=== PATIENT | male | born 1955 | race Caucasian/White ===

== ENCOUNTER 2018-08-11 19:49 | Emergency (ER) | payer MEDICARE, MEDICAID ==
[2018-08-11 19:59] VITALS: BP 146/77
--- NOTE | 2018-08-11 21:08 | UC ---
Hypertension HPI - HPI Summary HPI Summary: 63-year-old male who lives in a care home comes in with a chief complaint of hypertension. On routine blood pressure measuring this evening his systolic was in the 160s. He did receive his blood pressure medicine this eveninG. It appears that he is on losartan. He is on lithium. 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 Patient is asymptomatic. No complaint of chest pain or shortness of breath or edema. - History of Current Complaint Chief Complaint: UCGeneralIllness Stated Complaint: HBP Time Seen by Provider: 08/11/18 20:54 - Allergies/Home Medications Allergies/Adverse Reactions: Allergies Allergy/AdvReac Type Severity Reaction Status Date / Time egg Allergy Unknown Verified 08/11/18 20:22 Reaction Details ragweed pollen Allergy Unknown Verified 08/11/18 20:22 Reaction Details shellfish derived Allergy Unknown Verified 08/11/18 20:22 Reaction Details FLU VACCINE Allergy Unknown Uncoded 08/11/18 20:22 Reaction Details peanuts Allergy Anaphylatic Uncoded 08/11/18 20:22 Shock RID with comb Allergy Unknown Uncoded 08/11/18 20:22 Reaction Details shrimp Allergy Anaphylatic Uncoded 08/11/18 20:22 Shock TUNA Allergy Unknown Uncoded 08/11/18 20:22 Reaction Details Home Medications: Home Medications Amiloride HCl 5 mg PO DAILY 08/11/18 [History Confirmed 08/11/18] Aripiprazole Maintena (NF) [Abilify Maintena] 300 mg IM Q28D 08/11/18 [History Confirmed 08/11/18] [place] Carbonate 150 mg PO BID 08/11/18 [History Confirmed 08/11/18] Multivit-Minerals/Ferrous Gluc [Centrum Multivit-Mineral Liq] 5 ml PO DAILY [History Confirmed 08/11/18] Sertraline HCl [Zoloft] 100 mg PO DAILY 08/11/18 [History Confirmed 08/11/18] PMH/Surg Hx/FS Hx/Imm Hx Cardiovascular History: Hypertension - Surgical History Surgical History: None - Family History Known Family History: Positive: Unknown - Social History [place]: [place] Alcohol Use: None Substance Use Type: None Smoking Status (MU): Never Smoked Tobacco Review of Systems Constitutional: Negative Skin: Negative Eyes: Negative ENT: Negative Respiratory: Negative Cardiovascular: Negative Gastrointestinal: Negative Motor: Negative Neurovascular: Negative Musculoskeletal: Negative Neurological: Negative Psychological: Negative Is Patient Immunocompromised?: No All Other Systems Reviewed And Are Negative: Yes Physical Exam Triage Information Reviewed: Yes Appearance: Well-Appearing, No Pain Distress, Well-Nourished Vital Signs: Initial Vital Signs Temp 98.5 F 08/11/18 19:54 Pulse 61 08/11/18 19:54 Resp 16 08/11/18 19:54 BP 146/77 08/11/18 19:54 Pulse Ox 100 08/11/18 19:54 Vital Signs Reviewed: Yes Eye Exam: Normal Eyes: Positive: Conjunctiva Clear Neck exam: Normal Neck: Positive: Supple Respiratory Exam: Normal Respiratory: Positive: Lungs clear, Normal breath sounds, No respiratory distress Cardiovascular: Positive: RRR Musculoskeletal Exam: Normal Musculoskeletal: Positive: Strength Intact, ROM Intact, No Edema Neurological Exam: Normal Neurological: Positive: Alert, Muscle Tone Normal Psychological Exam: Normal Psychological: Positive: Age Appropriate Behavior Skin Exam: Normal Hypertension Course/Dx - Course Course Of Treatment: Blood pressure improved in clinic to 146/77. The patient is asymptomatic. Caregiver reports he had his blood work checked last week. The plan is for him to have his primary care doctor contacted tomorrow so they can make a decision if there is any need for any blood pressure indication modification or any lab work to be done. - Differential Dx/Diagnosis Provider Diagnoses: HYPERTENSION Discharge - Sign-Out/Discharge Documenting (check all that apply): Patient Departure All imaging exams completed and their final reports reviewed: No Studies - Discharge Plan Condition: Stable Disposition: HOME Patient Education Materials: Hypertension (ED) Referrals: Maine Guerra MD [Primary Care Provider] - Additional Instructions: FOLLOW UP WITH YOUR DOCTOR. CALL YOUR DOCTOR TOMORROW FOR FOLLOW UP. GET RECHECKED FOR ANY WORSENING OF YOUR CONDITION OR QUESTIONS OR CONCERNS. - Billing Disposition and Condition Condition: STABLE Disposition: Home
== END 2018-08-11 21:27 | disposition home or self-care (01) ==
LOC: UCEAST 19:49
DX: I10 Essential (primary) hypertension (principal); Z88.7 Allergy status to serum and vaccine; Z91.012 Allergy to eggs; Z91.010 Allergy to peanuts; Z91.013 Allergy to seafood
CPT/HCPCS: 99212; G0463

== ENCOUNTER 2019-07-21 15:04 | Emergency (ER) | payer MEDICARE, MEDICAID ==
[2019-07-21 16:16] LABS: Urine Appearance Clear; Urine Bacteria Absent (Absent); Urine Bilirubin Negative (Negative); Urine Blood 1+ (Negative); Urine Color Straw; Urine Glucose Negative (Negative); Urine Ketones Negative (Negative); Urine Nitrite Negative (Negative); Urine Protein Negative (Negative); Urine Red Blood Cell Trace(0-2/hpf) (Absent); Urine Specific Gravity 1.004 (1.010-1.030); Urine Urobilinogen Negative (Negative); Urine White Blood Cell Trace(0-5/hpf) (Absent)
[2019-07-21 16:46] LABS: ABS Basophils 0.1 10^3/ul (0-0.2); ABS Eosinophils 0.1 10^3/ul (0-0.6); ABS Lymphocytes 1.2 10^3/ul (1.0-4.8); ABS Monocytes 1.4 10^3/ul (0-0.8); ABS Neutrophils 11.9 10^3/ul (1.5-7.7); Eosinophil % 0.7 %; Hematocrit 34 % (42-52); Hemoglobin 11.3 g/dL (14.0-18.0); Mean Corpuscular HGB Conc 34 g/dL (31-36); Mean Corpuscular Hemoglobin 31 pg (27-31); Mean Corpuscular Volume 93 fL (80-94); Mean Platelet Volume 6.7 fL (7.4-10.4); Nucleated Red Blood Cells % 0.1; Platelet Count 305 10^3/uL (150-450); Red Blood Count 3.62 10^6 /uL (4.18-5.48); Red Cell Distribution Width 14 % (10-15); White Blood Count 14.6 10^3/uL (3.5-10.8)
[2019-07-21 17:07] LABS: Albumin/Globulin Ratio 1.4 (1-3); BUN/Creatinine Ratio 17.8 (8-20); Calcium 9.9 mg/dL (8.6-10.3); EGFR African American 32.6 (>60); Globulin 2.9 g/dL (2-4); Potassium 4.1 mmol/L (3.5-5.0); Total Bilirubin 0.4 mg/dL (0.2-1.0); Total Protein 6.9 g/dL (6.4-8.9)
[2019-07-21] MEDS ORDERED: Tamsulosin CAP* 0.4 MG PO ONE (17:28)
[2019-07-21 17:29] LABS: Lithium 0.74 mmol/L (0.6-1.2)
[2019-07-21 17:38] VITALS: BP 201/96
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
== END 2019-07-21 17:34 | disposition home or self-care (01) ==
LOC: ED 15:04
DX: Z91.5 Personal history of self-harm (principal); R39.198 Other difficulties with micturition; F31.9 Bipolar disorder, unspecified; F20.9 Schizophrenia, unspecified; E07.9 Disorder of thyroid, unspecified; I12.9 Hypertensive chronic kidney disease with stage 1 through stage 4 chronic kidney disease, or unspecified chronic kidney disease; N18.9 Chronic kidney disease, unspecified; J45.909 Unspecified asthma, uncomplicated; Z88.7 Allergy status to serum and vaccine; Z79.899 Other long term (current) drug therapy
CPT/HCPCS: 36415; 80053; 80178; 81003; 81015; 85025; 87086; 99282

== ENCOUNTER 2019-07-23 14:05 | Emergency (ER) | payer MEDICARE, MEDICAID ==
[2019-07-23 14:41] VITALS: BP 181/95
--- NOTE | 2019-07-23 14:47 | UC ---
Skin Complaint HPI - HPI Summary HPI Summary: 64-year-old male comes in with a chief complaint of an abrasion to the forehead and bridge of the nose and facial swelling. Patient has developmental delay and lives in a [facility] and sometimes he rubs his head on the wall and scratches it which he did last 2 days and created and abrasion on his forehead on his nose. They've been treating with bacitracin. Today noticed swelling underneath the eyes. No fever no difficulty breathing behaviors normal otherwise. - History of Current Complaint Chief Complaint: UCSkin Time Seen by Provider: 07/23/19 14:31 Stated Complaint: SKIN IRRITATION Pain Intensity: 0 - Allergy/Home Medications Allergies/Adverse Reactions: Allergies Allergy/AdvReac Type Severity Reaction Status Date / Time egg Allergy Unknown Verified 07/23/19 14:42 Reaction Details permethrin Allergy Unknown Verified 07/23/19 14:42 Reaction Details ragweed pollen Allergy Unknown Verified 07/23/19 14:42 Reaction Details shellfish derived Allergy Unknown Verified 07/23/19 14:42 Reaction Details FLU VACCINE Allergy Unknown Uncoded 07/23/19 14:42 Reaction Details peanuts Allergy Anaphylatic Uncoded 07/23/19 14:42 Shock RID with comb Allergy Unknown Uncoded 07/23/19 14:42 Reaction Details shrimp Allergy Anaphylatic Uncoded 07/23/19 14:42 Shock TUNA Allergy Unknown Uncoded 07/23/19 14:42 Reaction Details Home Medications: Home Medications Levothyroxine TAB* [Synthroid TAB*] 75 mcg PO 0800 07/23/19 [History Confirmed 07/23/19] Saliva Substitute Combo No.9 [Biotene Dry Mouth Mouthwa] 1 liq [place] BID PRN [History Confirmed 07/23/19] PMH/Surg Hx/FS Hx/Imm Hx Previously Healthy: Yes Endocrine History: Hypothyroidism Cardiovascular History: Hypertension - Surgical History Surgical History: None - Family History Known Family History: Positive: Unknown - Social History Alcohol Use: None Substance Use Type: None Smoking Status (MU): Never Smoked Tobacco Review of Systems All Other Systems Reviewed And Are Negative: Yes Constitutional: Positive: Negative Skin: Positive: Other - SEE HPI Eyes: Positive: Negative ENT: Positive: Negative Respiratory: Positive: Negative Cardiovascular: Positive: Negative Gastrointestinal: Positive: Negative Motor: Positive: Negative Neurovascular: Positive: Negative Musculoskeletal: Positive: Negative Neurological: Positive: Negative Psychological: Positive: Negative Is Patient Immunocompromised?: No Physical Exam Triage Information Reviewed: Yes Appearance: Well-Appearing, No Pain Distress, Well-Nourished Vital Signs: Initial Vital Signs Temp 99.4 F 07/23/19 14:38 Pulse 79 07/23/19 14:38 Resp 18 07/23/19 14:38 BP 181/95 07/23/19 14:38 Pulse Ox 100 07/23/19 14:38 Vital Signs Reviewed: Yes Eye Exam: Normal Eyes: Positive: Conjunctiva Clear ENT: Positive: Other - Patient is a 3 cm diameter abrasion on his forehead and a 1 cm wide and 2 cm long abrasion on his nose. There is some yellow crusting I took a culture of this. He has swelling underneath both of the eyes. No change in voice there is no swelling near his nose or mouth. Neck: Positive: Supple Respiratory: Positive: No respiratory distress Musculoskeletal: Positive: Strength Intact, ROM Intact Neurological: Positive: Alert Psychological: Positive: Normal Response To Family Skin: Positive: Other - Patient is a 3 cm diameter abrasion on his forehead and a 1 cm wide and 2 cm long abrasion on his nose. There is some yellow crusting I took a culture of this. He has swelling underneath both of the eyes. No change in voice there is no swelling near his nose or mouth. Course/Dx - Course Course Of Treatment: No known history of MRSA however arm starting doxycycline and mupirocin for the infection on the face. Also Benadryl for the swelling. No airway involvement at this time I let the caregivers know that if he got worse from an infection standpoint or from allergic reaction. He needs to be further evaluated in the emergency department. - Diagnoses Provider Diagnosis: Infected wound, Edema of face Discharge ED - Sign-Out/Discharge Documenting (check all that apply): Patient Departure All imaging exams completed and their final reports reviewed: No Studies - Discharge Plan Condition: Stable Disposition: HOME Prescriptions: diPHENhydraMINE PO* [Benadryl PO 50 MG CAP*] 50 mg PO TID PRN #30 cap PRN Reason: Allergy Symptoms DOXYcycline CAP(*) [DOXYcycline 100MG CAP(*)] 100 mg PO BID #20 cap Mupirocin 1 applic TOPICAL BID #22 gm Patient Education Materials: Wound Infection (ED), Acute Wound Care (ED), Edema (ED) Referrals: Maine Guerra MD [Primary Care Provider] - Additional Instructions: FOLLOW UP WITH YOUR DOCTOR. GO TO THE EMERGENCY DEPARTMENT IF DEBO'S CONDITION WORSENS; SPREAD OF INFECTION , FEVER, INCREASED FACIAL SWELLING, DIFFICULTY WITH SWALLOWING OR BREATHING OR ANY QUESTIONS OR CONCERNS. - Billing Disposition and Condition Condition: STABLE Disposition: Home
== END 2019-07-23 14:54 | disposition home or self-care (01) ==
LOC: UCEAST 14:05
DX: S00.81XA Abrasion of other part of head, initial encounter (principal); S00.31XA Abrasion of nose, initial encounter; L08.9 Local infection of the skin and subcutaneous tissue, unspecified; X58.XXXA Exposure to other specified factors, initial encounter; Y92.199 Unspecified place in other specified residential institution as the place of occurrence of the external cause; R60.0 Localized edema; E03.9 Hypothyroidism, unspecified; I10 Essential (primary) hypertension; Z91.012 Allergy to eggs; Z91.010 Allergy to peanuts; Z91.013 Allergy to seafood; Z88.8 Allergy status to other drugs, medicaments and biological substances; Z91.048 Other nonmedicinal substance allergy status
CPT/HCPCS: 87070; 87077; 87205; 99212; G0463

== ENCOUNTER 2019-07-30 07:08 | Inpatient (IN) | payer MEDICARE, MEDICAID ==
[2019-07-30 07:47] LABS: ABS Basophils 0.1 10^3/ul (0-0.2); ABS Eosinophils 0.2 10^3/ul (0-0.6); ABS Lymphocytes 0.8 10^3/ul (1.0-4.8); ABS Monocytes 1.4 10^3/ul (0-0.8); ABS Neutrophils 18.6 10^3/ul (1.5-7.7); Eosinophil % 0.8 %; Hematocrit 37 % (42-52); Hemoglobin 12.1 g/dL (14.0-18.0); Lymphocyte % 3.7 %; Mean Corpuscular HGB Conc 33 g/dL (31-36); Mean Corpuscular Hemoglobin 31 pg (27-31); Mean Corpuscular Volume 94 fL (80-94); Platelet Count 402 10^3/uL (150-450); Red Blood Count 3.91 10^6 /uL (4.18-5.48); Red Cell Distribution Width 14 % (10-15); White Blood Count 21.1 10^3/uL (3.5-10.8)
[2019-07-30] MEDS ORDERED: Haloperidol TAB* 5 MG PO ONE (07:55)
[2019-07-30 08:00] LABS: ALT 23 U/L (7-52); AST 34 U/L (13-39); Albumin 4.3 g/dL (3.2-5.2); Albumin/Globulin Ratio 1.4 (1-3); Alkaline Phosphatase 135 U/L (34-104); Anion Gap 6 mmol/L (2-11); Blood Urea Nitrogen 55 mg/dL (6-24); CO2 Carbon Dioxide 23 mmol/L (22-32); Calcium 10.8 mg/dL (8.6-10.3); Chloride 111 mmol/L (101-111); EGFR African American 28.1 (>60); EGFR Non-African American 23.3 (>60); Glucose 113 mg/dL (70-100); Potassium 4.5 mmol/L (3.5-5.0); Sodium 140 mmol/L (135-145); Total Protein 7.3 g/dL (6.4-8.9)
--- NOTE | 2019-07-30 08:05 | ED ---
Psychiatric Complaint - HPI Summary HPI Summary: Pt is a 64 y/o M presenting to the ED via EMS on a 941 for a psychiatric complaint. Pt is present with his half-way staff. Pt has been punching himself with this last episode of self-harm occurring on and off for one hour. Pt was mostly self-harming the left side of the head. Pts half-way staff states that pts tongue looks injured and pt admits his tongue hurts. Pt admits he has SI and headache. Pt denies any fever, chills, erythema of eyes, sore throat, CP, SOB, cough, abdominal pain, N/V, dysuria, hematuria, edema, rash, or dizziness. Pt states he harmed himself because he was upset. Pts half-way staff states pt previously told half-way staff he self-harmed for attention . Pt took acetaminophen one hour ago. Pts half-way staff states pt was seen at [facility] on 07/21/19 for self-harm. During the last visit on 07/21/19, pt was prescribed a medication that caused allergy as per half-way staff who does not know which medication the pt was prescribed. Pt has been taking another 2 medications as prescribed with applesauce. Pts half-way staff is unsure the names of the medications the pt currently takes. Pt resisted initial physical examination. Pt does not have a catheter placed. - History Of Current Complaint Chief Complaint: EDPsychosocial Time Seen by Provider: 07/30/19 07:23 Hx Obtained From: Patient, Family/Senior Reliability Engineer - long-term staff Onset/Duration: Lasting Hours, Still Present Timing: Hours Severity Initially: Moderate Severity Currently: Moderate Aggravating Factor(s): Nothing Alleviating Factor(s): Nothing Associated Signs And Symptoms: Positive: Negative Has Suicidal: Reports: Thoughts - Allergies/Home Medications Allergies/Adverse Reactions: Allergies Allergy/AdvReac Type Severity Reaction Status Date / Time peanut Allergy Severe Anaphylatic Verified 08/08/19 06:59 Shock shrimp Allergy Severe Anaphylatic Verified 08/08/19 06:59 Shock influenza virus vaccine qs Allergy Unknown Unknown Verified 08/08/19 06:59 [id number] (36 mos, up) Reaction [From Fluarix Quad] Details piperonyl butoxide Allergy Unknown Unknown Verified 08/08/19 06:59 [From RID Complete Lice [place] Reaction Kit] Details pyrethrins Allergy Unknown Unknown Verified 08/08/19 06:59 [From RID Complete Lice [place] Reaction Kit] Details tuna oil Allergy Unknown Unknown Verified 08/08/19 06:59 Reaction Details egg Allergy Unknown Verified 08/08/19 06:59 Reaction Details permethrin Allergy Unknown Verified 08/08/19 06:59 Reaction Details ragweed pollen Allergy Unknown Verified 08/08/19 06:59 Reaction Details shellfish derived Allergy Unknown Verified 08/08/19 06:59 Reaction Details Home Medications: Home Medications Oral Rinse (Biotene)(NF) [Biotene Dry Mouth Oral Rinse(NF)] 10 ml SWISH SPIT BID 07/30/19 [History Confirmed 07/30/19] PMH/Surg Hx/FS Hx/Imm Hx Previously Healthy: Yes Endocrine/Hematology History: Reports: Hx Thyroid Disease Denies: Hx Diabetes Cardiovascular History: Reports: Hx Hypertension Respiratory History: Reports: Hx Asthma Denies: Hx Chronic Obstructive Pulmonary Disease (COPD) GI History: Denies: Hx Ulcer Neurological History: Reports: Hx Developmental Delay Psychiatric History: Reports: Hx Schizophrenia, Hx of Violent Episodes Against Others Denies: Hx Eating Disorder Infectious Disease History: No Infectious Disease History: Reports: Hx of Known/Suspected MRSA - urine October 2013 Denies: Hx Clostridium Difficile, Hx Hepatitis, Hx Human Immunodeficiency Virus (HIV), Hx Shingles, Hx Tuberculosis, History Other Infectious Disease, Traveled Outside the [place] in Last 30 Days - Family History Known Family History: Negative: Diabetes - Social History Alcohol Use: None Hx Substance Use: No Substance Use Type: Reports: None Hx Tobacco Use: No Smoking Status (MU): Never Smoked Tobacco Review of Systems Negative: Fever, Chills Negative: Erythema Negative: Sore Throat Negative: Chest Pain Negative: Shortness Of Breath, Cough Negative: Abdominal Pain, Vomiting, Nausea Negative: dysuria, hematuria Positive: Myalgia - Tongue. Negative: Edema Positive: Other - Injury to head. Negative: Rash Neurological: Other - Negative dizziness Positive: Headache Positive: Other - Positive SI All Other Systems Reviewed And Are Negative: Yes Physical Exam - Summary Physical Exam Summary: Constitutional: Well-developed, Well-nourished, Alert. (-) Distressed Skin: Warm, Dry HENT: Normocephalic; Redness over frontal scalp, excoriated area over left ventral forearm, dried blood from right nare, abrasion over bridge of nose, oral thrush Eyes: Conjunctiva normal Neck: Musculoskeletal ROM normal neck. (-) JVD, (-) Stridor, (-) Tracheal deviation Cardio: Rhythm regular, rate normal, Heart sounds normal; Intact distal pulses; The pedal pulses are 2+ and symmetric. Radial pulses are 2+ and symmetric. (-) Murmur Pulmonary/Chest wall: Effort normal. (-) Respiratory distress, (-) Wheezes, (-) Rales Abd: Soft, (-) tenderness, (-) Distension, (-) Guarding, (-) Rebound Musculoskeletal: (-) Edema Lymph: (-) Cervical adenopathy Neuro: Alert, Oriented x3 Psych: Mood and affect Normal Triage Information Reviewed: Yes Vital Signs On Initial Exam: Initial Vitals Temp Pulse Resp BP Pulse Ox 98.2 F 78 18 130/82 98 07/30/19 07:22 07/30/19 07:22 07/30/19 07:22 07/30/19 07:22 07/30/19 07:22 Vital Signs Reviewed: Yes Procedures - Sedation Patient Received Moderate/Deep Sedation with Procedure: No Diagnostics - Vital Signs Vital Signs Temp Pulse Resp BP Pulse Ox 07/30/19 07:22 98.2 F 78 18 130/82 98 - Laboratory Lab Results: Lab Results 07/30/19 Range/Units 07:35 WBC 21.1 H (3.5-10.8) 10^3/uL RBC 3.91 L (4.18-5.48) 10^6 /uL Hgb 12.1 L (14.0-18.0) g/dL Hct 37 L (42-52) % MCV 94 (80-94) fL MCH 31 (27-31) pg MCHC 33 (31-36) g/dL RDW 14 (10-15) % Plt Count 402 (150-450) 10^3/uL MPV 7.0 L (7.4-10.4) fL Neut % (Auto) 88.2 % Lymph % (Auto) 3.7 % [place] % (Auto) 6.8 % Eos % (Auto) 0.8 % Baso % (Auto) 0.5 % Absolute Neuts (auto) 18.6 H (1.5-7.7) 10^3/ul Absolute Lymphs (auto) 0.8 L (1.0-4.8) 10^3/ul Absolute Monos (auto) 1.4 H (0-0.8) 10^3/ul Absolute Eos (auto) 0.2 (0-0.6) 10^3/ul Absolute Basos (auto) 0.1 (0-0.2) 10^3/ul Absolute Nucleated RBC 0.0 10^3/ul Nucleated RBC % 0.0 Result Diagrams: 08/04/19 05:32 08/04/19 05:32 Lab Statement: Any lab studies that have been ordered have been reviewed, and results considered in the medical decision making process. - Radiology Chest x-ray Radiology Interpretation Completed By: Radiologist Summary of Radiographic Findings: Chest x-ray IMPRESSION: LOW LUNG VOLUMES, NO EVIDENCE FOR ACUTE FINDING. Reviewed by ED physician. - CT Brain CT CT Interpretation Completed By: Radiologist Summary of CT Findings: Brain CT IMPRESSION: #. No CT evidence for traumatic brain injury or acute intracranial process. #. Maxillary mucosal sinus disease similar to the prior exam. Reviewed by ED physician. Maxillofacial CT CT Interpretation Completed By: Radiologist Summary of CT Findings: Maxillofacial CT IMPRESSION: NO ACUTE FACIAL FRACTURE. MODERATE SINUS MUCOSAL INFLAMMATORY DISEASE, WITH AIR-FLUID LEVELS IN THE RIGHT FRONTAL. AND LEFT MAXILLARY SINUS. IN THE CORRECT CLINICAL SETTING, THIS MAY REPRESENT ACUTE. SINUSITIS. Reviewed by ED physician. Re-Evaluation - Re-Evaluation 1st re-eval Comment: At 12:56, I updated the caregivers; 500 ml of urine in bladder with significant blood clots. Course/Dx - Course Course Of Treatment: Pt is a 64 y/o M presenting to the ED via EMS on a 941 for a psychiatric complaint. Pt is present with his half-way staff. Pt has been punching himself with this last episode of self-harm occurring on and off for one hour. Pt was mostly self-harming the left side of the head. Pts half-way staff states that pts tongue looks injured and pt admits his tongue hurts. Pt admits he has SI and headache. Pt denies any fever, chills, erythema of eyes, sore throat, CP, SOB, cough, abdominal pain, N/V, dysuria, hematuria, edema, rash, or dizziness. Pt states he harmed himself because he was upset. Pts half-way staff states pt previously told half-way staff he self-harmed for attention. Pt took acetaminophen one hour ago. Pts half-way staff states pt was seen at [facility] on 07/21/19 for self-harm. During the last visit on 07/21/19, pt was prescribed a medication that caused allergy as per half-way staff who does not know which medication the pt was prescribed. Pt has been taking another 2 medications as prescribed with applesauce. Pts half-way staff is unsure the names of the medications the pt currently takes. Pt resisted initial physical examination. Pt does not have a catheter placed. On exam, pt had redness over frontal scalp, excoriated area over left ventral forearm, dried blood from right nare, abrasion over bridge of nose, oral thrush. Pt will be assessed by rn medical surgical. In the ED course, pt was given Haloperidol 5 mg PO. At 12:56, I updated the caregivers; 500 ml of urine in bladder with significant blood clots. Laboratory abnormal findings: WBC 21.1, RBC 3.91, Hgb 12.1, Hct 37 , MPV 7.0, Absolute Neuts 18.6, Absolute Lymphs 0.8, absolute Monos 1.4, BUN 55 , creatinine 2.75, Glucose 113, Calcium 10.8, Alkaline phosphatase 135, urine specific gravity 1.008, urine blood 1+, urine squamous epith cells present. Brain CT IMPRESSION: #. No CT evidence for traumatic brain injury or acute intracranial process. #. Maxillary mucosal sinus disease similar to the prior exam. Maxillofacial CT IMPRESSION: NO ACUTE FACIAL FRACTURE. MODERATE SINUS MUCOSAL INFLAMMATORY DISEASE, WITH AIR-FLUID LEVELS IN THE RIGHT FRONTAL. AND LEFT MAXILLARY SINUS. IN THE CORRECT CLINICAL SETTING, THIS MAY REPRESENT ACUTE. SINUSITIS. Chest x-ray IMPRESSION: LOW LUNG VOLUMES, NO EVIDENCE FOR ACUTE FINDING. Pt will be admitted to [facility] with a diagnosis of self-injurious behavior, urinary retention, hematuria. - Differential Dx/Clinical Impression Provider Diagnosis: Self-injurious behavior, Urinary retention, Hematuria Discharge ED - Sign-Out/Discharge Documenting (check all that apply): Patient Departure - Discharge Plan Condition: Stable Disposition: ADMITTED TO [facility] - Attestation Statements Document Initiated by Scribe: Yes Documenting Scribe: Doris Meneses Provider For Whom Scribe is Documenting (Include Credential): Kwame Kay MD Scribe Attestation: I, Doris Amquy, scribed for Kwame Kay MD on 08/17/19 at 1026. Status of Scribe Document: Ready
[2019-07-30 08:45] LABS: Urine Appearance Clear; Urine Bacteria Absent (Absent); Urine Bilirubin Negative (Negative); Urine Blood 1+ (Negative); Urine Color Straw; Urine Glucose Negative (Negative); Urine Ketones Negative (Negative); Urine Nitrite Negative (Negative); Urine Protein Negative (Negative); Urine Red Blood Cell Trace(0-2/hpf) (Absent); Urine Specific Gravity 1.008 (1.010-1.030); Urine Squamous Epithelial Cell Present (Absent); Urine Urobilinogen Negative (Negative); Urine White Blood Cell Trace(0-5/hpf) (Absent)
[2019-07-30 08:54] LABS: Urine Benzodiazepine Screen None Detected (None Detect); Urine Opiates Screen None Detected (None Detect)
[2019-07-30 08:59] LABS: TSH (Thyroid Stimulating Horm) 4.74 mcIU/mL (0.34-5.60)
[2019-07-30 09:18] LABS: Acetaminophen < 15 mcg/mL; Alcohol < 10 mg/dL (<10); Lithium 0.89 mmol/L (0.6-1.2); Salicylate < 2.50 mg/dL (<30)
[2019-07-30] MEDS ORDERED: NS 0.9% 1000 ML** 1,000 ML IV ONE (10:28)
[2019-07-30] MEDS ORDERED: Doxazosin TAB* 2 MG PO ONE (12:20)
[2019-07-30] MEDS ORDERED: cefTRIAXone(*) 1 GM in NS 0.9% 50 ML* 50 ML IVPB ONE (12:21)
[2019-07-30] MEDS ORDERED: Acetaminophen TAB* 325 MG PO ONE (14:19)
[2019-07-30 14:36] LABS: Free T4 1.14 ng/dL (0.61-1.12)
[2019-07-30] MEDS ORDERED: cefTRIAXone(*) 1 GM in NS 0.9% 50 ML* 50 ML IVPB SCH (15:57)
[2019-07-30] MEDS ORDERED: Ondansetron INJ* 2 MG/ML VIAL IV PRN (16:33)
[2019-07-30] MEDS ORDERED: Magnesium Hydroxide LIQ* 30 ML UDC PO PRN (16:49)
[2019-07-30] MEDS ORDERED: Triazolam TAB* 0.25 MG PO SCH (17:00)
--- NOTE | 2019-07-30 17:15 | PN ---
Subjective Date of Service: 07/30/19 Interval History: Pt is a 64 y/o male presented to ED for altered mental status since 07/21/2019. Patient is a poor historian, history was obtained from his nursing home staff and his brother Dagoberto. He was staying in his nursing home for decades, he got along with staffs well despite multiple psychiatric problems including biopolar, schizophrenia, and autism. He was found to be irritated and hurting himself on and off since 07/21/2019. He rubbed his head on the wall and scratched it causing abrasion on forehead, nose, and left forearm. He visited urgent care and then ED on 07/21/2019, where doxycyline was given for potential infection in abrasion site; He was also found to have urine retention for which straight cath was done, tamsulosin was given but was stopped due to reaction of swelling. He had been punching himself again today, thus was sent to the ED again. According to the staff, he was distinctly different from his usual. Even during his colleen phase, he would talk and walk a lot but never hurt himself and punch himself. His brother who had better communication with patient admitted that he had pointed abdominal pain and headache. No fever, chills, no cough, no chest pain was noted in nursing home. In ED, Smith catheter was inserted but the balloon was inflated within the penis found in ED. Thus Smith was replaced. Gross Hematuria in urine bag was noted when I went to see the patient, not sure when it exactly started. Objective Active Medications: Acetaminophen (Tylenol Tab*) 650 mg PO Q4H PRN PRN Reason: PAIN - MILD Aripiprazole (Abilimirian Maintena (Nf)) 400 mg IM MONTHLY MARY Bacitracin (Bacitracin Ointment*) 1 applic TOPICAL BID MARY Haloperidol (Haldol Tab*) 5 mg PO TID MARY Ceftriaxone Sodium 1 gm/ (Sodium Chloride) 50 mls @ 100 mls/hr IVPB Q24H MARY Ipratropium [place] (Ipratropium [place]) 2 spray BOTH NARES QID MARY Levothyroxine Sodium (Synthroid Tab*) 75 mcg PO 0800 MARY [place] Carbonate ([place] Carbonate Cap) 150 mg PO BID MARY Magnesium Hydroxide (Milk Of Magnesia Liq*) 30 ml PO DAILY PRN PRN Reason: CONSTIPATION Multivitamins (Theragran W/Minerals Liq*) 5 ml PO DAILY MARY Mupirocin (Bactroban 2 % Oint*) 1 applic TOPICAL BID MARY Olanzapine (Zyprexa Tab*) 15 mg PO BID MARY Ondansetron HCl (Zofran Inj*) 4 mg IV Q4H PRN PRN Reason: NAUSEA/VOMITING Polyethylene Glycol/Electrolytes (Miralax*) 17 gm PO DAILY MARY Sertraline HCl (Zoloft*) 100 mg PO BEDTIME MARY Trazodone HCl (Desyrel Tab*) 100 mg PO BEDTIME MARY Triazolam (Halcion Tab*) 0.5 mg PO ONCE MARY Vital Signs - 8 hr 07/30/19 07/30/19 12:11 15:14 Temperature 97.7 F 98.4 F Pulse Rate 87 Respiratory 14 Rate Blood Pressure 194/108 (mmHg) O2 Sat by Pulse 100 Oximetry Result Diagrams: 07/30/19 07:35 07/30/19 07:35 Additional Lab and Data: Lab Results 07/30/19 Range/Units 07:35 WBC 21.1 H (3.5-10.8) 10^3/uL RBC 3.91 L (4.18-5.48) 10^6 /uL Hgb 12.1 L (14.0-18.0) g/dL Hct 37 L (42-52) % MCV 94 (80-94) fL MCH 31 (27-31) pg MCHC 33 (31-36) g/dL RDW 14 (10-15) % Plt Count 402 (150-450) 10^3/uL MPV 7.0 L (7.4-10.4) fL Neut % (Auto) 88.2 % Lymph % (Auto) 3.7 % [place] % (Auto) 6.8 % Eos % (Auto) 0.8 % Baso % (Auto) 0.5 % Absolute Neuts (auto) 18.6 H (1.5-7.7) 10^3/ul Absolute Lymphs (auto) 0.8 L (1.0-4.8) 10^3/ul Absolute Monos (auto) 1.4 H (0-0.8) 10^3/ul Absolute Eos (auto) 0.2 (0-0.6) 10^3/ul Absolute Basos (auto) 0.1 (0-0.2) 10^3/ul Absolute Nucleated RBC 0.0 10^3/ul Nucleated RBC % 0.0 Assess/Plan/Problems-Billing Assessment:
--- NOTE | 2019-07-30 17:25 | HP ---
History of Present Illness - History of Present Illness Reason for Visit: Altered Mental Status History of Present Illness: Pt is a 64 y/o male presented to ED for altered mental status since 07/21/2019. Patient is a poor historian, history was obtained from his senior care staff and his brother Dagoberto. He was staying in his senior care for decades, he got along with staffs well despite multiple psychiatric problems including biopolar, schizophrenia, and autism. He was found to be irritated and hurting himself on and off since 07/21/2019. He rubbed his head on the wall and scratched it causing abrasion on forehead, nose, and left forearm. He visited urgent care and then ED on 07/21/2019, where doxycyline was given for potential infection in abrasion site; He was also found to have urine retention for which straight cath was done, tamsulosin was given but was stopped due to reaction of swelling. He had been punching himself again today, thus was sent to the ED again. According to the staff, he was distinctly different from his usual. Even during his colleen phase, he would talk and walk a lot but never hurt himself and punch himself. His brother who had better communication with patient admitted that he had pointed abdominal pain and headache. No fever, chills, no cough, no chest pain was noted in senior care. In ED, Lundberg catheter was inserted but the balloon was inflated within the penis found in ED. Thus Lundberg was replaced. Gross Hematuria in urine bag was noted when I went to see the patient, not sure when it exactly started. CT brain neg, maxillofacial CT showed acute sinusitis changes. Abdomen/pelvis CT showed subcutaneous emphesema in penis and inflated balloon in penis. CBC: TW 21.1, Hb 12.1, plt 402; electrolytes normal except mildly elevated creatnine at 2.75. urinanalysis: 1+ blood. absent bacteria. drug tox screen neg. - Past Medical History Past Medical History: 1. Intellectual disability 2. Autism 3. Bipolar Disorder 4. Schizophrenia 5. GERD - Past Surgical History Past Surgical History: None - Past Family History Past Family History: Not contributory. No significant genetic disease or cancer in family. - Past Social History Past Social History: Lives in Shelter for decades. Family is actively involved in his care. His brother Hi is the main contact, but there is no designated HCP on file according to Dagoberto. Dagoberto will be the main contact after discussing with the other brother, his phone contact is [phone]. Full code. No smoking, no alcohol use, no substance use. Review of Systems - Review of Systems Constitutional: Negative: Fever, Chills, Sweats, Weakness, Malaise, Other Eyes: Negative: Pain, Vision Change, Conjunctivae Inflammation, Eyelid Inflammation, Redness, Other ENT: Positive: Nose Pain. Negative: Ear Pain, Ear Discharge, Nose Discharge, Nose Congestion, Mouth Pain, Mouth Swelling, Throat Pain, Throat Swelling, Other Respiratory: Negative: Cough, Dry, Shortness of Breath, Hemoptysis, SOB with Excertion, Pleuritic Pain, Sputum, Wheezing Cardiovascular: Negative: Chest Pain, Palpitations, Orthopnea, Paroxysmal Noc. Dyspnea, Edema, Light Headedness, Other Gastrointestinal: Positive: Nausea, Abdominal Pain. Negative: Vomiting, Diarrhea, Constipation, Melena, Hematochezia, Other Genitourinary: Positive: Hematuria, Retention. Negative: Dysuria, Frequency, Incontinence, Other Musculoskeletal: Negative: Neck Pain, Shoulder Pain, Arm Pain, Back Pain, Hand Pain, Leg Pain, Foot Pain, Other Skin: Positive: Bruising, Other - laceration on nose bridge and forehead, laceration with surrouding erythema on left wrist. Negative: Rash, Lesions, Oniel Neurological: Negative: Weakness, Numbness, Incoordination, Change in Speech, Confusion, Seizures, Other - Medications/Allergies Allergies/Adverse Reactions: Allergies Allergy/AdvReac Type Severity Reaction Status Date / Time peanut Allergy Severe Anaphylatic Verified 07/30/19 08:40 Shock shrimp Allergy Severe Anaphylatic Verified 07/30/19 08:40 Shock influenza virus vaccine qs Allergy Unknown Unknown Verified 07/30/19 08:40 [id number] (36 mos, up) Reaction [From Fluarix Quad] Details piperonyl butoxide Allergy Unknown Unknown Verified 07/30/19 08:40 [From RID Complete Lice [place] Reaction Kit] Details pyrethrins Allergy Unknown Unknown Verified 07/30/19 08:40 [From RID Complete Lice [place] Reaction Kit] Details tuna oil Allergy Unknown Unknown Verified 07/30/19 08:40 Reaction Details egg Allergy Unknown Verified 07/23/19 14:42 Reaction Details permethrin Allergy Unknown Verified 07/23/19 14:42 Reaction Details ragweed pollen Allergy Unknown Verified 07/23/19 14:42 Reaction Details shellfish derived Allergy Unknown Verified 07/23/19 14:42 Reaction Details Medications: Current Medications Acetaminophen (Tylenol Tab*) 650 mg PO Q4H PRN PRN Reason: PAIN - MILD Aripiprazole (Abilify Maintena (Nf)) 400 mg IM MONTHLY MARY Bacitracin (Bacitracin Ointment*) 1 applic TOPICAL BID MARY Haloperidol (Haldol Tab*) 5 mg PO TID MARY Ceftriaxone Sodium 1 gm/ (Sodium Chloride) 50 mls @ 100 mls/hr IVPB Q24H MARY Ipratropium [place] (Ipratropium [place]) 2 spray BOTH NARES QID MARY Levothyroxine Sodium (Synthroid Tab*) 75 mcg PO 0800 MARY [place] Carbonate ([place] Carbonate Cap) 150 mg PO BID MARY Magnesium Hydroxide (Milk Of Magnesia Liq*) 30 ml PO DAILY PRN PRN Reason: CONSTIPATION Multivitamins (Theragran W/Minerals Liq*) 5 ml PO DAILY MARY Mupirocin (Bactroban 2 % Oint*) 1 applic TOPICAL BID MARY Olanzapine (Zyprexa Tab*) 15 mg PO BID MARY Ondansetron HCl (Zofran Inj*) 4 mg IV Q4H PRN PRN Reason: NAUSEA/VOMITING Polyethylene Glycol/Electrolytes (Miralax*) 17 gm PO DAILY MARY Sertraline HCl (Zoloft*) 100 mg PO BEDTIME MARY Trazodone HCl (Desyrel Tab*) 100 mg PO BEDTIME MARY Triazolam (Halcion Tab*) 0.5 mg PO ONCE MARY Exam Vital Signs: Vital Signs (72 hours) 07/30/19 07/30/19 07/30/19 07:22 12:11 15:14 Temperature 98.2 F 97.7 F 98.4 F Pulse Rate 78 87 Respiratory 18 14 Rate Blood Pressure 130/82 194/108 (mmHg) O2 Sat by Pulse 98 100 Oximetry Exam: Appearance: Not in acute distress,able to answer simple questions when raised up by his brother Eyes: No Scleral Icterus Ears/Nose/Mouth/Throat: NL Teeth, Lips, Gums Neck: NL Appearance and Movements; NL JVP Respiratory: Symmetrical Chest Expansion and Respiratory Effort Cardiovascular: RRR, no murmur. Abdominal: NL Sounds; No Distention; no tenderness, bladder not palpable Lymphatic: No Cervical Adenopathy Extremities: No Edema Skin: scab and bruising on forehead and nose bridge, laceration with surrounding erythema on left wrist Neurological: unable to cooperate full neurological examination. oriented to place, not time and person able to move 4 limbs spontaneously Mood: stable Assessment/Plan - Assessment/Plan Assessment: 64 y/o male with complicated psychiatric history presented with altered mental status for 1 week, found to have urinary retention, hematuria and leukocytosis. Plan: 1. Altered mental status - likely causes including delirium due to infection, Acute Colleen, schizophrenia relapse - more likely delirium at this moment in view of acute onset - 1:1 observation according to psy - restart old med - reorient patient 2. Urine retention - Could due to UTI or underlying BPH or both - Lundberg was inserted in ED - Ensure Bowel movement 3. Leukocytosis - likely infection related, source unclear at this moment, likely source will be urine - blood culture and urine cs taken - start iv ceftriaxone - of note, subcutaneous emphesema noted in penis as reported in CTAP. Consulted Urologist Shaina over phone, he thinks it's common changes after inserting lundberg catheter. 4. Gross hematuria - unclear cause, infection, decompression hematuria caused by rapid drainage, trauma due to lundberg insertion - on bladder irrigation currently - watch for post compression diuresis - check H&H Q6h - strict I/O, iv fluid if pure urine output> 2L (exclude irrigation) 5. DVT prophylaxis - compression device - avoid heparin due to gross hematuria Attestation Documenting Resident: Kim Castillo Supervising Physician: Giovanni Salinas Attending/Supervising Physician Comment: Agree with plan as outlined in Dr. Hobbs note from today unless indicated here. 64M h/o developmental delay who resides at the [facility] developed violence towards staff was seen in ED 07/21 and thought to have urinary retention, started on tamsulosin to which he had an adverse or allergic rxn to, returned to urgent care and was started on doxycycline for suspected soft tissue infection on face and arm now returning with AMS (self injury) found again with urinary retention. Lundberg placed but noted in urethra, repositioned with development of gross hematuria. AMS - suspected metabolic encephalophathy in setting of suspected urinary tract infection. Suspected UTI possible contributor to retention or a result of retention. Ceftriaxone and follow urine and Bcxs. Less likely sinus infx (see CT head) but will keep on differential if other cultures are negative. Hematuria in setting of infection or trauma from lundberg placement. Urology contacted on phone regarding emphysema identified on CT which was not identified as a concern in of itself. Continue with continuous bladder irrigation and serial H/Hs. Attestation: This service has been performed in part by a resident under the direction of a teaching physician.I, Giovanni Salinas, performed the service, or was physically present during the critical, or cadet portions of the service, furnished by the resident. I participated in the management of the patient.
[2019-07-30 19:23] LABS: Hematocrit 31 % (42-52); Hemoglobin 10.1 g/dL (14.0-18.0)
[2019-07-30] MEDS: Sertraline* 100 MG TAB PO SCH (21:08)
[2019-07-30] MEDS: traZODone TAB* 100 MG PO SCH (21:09)
[2019-07-30] MEDS: Haloperidol TAB* 5 MG PO SCH (21:09)
[2019-07-30] MEDS: OLANzapine TAB* 10 MG PO SCH (21:49)
[2019-07-30] MEDS: Lithium Carbonate CAP 150 MG ** CAPSULE PO SCH (21:50)
[2019-07-30] MEDS: Mupirocin 2% OINT* TUBE TOPICAL SCH (21:51)
[2019-07-30] MEDS: Bacitracin OINTMENT* 0.5% 0.5 oz TUBE TOPICAL SCH (21:51)
[2019-07-30] MEDS: Acetaminophen TAB* 325 MG PO PRN (21:59)
[2019-07-31 01:02] LABS: Hematocrit 30 % (42-52); Hemoglobin 10.1 g/dL (14.0-18.0)
[2019-07-31] MEDS: Levothyroxine TAB* 75 MCG TAB PO SCH (06:11)
[2019-07-31 06:48] LABS: Hematocrit 31 % (42-52); Hemoglobin 10.5 g/dL (14.0-18.0); Mean Corpuscular HGB Conc 34 g/dL (31-36); Mean Corpuscular Hemoglobin 32 pg (27-31); Mean Corpuscular Volume 94 fL (80-94); Mean Platelet Volume 7.1 fL (7.4-10.4); Platelet Count 276 10^3/uL (150-450); Red Blood Count 3.26 10^6 /uL (4.18-5.48); Red Cell Distribution Width 14 % (10-15); White Blood Count 22.1 10^3/uL (3.5-10.8)
[2019-07-31 06:49] LABS: Hematocrit 31 % (42-52); Hemoglobin 10.2 g/dL (14.0-18.0)
[2019-07-31 06:56] LABS: ABS Eosinophils 0.7 10^3/ul (0-0.6); ABS Lymphocytes 1.2 10^3/ul (1.0-4.8); ABS Monocytes 1.6 10^3/ul (0-0.8); ABS Neutrophils 18.5 10^3/ul (1.5-7.7); Eosinophil % 3.3 %; Lymphocyte % 5.5 %
[2019-07-31 07:12] LABS: BUN/Creatinine Ratio 19.4 (8-20); Calcium 9.5 mg/dL (8.6-10.3); EGFR Non-African American 30.6 (>60); Potassium 4.3 mmol/L (3.5-5.0)
--- NOTE | 2019-07-31 07:54 | PN ---
Hospitalist Progress Note Date of Service: 07/31/19 Subjective- Pt w past med hx of bipolar, schizo, autism. Altered mental status since 07/21. Irritated and hurting himself (rubbed face aginst wall and arm)(doxy was given for abrasion). Also found to have urine retention. Also had abdominal pain and headache. Pt diffucult to interact w/. Aid Tiesha was there. When I asked if abdominal pain and pain w/ urination pateint repeated what I said. But aid says he has been repeating what everyone has been saying. overnight-pt pulled cath out now is using diaper. Objective vitals- temp-98.2 heart rate- 82 resp rate-17 O2 sat-100 BP-149/81 exam- pt did not answer the date correct. knew in hospital and knew name. Pt repeated what i said lungs-clear to ausc heart-regular rate and rhythm extremitties- scab on arm -abdominal-normal no distension -unable to coop w/ neuro exam WBC-22.1 RBC-3.26 HgB-10.2 Hct-31 MCH-32 MPV-7.1 abs neutrophils- 18.5 abs mono-1.6 abs eos-.7 Cl-117 CO2-21 BUN-42 Creat-2.17 bun creat-19.4 (normal) gluvose-110 EKG- abd/pelvis ct- lundberg cath inflated in penis. emphysema in penis chest x-ray-no acute findings maxillofacial CT- moderate sinus mucosal inflmmation. air fluid in right frontal and left maxillary sinus (acute sinusitis) brain CT-no brain injury
[2019-07-31] MEDS: amLODIPine TAB* 5 MG PO SCH ×2 (09:28→09:33)
[2019-07-31] MEDS: Acetaminophen TAB* 325 MG PO PRN ×2 (09:32→17:35)
[2019-07-31] MEDS: Haloperidol TAB* 5 MG PO SCH ×3 (09:33→20:19)
[2019-07-31] MEDS: OLANzapine TAB* 10 MG PO SCH ×2 (09:33→20:19)
[2019-07-31] MEDS: Lithium Carbonate CAP 150 MG ** CAPSULE PO SCH ×2 (09:33→20:19)
[2019-07-31] MEDS: Polyethylene Glycol 3350* 17 GM PACKET PO SCH (09:37)
[2019-07-31] MEDS: Multivitamins ADULT w/MIN LIQ* 15 ML UDC PO SCH (09:41)
[2019-07-31] MEDS: Bacitracin OINTMENT* 0.5% 0.5 oz TUBE TOPICAL SCH ×2 (09:42→20:19)
[2019-07-31] MEDS: Mupirocin 2% OINT* TUBE TOPICAL SCH ×2 (09:42→20:21)
[2019-07-31] MEDS: IPRATROPIUM BR (NF)0.06% NASAL 1 SPRAY BTL BOTH NARES SCH ×3 (09:42→16:49)
[2019-07-31] MEDS: cefTRIAXone(*) 1 GM in NS 0.9% 50 ML* 50 ML IVPB SCH (13:47)
--- NOTE | 2019-07-31 14:10 | PN ---
Subjective Date of Service: 07/31/19 Interval History: Family and his carer reflected that patient looked much improved, back to his usual self. No fever, no chills overnight. Noted overnight, lundberg catheter fell off, and not reinserted. bladder scan at 3am is 339ml. Objective Active Medications: Acetaminophen (Tylenol Tab*) 650 mg PO Q4H PRN PRN Reason: PAIN - MILD Last Admin: 07/31/19 09:32 Dose: 650 mg Amlodipine Besylate (Norvasc Tab*) 10 mg PO DAILY [facility] Last Admin: 07/31/19 09:33 Dose: 10 mg Aripiprazole (Abilify [place] (Nf)) 400 mg IM MONTHLY [facility] Bacitracin (Bacitracin Ointment*) 1 applic TOPICAL BID [facility] Last Admin: 07/31/19 09:42 Dose: 1 dose Haloperidol (Haldol Tab*) 5 mg PO TID [facility] Last Admin: 07/31/19 13:47 Dose: 5 mg Ceftriaxone Sodium 1 gm/ (Sodium Chloride) 50 mls @ 100 mls/hr IVPB Q24H [facility] Last Admin: 07/31/19 13:47 Dose: 100 mls/hr Ipratropium [place] (Ipratropium [place]) 2 spray BOTH NARES QID [facility] Last Admin: 07/31/19 13:46 Dose: Not Given Levothyroxine Sodium (Synthroid Tab*) 75 mcg PO 0600 [facility] Last Admin: 07/31/19 06:11 Dose: 75 mcg [place] Carbonate ([place] Carbonate Cap) 150 mg PO BID [facility] Last Admin: 07/31/19 09:33 Dose: 150 mg Magnesium Hydroxide (Milk Of Magnesia Liq*) 30 ml PO DAILY PRN PRN Reason: CONSTIPATION Multivitamins (Theragran W/Minerals Liq*) 5 ml PO DAILY [facility] Last Admin: 07/31/19 09:41 Dose: 5 ml Mupirocin (Bactroban 2 % Oint*) 1 applic TOPICAL BID [facility] Last Admin: 07/31/19 09:42 Dose: 1 dose Olanzapine (Zyprexa Tab*) 15 mg PO BID [facility] Last Admin: 07/31/19 09:33 Dose: 15 mg Ondansetron HCl (Zofran Inj*) 4 mg IV Q4H PRN PRN Reason: NAUSEA/VOMITING Polyethylene Glycol/Electrolytes (Miralax*) 17 gm PO DAILY [facility] Last Admin: 07/31/19 09:37 Dose: 17 gm Sertraline HCl (Zoloft*) 100 mg PO BEDTIME [facility] Last Admin: 07/30/19 21:08 Dose: 100 mg Trazodone HCl (Desyrel Tab*) 100 mg PO BEDTIME [facility] Last Admin: 07/30/19 21:09 Dose: 100 mg Vital Signs - 8 hr 07/31/19 07/31/19 07/31/19 07:15 09:00 11:15 Temperature 98.2 F 97.6 F Pulse Rate 82 77 Respiratory 17 18 16 Rate Blood Pressure 149/81 154/70 (mmHg) O2 Sat by Pulse 100 99 Oximetry Oxygen Devices in Use Now: None Exam: Appearance: Not in acute distress.comfortable sitting on the bed. Eyes: No Scleral Icterus Ears/Nose/Mouth/Throat: NL Teeth, Lips, Gums Neck: NL Appearance and Movements; NL JVP Respiratory: Symmetrical Chest Expansion and Respiratory Effort Cardiovascular: RRR, no murmur. Abdominal: NL Sounds; No Distention; no tenderness, bladder not palpable Lymphatic: No Cervical Adenopathy Extremities: No Edema Skin: scab and bruising on forehead and nose bridge, laceration with surrounding erythema on left wrist Neurological: unable to cooperate full neurological examination. oriented to place, not time and person able to move 4 limbs spontaneously Mood: stable Result Diagrams: 07/31/19 06:36 07/31/19 06:36 Additional Lab and Data: Lab Results 07/30/19 Range/Units 07:35 WBC 21.1 H (3.5-10.8) 10^3/uL RBC 3.91 L (4.18-5.48) 10^6 /uL Hgb 12.1 L (14.0-18.0) g/dL Hct 37 L (42-52) % MCV 94 (80-94) fL MCH 31 (27-31) pg MCHC 33 (31-36) g/dL RDW 14 (10-15) % Plt Count 402 (150-450) 10^3/uL MPV 7.0 L (7.4-10.4) fL Neut % (Auto) 88.2 % Lymph % (Auto) 3.7 % [place] % (Auto) 6.8 % Eos % (Auto) 0.8 % Baso % (Auto) 0.5 % Absolute Neuts (auto) 18.6 H (1.5-7.7) 10^3/ul Absolute Lymphs (auto) 0.8 L (1.0-4.8) 10^3/ul Absolute Monos (auto) 1.4 H (0-0.8) 10^3/ul Absolute Eos (auto) 0.2 (0-0.6) 10^3/ul Absolute Basos (auto) 0.1 (0-0.2) 10^3/ul Absolute Nucleated RBC 0.0 10^3/ul Nucleated RBC % 0.0 Assess/Plan/Problems-Billing Assessment: 64 y/o male with complicated psychiatric history presented with altered mental status for 1 week, found to have urinary retention, hematuria and leukocytosis, for which we are still not sure about the exact temporal courses. - Patient Problems (1) Hematuria Current Visit: Yes Status: Acute Code(s): R31.9 - HEMATURIA, UNSPECIFIED SNOMED Code(s): 94596761 Comment: - unclear cause, infection, decompression hematuria caused by rapid drainage, trauma due to lundberg insertion - improved with bladder irrigation - continue monitor - cbc tomorrow (2) Leukocytosis Current Visit: Yes Status: Acute Code(s): D72.829 - ELEVATED WHITE BLOOD CELL COUNT, UNSPECIFIED SNOMED Code(s): 629214121 Comment: - infection related likely, sourve unclear, could be urine or cellulitis from laceration - urine cs neg, bld cs neg - continue iv ceftriaxone, D2 now (3) Altered mental status Current Visit: Yes Status: Acute Code(s): R41.82 - ALTERED MENTAL STATUS, UNSPECIFIED SNOMED Code(s): 568604177 Comment: - self harming in a intellectual disable patient which complicated psy history - likely causes including delirium due to infection, Acute Karolina, schizophrenia relapse - more likely delirium at this moment in view of acute onset - resolving with current treatment, continue monitoring (4) Urine retention Current Visit: Yes Status: Acute Code(s): R33.9 - RETENTION OF URINE, UNSPECIFIED SNOMED Code(s): 136179433 Comment: - could be due to underlying BPH, neurogenic bladder - repeat bladder scan today - consider outpt urology eval (5) DVT prophylaxis Current Visit: Yes Status: Acute Code(s): Z29.9 - ENCOUNTER FOR PROPHYLACTIC MEASURES, UNSPECIFIED SNOMED Code(s): 892458848 Comment: - compression device due to hematuria Status and Disposition: Inpatient Medicine. Attestation Documenting Resident: Kim Castillo Supervising Physician: Giovanni Salinas Attending/Supervising Physician Comment: Agree with plan as outlined in Dr. Castillo's note from today unless indicated here. AMS/Self-harming behavior - suspect in setting of infection v acute urinary retention which he was unable to communicate to others. He is improved (back to self per brother and caregivers) on CTX and with bladder decompression. Urinary retention - infection leading to retention or possibly vice versus. Urine culture negative, BPH may be contributing. He did not tolerate flomax will start finasteride today. >400cc urine on repeat bladder scan. We will place lundberg today but he may do better with straight catheterization if there is difficulty keepin in lundberg. Attestation: This service has been performed in part by a resident under the direction of a teaching physician.I, Giovanni Salinas, performed the service, or was physically present during the critical, or cadet portions of the service, furnished by the resident. I participated in the management of the patient.
[2019-07-31] MEDS: traZODone TAB* 100 MG PO SCH (20:19)
[2019-07-31] MEDS: Sertraline* 100 MG TAB PO SCH (20:19)
[2019-08-01] MEDS: IPRATROPIUM BR (NF)0.06% NASAL 1 SPRAY BTL BOTH NARES SCH ×4 (05:35→18:26)
[2019-08-01] MEDS: Levothyroxine TAB* 75 MCG TAB PO SCH (05:36)
--- NOTE | 2019-08-01 07:24 | PN ---
Hospitalist Progress Note Date of Service: 08/01/19 Pt was good aid had no complaints No overnight events. Pt had some red urine from straight cath. Objective- Temp-97.8 heart rate-97 resp rate-18 O2-saturation BP-162/70 Exam- general-better lookin sitting kqlgl-pqibxl-kbkxi-noorma vfpwabb-ukmuns-nm neuro - WBC-22.1 RBC-3.26 Hgb-10.2 Hct-31 MCV-32 MPV-7.1 abs neutrophils- 18.5 abs mono-.7 Cl-117 CO2-21 BUN-42 Creat-2.17 Glucose-110 Bladder Scan at 0145 read 230 mls-Gonna straight cath pt from now on 64 y/o male with complicated psychiatric history presented with altered mental status for 1 week, found to have urinary retention, hematuria and leukocytosis, for which we are still not sure about the exact temporal courses. - Patient Problems (1) Hematuria Comment: - unclear cause, infection, decompression hematuria caused by rapid drainage, trauma due to lundberg insertion - improved with bladder irrigation - continue monitor - cbc tomorrow (2) Leukocytosis Comment: - infection related likely, sourve unclear, could be urine or cellulitis from laceration - urine cs neg, bld cs neg - continue iv ceftriaxone 1GM 50MLS @100 MLS/HR D2 now (3) Altered mental status Comment: - self harming in a intellectual disable patient which complicated psy history - likely causes including delirium due to infection, Acute Karolina, schizophrenia relapse - more likely delirium at this moment in view of acute onset - resolving with current treatment, continue monitoring (4) Urine retention Comment: - could be due to underlying BPH, neurogenic bladder - repeat bladder scan today - consider outpt urology eval -FINASTERIDE 5 MG po (5) DVT prophylaxis Comment: - compression device due to hematuria Status and Disposition:
[2019-08-01] MEDS: Haloperidol TAB* 5 MG PO SCH ×3 (09:05→22:22)
[2019-08-01] MEDS: amLODIPine TAB* 5 MG PO SCH (09:05)
[2019-08-01] MEDS: Finasteride TAB* 5 MG PO SCH (09:05)
[2019-08-01] MEDS: Lithium Carbonate CAP 150 MG ** CAPSULE PO SCH ×2 (09:05→22:22)
[2019-08-01] MEDS: Multivitamins ADULT w/MIN LIQ* 15 ML UDC PO SCH (09:05)
[2019-08-01] MEDS: OLANzapine TAB* 10 MG PO SCH ×2 (09:05→22:22)
[2019-08-01] MEDS: Mupirocin 2% OINT* TUBE TOPICAL SCH ×2 (09:06→22:21)
[2019-08-01] MEDS: Bacitracin OINTMENT* 0.5% 0.5 oz TUBE TOPICAL SCH ×2 (09:06→22:20)
[2019-08-01] MEDS: Polyethylene Glycol 3350* 17 GM PACKET PO SCH (09:06)
--- NOTE | 2019-08-01 13:46 | PN ---
Subjective Date of Service: 08/01/19 Interval History: Patient was much improved in terms of mental status, he was walking on the hallway with his helper. Noted this morning bladder scan still showed urine >400ml, but drained only 50ml. Afebrile overnight. Objective Active Medications: Acetaminophen (Tylenol Tab*) 650 mg PO Q4H PRN PRN Reason: PAIN - MILD Last Admin: 07/31/19 17:35 Dose: 650 mg Amlodipine Besylate (Norvasc Tab*) 10 mg PO DAILY [facility] Last Admin: 08/01/19 09:05 Dose: 10 mg Aripiprazole (Abilify [place] (Nf)) 400 mg IM MONTHLY [facility] Bacitracin (Bacitracin Ointment*) 1 applic TOPICAL BID [facility] Last Admin: 08/01/19 09:06 Dose: 1 dose Finasteride (Proscar Tab*) 5 mg PO DAILY [facility] Last Admin: 08/01/19 09:05 Dose: 5 mg Haloperidol (Haldol Tab*) 5 mg PO TID [facility] Last Admin: 08/01/19 09:05 Dose: 5 mg Ceftriaxone Sodium 1 gm/ (Sodium Chloride) 50 mls @ 100 mls/hr IVPB Q24H [facility] Last Admin: 07/31/19 13:47 Dose: 100 mls/hr Ipratropium [place] (Ipratropium [place]) 2 spray BOTH NARES QID [facility] Last Admin: 08/01/19 13:22 Dose: Not Given Levothyroxine Sodium (Synthroid Tab*) 75 mcg PO 0600 [facility] Last Admin: 08/01/19 05:36 Dose: 75 mcg [place] Carbonate ([place] Carbonate Cap) 150 mg PO BID [facility] Last Admin: 08/01/19 09:05 Dose: 150 mg Magnesium Hydroxide (Milk Of Magnesia Liq*) 30 ml PO DAILY PRN PRN Reason: CONSTIPATION Multivitamins (Theragran W/Minerals Liq*) 5 ml PO DAILY [facility] Last Admin: 08/01/19 09:05 Dose: 5 ml Mupirocin (Bactroban 2 % Oint*) 1 applic TOPICAL BID [facility] Last Admin: 08/01/19 09:06 Dose: 1 dose Olanzapine (Zyprexa Tab*) 15 mg PO BID [facility] Last Admin: 08/01/19 09:05 Dose: 15 mg Ondansetron HCl (Zofran Inj*) 4 mg IV Q4H PRN PRN Reason: NAUSEA/VOMITING Polyethylene Glycol/Electrolytes (Miralax*) 17 gm PO DAILY [facility] Last Admin: 08/01/19 09:06 Dose: 17 gm Sertraline HCl (Zoloft*) 100 mg PO BEDTIME [facility] Last Admin: 07/31/19 20:19 Dose: 100 mg Trazodone HCl (Desyrel Tab*) 100 mg PO BEDTIME [facility] Last Admin: 07/31/19 20:19 Dose: 100 mg Vital Signs - 8 hr 08/01/19 08/01/19 08/01/19 07:15 08:34 10:00 Temperature 97.8 F Pulse Rate 97 Respiratory 18 16 Rate Blood Pressure 175/75 162/70 (mmHg) O2 Sat by Pulse 98 Oximetry 08/01/19 12:21 Temperature 98.0 F Pulse Rate 90 Respiratory 20 Rate Blood Pressure 156/80 (mmHg) O2 Sat by Pulse 100 Oximetry Oxygen Devices in Use Now: None Exam: Appearance: comfortable. not in distress. Eyes: No Scleral Icterus Ears/Nose/Mouth/Throat: NL Teeth, Lips, Gums Neck: NL Appearance and Movements; NL JVP Respiratory: clear on auscultation Cardiovascular: RRR, no murmur Abdominal: soft, non tender Lymphatic: No Cervical Adenopathy Extremities: No Edema Result Diagrams: 07/31/19 06:36 07/31/19 06:36 Additional Lab and Data: Lab Results 07/30/19 Range/Units 07:35 WBC 21.1 H (3.5-10.8) 10^3/uL RBC 3.91 L (4.18-5.48) 10^6 /uL Hgb 12.1 L (14.0-18.0) g/dL Hct 37 L (42-52) % MCV 94 (80-94) fL MCH 31 (27-31) pg MCHC 33 (31-36) g/dL RDW 14 (10-15) % Plt Count 402 (150-450) 10^3/uL MPV 7.0 L (7.4-10.4) fL Neut % (Auto) 88.2 % Lymph % (Auto) 3.7 % [place] % (Auto) 6.8 % Eos % (Auto) 0.8 % Baso % (Auto) 0.5 % Absolute Neuts (auto) 18.6 H (1.5-7.7) 10^3/ul Absolute Lymphs (auto) 0.8 L (1.0-4.8) 10^3/ul Absolute Monos (auto) 1.4 H (0-0.8) 10^3/ul Absolute Eos (auto) 0.2 (0-0.6) 10^3/ul Absolute Basos (auto) 0.1 (0-0.2) 10^3/ul Absolute Nucleated RBC 0.0 10^3/ul Nucleated RBC % 0.0 Assess/Plan/Problems-Billing Assessment: 64 y/o male with complicated psychiatric history presented with altered mental status for 1 week, found to have urinary retention, hematuria and leukocytosis. - Patient Problems (1) Hematuria Current Visit: Yes Status: Acute Code(s): R31.9 - HEMATURIA, UNSPECIFIED SNOMED Code(s): 89576514 Comment: - unclear cause, infection, decompression hematuria caused by rapid drainage, trauma due to lundberg insertion - improved with bladder irrigation - stable Hb from yesterday - continue to monitor (2) Leukocytosis Current Visit: Yes Status: Acute Code(s): D72.829 - ELEVATED WHITE BLOOD CELL COUNT, UNSPECIFIED SNOMED Code(s): 008545870 Comment: - infection related likely, source unclear, could be urine cellulitis from laceration, urine less likely with cs neg or other sources - urine cs neg, bld cs neg - continue iv ceftriaxone, D3 now - TW stays same today (3) Altered mental status Current Visit: Yes Status: Acute Code(s): R41.82 - ALTERED MENTAL STATUS, UNSPECIFIED SNOMED Code(s): 616972540 Comment: - self harming in a intellectual disable patient which complicated psy history - likely delirium due to infection. - more likely delirium at this moment in view of acute onset - resolving with current treatment, continue monitoring (4) Urine retention Current Visit: Yes Status: Acute Code(s): R33.9 - RETENTION OF URINE, UNSPECIFIED SNOMED Code(s): 098406728 Comment: - could be due to underlying BPH, neurogenic bladder - start on disteride - repeat bladder scan today, continue lundberg if our urint out> 400ml - consider inpt urology evaluation. For PT/oT, sit out of bed (5) DVT prophylaxis Current Visit: Yes Status: Acute Code(s): Z29.9 - ENCOUNTER FOR PROPHYLACTIC MEASURES, UNSPECIFIED SNOMED Code(s): 545987666 Comment: - compression device due to hematuria Status and Disposition: Inpatient Medicine. Attestation Documenting Resident: Kim Castillo Supervising Physician: Giovanni Salinas Attending/Supervising Physician Comment: Agree with plan as outlined in Dr. Castillo's note from today unless indicated here. Hematuria - improving Leukocytosis - recheck in AM. Soft tissue infection likely or reactive in setting of self trauma. c/w CTX until improving Urinary retention - on finasteride. Recheck post void in AM. If retaining will place indwelling lundberg HTN - restart amiloride in AM. Norvasc started here (new) Attestation: This service has been performed in part by a resident under the direction of a teaching physician.I, Giovanni Salinas, performed the service, or was physically present during the critical, or cadet portions of the service, furnished by the resident. I participated in the management of the patient.
[2019-08-01] MEDS: cefTRIAXone(*) 1 GM in NS 0.9% 50 ML* 50 ML IVPB SCH (14:27)
[2019-08-01] MEDS: Acetaminophen TAB* 325 MG PO PRN ×3 (14:27→22:21)
[2019-08-01] MEDS: traZODone TAB* 100 MG PO SCH (22:22)
[2019-08-01] MEDS: Sertraline* 100 MG TAB PO SCH (22:22)
[2019-08-02] MEDS: IPRATROPIUM BR (NF)0.06% NASAL 1 SPRAY BTL BOTH NARES SCH ×4 (00:22→16:15)
[2019-08-02] MEDS: Levothyroxine TAB* 75 MCG TAB PO SCH (05:35)
[2019-08-02 06:43] LABS: ABS Basophils 0.1 10^3/ul (0-0.2); ABS Eosinophils 0.9 10^3/ul (0-0.6); ABS Monocytes 1.5 10^3/ul (0-0.8); ABS Neutrophils 14.2 10^3/ul (1.5-7.7); Eosinophil % 5.1 %; Hematocrit 35 % (42-52); Hemoglobin 11.7 g/dL (14.0-18.0); Lymphocyte % 10.6 %; Mean Corpuscular HGB Conc 34 g/dL (31-36); Mean Corpuscular Hemoglobin 31 pg (27-31); Mean Corpuscular Volume 93 fL (80-94); Platelet Count 338 10^3/uL (150-450); Red Blood Count 3.75 10^6 /uL (4.18-5.48); Red Cell Distribution Width 14 % (10-15); White Blood Count 18.7 10^3/uL (3.5-10.8)
[2019-08-02] MEDS: Butalb/Acetamin/Caff TAB* 1 TAB PO PRN (06:48)
[2019-08-02 06:58] LABS: BUN/Creatinine Ratio 13.4 (8-20); Calcium 9.9 mg/dL (8.6-10.3); EGFR African American 40.4 (>60); EGFR Non-African American 33.4 (>60); Potassium 4.4 mmol/L (3.5-5.0)
[2019-08-02] MEDS: Mupirocin 2% OINT* TUBE TOPICAL SCH ×2 (09:23→19:58)
[2019-08-02] MEDS: Bacitracin OINTMENT* 0.5% 0.5 oz TUBE TOPICAL SCH ×2 (09:23→19:59)
[2019-08-02] MEDS: Haloperidol TAB* 5 MG PO SCH ×3 (09:24→19:57)
[2019-08-02] MEDS: amLODIPine TAB* 5 MG PO SCH (09:24)
[2019-08-02] MEDS: Finasteride TAB* 5 MG PO SCH (09:24)
[2019-08-02] MEDS: Polyethylene Glycol 3350* 17 GM PACKET PO SCH (09:24)
[2019-08-02] MEDS: aMILoride TAB* 5 MG PO SCH (09:24)
[2019-08-02] MEDS: Lithium Carbonate CAP 150 MG ** CAPSULE PO SCH ×2 (09:24→19:58)
[2019-08-02] MEDS: OLANzapine TAB* 10 MG PO SCH ×2 (09:24→19:59)
[2019-08-02] MEDS: Multivitamins ADULT w/MIN LIQ* 15 ML UDC PO SCH (09:24)
[2019-08-02] MEDS: CMC:Alfuzosin ER (NF) 10 MG TAB.ER PO SCH (14:59)
[2019-08-02] MEDS: cefTRIAXone(*) 1 GM in NS 0.9% 50 ML* 50 ML IVPB SCH (14:59)
--- NOTE | 2019-08-02 15:54 | PN ---
Subjective Date of Service: 08/02/19 Interval History: Seen with pts staff member at bedside He is baseline functional status again Eating, drinking, ambulating Only urinating 75-100cc per void per nursing; hematuria completely resolved Objective Active Medications: Acetaminophen (Tylenol Tab*) 650 mg PO Q4H PRN PRN Reason: PAIN - MILD Last Admin: 08/01/19 22:21 Dose: 650 mg Acetaminophen/Butalbital/Caffeine (Fioricet Tab*) 1 tab PO Q6H PRN PRN Reason: HEADACHE Last Admin: 08/02/19 06:48 Dose: 1 tab Alfuzosin HCl (Uroxatral (Nf)) 10 mg PO DAILY [facility] Last Admin: 08/02/19 14:59 Dose: 10 mg Amiloride HCl (Midamor Tab*) 5 mg PO DAILY [facility] Last Admin: 08/02/19 09:24 Dose: 5 mg Amlodipine Besylate (Norvasc Tab*) 10 mg PO DAILY [facility] Last Admin: 08/02/19 09:24 Dose: 10 mg Aripiprazole (Abil[place]aintena (Nf)) 400 mg IM MONTHLY [facility] Bacitracin (Bacitracin Ointment*) 1 applic TOPICAL BID [facility] Last Admin: 08/02/19 09:23 Dose: 1 dose Finasteride (Proscar Tab*) 5 mg PO DAILY [facility] Last Admin: 08/02/19 09:24 Dose: 5 mg Haloperidol (Haldol Tab*) 5 mg PO TID [facility] Last Admin: 08/02/19 14:59 Dose: 5 mg Ceftriaxone Sodium 1 gm/ (Sodium Chloride) 50 mls @ 100 mls/hr IVPB Q24H [facility] Last Admin: 08/02/19 14:59 Dose: 100 mls/hr Ipratropium [place] (Ipratropium [place]) 2 spray BOTH NARES QID [facility] Last Admin: 08/02/19 14:54 Dose: Not Given Levothyroxine Sodium (Synthroid Tab*) 75 mcg PO 0600 [facility] Last Admin: 08/02/19 05:35 Dose: 75 mcg [place] Carbonate ([place] Carbonate Cap) 150 mg PO BID [facility] Last Admin: 08/02/19 09:24 Dose: 150 mg Magnesium Hydroxide (Milk Of Magnesia Liq*) 30 ml PO DAILY PRN PRN Reason: CONSTIPATION Multivitamins (Theragran W/Minerals Liq*) 5 ml PO DAILY [facility] Last Admin: 08/02/19 09:24 Dose: 5 ml Mupirocin (Bactroban 2 % Oint*) 1 applic TOPICAL BID [facility] Last Admin: 08/02/19 09:23 Dose: 1 dose Olanzapine (Zyprexa Tab*) 15 mg PO BID [facility] Last Admin: 08/02/19 09:24 Dose: 15 mg Ondansetron HCl (Zofran Inj*) 4 mg IV Q4H PRN PRN Reason: NAUSEA/VOMITING Polyethylene Glycol/Electrolytes (Miralax*) 17 gm PO DAILY [facility] Last Admin: 08/02/19 09:24 Dose: 17 gm Sertraline HCl (Zoloft*) 100 mg PO BEDTIME [facility] Last Admin: 08/01/19 22:22 Dose: 100 mg Trazodone HCl (Desyrel Tab*) 100 mg PO BEDTIME [facility] Last Admin: 08/01/19 22:22 Dose: 100 mg Vital Signs - 8 hr 08/02/19 08/02/19 08/02/19 09:22 10:00 11:15 Temperature 98.3 F Pulse Rate 74 Respiratory 16 16 16 Rate Blood Pressure 153/79 (mmHg) O2 Sat by Pulse 100 Oximetry Oxygen Devices in Use Now: None Appearance: NAD Eyes: No Scleral Icterus, PERRLA Ears/Nose/Mouth/Throat: NL Teeth, Lips, Gums, Clear Oropharnyx Neck: NL Appearance and Movements; NL JVP, Trachea Midline Respiratory: Symmetrical Chest Expansion and Respiratory Effort, Clear to Auscultation Cardiovascular: NL Sounds; No Murmurs; No JVD, RRR Abdominal: NL Sounds; No Tenderness; No Distention, No Hepatosplenomegaly Extremities: No Edema Skin: - - erythema on forehead resolving, healing laceration on nose, left wrist wound still wet, some discharge, slightly erythematous Neurological: - - Knows his name, repeats familiar phrases or names that he hears in conversation, interactive with his staff member Result Diagrams: 08/02/19 06:34 08/02/19 06:34 Additional Lab and Data: Lab Results 07/30/19 Range/Units 07:35 WBC 21.1 H (3.5-10.8) 10^3/uL RBC 3.91 L (4.18-5.48) 10^6 /uL Hgb 12.1 L (14.0-18.0) g/dL Hct 37 L (42-52) % MCV 94 (80-94) fL MCH 31 (27-31) pg MCHC 33 (31-36) g/dL RDW 14 (10-15) % Plt Count 402 (150-450) 10^3/uL MPV 7.0 L (7.4-10.4) fL Neut % (Auto) 88.2 % Lymph % (Auto) 3.7 % [place] % (Auto) 6.8 % Eos % (Auto) 0.8 % Baso % (Auto) 0.5 % Absolute Neuts (auto) 18.6 H (1.5-7.7) 10^3/ul Absolute Lymphs (auto) 0.8 L (1.0-4.8) 10^3/ul Absolute Monos (auto) 1.4 H (0-0.8) 10^3/ul Absolute Eos (auto) 0.2 (0-0.6) 10^3/ul Absolute Basos (auto) 0.1 (0-0.2) 10^3/ul Absolute Nucleated RBC 0.0 10^3/ul Nucleated RBC % 0.0 Microbiology and Other Data: Microbiology 07/30/19 11:09 Blood Culture - Preliminary Blood Venous No Growth Day 3 07/30/19 08:21 Urine Culture - Final Urine No Growth (<1,000 CFU/mL) 07/31/19 02:04 Nasal Screen MRSA (PCR) - Final Nasal Mrsa Not Detected Assess/Plan/Problems-Billing Assessment: 64 y/o male with developmental disability and psychiatric history including bipolar/schizophrenia, resident of [facility], presented with altered mental status manifest as self injurious behavior found to have urinary retention, hematuria and leukocytosis. - Patient Problems (1) Urine retention Comment: - presented to ED 07/21 and found with retention and again this hospital stay. All Ucxs have remained negative. Suspect BPH. - now on alfuzosin and finasteride - he had an adverse or allergic rxn to the tamsulosin that was started after 1st ED visit - Bladder scan was borderline for retention (288cc) today, attempted straight cath was unsuccessful, placement of lundberg unsuccessful and now gross blood but urine appears mostly clear. Suspect local trauma from lundberg attemp - Pt will need lundberg on discharge - urology consult for assistance in placement pending (2) Hematuria Current Visit: Yes Status: Acute Code(s): R31.9 - HEMATURIA, UNSPECIFIED SNOMED Code(s): 60187315 Comment: - unclear cause, infection, decompression hematuria caused by rapid drainage, trauma due to lundberg insertion - lundberg balloon noted to be inflated in urethra on CT after it was placed in ED. No noted hematuria prior to this even - completely resolved with no appreciable loss of blood on CBC however gross hematuria again today when attempting to place lundberg - lundberg unable to be place. Urology consult placed and return page pending (3) Leukocytosis Comment: - unclear if related to infection or trauma from self injury - urine has remained negative - WBC slow to improve on CTX but pt clinically better, no fevers - urine cs neg, bld cs neg - continue iv ceftriaxone, D4 (4) Altered mental status Comment: - self harming in a intellectual disable patient which complicated psy history - likely delirium due to infection or urinary retention/pain - resolved (5) DVT prophylaxis Current Visit: Yes Status: Acute Code(s): Z29.9 - ENCOUNTER FOR PROPHYLACTIC MEASURES, UNSPECIFIED SNOMED Code(s): 426091505 Comment: - compression device due to hematuria Status and Disposition: Inpatient Medicine. Home when lundberg in place and hematuria stable or resolved
[2019-08-02] MEDS: traZODone TAB* 100 MG PO SCH (19:57)
[2019-08-02] MEDS: Sertraline* 100 MG TAB PO SCH (19:58)
[2019-08-02] MEDS: Acetaminophen TAB* 325 MG PO PRN (20:17)
[2019-08-03] MEDS: IPRATROPIUM BR (NF)0.06% NASAL 1 SPRAY BTL BOTH NARES SCH ×5 (00:42→21:22)
[2019-08-03] MEDS: Levothyroxine TAB* 75 MCG TAB PO SCH (06:38)
--- NOTE | 2019-08-03 06:53 | PN ---
Subjective Date of Service: 08/03/19 Interval History: HD#5 64 y/o male with developmental disability and psychiatric history including bipolar/schizophrenia, resident of [facility], presented with altered mental status manifest as self injurious behavior found to have urinary retention, gross hematuria and leukocytosis. No acute overnight events Vitals stable Foleys in; patient couldnot tolerate it; trying to remove it Objective Active Medications: Acetaminophen (Tylenol Tab*) 650 mg PO Q4H PRN PRN Reason: PAIN - MILD Last Admin: 08/02/19 20:17 Dose: 650 mg Acetaminophen/Butalbital/Caffeine (Fioricet Tab*) 1 tab PO Q6H PRN PRN Reason: HEADACHE Last Admin: 08/02/19 06:48 Dose: 1 tab Alfuzosin HCl (Uroxatral (Nf)) 10 mg PO DAILY [facility] Last Admin: 08/02/19 14:59 Dose: 10 mg Amiloride HCl (Midamor Tab*) 5 mg PO DAILY [facility] Last Admin: 08/02/19 09:24 Dose: 5 mg Amlodipine Besylate (Norvasc Tab*) 10 mg PO DAILY [facility] Last Admin: 08/02/19 09:24 Dose: 10 mg Aripiprazole (Abilify Maintena (Nf)) 400 mg IM MONTHLY [facility] Bacitracin (Bacitracin Ointment*) 1 applic TOPICAL BID [facility] Last Admin: 08/02/19 19:59 Dose: 1 dose Finasteride (Proscar Tab*) 5 mg PO DAILY [facility] Last Admin: 08/02/19 09:24 Dose: 5 mg Haloperidol (Haldol Tab*) 5 mg PO TID [facility] Last Admin: 08/02/19 19:57 Dose: 5 mg Ceftriaxone Sodium 1 gm/ (Sodium Chloride) 50 mls @ 100 mls/hr IVPB Q24H [facility] Last Admin: 08/02/19 14:59 Dose: 100 mls/hr Ipratropium Dalton (Ipratropium Dalton) 2 spray BOTH NARES QID [facility] Last Admin: 08/03/19 00:42 Dose: Not Given Levothyroxine Sodium (Synthroid Tab*) 75 mcg PO 0600 [facility] Last Admin: 08/03/19 06:38 Dose: 75 mcg [place] Carbonate ([place] Carbonate Cap) 150 mg PO BID [facility] Last Admin: 08/02/19 19:58 Dose: 150 mg Magnesium Hydroxide (Milk Of Magnesia Liq*) 30 ml PO DAILY PRN PRN Reason: CONSTIPATION Multivitamins (Theragran W/Minerals Liq*) 5 ml PO DAILY [facility] Last Admin: 08/02/19 09:24 Dose: 5 ml Mupirocin (Bactroban 2 % Oint*) 1 applic TOPICAL BID [facility] Last Admin: 08/02/19 19:58 Dose: 1 dose Olanzapine (Zyprexa Tab*) 15 mg PO BID [facility] Last Admin: 08/02/19 19:59 Dose: 15 mg Ondansetron HCl (Zofran Inj*) 4 mg IV Q4H PRN PRN Reason: NAUSEA/VOMITING Polyethylene Glycol/Electrolytes (Miralax*) 17 gm PO DAILY [facility] Last Admin: 08/02/19 09:24 Dose: 17 gm Sertraline HCl (Zoloft*) 100 mg PO BEDTIME [facility] Last Admin: 08/02/19 19:58 Dose: 100 mg Trazodone HCl (Desyrel Tab*) 100 mg PO BEDTIME [facility] Last Admin: 08/02/19 19:57 Dose: 100 mg Vital Signs - 8 hr 08/02/19 08/03/19 23:15 03:15 Temperature 98.9 F 98.4 F Pulse Rate 78 95 Respiratory 18 18 Rate Blood Pressure 147/79 130/58 (mmHg) O2 Sat by Pulse 99 99 Oximetry Oxygen Devices in Use Now: None Exam: Patient is lying on a bed with no acute distress. HEENT: Normocephalic and atraumatic Lungs: CLear with no added sound Heart: S1/S2 heard with no murmur ABdomen: Soft, nontender and nondistended; Normal bowel sound heard Extremities: NOrmal Neuro: Oriented to self; repeates phrases; MOving all four extremity equally Result Diagrams: 08/03/19 07:14 08/03/19 07:14 Additional Lab and Data: Lab Results 07/30/19 Range/Units 07:35 WBC 21.1 H (3.5-10.8) 10^3/uL RBC 3.91 L (4.18-5.48) 10^6 /uL Hgb 12.1 L (14.0-18.0) g/dL Hct 37 L (42-52) % MCV 94 (80-94) fL MCH 31 (27-31) pg MCHC 33 (31-36) g/dL RDW 14 (10-15) % Plt Count 402 (150-450) 10^3/uL MPV 7.0 L (7.4-10.4) fL Neut % (Auto) 88.2 % Lymph % (Auto) 3.7 % [place] % (Auto) 6.8 % Eos % (Auto) 0.8 % Baso % (Auto) 0.5 % Absolute Neuts (auto) 18.6 H (1.5-7.7) 10^3/ul Absolute Lymphs (auto) 0.8 L (1.0-4.8) 10^3/ul Absolute Monos (auto) 1.4 H (0-0.8) 10^3/ul Absolute Eos (auto) 0.2 (0-0.6) 10^3/ul Absolute Basos (auto) 0.1 (0-0.2) 10^3/ul Absolute Nucleated RBC 0.0 10^3/ul Nucleated RBC % 0.0 Microbiology and Other Data: Microbiology 07/30/19 11:09 Blood Culture - Preliminary Blood Venous No Growth Day 3 07/30/19 08:21 Urine Culture - Final Urine No Growth (<1,000 CFU/mL) 07/31/19 02:04 Nasal Screen MRSA (PCR) - Final Nasal Mrsa Not Detected Assess/Plan/Problems-Billing Assessment: 64 y/o male with developmental disability and psychiatric history including bipolar/schizophrenia, resident of [facility], presented with altered mental status manifest as self injurious behavior found to have urinary retention, hematuria(traumatic) and leukocytosis. - Patient Problems (1) Altered mental status Current Visit: Yes Status: Acute Code(s): R41.82 - ALTERED MENTAL STATUS, UNSPECIFIED SNOMED Code(s): 202981812 Comment: - Resolved - Baseline (2) Hematuria Current Visit: Yes Status: Acute Code(s): R31.9 - HEMATURIA, UNSPECIFIED SNOMED Code(s): 12617247 Comment: -likely due to trauma; had traumatic insertion of lundberg(balloon inflated in urethra) resolved lundberg draining yellow urine (3) Urine retention Current Visit: Yes Status: Acute Code(s): R33.9 - RETENTION OF URINE, UNSPECIFIED SNOMED Code(s): 188363536 Comment: Partial urinary retention could be due to impaired detrusor activity; ppt by local trauma On alfuzosin and finastride Urology consulting; can be d/c and should f/u with renal us and bmp Irritated with lundberg; trying to remove lundberg removed at present probabale d/c tomorrow (4) Leukocytosis Current Visit: Yes Status: Acute Code(s): D72.829 - ELEVATED WHITE BLOOD CELL COUNT, UNSPECIFIED SNOMED Code(s): 882160702 Comment: Improving Urine culture negative Ceftriaxone stopped; as no infection seen. Could be due to traumatic inssertion of lundberg (5) DVT prophylaxis Current Visit: Yes Status: Acute Code(s): Z29.9 - ENCOUNTER FOR PROPHYLACTIC MEASURES, UNSPECIFIED SNOMED Code(s): 327947756 Comment: - compression device due to hematuria (6) Full code status Current Visit: Yes Status: Acute Code(s): Z78.9 - OTHER SPECIFIED HEALTH STATUS SNOMED Code(s): 162314647 Status and Disposition: Inpatient Medicine. D/C tomorrow. will f/u with urologist with renal us and creatinine in 1 week Attending: Pam Johnson Attestation Documenting Resident: Andrews Henry Supervising Physician: Pam Johnson Attending/Supervising Physician Comment: Agree with resident note, addendum 64M presented with urinary retention and struggled with PVR, had catheter placed this morning though pt with poor impulse control and attempting to pull out all day, staff at home institution feeling uneasy with their ability to constantly manage. Re discussed case with Dr. Velasquez who recommended d/c lundberg and FU outpt renal US and Cr check to determine if hydronephrosis or BMP elevation, if none and no e/o frequent UTI pt may be able to go without cath Discussed case with staff at house mult times throughout day Plan for d/c lundberg tonight and d/c tomorrow Attestation: This service has been performed in part by a resident under the direction of a teaching physician.I, Pam Johnson, performed the service, or was physically present during the critical, or cadet portions of the service, furnished by the resident. I participated in the management of the patient.
[2019-08-03] MEDS: Multivitamins ADULT w/MIN LIQ* 15 ML UDC PO SCH (07:59)
[2019-08-03] MEDS: aMILoride TAB* 5 MG PO SCH (08:01)
[2019-08-03] MEDS: Finasteride TAB* 5 MG PO SCH (08:01)
[2019-08-03] MEDS: OLANzapine TAB* 10 MG PO SCH ×2 (08:01→21:12)
[2019-08-03] MEDS: Lithium Carbonate CAP 150 MG ** CAPSULE PO SCH ×2 (08:01→21:10)
[2019-08-03] MEDS: CMC:Alfuzosin ER (NF) 10 MG TAB.ER PO SCH (08:02)
[2019-08-03] MEDS: Haloperidol TAB* 5 MG PO SCH ×3 (08:04→21:10)
[2019-08-03] MEDS: amLODIPine TAB* 5 MG PO SCH (08:04)
[2019-08-03] MEDS: Butalb/Acetamin/Caff TAB* 1 TAB PO PRN (08:04)
[2019-08-03] MEDS: Mupirocin 2% OINT* TUBE TOPICAL SCH ×2 (08:05→21:09)
[2019-08-03] MEDS: Bacitracin OINTMENT* 0.5% 0.5 oz TUBE TOPICAL SCH ×2 (08:06→21:10)
[2019-08-03] MEDS: Polyethylene Glycol 3350* 17 GM PACKET PO SCH (08:06)
[2019-08-03 08:14] LABS: ABS Basophils 0.1 10^3/ul (0-0.2); ABS Eosinophils 0.7 10^3/ul (0-0.6); ABS Lymphocytes 1.2 10^3/ul (1.0-4.8); ABS Monocytes 0.8 10^3/ul (0-0.8); ABS Neutrophils 12.4 10^3/ul (1.5-7.7); Eosinophil % 4.5 %; Hematocrit 33 % (42-52); Hemoglobin 11.2 g/dL (14.0-18.0); Lymphocyte % 8.2 %; Mean Corpuscular HGB Conc 34 g/dL (31-36); Mean Corpuscular Hemoglobin 32 pg (27-31); Mean Corpuscular Volume 94 fL (80-94); Mean Platelet Volume 7.5 fL (7.4-10.4); Platelet Count 313 10^3/uL (150-450); Red Blood Count 3.55 10^6 /uL (4.18-5.48); Red Cell Distribution Width 14 % (10-15); White Blood Count 15.1 10^3/uL (3.5-10.8)
[2019-08-03 08:16] LABS: BUN/Creatinine Ratio 12.2 (8-20); Calcium 9.6 mg/dL (8.6-10.3); EGFR African American 39.5 (>60); EGFR Non-African American 32.7 (>60); Potassium 4.1 mmol/L (3.5-5.0)
[2019-08-03] MEDS: Acetaminophen TAB* 325 MG PO PRN (11:00)
--- NOTE | 2019-08-03 12:20 | CONS ---
CONSULTATION DATE OF CONSULTATION AND DICTATION: 08/03/2019. DIAGNOSIS: Partial urinary retention. PROCEDURE: Placement of 16 Bruneian Smith catheter. HISTORY OF PRESENT ILLNESS: I was asked by the Hospitalist Service to see this 64-year-old white male because of partial urinary retention. Mr. Mckoy is developmentally delayed, requires 24 hour care and is a resident at the [facility]. He was admitted last week with an elevated white count and partial urinary retention. At that time, there was difficulty inserting the Smith catheter and the balloon was inflated in the prostatic urethra causing him to have gross hematuria. Following adjustment of the Smith catheter placement, the gross hematuria resolved. CT scan showed normal kidneys and ureters. The patient then pulled the Smith catheter out. There was some urethral bleeding. The nursing staff was unable to replace the Smith. The patient, however, was able to void spontaneously in volumes of about 75 to 100 cc. He was followed with periodic bladder scans which showed inconsistent postvoid residual measurements varying between either none or 300 cc. The patient has been in diapers with incontinence. He he doing well otherwise. At his initial presentation one week ago, the CT scan showed no hydronephrosis or hydroureters and there was no renal calculi. The prostate did not look enlarged. The patient has been on Tamsulosin. The plan was to discharge him home on the Tamsulosin. consultation was obtained by Dr Salinas from the Hospitalist service for opinion and Smith catheter reinsertion. On exam today, he is lying comfortably in bed. He is not agitated or complaining of suprapubic distention. exam showed no suprapubic distention. He is uncircumcised. There is phimosis or penile lesions. Rectal exam showed a non-enlarged and non- suspicious prostate. A 16 Bruneian straight silastic Smith catheter was then placed with slight resistance in the posterior urethra. A total of 300 cc of clear urine was drained. The patient tolerated the procedure well. IMPRESSION: Partial urinary retention. This is most likely secondary to an element of impaired detrusor contraction rather than bladder outlet obstruction. PLAN: Discharge him home with the Smith catheter and on the Tamsulosin. The Smith should be removed in another week and assess his voiding pattern and residual. PS. I got a phone call later on today from Dr. Johnson that the patient has been pulling on his catheter again, and that he will not tolerate being catheterized. He is ready for discharge today. I recommended pulling the catheter out, keeping him on Tamsulosin, rechecking his serum Creatinine and obtaining a renal and bladder ultrasound and urine analysis in 1 to 2 weeks. If his renal function remains normal, and there is no hydronephrosis, then continue management with Tamsulosin and diapers. If on the other hand there is decreased renal function, hydronephrosis, or symptomatic urinary tract infections, then work up with Cystoscopy and urodynamic studies will be needed. Thank you. [id number]/CPS #: [id number] PENNY
[2019-08-03] MEDS: cefTRIAXone(*) 1 GM in NS 0.9% 50 ML* 50 ML IVPB SCH (13:43)
[2019-08-03] MEDS ORDERED: cefTRIAXone(*) 1 GM in NS 0.9% 50 ML* 50 ML IVPB ONE (18:00)
[2019-08-03] MEDS: traZODone TAB* 100 MG PO SCH (21:10)
[2019-08-03] MEDS: Sertraline* 100 MG TAB PO SCH (21:11)
[2019-08-04] MEDS: Levothyroxine TAB* 75 MCG TAB PO SCH (05:53)
[2019-08-04 06:10] LABS: ABS Eosinophils 0.5 10^3/ul (0-0.6); ABS Lymphocytes 1.2 10^3/ul (1.0-4.8); ABS Monocytes 1.4 10^3/ul (0-0.8); ABS Neutrophils 15.6 10^3/ul (1.5-7.7); Eosinophil % 2.6 %; Hematocrit 35 % (42-52); Hemoglobin 11.4 g/dL (14.0-18.0); Lymphocyte % 6.6 %; Mean Corpuscular HGB Conc 33 g/dL (31-36); Mean Corpuscular Hemoglobin 31 pg (27-31); Mean Corpuscular Volume 93 fL (80-94); Mean Platelet Volume 7.3 fL (7.4-10.4); Platelet Count 341 10^3/uL (150-450); Red Blood Count 3.74 10^6 /uL (4.18-5.48); Red Cell Distribution Width 14 % (10-15); White Blood Count 18.8 10^3/uL (3.5-10.8)
[2019-08-04 06:43] LABS: Calcium 9.8 mg/dL (8.6-10.3)
[2019-08-04 06:44] VITALS: BP 173/82
[2019-08-04 06:49] LABS: BUN/Creatinine Ratio 11.1 (8-20); EGFR African American 39.1 (>60); EGFR Non-African American 32.3 (>60)
--- NOTE | 2019-08-04 06:50 | PN ---
Subjective Date of Service: 08/04/19 Interval History: HD#6 64 y/o male with developmental disability and psychiatric history including bipolar/schizophrenia, resident of [facility], presented with altered mental status manifest as self injurious behavior found to have urinary retention, gross hematuria and leukocytosis. Unable to tolerate lundberg No acute overnight events; although agitated at times Retained urine at night; No complain at present; says I feel fine. Wants to go home Objective Active Medications: Acetaminophen (Tylenol Tab*) 650 mg PO Q4H PRN PRN Reason: PAIN - MILD Last Admin: 08/03/19 11:00 Dose: 650 mg Acetaminophen/Butalbital/Caffeine (Fioricet Tab*) 1 tab PO Q6H PRN PRN Reason: HEADACHE Last Admin: 08/03/19 08:04 Dose: 1 tab Alfuzosin HCl (Uroxatral (Nf)) 10 mg PO DAILY [facility] Last Admin: 08/03/19 08:02 Dose: 10 mg Amiloride HCl (Midamor Tab*) 5 mg PO DAILY [facility] Last Admin: 08/03/19 08:01 Dose: 5 mg Amlodipine Besylate (Norvasc Tab*) 10 mg PO DAILY [facility] Last Admin: 08/03/19 08:04 Dose: 10 mg Aripiprazole (Abilify Maintena (Nf)) 400 mg IM MONTHLY [facility] Bacitracin (Bacitracin Ointment*) 1 applic TOPICAL BID [facility] Last Admin: 08/03/19 21:10 Dose: 1 dose Finasteride (Proscar Tab*) 5 mg PO DAILY [facility] Last Admin: 08/03/19 08:01 Dose: 5 mg Haloperidol (Haldol Tab*) 5 mg PO TID [facility] Last Admin: 08/03/19 21:10 Dose: 5 mg Ipratropium [place] (Ipratropium [place]) 2 spray BOTH NARES QID [facility] Last Admin: 08/03/19 21:22 Dose: Not Given Levothyroxine Sodium (Synthroid Tab*) 75 mcg PO 0600 [facility] Last Admin: 08/04/19 05:53 Dose: 75 mcg [place] Carbonate ([place] Carbonate Cap) 150 mg PO BID [facility] Last Admin: 08/03/19 21:10 Dose: 150 mg Magnesium Hydroxide (Milk Of Magnesia Liq*) 30 ml PO DAILY PRN PRN Reason: CONSTIPATION Multivitamins (Theragran W/Minerals Liq*) 5 ml PO DAILY [facility] Last Admin: 08/03/19 07:59 Dose: 5 ml Mupirocin (Bactroban 2 % Oint*) 1 applic TOPICAL BID [facility] Last Admin: 08/03/19 21:09 Dose: 1 dose Olanzapine (Zyprexa Tab*) 15 mg PO BID [facility] Last Admin: 08/03/19 21:12 Dose: 15 mg Ondansetron HCl (Zofran Inj*) 4 mg IV Q4H PRN PRN Reason: NAUSEA/VOMITING Last Admin: 08/04/19 02:40 Dose: 4 mg Polyethylene Glycol/Electrolytes (Miralax*) 17 gm PO DAILY [facility] Last Admin: 08/03/19 08:06 Dose: Not Given Sertraline HCl (Zoloft*) 100 mg PO BEDTIME [facility] Last Admin: 08/03/19 21:11 Dose: 100 mg Trazodone HCl (Desyrel Tab*) 100 mg PO BEDTIME [facility] Last Admin: 08/03/19 21:10 Dose: 100 mg Vital Signs - 8 hr 08/03/19 08/04/19 08/04/19 23:15 03:06 06:43 Temperature 98.6 F 97.8 F 97.6 F Pulse Rate 82 95 80 Respiratory 18 20 16 Rate Blood Pressure 160/74 172/82 173/82 (mmHg) O2 Sat by Pulse 99 97 98 Oximetry Oxygen Devices in Use Now: None Exam: Patient is lying on a bed with no acute distress. HEENT: Normocephalic and atraumatic Lungs: CLear with no added sound Heart: S1/S2 heard with no murmur ABdomen: Soft, nontender and nondistended; Normal bowel sound heard Extremities: NOrmal Neuro: Oriented to self; repeates phrases; MOving all four extremity equally Result Diagrams: 08/04/19 05:32 08/04/19 05:32 Additional Lab and Data: Lab Results 07/30/19 Range/Units 07:35 WBC 21.1 H (3.5-10.8) 10^3/uL RBC 3.91 L (4.18-5.48) 10^6 /uL Hgb 12.1 L (14.0-18.0) g/dL Hct 37 L (42-52) % MCV 94 (80-94) fL MCH 31 (27-31) pg MCHC 33 (31-36) g/dL RDW 14 (10-15) % Plt Count 402 (150-450) 10^3/uL MPV 7.0 L (7.4-10.4) fL Neut % (Auto) 88.2 % Lymph % (Auto) 3.7 % [place] % (Auto) 6.8 % Eos % (Auto) 0.8 % Baso % (Auto) 0.5 % Absolute Neuts (auto) 18.6 H (1.5-7.7) 10^3/ul Absolute Lymphs (auto) 0.8 L (1.0-4.8) 10^3/ul Absolute Monos (auto) 1.4 H (0-0.8) 10^3/ul Absolute Eos (auto) 0.2 (0-0.6) 10^3/ul Absolute Basos (auto) 0.1 (0-0.2) 10^3/ul Absolute Nucleated RBC 0.0 10^3/ul Nucleated RBC % 0.0 Microbiology and Other Data: Microbiology 07/30/19 11:09 Blood Culture - Preliminary Blood Venous No Growth Day 3 07/30/19 08:21 Urine Culture - Final Urine No Growth (<1,000 CFU/mL) 07/31/19 02:04 Nasal Screen MRSA (PCR) - Final Nasal Mrsa Not Detected Assess/Plan/Problems-Billing Assessment: 64 y/o male with developmental disability and psychiatric history including bipolar/schizophrenia, resident of [facility], presented with altered mental status manifest as self injurious behavior found to have urinary retention, hematuria(traumatic) and leukocytosis. - Patient Problems (1) Urine retention Status: Acute Code(s): R33.9 - RETENTION OF URINE, UNSPECIFIED SNOMED Code(s ): 155719943 Comment: Partial urinary retention could be due to impaired detrusor activity; ppt by local trauma On alfuzosin and finastride Urology consulting; can be d/c and should f/u with renal us and bmp Irritated with lundberg; trying to remove lundberg removed dc today; fu with urology in 1 week (2) Altered mental status Status: Acute Code(s): R41.82 - ALTERED MENTAL STATUS, UNSPECIFIED SNOMED Code(s): 621999879 Comment: - Resolved - Baseline (3) Hematuria Status: Acute Code(s): R31.9 - HEMATURIA, UNSPECIFIED SNOMED Code(s): 08535247 Comment: -likely due to trauma; had traumatic insertion of lundberg(balloon inflated in urethra) resolved lundberg out. (4) Leukocytosis Status: Acute Code(s): D72.829 - ELEVATED WHITE BLOOD CELL COUNT, UNSPECIFIED SNOMED Code(s): 255911466 Comment: Improving; slight rise today Urine culture negative Ceftriaxone stopped; as no infection seen. Could be due to traumatic insertion of lundberg will follow up [facility] urologist in 1 week with blood work (5) DVT prophylaxis Status: Acute Code(s): Z29.9 - ENCOUNTER FOR PROPHYLACTIC MEASURES, UNSPECIFIED SNOMED Code(s): 240894613 Comment: - compression device due to hematuria (6) Full code status Status: Acute Code(s): Z78.9 - OTHER SPECIFIED HEALTH STATUS SNOMED Code(s) : 904194713 Status and Disposition: Inpatient Medicine. D/C. will f/u with urologist with renal us and creatinine in 1 week Attending: Pam Johnson Attestation Documenting Resident: Andrews Henry Supervising Physician: Pam Johnson Attestation: This service has been performed in part by a resident under the direction of a teaching physician.I, Pam Johnson, performed the service, or was physically present during the critical, or cadet portions of the service, furnished by the resident. I participated in the management of the patient.
[2019-08-04 07:15] LABS: Potassium 4.8 mmol/L (3.5-5.0)
[2019-08-04] MEDS: amLODIPine TAB* 5 MG PO SCH (08:44)
[2019-08-04] MEDS: Multivitamins ADULT w/MIN LIQ* 15 ML UDC PO SCH (08:44)
[2019-08-04] MEDS: aMILoride TAB* 5 MG PO SCH (08:44)
[2019-08-04] MEDS: Haloperidol TAB* 5 MG PO SCH (08:45)
[2019-08-04] MEDS: Finasteride TAB* 5 MG PO SCH (08:45)
[2019-08-04] MEDS: Lithium Carbonate CAP 150 MG ** CAPSULE PO SCH (08:45)
[2019-08-04] MEDS: Bacitracin OINTMENT* 0.5% 0.5 oz TUBE TOPICAL SCH (08:58)
[2019-08-04] MEDS: Polyethylene Glycol 3350* 17 GM PACKET PO SCH (08:59)
[2019-08-04] MEDS: Mupirocin 2% OINT* TUBE TOPICAL SCH (08:59)
[2019-08-04] MEDS: IPRATROPIUM BR (NF)0.06% NASAL 1 SPRAY BTL BOTH NARES SCH (08:59)
[2019-08-04] MEDS: OLANzapine TAB* 10 MG PO SCH (09:00)
[2019-08-04] MEDS: CMC:Alfuzosin ER (NF) 10 MG TAB.ER PO SCH (09:01)
--- NOTE | 2019-08-04 14:33 | DS ---
CC: Maine Guerra MD DISCHARGE SUMMARY: DATE OF ADMISSION: 07/30/19 DATE OF DISCHARGE: 08/04/19 PRIMARY CARE PROVIDER: Maine Guerra MD PRIMARY DIAGNOSES: 1. Urinary retention. 2. Agitation. 3. Leukocytosis. SECONDARY DIAGNOSES: 1. Intellectual disability. 2. Autism. 3. Bipolar disorder. 4. Schizophrenia. 5. Gastroesophageal reflux disease. 6. Poor impulse control. 7. Chronic kidney disease. MEDICATIONS: At the time of discharge, include: 1. Alfuzosin extended release 10 mg p.o. daily. 2. Amlodipine 10 mg p.o. daily. 3. Finasteride 5 mg p.o. daily. 4. Aripiprazole 400 mg IM monthly. 5. Bacitracin 1 application topically b.i.d. p.r.n. to affected areas. 6. Haloperidol 5 mg p.o. t.i.d. 7. Ipratropium nasal spray 2 sprays both naris 4 times a day. 8. Levothyroxine 75 mcg p.o. q.a.m. 9. [place] carbonate 150 mg p.o. b.i.d. 10. Magnesium hydroxide 30 mL p.o. daily. 11. Multivitamin 5 mL p.o. daily. 12. Mupirocin 1 application topical b.i.d. 13. Olanzapine 15 mg p.o. b.i.d. 14. Polyethylene glycol 17 g p.o. daily p.r.n. 15. Sertraline 100 mg p.o. q.h.s. 16. Trazodone 100 mg p.o. q.h.s. 17. Acetaminophen 650 mg p.o. q.4 hours p.r.n. 18. Chlorhexidine mouthwash 10 mL p.o. b.i.d. 19. Diphenhydramine 50 mg p.o. t.i.d. p.r.n. for allergy symptoms. 20. EpiPen 0.3 mg injection once p.r.n. 21. Fexofenadine 180 mg p.o. daily. 22. Guaifenesin 10 mL p.o. q.4 hours p.r.n. 23. Biotene rinse 10 mL swish and spit b.i.d. 24. Ranitidine 150 mg p.o. b.i.d. 25. Triamcinolone spray 2 sprays both naris q.h.s. 26. Triazolam 0.5 mg p.o. once p.r.n. 27. Amiloride 5 mg p.o. daily Medication changes on this hospitalization include the addition of alfuzosin, the addition of amlodipine, and the addition of finasteride. HISTORY OF PRESENT ILLNESS AND HOSPITAL COURSE: A 64-year-old male with the above past medical history, who presented to the emergency room for the second time within a week on 07/30/19. The patient has intellectual disability as well as autism and poor impulse control, and history is obtained from skilled nursing staff and his brother, Dagoberto. The patient is domiciled with the [facility], his skilled nursing where behaviorally he had done well for many years and was found to have increasing agitation and behavioral problems off and on since 07/21/19. He was found engaging in self-injurious behaviors including banging his head against the wall and scratching himself. He went to urgent care and then the emergency department on 07/21/19 where doxycycline was given for potential infection at the abrasion site. He was also found to have urinary retention for which he was straight cath'd and greater than 500 cc were removed. Tamsulosin was started at bedtime, but was stopped between 07/21/19 and 07/30/19 because they thought that he had a reaction of facial swelling. On 07/30/19, he was found again engaging in self-injurious behaviors and thus was sent to the emergency room. In the emergency room, because urinary retention had been a problem in the past, a Smith catheter was inserted, but the balloon was initially actually inflated within the urethra causing trauma. The Smith was replaced and the patient then removed the Smith while in the emergency room and gross hematuria was found in the urine bag and Urology was consulted. Furthermore, CT brain and maxillofacial CT was done given his head banging, which showed acute sinusitis. Abdomen and pelvis CT showed no acute findings other than subcutaneous emphysema within the penis and labs otherwise showed leukocytosis and an elevated creatinine at 2.7. The patient was admitted for further managing the workup and his problems. HOSPITAL COURSE BY PROBLEM: 1. Urinary retention. Initially, this was thought it could be from UTI, underlying BPH, or detrusor muscle weakness. The patient was placed with Smith catheter because of his initial trauma and was actually placed on continuous bladder irrigation given the trauma and gross hematuria for the first 2 days of hospitalization and did very well, was then managed with regular Smith. The patient continued to have poor impulse control around his Smith and was threatening to remove it, thus a trial without Smith was done and the patient had intermittent postvoid residuals of anywhere from 200 to 350. The patient is able to void up to 200 to 250 cc at a time and postvoid residuals vary anywhere between 300 and 150. On 08/03/19, because the patient had a postvoid residual of 350, the decision to replace the Smith was made by nursing staff provider, staff in consultation with Urology to see if overall Smith management would be ideal for this patient who continues to have mild postvoid residuals most likely secondary to a weak detrusor muscle in the setting of some neurogenic bladder possibly secondary to psychiatric medications. Although, the patient made many attempts to remove it and needed constant redirection, his house staff as well as his family felt that because of his traumatic prior self-catheter removals, this would be too dangerous in the home setting and thus they elected for a trial off of it and for a close followup with renal ultrasound and creatinine check to ensure that there was no reflux and also watch for the complication of frequent UTIs, which between the two indicate the indications for long-term Smith management. Smith was ultimately removed on 05/15 late afternoon and the patient had postvoid residual on the day of discharge of 150. His creatinine came down from 2.7 to 2, and he seems much more comfortable and at his baseline in regards to behaviors. He was started on alfuzosin given he had a questionable reaction to tamsulosin in the past and has tolerated well, as well as adding finasteride. He does need to follow up for repeat renal ultrasound 7 to 10 days status post discharge as well as creatinine check to ensure there is no urinary retention causing secondary organ damage such as hydronephrosis and LIONEL or ensure that there is no complication of frequent or recurrent UTIs. If there is either of these complications, he should be involved with urologic consultation, and according to Dr. Bustamante, who is our consulting urologist, a referral was made for their practice to follow up routinely, although Urology recommended the stated gathering points of bladder and renal ultrasound as well as creatinine check in 7 to 10 days status post discharge before scheduling an appointment. 2. Leukocytosis. It is unclear whether this is from sinusitis, inflammation, or earlier abrasion noted on forehead. The patient completed a course of doxycycline. His leukocytosis improved mildly over the course of this hospitalization. He has no other localizing signs or symptoms. Blood cultures and urine cultures remained no growth to date. He is managed on ceftriaxone for 5 days during this hospitalization and would be sent home off of antibiotics. 3. Bipolar/schizophrenia with behavioral disturbances. The patient's levels were checked at prior hospitalizations and appear safe. He had a tox screen that was negative. His behavior is mostly all related to his urinary retention and possible sinusitis and appears back at baseline on day of discharge on 08/04 according to the house staff. 4. Elevated creatinine. The patient was admitted with a creatinine of 2.7 and discharged with a creatinine of 2.07, trending down nicely. Most likely, this was postrenal. His baseline going back as far as 2016 has ranged anywhere between 1.95 and 2.2. Thus, he is consistent with his baseline. His elevated creatinine may be related to his psychiatric medications. 5. Hypertension. The patient was found to have elevated blood pressure intermittently throughout this hospitalization with systolics from 140s to as high as 170s. Amlodipine was initiated and added to his home medications along with his home amiloride, which was continued. He may need further followup with primary care to get blood pressure under control. 6. DVT prophylaxis. The patient was kept ambulating and off of pharmacologic DVT prophylaxis. Updates to family. 7. The patient's family and providers engaged in multiple shared decision- making discussions about discharging with the presence of a Smith versus not. Ultimately, because of the patient's poor impulse control and self-removal attempts, family felt very strongly that the patient should be trialed without Smith if he does have evidence of complications from chronic urinary retention such as hydronephrosis, LIONEL, or frequent urinary tract infections. The patient' s family felt that they would want to trial intermittent straight cathing. Currently in the home in which he is domiciled would not offer intermittent straight cathing because they do not have trained nursing staff to be able to offer this. In consultation with house staff, there is a state run skilled nursing that could offer this service within the area and that would require him to be in home, but it is feasible and the patient's family would want to trial this prior to more aggressive options such as suprapubic catheter placement or even other surgical options for urinary retention. The patient has not undergone urodynamic testing with Urology nor as he had a cystoscope, which are indicated to determine the further cause and etiology of his urinary retention and if he has complications for either, needs close followup with Urology, Dr. Bustamatne's office. A referral has been made and Urology did see him in consultation, but did not set up a followup appointment intentionally on discharge because they wanted further information to determine if his postvoid residuals were going to cause long-term complications. LABS AND STUDIES DONE DURING THIS HOSPITALIZATION: Labs on day of discharge: Labs on 08/03/19 showed white blood cell count of 15 down from 22 on presentation, hemoglobin 11, hematocrit 33, platelets 313. BMP shows sodium of 143, potassium 4.8, chloride 116, carbon dioxide 24, anion gap 3, BUN 23, and creatinine 2.07. Imaging done includes a brain CT on 08/01/19. It shows no acute intracranial pathology, but age-related atrophy and mild chronic small vessel ischemic disease as well as paranasal sinusitis. On 07/30/19, abdomen and pelvis CT was performed, which showed the subcutaneous emphysema within the penis, but no other acute findings. No hydronephrosis or nephrolithiasis. Chest x-ray was done on 07/30/19, which did not show any acute intraparenchymal disease. A maxillofacial CT and a brain CT was done on 07/30/19, which showed again maxillary sinusitis, noted as moderate, but no other acute intracranial findings other than noted chronic changes. CONSULTATIONS DURING THIS HOSPITALIZATION: Included Urology. ITEMS TO FOLLOW UP ON STATUS POST DISCHARGE: 1. Urinary retention. This was almost certainly the cause of his behavioral problems and again Urology's best guess is that this is from weakness detrusor muscle given they did not feel that he had enlarged prostate on their exam nor did he have an enlarged prostate on imaging. -We did not check a PSA during this hospitalization because of repeated traumatic Smith insertions and removals and the likelihood for elevated nonspecific findings and PSA can be checked at primary care. -The patient should have a repeat bladder ultrasound within 7 to 10 days of discharge as well as a repeat creatinine to ensure no hydronephrosis or further problematic retention per Urology. -If there is no bump in creatinine and no evidence of structural hydronephrosis , the patient may tolerate slightly increased postvoid residuals without any further complications unless he has repeated UTIs and he does not need urologic followup. -Please continue alfuzosin as well as finasteride, which could be uptitrated as needed for symptom relief. If there is a component of detrusor muscle, we can also consider medications for mixed incontinence such as Myrbetriq or other antispasmodics from a primary care standpoint. The patient is incontinent at baseline and in diapers and voids roughly 200 to 250 cc each time he urinates. An outpatient order has been placed for the renal bladder ultrasound and this will be coordinated with his house from the inpatient standpoint to get followup within 7 to 10 days as well as a creatinine check. 2. Leukocytosis. Unclear if this may be from sinusitis versus abrasion on forehead versus repeated and traumatic Smith insertions. He has no evidence of other infections such as urinary tract infection or intraabdominal infection. This can be followed as an outpatient with repeat CBC within 2 to 3 weeks or if symptoms arise differently. 3. Behavioral changes. Again, behavioral changes seemed most consistent with correlation to his medical problems and would recommend he get reevaluated if behavioral changes persist from a sinusitis or urinary retention standpoint. On day of discharge, the patient is tolerating diet, voiding freely, ambulating and seems back to himself. 4. Hypertension. The patient had elevated hypertension during the course of his hospitalization and unclear if this is from agitation or representing poorly controlled essential hypertension. Refer to primary care to further titrate medications. Amlodipine was added and can be further intensified or discontinued from an outpatient standpoint. TIME SPENT: Forty five minutes was spent on the planning of this discharge with over half of that spent directly at the bedside of the patient, providing direct patient care, and plan of care was counseled with the patient's skilled nursing staff as well as his brother Dagoberto, who is his caregiver and they had no further questions. If there are any questions about the care provided to this patient during this hospitalization, please do not hesitate to reach out and contact me directly. This discharge summary highlights only the cadet summarization points of an extended 6-day hospitalization by the day of discharge. My cellphone is [phone] and call me directly. [id number]/[facility] #: [id number] MTDD
--- NOTE | 2019-08-05 16:23 | DS ---
DISCHARGE SUMMARY: ADDENDUM: DATE OF ADMISSION: 07/30/19 DATE OF DISCHARGE: 08/04/19 DISPOSITION AT TIME OF DISCHARGE: The patient's disposition is stable to return to his [facility] wh ere he is formally domiciled. [id number]/[facility] #: [id number]
== END 2019-08-04 11:25 | DRG 696 ==
LOC: ED 07:08 → MED 16:33
PROVIDERS: ADMIT Hospitalist; ATTEND Internal Medicine
DX: R33.8 Other retention of urine (principal); F84.0 Autistic disorder; S37.32XA Contusion of urethra, initial encounter; F79 Unspecified intellectual disabilities; R45.1 Restlessness and agitation; D72.829 Elevated white blood cell count, unspecified; F31.9 Bipolar disorder, unspecified; K21.9 Gastro-esophageal reflux disease without esophagitis; N18.9 Chronic kidney disease, unspecified; F63.9 Impulse disorder, unspecified; J01.90 Acute sinusitis, unspecified; X58.XXXA Exposure to other specified factors, initial encounter; Y92.238 Other place in hospital as the place of occurrence of the external cause; R31.0 Gross hematuria; M62.81 Muscle weakness (generalized); N31.8 Other neuromuscular dysfunction of bladder; F20.9 Schizophrenia, unspecified; I12.9 Hypertensive chronic kidney disease with stage 1 through stage 4 chronic kidney disease, or unspecified chronic kidney disease; S01.81XA Laceration without foreign body of other part of head, initial encounter; S01.21XA Laceration without foreign body of nose, initial encounter; S61.512A Laceration without foreign body of left wrist, initial encounter; X83.8XXA Intentional self-harm by other specified means, initial encounter; Y92.009 Unspecified place in unspecified non-institutional (private) residence as the place of occurrence of the external cause; Z91.012 Allergy to eggs; Z91.010 Allergy to peanuts; Z91.013 Allergy to seafood; Z88.7 Allergy status to serum and vaccine; Z88.8 Allergy status to other drugs, medicaments and biological substances; Z91.018 Allergy to other foods; Z91.048 Other nonmedicinal substance allergy status; Z79.1 Long term (current) use of non-steroidal anti-inflammatories (NSAID); Z79.899 Other long term (current) drug therapy
CPT/HCPCS: 36415; 70450; 70486; 71045; 74176; 80048; 80053; 80178; 80307; 80320; 80329; 81003; 81015; 83036; 83605; 84439; 84443; 85014; 85018; 85025; 87040; 87086; 87641; 93005; 96365; 99284; A9270-GY; G0480; G8978-GP-CJ; G8979-GP-CJ; G8980-GP-CJ; J0696; J2405

== ENCOUNTER 2019-08-08 06:33 | Emergency (ER) | payer MEDICARE, MEDICAID ==
[2019-08-08] MEDS ORDERED: Bacitracin OINTMENT* 0.5% 0.5 oz TUBE TOPICAL ONE (06:59)
[2019-08-08] MEDS ORDERED: diPHENhydraMINE PO* 25 MG PO ONE (07:00)
[2019-08-08] MEDS ORDERED: Cephalexin CAP* 500 MG PO ONE (07:00)
--- NOTE | 2019-08-08 07:27 | ED ---
Skin Complaint - HPI Summary HPI Summary: This patient is a 64-year-old male with a history of schizophrenia and developmental disability and bipolar resident of the [facility] presenting to the ED with staff concern for high blood pressure and left ear pain. Patient continues to hit the left ear due to discomfort or itching. He has been scratching at the area of the ear as well as scratching at the back of the neck. A bandage is currently applied to the forehead scratching as well. Currently staff applying bacitracin to the areas with banadages. He was recently seen and admitted at [facility] for behavioral problems as well as urinary retention. He was DC'd 5 days ago in good condition with a follow up to urology yesterday. No recent episodes of retention. Pt denies any pain. Endorses pain only to the L ear. Recent HPI provided by staff member. - History of Current Complaint Chief Complaint: EDHypertension Time Seen by Provider: 08/08/19 06:37 Stated Complaint: HIGH BLOOD PRESSURE PER EMS Hx Obtained From: Family/[employer] - staff member Onset/Duration: Started Weeks Ago Skin Exposure Onset/Duration: Weeks Ago Timing: Constant Onset Severity: Moderate Current Severity: Moderate Pain Intensity: 3 Pain Scale Used: 0-10 Numeric Aggravating Symptom(s): Nothing Alleviating Symptom(s): Nothing Related History: Trauma - Additional Pertinent History Primary Care Physician: VALDEZ - Allergy/Home Medications Allergies/Adverse Reactions: Allergies Allergy/AdvReac Type Severity Reaction Status Date / Time peanut Allergy Severe Anaphylatic Verified 08/08/19 06:59 Shock shrimp Allergy Severe Anaphylatic Verified 08/08/19 06:59 Shock influenza virus vaccine qs Allergy Unknown Unknown Verified 08/08/19 06:59 [id number] (36 mos, up) Reaction [From Fluarix Quad] Details piperonyl butoxide Allergy Unknown Unknown Verified 08/08/19 06:59 [From RID Complete Lice Adams Reaction Kit] Details pyrethrins Allergy Unknown Unknown Verified 08/08/19 06:59 [From RID Complete Lice [place] Reaction Kit] Details tuna oil Allergy Unknown Unknown Verified 08/08/19 06:59 Reaction Details egg Allergy Unknown Verified 08/08/19 06:59 Reaction Details permethrin Allergy Unknown Verified 08/08/19 06:59 Reaction Details ragweed pollen Allergy Unknown Verified 08/08/19 06:59 Reaction Details shellfish derived Allergy Unknown Verified 08/08/19 06:59 Reaction Details Home Medications: Home Medications Al Hydrox/Mg Hydrox/Simet LIQ* [Maalox Plus*] 15 ml PO BID 08/08/19 [History Confirmed 08/08/19] Benztropine TAB* [Cogentin TAB*] 1 tab PO BID 08/08/19 [History Confirmed ] Losartan TAB* [Cozaar TAB*] 25 mg PO DAILY 08/08/19 [History Confirmed 08/08/19] OLANZapine [Zyprexa Zydis] 15 mg PO BID 08/08/19 [History Confirmed 08/08/19] PMH/Surg Hx/FS Hx/Imm Hx Previously Healthy: Yes Endocrine/Hematology History: Reports: Hx Thyroid Disease Denies: Hx Diabetes Cardiovascular History: Reports: Hx Hypertension Respiratory History: Reports: Hx Asthma Denies: Hx Chronic Obstructive Pulmonary Disease (COPD) GI History: Denies: Hx Ulcer Sensory History: Denies: Hx Contacts or Glasses, Hx Hearing Aid Opthamlomology History: Denies: Hx Contacts or Glasses Neurological History: Reports: Hx Developmental Delay Psychiatric History: Reports: Hx Schizophrenia, Hx of Violent Episodes Against Others Denies: Hx Eating Disorder - Immunization History Hx Pertussis Vaccination: No Immunizations Up to Date: Yes Infectious Disease History: No Infectious Disease History: Reports: Hx of Known/Suspected MRSA - urine October 2013 Denies: Hx Clostridium Difficile, Hx Hepatitis, Hx Human Immunodeficiency Virus (HIV), Hx Shingles, Hx Tuberculosis, History Other Infectious Disease, Traveled Outside the [place] in Last 30 Days - Family History Known Family History: Negative: Diabetes - Social History Occupation: Unemployed, Disabled Lives: [facility] Alcohol Use: None Hx Substance Use: No Substance Use Type: Reports: None Hx Tobacco Use: No Smoking Status (MU): Never Smoked Tobacco Review of Systems Negative: Fever, Chills, Fatigue, Skin Diaphoresis Negative: Palpitations, Chest Pain Negative: Shortness Of Breath, Cough Genitourinary: Negative Positive: no symptoms reported, see HPI Negative: Arthralgia, Myalgia Positive: Other - abrasions to the L auricle of the ear, nape of the neck Neurological: Negative All Other Systems Reviewed And Are Negative: Yes Physical Exam Triage Information Reviewed: Yes Vital Signs On Initial Exam: Initial Vitals Temp Pulse Resp BP Pulse Ox 98.5 F 92 16 167/91 100 08/08/19 06:38 08/08/19 06:38 08/08/19 06:38 08/08/19 06:38 08/08/19 06:38 Vital Signs Reviewed: Yes Appearance: Positive: Well-Appearing, Well-Nourished Skin: Positive: Other - nape of the neck - abrasions; auricle of the L ear multiple abrasions Eyes: Positive: EOMI, Conjunctiva Clear Neck: Positive: Supple, No Lymphadenopathy Respiratory/Lung Sounds: Positive: Clear to Auscultation, Breath Sounds Present Cardiovascular: Positive: RRR, Pulses are Symmetrical in both Upper and Lower Extremities Musculoskeletal: Positive: Strength/ROM Intact Psychiatric: Positive: Patient Uncooperative for Exam Procedures - Sedation Patient Received Moderate/Deep Sedation with Procedure: No Diagnostics - Vital Signs Vital Signs Temp Pulse Resp BP Pulse Ox 08/08/19 07:06 90 175/76 98 08/08/19 07:00 90 100 08/08/19 06:59 92 167/80 98 08/08/19 06:38 98.5 F 92 16 167/91 100 - Laboratory Lab Statement: Any lab studies that have been ordered have been reviewed, and results considered in the medical decision making process. Course/Dx - Course Course Of Treatment: Pt evaluated for scratches to the L auricle of the ear worse to the antihelix area with associated erythema and swelling. Small abrasions to the posterior ear. No fevers. BP elevated at 167/91 on arrival likely secondary to pain and itching. Abrasion to the nape of the neck, no bleeding present. D/t the worsening condition of the ear and swelling, pt will need an oral abx as well as continue topical with bacitracin. - Diagnoses Provider Diagnoses: Abrasion, Self-harm Discharge ED - Sign-Out/Discharge Documenting (check all that apply): Patient Departure - Discharge Plan Condition: Stable Disposition: HOME Prescriptions: Cephalexin CAP* [Keflex CAP*] 500 mg PO TID #21 cap MDD 3 diPHENhydraMINE PO* [Benadryl PO 25 MG TAB*] 25 mg PO TID PRN #15 tab PRN Reason: Itching Patient Education Materials: Cellulitis (ED) Referrals: Maine Guerra MD [Primary Care Provider] - Additional Instructions: Alexander was seen for hypertension as well as multiple scratches, one of which appears to now be getting infected (to the ear) Keflex three times daily is prescribed One tab was given while in the ED One tab benadryl was also given in the ED as these wounds tend to involve itching Prescribed benadryl three times daily as needed for symptoms of itching Continue placing antibiotic ointment over the area and keep the area covered as much as possible to prevent further injury Blood pressure was high, but likely secondary to pain and itching Continue with at home medications as prescribed - Billing Disposition and Condition Condition: STABLE Disposition: Home
[2019-08-08 07:34] VITALS: BP 158/75
== END 2019-08-08 07:30 | disposition home or self-care (01) ==
LOC: ED 06:33
DX: S00.412A Abrasion of left ear, initial encounter (principal); S10.91XA Abrasion of unspecified part of neck, initial encounter; Y33.XXXA Other specified events, undetermined intent, initial encounter; Y92.10 Unspecified residential institution as the place of occurrence of the external cause; I10 Essential (primary) hypertension; F20.9 Schizophrenia, unspecified; F31.9 Bipolar disorder, unspecified; Z88.7 Allergy status to serum and vaccine; Z88.8 Allergy status to other drugs, medicaments and biological substances; Z91.012 Allergy to eggs; Z91.010 Allergy to peanuts; Z91.013 Allergy to seafood; E07.9 Disorder of thyroid, unspecified; N40.0 Benign prostatic hyperplasia without lower urinary tract symptoms; J45.909 Unspecified asthma, uncomplicated; Z79.899 Other long term (current) drug therapy; F79 Unspecified intellectual disabilities
CPT/HCPCS: 36415; 80053; 80178; 80320; 80329; 84443; 85025; 99283; 99285; A9270-GY; G0480

== ENCOUNTER 2019-08-08 10:33 | Emergency (ER) | payer MEDICARE, MEDICAID ==
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
[2019-08-08 11:28] LABS: ABS Basophils 0.1 10^3/ul (0-0.2); ABS Eosinophils 0.2 10^3/ul (0-0.6); ABS Lymphocytes 1.2 10^3/ul (1.0-4.8); ABS Monocytes 1.1 10^3/ul (0-0.8); ABS Neutrophils 13.2 10^3/ul (1.5-7.7); Eosinophil % 1.5 %; Hematocrit 34 % (42-52); Hemoglobin 11.3 g/dL (14.0-18.0); Lymphocyte % 7.3 %; Mean Corpuscular HGB Conc 33 g/dL (31-36); Mean Corpuscular Hemoglobin 31 pg (27-31); Mean Corpuscular Volume 94 fL (80-94); Mean Platelet Volume 6.8 fL (7.4-10.4); Platelet Count 419 10^3/uL (150-450); Red Blood Count 3.63 10^6 /uL (4.18-5.48); Red Cell Distribution Width 14 % (10-15); White Blood Count 15.8 10^3/uL (3.5-10.8)
[2019-08-08 11:45] LABS: ALT 25 U/L (7-52); AST 26 U/L (13-39); Albumin 3.6 g/dL (3.2-5.2); Albumin/Globulin Ratio 1.2 (1-3); Alkaline Phosphatase 123 U/L (34-104); BUN/Creatinine Ratio 13.3 (8-20); Blood Urea Nitrogen 33 mg/dL (6-24); CO2 Carbon Dioxide 20 mmol/L (22-32); EGFR African American 31.7 (>60); EGFR Non-African American 26.2 (>60); Globulin 3.1 g/dL (2-4); Glucose 146 mg/dL (70-100); Potassium 4.7 mmol/L (3.5-5.0); Sodium 141 mmol/L (135-145); Total Protein 6.7 g/dL (6.4-8.9)
[2019-08-08 11:47] LABS: Anion Gap 9 mmol/L (2-11); Chloride 112 mmol/L (101-111)
[2019-08-08 12:14] LABS: Acetaminophen < 15 mcg/mL; Alcohol < 10 mg/dL (<10); Salicylate < 2.50 mg/dL (<30)
[2019-08-08 12:29] LABS: TSH (Thyroid Stimulating Horm) 5.44 mcIU/mL (0.34-5.60)
[2019-08-08 14:22] VITALS: BP 155/80
== END 2019-08-08 14:00 | disposition home or self-care (01) ==
LOC: ED 10:33
DX: F79 Unspecified intellectual disabilities (principal); F31.9 Bipolar disorder, unspecified; N40.0 Benign prostatic hyperplasia without lower urinary tract symptoms; E07.9 Disorder of thyroid, unspecified; I10 Essential (primary) hypertension; J45.909 Unspecified asthma, uncomplicated; F20.9 Schizophrenia, unspecified; Z79.899 Other long term (current) drug therapy; Z88.7 Allergy status to serum and vaccine; Z88.8 Allergy status to other drugs, medicaments and biological substances
CPT/HCPCS: 36415; 80053; 80178; 80320; 80329; 84443; 85025; 99285; G0480

== ENCOUNTER 2019-08-13 15:57 | Emergency (ER) | payer MEDICARE, MEDICAID ==
--- NOTE | 2019-08-13 16:08 | ED ---
Complex/Multi-Sys Presentation - HPI Summary HPI Summary: This pt is a 64 y/o male, with hx of developmental disability, presenting to [facility] via EMS from [facility] for self harm and possible gallbladder problems. EMS reports pt has hx of self harm and self abuse. Per EMS pt hits himself, picks his ears and nose. Provider from [facility] saw an abnormal scan and believes it is gallbladder related. Staff member from [facility] reports pt was hospitalized recently for urinary retention and discharged on 08/04/19. Staff member notes pt has been self harming his legs, arms, and ears for the past 3 weeks. Per staff member, when pt was in the hospital last he had a cat scan that showed gallstones. The provider at [facility] believes patient may be having pain from the gallstones. Per staff member, pt usually does everything himself, he bathes and feeds himself. Staff member notes pt has not been eating or drinking for the last couple of days, which is unusual for the patient. Per staff member, pt loves food. Additionally staff member states it seems patient is retaining urine again. Pt was in the ED recently for cellulitis of his ear and today he took his last antibiotic. He has an upcoming nephrology appointment tomorrow 08/14/19. PMHx: schizophrenia, bipolar disorder. Per staff member, pt was placed on cogentin but was recently discontinued and pt was placed on Clonazepam. Pt with allergic reaction to Flomax given a few weeks ago. 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 Negative: Fever - Allergies/Home Medications Allergies/Adverse Reactions: Allergies Allergy/AdvReac Type Severity Reaction Status Date / Time peanut Allergy Severe Anaphylatic Verified 08/08/19 06:59 Shock shrimp Allergy Severe Anaphylatic Verified 08/08/19 06:59 Shock influenza virus vaccine qs Allergy Unknown Unknown Verified 08/08/19 06:59 [id number] (36 mos, up) Reaction [From Fluarix Quad] Details piperonyl butoxide Allergy Unknown Unknown Verified 08/08/19 06:59 [From RID Complete Lice [place] Reaction Kit] Details pyrethrins Allergy Unknown Unknown Verified 08/08/19 06:59 [From RID Complete Lice [place] Reaction Kit] Details tuna oil Allergy Unknown Unknown Verified 08/08/19 06:59 Reaction Details egg Allergy Unknown Verified 08/08/19 06:59 Reaction Details permethrin Allergy Unknown Verified 08/08/19 06:59 Reaction Details ragweed pollen Allergy Unknown Verified 08/08/19 06:59 Reaction Details shellfish derived Allergy Unknown Verified 08/08/19 06:59 Reaction Details Home Medications: Home Medications Alfuzosin ER (NF) [Uroxatral (NF)] 10 mg PO DAILY 08/13/19 [History Confirmed ] Finasteride TAB* [Proscar TAB*] 5 mg PO DAILY 08/13/19 [History Confirmed ] [place] Carbonate CAP 150 mg PO BID 08/13/19 [History Confirmed 08/13/19] Magnesium Hydroxide LIQ* [Milk of Magnesia LIQ*] 30 ml PO DAILY PRN 08/13/19 [ History Confirmed 08/13/19] Mupirocin 2% OINT* [Bactroban 2 % Oint*] 1 applic TOPICAL BID 08/13/19 [History Confirmed 08/13/19] Ranitidine TAB (NF) [Zantac TAB (NF)] 150 mg PO BID 08/13/19 [History Confirmed 08/13/19] Sertraline* [Zoloft*] 100 mg PO BEDTIME 08/13/19 [History Confirmed 08/13/19] Triamcinolone NASAL SPRAY* [Nasacort AQ Nasal [place]*] 2 spray BOTH NARES BEDTIME 08/13/19 [History Confirmed 08/13/19] aMILoride TAB* [Midamor TAB*] 5 mg PO DAILY 08/13/19 [History Confirmed 08/13/19 ] guaiFENesin LIQ* [Robitussin*] 10 ml PO Q4H PRN 08/13/19 [History Confirmed ] PMH/Surg Hx/FS Hx/Imm Hx Endocrine/Hematology History: Reports: Hx Thyroid Disease Denies: Hx Diabetes Cardiovascular History: Reports: Hx Hypertension Respiratory History: Reports: Hx Asthma Denies: Hx Chronic Obstructive Pulmonary Disease (COPD) GI History: Denies: Hx Ulcer Sensory History: Denies: Hx Contacts or Glasses, Hx Hearing Aid Opthamlomology History: Denies: Hx Contacts or Glasses Neurological History: Reports: Hx Developmental Delay Psychiatric History: Reports: Hx Schizophrenia, Hx of Violent Episodes Against Others Denies: Hx Eating Disorder Infectious Disease History: No Infectious Disease History: Reports: Hx of Known/Suspected MRSA - urine October 2013 Denies: Hx Clostridium Difficile, Hx Hepatitis, Hx Human Immunodeficiency Virus (HIV), Hx Shingles, Hx Tuberculosis, History Other Infectious Disease, Traveled Outside the [place] in Last 30 Days - Family History Known Family History: Negative: Diabetes - Social History Alcohol Use: None Hx Substance Use: No Substance Use Type: Reports: None Hx Tobacco Use: No Smoking Status (MU): Never Smoked Tobacco Review of Systems - ROS Summary Review of Systems Summary: ROS IS LIMITED DUE TO LEVEL 5 CAVEAT - pt with developmental disability Constitutional: Other - POSITIVE: decreased PO intake Negative: Fever Psychological: Other - POSITIVE: self harm, agitation All Other Systems Reviewed And Are Negative: No Physical Exam - Summary Physical Exam Summary: Constitutional: Well-developed, Well-nourished, Alert. (-) Distressed Skin: Warm, Dry HENT: Normocephalic; Atraumatic. Oral mucosa is dry. Eyes: Conjunctiva normal Neck: Musculoskeletal ROM normal neck. (-) JVD, (-) Stridor, (-) Tracheal deviation Cardio: Rhythm regular, rate normal, Heart sounds normal; Intact distal pulses; The pedal pulses are 2+ and symmetric. Radial pulses are 2+ and symmetric. (-) Murmur Pulmonary/Chest wall: Effort normal. (-) Respiratory distress, (-) Wheezes, (-) Rales Abd: Soft, (-) Tenderness, (-) Distension, (-) Guarding, (-) Rebound Musculoskeletal: (-) Edema Lymph: (-) Cervical adenopathy Neuro: Patient is lethargic. Psych: Mood and affect Normal Triage Information Reviewed: Yes Vital Signs On Initial Exam: Initial Vitals Temp Pulse Resp BP Pulse Ox 98.1 F 72 16 160/90 97 08/13/19 16:01 08/13/19 16:01 08/13/19 16:01 08/13/19 16:01 08/13/19 16:01 Vital Signs Reviewed: Yes Procedures - Sedation Patient Received Moderate/Deep Sedation with Procedure: No Diagnostics - Vital Signs Vital Signs Temp Pulse Resp BP Pulse Ox 08/13/19 16:01 98.1 F 72 16 160/90 97 - Laboratory Result Diagrams: 08/13/19 16:25 08/13/19 16:25 Lab Statement: Any lab studies that have been ordered have been reviewed, and results considered in the medical decision making process. - Ultrasound No standard instances Ultrasound Interpretation Completed By: Radiologist Summary of Ultrasound Findings: Gallbladder US IMPRESSION: Multiple gallstones. No ductal dilatation or evidence of cholecystitis. Dr. Kay has reviewed this report. Complex Multi-Symp Course/Dx Assessment/Plan: Pt is a 64 y/o male, with hx of developmental disability, presenting to [facility] via EMS from [facility] for self harm and possible gallbladder problems. EMS reports pt has hx of self harm and self abuse. Staff member from [facility] reports pt was hospitalized recently for urinary retention and discharged on 08/04/19. Staff member notes pt has been self harming his legs, arms, and ears for the past 3 weeks. Per staff member, when pt was in the hospital last he had a cat scan that showed gallstones. The provider at [facility] believes patient may be having pain from the gallstones. Per staff member, pt usually does everything himself, he bathes and feeds himself. Staff member notes pt has not been eating or drinking for the last couple of days, which is unusual for the patient. Per staff member , pt loves food. Additionally staff member states it seems patient is retaining urine again. Lab work remarkable for WBC of 16.3, hemoglobin of 10.8, hematocrit of 32, BUN of 38, creatinine of 2.83, CRP of 20.54. Gallbladder US shows multiple gallstones. No ductal dilatation or evidence of cholecystitis. My concern for hospitalization is patient still has not had urology follow up or consult and recurrent urinary retention. Patient cannot have an indwelling lundberg in his current living situation. Discussed with Dr. Mann, hospitalist, who will evaluate the patient. Pt will be signed out to Dr. Spaulding pending disposition. - Diagnoses Provider Diagnoses: Acute urinary retention, Agitation - Physician Notifications Discussed Care Of Patient With: Rachel Mann Time Discussed With Above Provider: 18:33 Instructed by Provider To: Other - Dr. Mann, hospitalist will evaluate the pt. Discharge ED - Sign-Out/Discharge Documenting (check all that apply): Sign-Out Patient Signing out patient TO: Sue Spaulding - disposition - Discharge Plan Condition: Stable Referrals: Maine Guerra MD [Primary Care Provider] - - Attestation Statements Document Initiated by Scribe: Yes Documenting Scribe: Laura Victoria Provider For Whom Scribe is Documenting (Include Credential): Kwame Kay MD Scribe Attestation: Laura Wilson, scribed for Kwame Kay MD on 08/13/19 at 1840. Status of Scribe Document: Ready
[2019-08-13 16:38] LABS: ABS Basophils 0.1 10^3/ul (0-0.2); ABS Eosinophils 0.5 10^3/ul (0-0.6); ABS Lymphocytes 1.3 10^3/ul (1.0-4.8); ABS Neutrophils 13.3 10^3/ul (1.5-7.7); Eosinophil % 2.9 %; Hematocrit 32 % (42-52); Hemoglobin 10.8 g/dL (14.0-18.0); Lymphocyte % 8.3 %; Mean Corpuscular HGB Conc 34 g/dL (31-36); Mean Corpuscular Hemoglobin 32 pg (27-31); Mean Corpuscular Volume 93 fL (80-94); Mean Platelet Volume 6.9 fL (7.4-10.4); Platelet Count 440 10^3/uL (150-450); Red Blood Count 3.42 10^6 /uL (4.18-5.48); Red Cell Distribution Width 14 % (10-15); White Blood Count 16.3 10^3/uL (3.5-10.8)
[2019-08-13] MEDS ORDERED: Lorazepam PYXIS KEY PRN (16:40)
[2019-08-13] MEDS ORDERED: LORazepam INJ* 2 MG/ML 1 ML VIAL IV PUSH ONE (16:40)
[2019-08-13] MEDS ORDERED: Triazolam TAB* 0.25 MG PO ONE (16:48)
[2019-08-13 16:58] LABS: Albumin 3.5 g/dL (3.2-5.2); Albumin/Globulin Ratio 1.2 (1-3); BUN/Creatinine Ratio 13.4 (8-20); C Reactive Protein 20.54 mg/L (<8.01); Calcium 9.8 mg/dL (8.6-10.3); EGFR African American 27.2 (>60); EGFR Non-African American 22.5 (>60); Potassium 4.8 mmol/L (3.5-5.0); Total Bilirubin 0.3 mg/dL (0.2-1.0); Total Protein 6.5 g/dL (6.4-8.9)
[2019-08-13] MEDS ORDERED: cefTRIAXone(*) 1 GM in NS 0.9% 50 ML* 50 ML IVPB ONE (17:55)
[2019-08-13 18:28] LABS: Lithium 0.99 mmol/L (0.6-1.2)
[2019-08-13] MEDS ORDERED: NS 0.9% 500 ML* 500 ML IV ONE (18:30)
[2019-08-13 18:32] LABS: Urine Appearance Clear; Urine Bilirubin Negative (Negative); Urine Blood Negative (Negative); Urine Color Straw; Urine Glucose Negative (Negative); Urine Ketones Negative (Negative); Urine Nitrite Negative (Negative); Urine Protein Negative (Negative); Urine Specific Gravity 1.008 (1.010-1.030); Urine Urobilinogen Negative (Negative)
--- NOTE | 2019-08-13 19:22 | ED ---
Progress - Progress Note Progress Note: The patient was signed out from Dr. Kay upon shift change on 08/13/19 at 19: 00, pending disposition. Course/Dx - Course Course Of Treatment: The patient was signed out from Dr. Kay upon shift change on 08/13/19 at 19:00, pending disposition. Per Faye Duarte, hospitalist SOLE PAINTER, patient does not leave lundberg catheter in. He is in ED for urinary retention and an abnormal gallbladder US. He is already in process of being worked up for it. He will see urology for urinary retention. His right ear is macerated from him digging skin off it. It looks like cellulitis. Will treat with Keflex anad bacitracin. In the ED course, the patient was given Keflex 500 mg PO. Patient will be discharged home with prescription for Keflex. He was advised to use bacitracin and follow up from Dr. Guerra, his primary care provider, in 3 days. Patient was instructed to return to Emergency Department for new or worsening symptoms. Patient understands and is agreeable to this plan. - Diagnoses Provider Diagnoses: Urinary retention, Gallstones, Cellulitis of right ear - Provider Notifications Time Discussed With Above Provider: 21:23 Instructed by Provider To: Other - Faye Tay, hospitalist SOLE PAINTER, states that patient can be discharged home. Discharge ED - Sign-Out/Discharge Documenting (check all that apply): Patient Departure - Discharge - Discharge Plan Condition: Stable Disposition: HOME Prescriptions: Cephalexin CAP* [Keflex 500 CAP*] 500 mg PO QID 10 Days #40 cap Patient Education Materials: Gallstones (ED), Urinary Retention in Men (ED), Cellulitis (ED) Referrals: Maine Guerra MD [Primary Care Provider] - 3 Days Additional Instructions: Take Keflex as prescribed. Use bacitracin. Please follow up with your primary care provider within 3 days. Please return to Emergency Department for any new or worsening symptoms. - Billing Disposition and Condition Condition: STABLE Disposition: Home - Attestation Statements Document Initiated by Scribe: Yes Documenting Scribe: Monserrat Hoyos Provider For Whom Scribe is Documenting (Include Credential): Sue Spaulding MD Scribe Attestation: IMonserrat, scribed for Sue Spaulding MD on 08/13/19 at 2318. Scribe Documentation Reviewed: Yes Provider Attestation: The documentation as recorded by the scribe, Monserrat Hoyos accurately reflects the service I personally performed and the decisions made by me, Sue Spaulding MD Status of Scribe Document: Viewed Procedures - Sedation Patient Received Moderate/Deep Sedation with Procedure: No
[2019-08-13] MEDS ORDERED: Cephalexin CAP* 500 MG PO ONE ×2 (21:36→21:49)
[2019-08-13 21:52] VITALS: BP 118/68
--- NOTE | 2019-08-14 03:39 | CONS ---
CC: Dr. Kay; Dr. Guerra * CONSULTATION REPORT: DATE OF CONSULT: 08/13/19 - EMERGENCY DEPT PROVIDER: Faye Duarte NP. ATTENDING PHYSICIANS: Dr. Kay, Dr. Spaulding. CONSULTING PHYSICIAN: Dr. Jose Mondragon (dictated by Faye Duarte NP). REASON FOR CONSULT: Urinary retention. HISTORY OF PRESENT ILLNESS: Mr. Mckoy is a 64-year-old male with a past medical history significant for bipolar, schizophrenia, history of self-abuse, autism, GERD, intellectual disability, who presented to the emergency room from his custodial, the [facility], where he has lived at for decades. The patient recently had a CT of the abdomen that showed stones in the gallbladder, so his primary care provider Dr. Guerra recommended he present to the emergency room for gallbladder ultrasound. His history of present illness was obtained from staff at the custodial. They report that the patient has had increased self-abusive behavior, not acting himself, throwing himself on the floor. He has not been eating, but has been drinking, not sleeping well. He did eat a small amount for lunch today. They do report that he has had a decreased appetite, only eating small amounts for about the past week and no bowel movement for the past 3 to 4 days. They also report that he has been screaming and this is off of his baseline, but staff does report that he did have these episodes of self-abuse, screaming, and poor behavior with decompensation in his bipolar and schizophrenia in the past. The house staff reports that the patient was sent to the emergency room to have a gallbladder ultrasound due to the findings of gallbladder stones and decreased appetite. While in the emergency room, the patient had a gallbladder ultrasound that showed no acute cholecystitis. It did show gallbladder stones, but no wall thickening and no duct dilation. While in the emergency room, he had routine lab work that showed acute on chronic renal failure. He had BUN of 38, creatinine of 2.83 which has been consistent with his prior BUN and creatinine level since 2017. The patient was recently admitted in the hospital in the beginning of July 2019 for urinary retention. At that time, the patient was attempted to have a Smith placed, but the patient pulled on the Smith ultimately pulling the Smith catheter out. The patient was unable to tolerate Smith catheter being placed and ultimately the decision was made with the Hospital Medicine and Urology to leave the catheter out as the patient was able to void. The patient continues to be able to void. He had been incontinent in the emergency room. They did do a bladder scan and a postvoid residual of 350 cc was obtained, but the patient was voiding lying down flat in the bed and not standing to urinate, which the patient normally does. PAST MEDICAL HISTORY: Significant for: 1. Bipolar. 2. Schizophrenia. 3. Self-abuse. 4. Autism. 5. Intellectual delay. PAST SURGICAL HISTORY: None. HOME MEDICATIONS: 1. Guaifenesin 10 mL p.o. q.4 hours as needed for cough. 2. Bacitracin ointment. 3. Acetaminophen 650 mg p.o. q.4 hours as needed. 4. Biotene 10 mL swish and spit b.i.d. 5. EpiPen as needed. 6. Maalox 15 mL p.o. b.i.d. 7. Halcion 0.5 p.o. once p.r.n. 8. Nasacort 2 sprays both nares at bedtime. 9. Zoloft 100 mg at bedtime. 10. Losartan 25 mg p.o. daily. 11. Uroxatral 10 mg p.o. daily. 12. Finasteride 5 mg p.o. daily. 13. Haldol 5 mg p.o. t.i.d. 14. Ranitidine 150 mg p.o. b.i.d. 15. Zyprexa 15 mg p.o. b.i.d. 16. [place] 150 mg p.o. b.i.d. 17. Chlorhexidine mouthwash 10 mL p.o. b.i.d. 18. MiraLAX 17 g p.o. daily. 19. Multivitamin p.o. daily. 20. Louann 180 mg p.o. daily. 21. Amiloride 5 mg p.o. daily. 22. Abilify 400 mg IM monthly. 23. Levothyroxine 75 mcg p.o. daily. 24. Clonazepam 0.5 mg p.o. b.i.d. ALLERGIES: PEANUT, SHRIMP, INFLUENZA Vaccine, TUNA, EGGS, PERMETHRIN, RAGWEED, AND SHELLFISH. FAMILY HISTORY: Noncontributory. No significant disease or cancer within the family. SOCIAL HISTORY: The patient does not smoke, drink, or use any illicit drugs. He lives in a custodial. Surrogate decision maker in the event he is unable to make his own decisions is his brother Lalo. He is a full code. REVIEW OF SYSTEMS: Unable to complete review of systems per the staff. No reports of fever. No reports of chest pain, cough, hemoptysis, or shortness of breath. No reports of diarrhea. There has been an occasional report of nausea with vomiting of phlegm. No blood in the urine has been noted. No trouble swallowing. There has been report that the patient has been self abusive. He does have multiple ecchymotic areas to extremities and abrasions noted to all extremities. He does have an abrasion to his forehead and bilateral ears. His right ear has swelling and erythema with an abrasion. PHYSICAL EXAMINATION: General: At this time, Mr. Mckoy is drowsy after receiving lorazepam and Halcion in the emergency room. He is in no acute distress. Vital Signs: Blood pressure 135/72, heart rate 66, respirations 16, O2 saturation 97%, temperature was 98.1. HEENT: Head with abrasion noted to the forehead, bilateral ears with abrasions, right ear with swelling and erythema and open abrasion in bilateral arms. Mucous membranes are moist. The patient is drowsy. Lungs are clear to auscultation bilaterally. No wheezes, rales, or rhonchi. Cardiac: S1, S2. Regular rate and rhythm. No murmurs, rubs , or gallops. Neck is supple. He does have an abrasion noted to his posterior neck without surrounding erythema. Abdomen is soft. There is no grimacing with palpation of the abdomen. Negative Zarate sign. Bowel sounds are active x4. No suprapubic grimacing with palpation. He is able to move all 4 extremities. There is no clubbing or cyanosis. Neurologic: He is drowsy, resting on the stretcher in the emergency room. No apparent focal deficits noted. Skin: He does have multiple abrasions and ecchymosis noted to all 4 extremities. He does have scratches noted to his lower abdomen. Bilateral ears with abrasions, right greater than left. Right ear with erythema and swelling. Cellulitis noted to the right ear. LABORATORY DATA AND DIAGNOSTIC STUDIES: WBCs are 16.3, RBCs 3.42, hemoglobin 10.8, hematocrit is 32, platelet count is 440. Sodium 134, potassium 4.8, chloride 107, carbon dioxide is 25, anion gap of 2, BUN is 38, creatinine 2.83, glucose 104, lactic acid 1.0. AST 34, ALT 22, alkaline phosphatase is 110. C- reactive protein 20.54. Urine was within normal limits with the exception of specific gravity of 1.008. [place] was 0.99. He had a gallbladder ultrasound, radiologist's impression: Multiple gallstones. No ductal dilation or evidence of cholecystitis. No wall thickening. ASSESSMENT AND PLAN/RECOMMENDATIONS: Mr. Mckoy is a 64-year-old male with intellectual disability, history of bipolar, schizophrenia, self-abuse, who presented to the emergency room at the direction of primary care provider for evaluation of his gallbladder. He did have a gallbladder ultrasound that was negative. Hospital Medicine was asked to evaluate and consult on the patient for admission. Our recommendations are as follows: 1. At this time, the patient has had chronic leukocytosis since 04/23/19. He is afebrile. He is not tachycardic. He is not showing any signs of sepsis at this time. He does have erythema and swelling noted to his right ear associated with cellulitis. At this time, I would recommend that the patient be placed on antibiotics Keflex for treatment of his cellulitis and bacitracin to the right ear. 2. Chronic renal failure. The patient did have urinary retention with 350 cc postvoiding. The patient did void lying in the bed, and he normally stands to urinate. He was straight cathed and 350 cc returned. Urine was sent, does not show any signs of infection. His BUN and creatinine are consistent with his previous BUN and creatinine since 2018. I suspect that is chronic elevation could be related to his lithium. May need to consider changing lithium. At this time, he does not have evidence of urinary tract infection. I would recommend followup with Urology and nephrology as an outpatient for further re commendations. The patient in the past has had Smith catheter placed and is unable to tolerate the Smith catheters and pulls them out, and during his recent last admission, it was decided to leave the Smith catheter out as the patient was voiding without a catheter being placed. I would recommend that the patient have a repeat BMP in 3 days. 3. Leukocytosis. Suspect it could be related to his right ear cellulitis. He will be treated with Keflex. I have recommended repeat CBC and BMP in 3 days. 4. Self-abuse behavior. It is unclear at this time the cause of his self- abuse behavior. He did have an ultrasound of the gallbladder that showed gallstones but no wall thickening or cholecystitis. He had a UA sent that showed no signs of urinary tract infection. At the time of evaluation, the patient appears comfortable, resting on the stretcher. He is drowsy. Abdomen was soft and nontender. There was no grimacing noted with palpation. Zarate sign was negative. The patient does have a history of self-abuse behavior with exacerbations of his bipolar and schizophrenia. I would recommend consultation with his primary care provider and possibly a psychiatrist for further recommendations on the possible psychiatric component to his current self- abusive behavior. The patient should return to the emergency room for any fever, tachycardia, cough, congestion, shortness of breath, or any other concerning or worsening behavioral symptoms. The patient is to follow up with his primary care provider in 1 to 3 days. He should have repeat BMP and CBC in 3 days. He should follow up with nephrology, urology and psychiatry as an outpatient. Further discharge instructions per the Emergency room physician. TIME SPENT: Time spent on this consultation was 45 minutes, greater than half that time was spent at the bedside reviewing the events leading thus far to this hospitalization, performing physical exam, and reviewing my plan of care. I have discussed this with my attending Dr. Jose Mondragon. He is in agreement with my plan. FAYE DUARTE, JOHNNIE [id number]/CPS #: [id number] PENNY
[2019-08-14] MEDS ORDERED: Cephalexin CAP* 500 MG PO SCH (09:00)
== END 2019-08-13 22:07 | disposition home or self-care (01) ==
LOC: ED 15:57
DX: R33.9 Retention of urine, unspecified (principal); K80.80 Other cholelithiasis without obstruction; H60.11 Cellulitis of right external ear; R45.1 Restlessness and agitation; E03.9 Hypothyroidism, unspecified; J45.909 Unspecified asthma, uncomplicated; F20.9 Schizophrenia, unspecified; Z79.890 Hormone replacement therapy; Z79.899 Other long term (current) drug therapy; Z88.7 Allergy status to serum and vaccine; Z88.8 Allergy status to other drugs, medicaments and biological substances; I12.9 Hypertensive chronic kidney disease with stage 1 through stage 4 chronic kidney disease, or unspecified chronic kidney disease
CPT/HCPCS: 36415; 76705; 80053; 80178; 81003; 81015; 82570; 83605; 83690; 84156; 85025; 86140; 87086; 96365; 96375; 99284; A9270-GY; J0696

== ENCOUNTER 2019-08-19 16:36 | Inpatient (IN) | payer MEDICARE, MEDICAID ==
--- OUTSIDE RECORDS SUMMARY | 2019-08-19 17:21 | XMS REPORT | Continuity of Care Document ---
:1955 External Reference #:[id number] Author Name Emily Quan MD (transmitted by agent of provider Faye Will) Address [address] [place] [address] Problems Description No Information Available Social History Type Date Description Comments Sex Unknown Tobacco Use Start: Unknown Never Smoked Cigarettes Smoking Status Reviewed: 08/14/19 Never Smoked Cigarettes ETOH Use Never used alcohol Tobacco Use Start: Unknown Patient has never smoked Recreational Drug Use Denies Drug Use Exercise Type/Frequency Exercises rarely Allergies, Adverse Reactions, Alerts Active Allergies Reaction Severity Comments Date Eggs Or Egg-Derived Products 08/14/2019 Tamsulosin 08/14/2019 Shellfish, Peanuts, Shrimp 08/14/2019 Grass, Ragweed, Trees, Dust Mites, [place]. 08/14/2019 Medications Active Medications SIG Qnty Indications Ordering Date Provider Amlodipine Besylate 1 tab by mouth once 90tabs T56.891A Emily Wing 2018 5mg day MD Kadeem Tablets Acetaminophen Extra (325mg)2 tabs by Unknown Strength mouth every 8 hours 500mg Tablets as needed for pain or fever Bacitracin (External) use twice a day on Unknown wound 500Unit/GM Ointment Guaifenesin 10 milliliters by Unknown 100mg/5ML mouth every 4 hours Liquid as needed for cough Epinephrine 1 injection as Unknown 0.3mg/0.3ML needed allergic Solution Auto-Inject reaction Antacid Unknown Triazolam 0.25 mg, 2 tabs by Unknown mouth one hour before dental work Nasacort 55 mcg, 2 sprays in Unknown each nostril at bedtime. Sertraline HCL 1 by mouth every Unknown 100mg day Tablets Trazodone HCL take 1 tablet by Unknown 100mg mouth every night Tablets at bedtime Alfuzosin HCL ER 10 mg 1 by mouth Unknown everyday. Finasteride 1 a day Unknown Ipratropium [place] 0.06 percent, Unknown inhale 2 sprays each nostril 4 times a day Haloperidol 1 tab by mouth Unknown 5mg Tablets three times a day as needed Olanzapine 15 mg. 1, 2 times a Unknown day Banophen 25 mg 1 cap by Unknown mouth 3 times a day Benztropine Mesylate 1 mg, 1 tab by Unknown mouth twice a day. [place] Carbonate 150 mg, 1 cap by Unknown mouth twice daily. Chlorhexidine 0.12 percent swish Unknown Gluconate and spit out 2 teaspoonfuls, 2 times a day. Polyethylene Glycol 17 mg mix in Unknown 1000 liquid Cephalexin 1 cap by mouth 3 Unknown 500mg times a day Capsules Centrum Adults one teaspoon Unknown Fexofenadine HCL 1 by mouth every Unknown 180mg day Tablets Amiloride HCL 1 tab by mouth Unknown 5mg every daily Tablets Abilify Maintena 400 mg Unknown Levothyroxine Sodium 1 by mouth every Unknown day 75mcg Tablets Clonazepam 1 tablet by mouth Unknown 0.5mg twice daily Tablets Mupirocin apply twice daily Unknown 2% Ointment Benadryl Allergy take benadryl 50 mg Unknown 25mg by mouth 3 times a Tablets day as needed Doxycycline Hyclate one tablet twice Unknown daily 100mg Capsules Milk Of Magnesia 2 tbsp by mouth Unknown everyday as needed Immunizations Description No Information Available Vital Signs Date Vital Result Comment 08/14/2019 9:53am Weight 156.00 lb Heart Rate 102 /min BP Systolic Sitting 107 mmHg right arm reg cuff BP Diastolic Sitting 79 mmHg right arm reg cuff O2 % BldC Oximetry 99 % Results Test Date Facility Test Result H/L Range Note Neph Routine 08/13/2019 [facility] Total Protein 17 mg/dL 1 , [address] [place] [address] [phone] Creatinine Random Urine 56.95 mg/dL 3 Urinalysis Profile 08/13/2019 [facility] Urine Color Yellow [address] [place] [address] [phone] Urine Appearance Clear Urine Specific [place] 1.010 Normal 1.010-1.030 Urine pH 7.0 Normal 5-9 Urine Urobilinogen Negative Negative Urine Ketones Negative Negative Urine Protein Negative Negative Urine Leukocytes Trace Abnormal Negative Urine Blood 2+ Abnormal Negative Urine Nitrite Negative Negative Urine Bilirubin Negative Negative Urine Glucose Negative Negative Urine White Blood Cell Trace(0-5/hpf) Absent Urine Red Blood Cell Trace(0-2/hpf) Absent Urine Bacteria Absent Absent Urine Squamous Epithelial Cell Present Abnormal Absent Comp Metabolic 08/13/2019 [facility] Sodium 138 mmol/L Normal 135-[address] [place] [address] [phone] Chloride 110 mmol/L Normal 101-111 Co2 Carbon Dioxide 24 mmol/L Normal 22-32 Glucose 103 mg/dL High 70-100 Blood Urea Nitrogen 37 mg/dL High 6-24 Creatinine 2.84 mg/dL High 0.67-1.17 BUN/Creatinine Ratio 13.0 Normal 8-20 Calcium 10.1 mg/dL Normal 8.6-10.3 Total Protein 6.4 g/dL Normal 6.4-8.9 Albumin 3.6 g/dL Normal 3.2-5.2 Globulin 2.8 g/dL Normal 2-4 Albumin/Globulin Ratio 1.3 Normal 1-3 Total Bilirubin 0.60 mg/dL Normal 0.2-1.0 Alkaline Phosphatase 120 U/L High 34-104 Alt 21 U/L Normal 7-52 Ast 29 U/L Normal 13-39 Egfr Non- 22.4 >60 Egfr 27.1 >60 4 Potassium 5.3 mmol/L High 3.5-5.0 Anion Gap 4 mmol/L Normal 2-11 CBC Auto 08/13/2019 [facility] White Blood 17.4 10^3/uL High 3.5-10.[address] [place] [address] [phone] Red Blood Count 3.60 10^6/uL Low 4.18-5.48 Hemoglobin 11.3 g/dL Low 14.0-18.0 Hematocrit 33 % Low 42-52 Mean Corpuscular Volume 93 fL Normal 80-94 Mean Corpuscular Hemoglobin 31 pg Normal 27-31 Mean Corpuscular HGB Conc 34 g/dL Normal 31-36 Red Cell Distribution Width 14 % Normal 10-15 Platelet Count 503 10^3/uL High 150-450 Mean Platelet Volume 7.0 fL Low 7.4-10.4 Abs Neutrophils 14.2 10^3/uL High 1.5-7.7 Abs Lymphocytes 1.4 10^3/uL Normal 1.0-4.8 Abs Monocytes 1.2 10^3/uL High 0-0.8 Abs Eosinophils 0.6 10^3/uL Normal 0-0.6 Abs Basophils 0.1 10^3/uL Normal 0-0.2 Abs Nucleated RBC 0.0 10^3/uL Granulocyte % 81.4 % Lymphocyte % 8.0 % Monocyte % 6.9 % Eosinophil % 3.2 % Basophil % 0.5 % Nucleated Red Blood Cells % 0.1 1 [id number] 2 [id number] 3 [id number] 4 Because ethnic data is not always readily available, this report includes an eGFR for both -Americans and non- Americans. The National Kidney Disease Education Program (NKDEP) does not endorse the use of the MDRD equation for patients that are not between the ages of 18 and 70, are , have extremes of body size, muscle mass, or nutritional status, or are non- or non-. According to the National Kidney Foundation, irrespective of diagnosis, the stage of the disease is based on the level of kidney function: Stage Description GFR(mL/min/1.73 m(2)) 1 Kidney damage with normal or decreased GFR 90 2 Kidney damage with mild decrease in GFR 60-89 3 Moderate decrease in GFR 30-59 4 Severe decrease in GFR 15-29 5 Kidney failure <15 (or dialysis) Procedures Description No Information Available Medical Devices Description No Information Available Encounters Type Date Location Provider Dx Diagnosis Office Visit 08/04/2019 [facility] Pam Johnson MD R33.9 Retention of urine, 10:11a Assoc,pc unspecified Hospitalists R45.1 Restlessness and agitation D72.829 Elevated white blood cell count, unspecified F84.0 Autistic disorder F31.9 Bipolar disorder, unspecified F20.9 Schizophrenia, unspecified K21.9 Gastro-esophageal reflux disease without esophagitis F63.9 Impulse disorder, unspecified N18.9 Chronic kidney disease, unspecified Office Visit 08/03/2019 10:10a [facility] Pam Johnson, R33.9 Retention of Assoc,anupama BAIN urine, unspecified Hospitalists D72.829 Elevated white blood cell count, unspecified Office Visit 08/02/2019 10:10a [facility] Giovanni R33.9 Retention of Assoc,anupama Salinas M.D. urine, Hospitalists unspecified D72.829 Elevated white blood cell count, unspecified Office Visit 08/01/2019 10:09a [facility] Giovanni R31.9 Hematuria, Assoc,anupama Salinas M.D. unspecified Hospitalists D72.829 Elevated white blood cell count, unspecified R41.82 Altered mental status, unspecified R33.9 Retention of urine, unspecified Z96.0 Presence of urogenital implants Office Visit 07/31/2019 10:09a [facility] Giovanni R31.9 Hematuria, Assoc,anupama Salinas M.D. unspecified Hospitalists D72.829 Elevated white blood cell count, unspecified R41.82 Altered mental status, unspecified R33.9 Retention of urine, unspecified Z96.0 Presence of urogenital implants Office Visit 07/30/2019 10:07a [facility] Giovanni R41.82 Altered mental Assoc,anupama Salinas M.D. status, Hospitalists unspecified R33.9 Retention of urine, unspecified D72.829 Elevated white blood cell count, unspecified R31.0 Gross hematuria Assessments Date Code Description Provider 08/14/2019 T56.891A Toxic effect of other metals, accidental Emily Quan MD (unintentional), initial encounter 08/14/2019 I10 Essential (primary) hypertension Emily Quan MD 08/14/2019 I12.9 Hypertensive chronic kidney disease with Emily Quan MD stage 1 through stage 4 chronic kidney disease, or unspecified chronic kidney disease 08/14/2019 N18.4 Chronic kidney disease, stage 4 (severe) Emily Quan MD 08/14/2019 N17.9 Acute kidney failure, unspecified Emily Quan MD 08/14/2019 E87.5 Hyperkalemia Emily Quan MD 08/04/2019 R33.9 Retention of urine, unspecified Pam Johnson MD 08/04/2019 R45.1 Restlessness and agitation Pam Johnson MD 08/04/2019 D72.829 Elevated white blood cell count, Pam Johnson MD unspecified 08/04/2019 F84.0 Autistic disorder Pam Johnson MD 08/04/2019 F31.9 Bipolar disorder, unspecified Pam Johnson MD 08/04/2019 F20.9 Schizophrenia, unspecified Pam Johnson MD 08/04/2019 K21.9 Gastro-esophageal reflux disease without Pam Johnson MD esophagitis 08/04/2019 F63.9 Impulse disorder, unspecified Pam Johnson MD 08/04/2019 N18.9 Chronic kidney disease, unspecified Pam Johnson MD 08/03/2019 R33.9 Retention of urine, unspecified Pam Johnson MD 08/03/2019 D72.829 Elevated white blood cell count, Pam Johnson MD unspecified 08/02/2019 R33.9 Retention of urine, unspecified Giovanni Salinas M.D. 08/02/2019 D72.829 Elevated white blood cell count, Giovanni Salinas M.D. unspecified 08/01/2019 R31.9 Hematuria, unspecified Giovanni Salinas M.D. 08/01/2019 D72.829 Elevated white blood cell count, Giovanni Salinas M.D. unspecified 08/01/2019 R41.82 Altered mental status, unspecified Giovanni Salinas M.D. 08/01/2019 R33.9 Retention of urine, unspecified Giovanni Salinas M.D. 08/01/2019 Z96.0 Presence of urogenital implants Giovanni Salinas M.D. 07/31/2019 R31.9 Hematuria, unspecified Giovanni Salinas M.D. 07/31/2019 D72.829 Elevated white blood cell count, Giovanni Salinas M.D. unspecified 07/31/2019 R41.82 Altered mental status, unspecified Giovanni Salinas M.D. 07/31/2019 R33.9 Retention of urine, unspecified Giovanni Salinas M.D. 07/31/2019 Z96.0 Presence of urogenital implants Giovanni Salinas M.D. 07/30/2019 R41.82 Altered mental status, unspecified Giovanni Salinas M.D. 07/30/2019 R33.9 Retention of urine, unspecified Giovanni Salinas M.D. 07/30/2019 D72.829 Elevated white blood cell count, Giovanni Salinas M.D. unspecified 07/30/2019 R31.0 Gross hematuria Giovanni Salinas M.D. Plan of Treatment Future Appointment(s):10/14/2019 9:30 am - Emily Quan MD at [facility] Lwcerjfuvk19/18/2019 - Emily Quan MDT56.891A Toxic effect of other metals, accidental (unintentional), initial encounterNew Medication:Amlodipine Besylate 5 mg - 1 tab by mouth once dayFollow up:2 moI10 Essential (primary) [id number] Hypertensive chronic kidney disease with stage 1 through stage 4 chronic kidney disease, or unspecified chronic kidney wczwiepE85.4 Chronic kidney disease, stage 4 (severe)N17.9 Acute kidney failure, zmpldhbqhvbT65.5 Hyperkalemia Functional Status Description No Information Available Mental Status Description No Information Available Referrals Description No Information Available
--- OUTSIDE RECORDS SUMMARY | 2019-08-19 17:21 | XMS REPORT | Continuity of Care Document ---
:1955 External Reference #:[id number] Author Name Emily Quan MD (transmitted by agent of provider Carly Reed) Address [address] [place] [address] Problems Description No Information Available Social History [...] Shrimp 08/14/2019 Grass, Ragweed, Trees, Dust Mites, [place]. 08/14/2019 Medications Active Medications SIG Qnty Indications [...] everyday. Finasteride 1 a day Unknown Ipratropium [place] 0.06 percent, Unknown inhale 2 sprays each nostril 4 times a day Haloperidol 1 tab by mouth Unknown 5mg Tablets three times a day as needed Olanzapine 15 mg. 1, 2 times a Unknown day Banophen 25 mg 1 cap by Unknown mouth 3 times a day Benztropine Mesylate 1 mg, 1 tab by Unknown mouth twice a day. [place] Carbonate 150 mg, 1 cap by Unknown [...] Result H/L Range Note Neph Routine 08/13/2019 [facility] Total Protein 17 mg/dL 1 , [address] [place] [address] [phone] Creatinine Random Urine 56.95 mg/dL 3 Urinalysis Profile 08/13/2019 [facility] Urine Color Yellow [address] [place] [address] [phone] Urine Appearance Clear Urine Specific [place] 1.010 Normal 1.010-1.030 Urine pH 7.0 Normal [...] Urine Squamous Epithelial Cell Present Abnormal Absent Urine Culture And 08/13/2019 [facility] Urine SEE RESULT [address] [place] [address] [phone] Comp Metabolic 08/13/2019 [facility] Sodium 138 mmol/L Normal 135-[address] [place] [address] [phone] Chloride 110 mmol/L Normal 101-111 Co2 Carbon [...] Egfr Non- 22.4 >60 Egfr 27.1 >60 5 Potassium 5.3 mmol/L High 3.5-5.0 Anion Gap 4 mmol/L Normal 2-11 CBC Auto 08/13/2019 [facility] White Blood 17.4 10^3/uL High 3.5-10.[address] Count [place], [place] [id number] [phone] Red Blood Count 3.60 10^6/uL Low 4.18-5.48 [...] Nucleated Red Blood Cells % 0.1 1 [id number] 2 [id number] 3 [id number] 4 SEE RESULT BELOW Name: DEBO POWERS : [address]: Emily Quan MD Acct: [id number] Unit: [id number] AGE: 64 Location: [facility] Re08/13/19 SEX: M Status: REG REF SPEC: [id number] SUKH: 08/13/19-[address]: Emily Quan MD REQ: [id number] RECD: 08/13/19 STATUS: COMP _ SOURCE: URINE [facility]: ORDERED: Urine Culture Procedure Result Reported Site Urine Culture Final 08/14/19- 1616 ML No Growth (<1,000 CFU/mL) * ML - Main Lab . END OF REPORT DEPARTMENT OF PATHOLOGY, [address] [place] [address] Mavlin Garay M.D. Director [facility] # [id number] 5 Because ethnic data is not always readily [...] Location Provider Dx Diagnosis Office Visit 08/04/2019 [facility] Maricel Johnson MD R33.9 Retention of urine, 10:11a Assoc,pc unspecified Hospitalists R45.1 Restlessness and agitation D72.829 Elevated white blood cell count, unspecified F84.0 Autistic disorder F31.9 Bipolar disorder, unspecified F20.9 Schizophrenia, unspecified K21.9 Gastro-esophageal reflux disease without esophagitis F63.9 Impulse disorder, unspecified N18.9 Chronic kidney disease, unspecified Office Visit 08/03/2019 10:10a [facility] Maricel Johnson R33.9 Retention of Assocanupama MD urine, unspecified Hospitalists D72.829 Elevated white blood cell count, unspecified Office Visit 08/02/2019 10:10a Coralkang Davila R33.9 Retention of Assoc,anupama Salinas M.D. urine, Hospitalists unspecified D72.829 Elevated white blood cell count, unspecified Office Visit 08/01/2019 10:09a Aubree Davila R31.9 Hematuria, Assoc,anupama Salinas M.D. unspecified Hospitalists D72.829 Elevated white blood cell count, unspecified R41.82 Altered mental status, unspecified R33.9 Retention of urine, unspecified Z96.0 Presence of urogenital implants Office Visit 07/31/2019 10:09a Aubree Davila R31.9 Hematuria, Assoc,anupama Salinas M.D. unspecified Hospitalists D72.829 Elevated white blood cell count, unspecified R41.82 Altered mental status, unspecified R33.9 Retention of urine, unspecified Z96.0 Presence of urogenital implants Office Visit 07/30/2019 10:07a Aubree Davila R41.82 Altered mental Assoc,anupama Salinas M.D. status, [...] 9:30 am - Emily Quan MD at [facility] Bahuynpizw84/18/2019 - Emily Quan MDT56.891A Toxic effect of other metals, accidental (unintentional), initial encounterNew Medication:Amlodipine Besylate 5 mg - 1 tab by mouth once dayFollow up:2 moI10 Essential (primary) ujvudjlvmhdaC55.9 Hypertensive chronic kidney disease with stage 1 through stage 4 chronic kidney disease, or unspecified chronic kidney mshkikkN94.4 Chronic kidney disease, stage 4 (severe)N17.9 Acute kidney failure, efmswdmyyfaS14.5 Hyperkalemia Functional Status Description No Information Available Mental Status Description No Information Available Referrals Description No Information Available
--- OUTSIDE RECORDS SUMMARY | 2019-08-19 17:21 | XMS REPORT | Continuity of Care Document ---
:1955 External Reference #:[id number] Author Name Emily Quan MD (transmitted by agent of provider Faye Will) Address [address] [place] [address] Problems Description No Information Available Social History [...] Shrimp 08/14/2019 Grass, Ragweed, Trees, Dust Mites, [place]. 08/14/2019 Medications Active Medications SIG Qnty Indications [...] everyday. Finasteride 1 a day Unknown Ipratropium [place] 0.06 percent, Unknown inhale 2 sprays each nostril 4 times a day Haloperidol 1 tab by mouth Unknown 5mg Tablets three times a day as needed Olanzapine 15 mg. 1, 2 times a Unknown day Banophen 25 mg 1 cap by Unknown mouth 3 times a day Benztropine Mesylate 1 mg, 1 tab by Unknown mouth twice a day. [place] Carbonate 150 mg, 1 cap by Unknown [...] Result H/L Range Note Neph Routine 08/13/2019 [facility] Total Protein 17 mg/dL 1 , [address] [address] [phone] Creatinine Random Urine 56.95 mg/dL 3 Urinalysis Profile 08/13/2019 [facility] Urine Color Yellow [address] [place] [address] [phone] Urine Appearance Clear Urine Specific [place] 1.010 Normal 1.010-1.030 Urine pH 7.0 Normal [...] Cell Present Abnormal Absent Comp Metabolic 08/13/2019 [facility] Sodium 138 mmol/L Normal 135-[address] [place] [address] [phone] Chloride 110 mmol/L Normal 101-111 Co2 Carbon [...] 4 mmol/L Normal 2-11 CBC Auto 08/13/2019 [facility] White Blood 17.4 10^3/uL High 3.5-10.[address] [place] [address] [phone] Red Blood Count 3.60 10^6/uL Low 4.18-5.48 [...] Nucleated Red Blood Cells % 0.1 1 [id number] 2 [id number] 3 [id number] 4 Because ethnic data is not always [...] Location Provider Dx Diagnosis Office Visit 08/04/2019 [facility] Pam Johnson MD R33.9 Retention of urine, 10:11a Assoc,pc unspecified Hospitalists R45.1 Restlessness and agitation D72.829 Elevated white blood cell count, unspecified F84.0 Autistic disorder F31.9 Bipolar disorder, unspecified F20.9 Schizophrenia, unspecified K21.9 Gastro-esophageal reflux disease without esophagitis F63.9 Impulse disorder, unspecified N18.9 Chronic kidney disease, unspecified Office Visit 08/03/2019 10:10a [facility] Pam Johnson, R33.9 Retention of Assoc,anupama BAIN urine, unspecified Hospitalists D72.829 Elevated white blood cell count, unspecified Office Visit 08/02/2019 10:10a [facility] Giovanni R33.9 Retention of Assoc,anupama Salinas M.D. urine, Hospitalists unspecified D72.829 Elevated white blood cell count, unspecified Office Visit 08/01/2019 10:09a [facility] Giovanni R31.9 Hematuria, Assoc,anupama Salinas M.D. unspecified Hospitalists D72.829 Elevated white blood cell count, unspecified R41.82 Altered mental status, unspecified R33.9 Retention of urine, unspecified Z96.0 Presence of urogenital implants Office Visit 07/31/2019 10:09a [facility] Giovanni R31.9 Hematuria, Assoc,anupama Salinas M.D. unspecified Hospitalists D72.829 Elevated white blood cell count, unspecified R41.82 Altered mental status, unspecified R33.9 Retention of urine, unspecified Z96.0 Presence of urogenital implants Office Visit 07/30/2019 10:07a [facility] Giovanni R41.82 Altered mental Assoc,anupama Salinas M.D. status, Hospitalists unspecified R33.9 Retention of urine, unspecified D72.829 Elevated white blood cell count, unspecified R31.0 Gross hematuria Assessments Date Code Description Provider 08/14/2019 T56.891A Toxic effect of other metals, accidental Emliy Quan MD (unintentional), initial encounter 08/14/2019 I10 [...] 9:30 am - Emily Quan MD at [facility] Knmahareod32/18/2019 - Emily Quan MDT56.891A Toxic effect of other metals, accidental (unintentional), initial encounterNew Medication:Amlodipine Besylate 5 mg - 1 tab by mouth once dayFollow up:2 moI10 Essential (primary) dkyhlasacvwsG53.9 Hypertensive chronic kidney disease with stage 1 through stage 4 chronic kidney disease, or unspecified chronic kidney vofzvfzE59.4 Chronic kidney disease, stage 4 (severe)N17.9 Acute kidney failure, dlfludjzxqpW80.5 Hyperkalemia Functional Status Description No Information Available Mental Status Description No Information Available Referrals Description No Information Available
[2019-08-19 17:30] LABS: Urine Appearance Clear; Urine Bilirubin Negative (Negative); Urine Blood Negative (Negative); Urine Color Yellow; Urine Glucose Negative (Negative); Urine Ketones Negative (Negative); Urine Nitrite Negative (Negative); Urine Protein Negative (Negative); Urine Specific Gravity 1.008 (1.010-1.030); Urine Urobilinogen Negative (Negative)
--- NOTE | 2019-08-19 17:30 | ED ---
Altered Mental Status - HPI Summary HPI Summary: Pt is a 64 y/o M with a history of developed leg, schizophrenia, self harm behavior, autism who is presenting to the ED with a chief complaint of behavioral changes. The pts caregiver states that over the past couple of weeks he has been having behavioral issues in the sense that he will throw his body on the floor and slam his head into things. He has had some recent medication changes but the symptoms have been getting worse. He had an episode like this a couple of years ago where they needed to adjust his [place] levels, however he has been increasingly harming himself. He kicks staff at the home he is at, he scratches the inside of his nose until it pours blood, and he hits his head, ears, and scratches his abd until it bleeds. Patient seen several days ago in the ED, had US shown gallstones. No nausea or vomiting, did have decreased PO intake. No fevers. 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 Onset/Duration: Still Present, Gradually Timing: Intermittent, Lasting Weeks Severity Initially: Moderate Severity Currently: Severe Character: Agitation Aggravating Factor(s): Unknown Alleviating Factor(s): Unknown - Allergies/Home Medications Allergies/Adverse Reactions: Allergies Allergy/AdvReac Type Severity Reaction Status Date / Time peanut Allergy Severe Anaphylatic Verified 08/19/19 16:48 Shock shrimp Allergy Severe Anaphylatic Verified 08/19/19 16:48 Shock influenza virus vaccine qs Allergy Unknown Unknown Verified 08/19/19 16:48 [id number] (36 mos, up) Reaction [From Fluarix Quad] Details piperonyl butoxide Allergy Unknown Unknown Verified 08/19/19 16:48 [From RID Complete Lice [place] Reaction Kit] Details pyrethrins Allergy Unknown Unknown Verified 08/19/19 16:48 [From RID Complete Lice [place] Reaction Kit] Details tuna oil Allergy Unknown Unknown Verified 08/19/19 16:48 Reaction Details egg Allergy Unknown Verified 08/19/19 16:48 Reaction Details permethrin Allergy Unknown Verified 08/19/19 16:48 Reaction Details ragweed pollen Allergy Unknown Verified 08/19/19 16:48 Reaction Details shellfish derived Allergy Unknown Verified 08/19/19 16:48 Reaction Details Home Medications: Home Medications Magnesium Hydroxide LIQ* [Milk of Magnesia LIQ*] 30 ml PO DAILY PRN 08/19/19 [ History Confirmed 08/19/19] Sertraline* [Zoloft*] 100 mg PO DAILY 08/19/19 [History Confirmed 08/19/19] amLODIPine TAB* [Norvasc 5 mg TAB*] 5 mg PO BEDTIME 08/19/19 [History Confirmed 08/19/19] traZODone TAB* [Desyrel TAB*] 100 mg PO BEDTIME PRN 08/19/19 [History Confirmed 08/19/19] PMH/Surg Hx/FS Hx/Imm Hx Previously Healthy: Yes Endocrine/Hematology History: Reports: Hx Thyroid Disease Denies: Hx Diabetes Cardiovascular History: Reports: Hx Hypertension Respiratory History: Reports: Hx Asthma Denies: Hx Chronic Obstructive Pulmonary Disease (COPD) GI History: Denies: Hx Ulcer Sensory History: Denies: Hx Contacts or Glasses, Hx Hearing Aid Opthamlomology History: Denies: Hx Contacts or Glasses Neurological History: Reports: Hx Developmental Delay Psychiatric History: Reports: Hx Schizophrenia, Hx of Violent Episodes Against Others Denies: Hx Eating Disorder Infectious Disease History: No Infectious Disease History: Reports: Hx of Known/Suspected MRSA - urine October 2013 Denies: Hx Clostridium Difficile, Hx Hepatitis, Hx Human Immunodeficiency Virus (HIV), Hx Shingles, Hx Tuberculosis, History Other Infectious Disease, Traveled Outside the [place] in Last 30 Days - Family History Known Family History: Negative: Diabetes - Social History Alcohol Use: None Hx Substance Use: No Substance Use Type: Reports: None Hx Tobacco Use: No Smoking Status (MU): Never Smoked Tobacco Review of Systems Positive: Bruising, Other - lacerations, abrasions Neurological: Other - confusion Positive: Other - agitated, aggressive, self-harming All Other Systems Reviewed And Are Negative: Yes Physical Exam - Summary Physical Exam Summary: Constitutional: Yelling, elderly male Skin: Warm, Dry. Ecchymosis and abrasions to both knees. Ecchymosis of L shoulder. Abrasions to abdomen HENT: L and R ears have superficial lacerations to the tragus and to the pinna. Bilateral TMs look ok. Ecchymosis to R eye and forehead. Eyes: Conjunctiva normal Neck: Musculoskeletal ROM normal neck. (-) JVD, (-) Stridor, (-) Nuchal rigidity Cardio: Rhythm regular, rate normal, Heart sounds normal; Intact distal pulses; Radial pulses are 2+ and symmetric. (-) Murmur Pulmonary/Chest wall: Effort normal. (-) Respiratory distress, (-) Wheezes, (-) Rales Abd: Soft, (-) tenderness, (-) Distension, (-) Guarding, (-) Rebound : No tenderness or scrotal erythema. Musculoskeletal: (-) Edema, ecchymosis to knees and R arm Lymph: (-) Cervical adenopathy Neuro: Alert at neurologic baseline, follows commands Psych: Intermittently agitated Triage Information Reviewed: Yes Vital Signs On Initial Exam: Initial Vitals Temp Pulse Resp BP Pulse Ox 98.5 F 74 18 129/80 98 08/19/19 16:44 08/19/19 16:44 08/19/19 16:44 08/19/19 16:44 08/19/19 16:44 Vital Signs Reviewed: Yes - Carlos Coma Scale Best Eye Response: 4 - Spontaneous Best Motor Response: 6 - Obeys Commands Best Verbal Response: 2 - Incomprehensible Words Coma Scale Total: 12 Procedures - Sedation Patient Received Moderate/Deep Sedation with Procedure: No Diagnostics - Vital Signs Vital Signs Temp Pulse Resp BP Pulse Ox 08/19/19 16:44 98.5 F 74 18 129/80 98 - Laboratory Result Diagrams: 08/20/19 05:47 08/20/19 05:47 Lab Statement: Any lab studies that have been ordered have been reviewed, and results considered in the medical decision making process. - CT Brain CT CT Interpretation Completed By: Radiologist Summary of CT Findings: No acute intracranial abnormality. ED physician has reviewed this report. Re-Evaluation - Re-Evaluation 1st re-eval Re-Evaluation Time: 17:20 Change: Unchanged Comment: Per eYnny RN, pt had 500+ml of urine in bladder. He urinated and had 290ml of urine left in his bladder. Altered Mental Statu Course/Dx - Course Course Of Treatment: 64-year-old male with a history of bipolar schizophrenia, silt needling behaviors, autism, mental disability who presents with aggressive behavior and self injury. Physical exam with multiple superficial abrasions to ears, contusion to forehead, periorbital ecchymosis of the right eye. Of note patient recently seen in ED on 08/13, has been seen several times for concern for behavior. Had medications adjusted. Patient also had urinary retention at that time had a Smith placed but decided to not continue Smith because of his behavioral disturbances/safety. Lab survey notable for white count 17, patient has had leukocytosis for several visits. Also notable for an elevated creatinine to 3.5 [address] Patient head [address] given reported head trauma and unclear baseline, which is unremarkable. Superficial abrasions of the ears did not show any internal trauma to the ears. Abdomen was soft, do not suspect abdominal tenderness cause for behavoiral outburst. Patient did have a bladder volume of over 500, and post residual of 290 (hx of similar). Given elevated creatinine was admitted to Hospital medicine for LIONEL - Diagnoses Provider Diagnoses: LIONEL (acute kidney injury), Agitation Discharge ED - Sign-Out/Discharge Documenting (check all that apply): Patient Departure - Discharge Plan Condition: Stable Disposition: ADMITTED TO [facility] - Billing Disposition and Condition Condition: STABLE Disposition: Admitted to [facility] - Attestation Statements Document Initiated by Scribe: Yes Documenting Scribe: Blossom Bender Provider For Whom Scribe is Documenting (Include Credential): Amaris Lundy MD. Scribe Attestation: I, Blossom Bender, scribed for Amaris Lundy MD. on 08/20/19 at 2037. Scribe Documentation Reviewed: Yes Provider Attestation: The documentation as recorded by the scribBlossom regalado accurately reflects the service I personally performed and the decisions made by me, Amaris Lundy MD. Status of Scribe Document: Viewed Consult Consult: 1899 - I spoke with Dr. Roe about the pt's condition who accepts him to [facility].
[2019-08-19 17:47] LABS: Hematocrit 32 % (42-52); Hemoglobin 10.6 g/dL (14.0-18.0); Mean Corpuscular HGB Conc 34 g/dL (31-36); Mean Corpuscular Hemoglobin 32 pg (27-31); Mean Corpuscular Volume 94 fL (80-94); Mean Platelet Volume 6.9 fL (7.4-10.4); Platelet Count 480 10^3/uL (150-450); Red Blood Count 3.38 10^6 /uL (4.18-5.48); Red Cell Distribution Width 14 % (10-15); White Blood Count 17.3 10^3/uL (3.5-10.8)
[2019-08-19 18:08] LABS: Albumin 3.9 g/dL (3.2-5.2); Albumin/Globulin Ratio 1.2 (1-3); BUN/Creatinine Ratio 12.3 (8-20); Calcium 10.6 mg/dL (8.6-10.3); EGFR African American 20.8 (>60); EGFR Non-African American 17.2 (>60); Globulin 3.2 g/dL (2-4); Potassium 4.9 mmol/L (3.5-5.0); Total Bilirubin 0.5 mg/dL (0.2-1.0); Total Protein 7.1 g/dL (6.4-8.9)
[2019-08-19 18:12] LABS: Troponin I 0.03 ng/mL (<0.04)
[2019-08-19 18:28] LABS: ABS Basophils 0.1 10^3/ul (0-0.2); ABS Eosinophils 0.3 10^3/ul (0-0.6); ABS Monocytes 1.7 10^3/ul (0-0.8); ABS Neutrophils 14.3 10^3/ul (1.5-7.7); Eosinophil % 1.5 %
[2019-08-19] MEDS ORDERED: NS 0.9% 1000 ML** 1,000 ML IV ONE (19:48)
[2019-08-19] MEDS ORDERED: NS 0.9% 1000 ML** 1,000 ML IV SCH (21:00)
[2019-08-19 22:00] LABS: Lithium 1.19 mmol/L (0.6-1.2)
[2019-08-19] MEDS ORDERED: Aripiprazole Maintena (NF) 300 MG SYRINGE IM SCH (22:00)
[2019-08-19] MEDS: Haloperidol TAB* 5 MG PO SCH (22:58)
[2019-08-19] MEDS: OLANzapine TAB*ODT* 5 MG PO SCH (22:59)
[2019-08-19] MEDS: Lithium Carbonate CAP 150 MG ** CAPSULE PO SCH (22:59)
[2019-08-19] MEDS: traZODone TAB* 100 MG PO PRN (23:33)
[2019-08-19] MEDS: Bacitracin OINTMENT* 0.5% 0.5 oz TUBE TOPICAL SCH (23:38)
--- NOTE | 2019-08-20 00:26 | HP ---
CC: Dr. Guerra * ADMISSION HISTORY AND PHYSICAL: DATE OF ADMISSION: 08/19/19 PROVIDER: Faye Duarte NP PRIMARY CARE PROVIDER: Dr. Guerra. ATTENDING PHYSICIAN WHILE IN THE HOSPITAL: Leo Roe MD * (dictated by Faye Duarte NP) CHIEF COMPLAINT: Aggressive behavior. HISTORY OF PRESENT ILLNESS: Mr. Mckoy is a 64-year-old male who currently resides at a [facility]. He has a history of bipolar schizophrenia, history of self abuse, autism, GERD, intellectual disability, who presented to the emergency room with staff due to aggressive behavior. Per the staff, the patient today was hitting his ears and hit his head on the ground and was rolling around on the ground, became more upset and then started hitting staff. Due to his behavior, he was brought to the emergency room for further evaluation. Initial complaint to the emergency room was ear pain. The patient was recently seen and evaluated in the emergency room on 08/13/19. At that time, he was here to have an evaluation of a gallbladder ultrasound for evaluation of the gallstone seen on a recent CT. His gallbladder ultrasound was within normal limits. At that time, the staff had reported that the patient was having behavioral disturbances at a [facility], which was out of his norm. Since, he was seen in the emergency room on 08/13/19, he is followed up with a psychiatrist, who has adjusted his medications to help with his behavioral disturbances. He is also followed up with Nephrology, Dr. Quan for evaluation of his acute and chronic renal failure. The patient was seen by Dr. Quan on 08/14/19. At that time, Dr. Quan thought his worsening renal failure could be related to the use of losartan. He was previously on losartan and finasteride, which was discontinued. His creatinine had improved with discontinuation of these medications from 2.7 to 2.0. Upon discharge, the patient was restarted on losartan and finasteride and his creatinine level had increased back to 2.8. During his office visit on 08/14/19, Dr. Quan discontinued his losartan and placed him on amlodipine. The patient does also have polyuria from lithium and is on amiloride. The patient in the beginning of July was also admitted to [facility] for urinary retention. At that time, they did attempt to place a Smith. The patient did not tolerate the Smith placement, ultimately pulling the Smith catheter out. At this time, the patient is able to void and we will continue to monitor his voiding. While in the emergency room today, the patient had routine lab work, which showed increase in his BUN and creatinine. The creatinine is up to 3.57, BUN is 44, which is above his baseline. Urine was within normal limits. Due to these findings, Hospital Medicine was asked to see and evaluate the patient for admission. PAST MEDICAL HISTORY: Significant for: 1. Bipolar schizophrenia. 2. Self abuse. 3. Autism. 4. Intellectual delay. PAST SURGICAL HISTORY: None. HOME MEDICATIONS: Include: 1. Guaifenesin 10 mL p.o. q.4 hours. 2. Acetaminophen 650 mg p.o. q.4 hours as needed. 3. Biotin 10 mL swish and spit b.i.d. 4. EpiPen as needed. 5. Bacitracin topically b.i.d. 6. Maalox 15 mL p.o. b.i.d. 7. Trazodone 100 mg p.o. at bedtime. 8. Halcion 0.5 mg as needed for procedures. 9. Keflex 500 mg p.o. 4 times daily. 10. Amlodipine 5 mg p.o. at bedtime. 11. Nasacort 2 sprays both nares at bedtime. 12. Sertraline 100 mg p.o. daily. 11. Ipratropium nasal spray 2 sprays both nares 4 times a day. 12. Haldol 5 mg p.o. t.i.d. 13. Proscar 5 mg p.o. daily. 14. Uroxatral 10 mg p.o. daily. 15. Ranitidine 150 mg p.o. b.i.d. 16. Zyprexa 15 mg p.o. b.i.d. 17. MiraLAX 17 g p.o. daily. 18. [place] 150 mg p.o. b.i.d. 19. Chlorhexidine mouthwash 10 mg p.o. b.i.d. 20. Amiloride 5 mg p.o. daily. 21. Multivitamin 1 tab p.o. daily. 22. Louann 180 mg p.o. daily. 23. Bactroban ointment topically daily. 24. Levothyroxine 75 mcg p.o. daily. 25. Abilify 400 mg IM monthly. 26. Milk of magnesia 30 mg p.o. daily p.r.n. ALLERGIES: He has allergy to PEANUT, SHRIMP, INFLUENZA, RID LICE KIT, TUNA OIL , EGGS, PERMETHRIN, RAGWEED, and SHELLFISH. FAMILY HISTORY: Noncontributory. No significant disease. SOCIAL HISTORY: The patient does not smoke, drink, or use any illicit drugs per staff at the [facility]. The patient does live in a [facility]. Surrogate decision maker in the event he is unable to make his own decisions is his brother, Lalo. He is a full code. BRIEF REVIEW OF SYSTEMS: Per the staff and the patient, the patient denies any pain. Staff denies any fever or chills. The patient denies any chest pain. He denies any shortness of breath. He has no abdominal pain with palpation. The patient denies any pain with urination, but due to his intellectual delay, unsure of his ability to comprehend questions. He does grimace when touching his right ear. He does have multiple abrasions noted to bilateral ears with a small amount of bleeding. PHYSICAL EXAMINATION GENERAL: At this time, Mr. Mckoy is awake, alert, resting on the stretcher in the emergency room. He is in no acute distress. VITAL SIGNS: Blood pressure 160/72, heart rate 82, respirations 16, O2 saturation 99%, temperature was 98.6. HEENT: He does have an abrasion to his right posterior head. He has multiple abrasions and bleeding noted to bilateral ears. He does have a reddened area noted to his forehead without bleeding or ecchymosis. He does have some ecchymosis noted to his right lower eye, cheek. Mucous membranes are high. Pupils are equal and reactive to light. NECK: Supple. LUNGS: Clear to auscultation bilaterally. No wheezes, rales or rhonchi. CARDIAC: S1, S2. Regular rate and rhythm. No murmurs, rubs, or gallops. ABDOMEN: Soft and nontender. Bowel sounds are present x4. EXTREMITIES: He is able to move all 4 extremities. There is no clubbing or cyanosis. NEUROLOGIC: He is awake, alert, and oriented to person and place. There is no gross focal deficit. Speech is clear. SKIN: He does have multiple abrasions noted to bilateral ears. There are abrasions noted to his lower abdomen. He has some abrasion noted to the right posterior head. Multiple ecchymotic areas noted to the bilateral arms and below his right eye. DIAGNOSTIC STUDIES/LAB DATA: WBCs are 17.3, RBCs 3.38, hemoglobin 10.6, hematocrit 32, platelet count 480. Sodium 140, potassium 4.9, chloride 109, carbon dioxide is 25, anion gap is 6, BUN is 44, creatinine 3.57, glucose 120, calcium 10.6, AST 31, ALT is 27, alkaline phosphatase is 42. Urine is within normal limits with the exception of specific gravity of 1.008. He had a CT of the brain that showed no acute intracranial pathology. ASSESSMENT AND PLAN: Mr. Mckoy is a 64-year-old male with a past medical history significant for bipolar schizophrenia, self-abuse, autism, intellectual delay, hypertension, hypothyroidism, urinary retention, and acute on chronic renal failure who presented to the emergency room from [facility] with aggressive behavior for evaluation for ear pain who was found to have an elevated BUN and creatinine above his baseline. He will be admitted for: 1. Acute on chronic renal failure. The patient recently did have an evaluation by Dr. Quan from Nephrology on 08/14/19. At that time, he thought his acute on chronic renal failure was the result of medication toxicity with losartan, for which his losartan was stopped at that time and he was placed on amlodipine. The patient does present today with higher than baseline creatinine. Staff does report that the patient does make himself vomit and has not been tolerating food and p.o. intake at the [facility]. He has been refusing food and p.o. intake. I will get a renal ultrasound to evaluate the kidneys. He did receive 1 liter of normal saline in the emergency room. I will place him on normal saline at 100 cc per hour. We will repeat a CBC and BMP in the a.m. If his creatinine continues to increase, I would recommend a consultation to Nephrology for further recommendations. I do suspect that his lithium could be affecting his kidney function as well. I would also recommend consultation to psychiatry for possible medication changes I will also add on urine electrolytes and monitor the patient for urinary retention as the patient has had a history of urinary retention in the past. 2. Bipolar and schizophrenia. The patient should continue on his lithium , Zoloft , Haldol and Zyprexa as previously prescribed. I would recommend consult to psychiatry for medication changes as lithium could be the cause of his continued worsening renal function. 3. Leukocytosis. The patient has had leukocytosis since March 2019. Unclear of the cause of his leukocytosis. At this time, the patient does not have a fever. He has no acute signs of infection. He has no cough or congestion. Urinalysis is also within normal limits. We will continue to monitor for any signs of infection. 4. Bilateral ear abrasions. This his self abuse behaviors I would recommend placing Bacitracin to bilateral ears twice daily to his abrasions. 5. Hypothyroid. He is to continue on levothyroxine as previously prescribed. 6. FEN. He can have regular diet. 7. Code status. He is a full code. 8. DVT prophylaxis. I will place him on SCDs as the patient is self abusive with scratching and hitting his head. I will hold off on using chemical DVT prophylaxis at this time. TIME SPENT: Time spent on this admission was 60 minutes; greater than half that time was spent at the bedside reviewing the events leading thus far to his hospitalization, performing physical exam, and reviewing my plan of care. I have discussed this with my attending, Dr. Leo Roe; he is in agreement with my plan. FAYE DUARTE NP [id number]/[facility] #: [id number] PENNY
[2019-08-20] MEDS ORDERED: Lorazepam PYXIS KEY PRN ×3 (01:11→12:23)
[2019-08-20] MEDS ORDERED: LORazepam INJ* 2 MG/ML 1 ML VIAL IV PUSH ONE ×3 (01:11→12:23)
[2019-08-20] MEDS ORDERED: Lorazepam PYXIS KEY ONE (01:19)
[2019-08-20] MEDS ORDERED: LORazepam INJ* 2 MG/ML 1 ML VIAL ONE (01:19)
[2019-08-20 06:23] LABS: ABS Basophils 0.1 10^3/ul (0-0.2); ABS Eosinophils 0.5 10^3/ul (0-0.6); ABS Lymphocytes 1.3 10^3/ul (1.0-4.8); ABS Monocytes 1.2 10^3/ul (0-0.8); ABS Neutrophils 10.8 10^3/ul (1.5-7.7); Eosinophil % 3.9 %; Hematocrit 27 % (42-52); Hemoglobin 8.9 g/dL (14.0-18.0); Mean Corpuscular HGB Conc 33 g/dL (31-36); Mean Corpuscular Hemoglobin 31 pg (27-31); Mean Corpuscular Volume 94 fL (80-94); Platelet Count 389 10^3/uL (150-450); Red Blood Count 2.86 10^6 /uL (4.18-5.48); Red Cell Distribution Width 14 % (10-15); White Blood Count 13.8 10^3/uL (3.5-10.8)
[2019-08-20 06:39] LABS: BUN/Creatinine Ratio 12.9 (8-20); Calcium 9.4 mg/dL (8.6-10.3); EGFR African American 25.2 (>60); EGFR Non-African American 20.8 (>60); Potassium 4.5 mmol/L (3.5-5.0)
[2019-08-20 06:55] LABS: Urine Creatinine Concentration 40.91 mg/dL; Urine Potassium Concentration 22.8 mmol/L
[2019-08-20] MEDS: Levothyroxine TAB* 75 MCG TAB PO SCH (07:41)
[2019-08-20] MEDS: Al Hydrox/Mg Hydrox/Simet LIQ* 30 ML UDC PO SCH ×2 (09:30→21:11)
[2019-08-20] MEDS: Polyethylene Glycol 3350* 17 GM PACKET PO SCH (09:30)
[2019-08-20] MEDS: Bacitracin OINTMENT* 0.5% 0.5 oz TUBE TOPICAL SCH ×2 (09:32→21:14)
[2019-08-20] MEDS: aMILoride TAB* 5 MG PO SCH (09:33)
[2019-08-20] MEDS: Lithium Carbonate CAP 150 MG ** CAPSULE PO SCH (09:38)
[2019-08-20] MEDS: Haloperidol TAB* 5 MG PO SCH (09:38)
[2019-08-20] MEDS: Sertraline* 100 MG TAB PO SCH (09:38)
[2019-08-20] MEDS: OLANzapine TAB*ODT* 5 MG PO SCH ×2 (09:38→21:19)
[2019-08-20] MEDS: NS 0.45% 1000 ML BAG* 1,000 ML IV SCH ×2 (09:44→21:13)
[2019-08-20] MEDS: Multivitamins ADULT w/MIN LIQ* 15 ML UDC PO SCH (09:59)
--- NOTE | 2019-08-20 10:37 | CONSULT ---
Consult Consult: Reason for consult: Behavioral disturbance CC " I have to pee" The patient was brought to [facility] following recent behavioral disturbance such as screaming and yelling. Patient was scratching his ears and making his nose bleed by mutilating the inside of his nose. Upon admission to the medical floor it was discovered that his Cr has increased since last visit his baseline is around 2. The patient was unable to provide a meaningful history given his cognitive capacity. The family was at bedside and questions were answered. No suicidal and or homicidal ideation intent or plan. The patient denied auditory and/ or visual hallucinations. PAST PSYCHIATRIC HISTORY: Prior Diagnosis : Intellectual disability severe, Bipolar disorder, Autism spectrum disorder History of past Psychiatric Hospitalizations: No prior psychiatric admission. History of past suicide/homicide attempts : No past suicide attempts. Multiple self injurious behaviors as a result of intellectual disability. Medications: Past trials of medications include haldol, lithium, zyprexa, Guardianship: None. FAMILY HISTORY: - Suicide: Denied family history of suicide. - Mental illness: Denied a history of mental health in immediate family members. - Substance abuse: Denied substance abuse among family members. SUBSTANCE ABUSE HISTORY: Denied using alcohol, tobacco, heroin cocaine or other illicit substances. Denied abusing pills for recreational use. Denied past Substance abuse treatment. SOCIAL HISTORY: Currently lives at [facility]. PAST MEDICAL HISTORY: Acute kidney injury with chronic kidney disease - Allergies: Peanut, shrimp Physical Exam: Please see H and P Mental Status Exam on Admission APPEARANCE : 64 year old male poor hygiene and grooming EYE CONTACT: Poor PSYCHOMOTOR ACTIVITY: psychomotor agitation MOVEMENTS: Rocking back and forth moving around SPEECH : loud volume MOOD : " Fine" AFFECT : Type elated Mood Incongruent THOUGHT PROCESS: Illogical THOUGHT CONTENT: obsessions PERCEPTION: no AH/ VH SUICIDALITY Denied suicidal ideation, intent or plan. HOMICIDALITY Denied homicidal ideation, intent or plan. Insight/judgment: Poor insight and judgment ORIENTATION: Oriented to self not to location, and time. Diagnosis : Intellectual disability severe. Assessment: 64 year old male with history of severe Intellectual disability and self injurious behavior currently being treated on the medical floor Plan # The patient does NOT requires psychiatric inpatient admission at this time # Medical issues managed by Primary team # Patient is on multiple anti-psychotics and psychotropic medications. Given the severity of his presenting behavior and history including multiple failed trials, other alternative options and dose increase surpassing the FDA dose recommendations will be implemented. #EKG ordered for risk of QT prolongation of antipsychotic medication. # Obtain collateral information from Dagoberto his health care proxy. He is in agreement with the plan. # Discontinue lithium due to renal injury # Start abilify 10mg daily for aggression # Start valproic acid 250mg BID for mood # Start naltrexone 50mg daily for self injurious behavior # Continue zyprexa 15mg BID , zoloft 100mg daily and trazodone 100mg qhs. # Patient is unable to leave AMA # Continue constant supervision #Targeted Goals: Reduce self injurious behavior # Psychiatry will continue to follow the patient. The risks, benefits, and alternative treatment options were discussed as well as the risks of refusing treatment. After this discussion and an acknowledgement of this understanding was made. A risk/ benefit assessment of treatment was considered and discussed with the patients health care proxy. When comparing the risks of treatment with the dangers of not receiving treatment, the benefits of treatment outweigh the treatment risks at this time. Risks of allergy, suicidal ideation, behavioral changes, dystonia, rashes, electrolyte imbalances, movement disorders, cardiac conduction changes, serotonin syndrome, metabolic risks and NMS were among some of the risks discussed. Acetaminophen (Tylenol Tab*) 650 mg PO Q4H PRN PRN Reason: MILD PAIN or TEMP > 100.4 Al Hydrox/Mg Hydrox/Simethicone (Maalox Plus*) 15 ml PO BID [facility] Last Admin: 08/20/19 09:30 Dose: 15 ml Amiloride HCl (Midamor Tab*) 5 mg PO DAILY [facility] Last Admin: 08/20/19 09:33 Dose: 5 mg Amlodipine Besylate (Norvasc Tab*) 5 mg PO BEDTIME [facility] Aripiprazole (Abilify Tab*) 10 mg PO DAILY [facility] Last Admin: 08/20/19 14:18 Dose: 10 mg Bacitracin (Bacitracin Ointment*) 1 applic TOPICAL BID [facility] Last Admin: 08/20/19 09:32 Dose: 1 applic Divalproex Sodium (Depakote Sprinkle Cap*) 250 mg PO BID [facility] Last Admin: 08/20/19 14:17 Dose: 250 mg Sodium Chloride (Ns 0.45% 1000 Ml Bag*) 1,000 mls @ 100 mls/hr IV PER RATE [facility] Last Admin: 08/20/19 09:44 Dose: 100 mls/hr Cefazolin Sodium 1 gm/ Sodium (Chloride) 50 mls @ 200 mls/hr IVPB Q12H [facility] Last Admin: 08/20/19 10:47 Dose: 200 mls/hr Levothyroxine Sodium (Synthroid Tab*) 75 mcg PO 0600 [facility] Last Admin: 08/20/19 07:41 Dose: 75 mcg Miscellaneous (Ativan Pyxis Severino) 1 ea N/A .ATIVAN IV SEVERINO PRN PRN Reason: PYXIS SEVERINO Multivitamins (Theragran W/Minerals Liq*) 5 ml PO DAILY [facility] Last Admin: 08/20/19 09:59 Dose: Not Given Naltrexone HCl (Naltrexone Tab*) 50 mg PO DAILY [facility]ARY; Protocol Last Admin: 08/20/19 14:18 Dose: 50 mg Olanzapine (Zyprexa * Tab Odt) 15 mg PO BID [facility] Last Admin: 08/20/19 09:38 Dose: 15 mg Polyethylene Glycol/Electrolytes (Miralax*) 17 gm PO DAILY [facility] Last Admin: 08/20/19 09:30 Dose: 17 gm Sertraline HCl (Zoloft*) 100 mg PO DAILY [facility] Last Admin: 08/20/19 09:38 Dose: 100 mg Trazodone HCl (Desyrel Tab*) 100 mg PO BEDTIME PRN PRN Reason: ANXIETY Last Admin: 08/19/19 23:33 Dose: 100 mg
[2019-08-20] MEDS: ceFAZolin 1 GM ADVAN(*) 1 GM in NS 0.9% 50 ML* 50 ML IVPB SCH ×2 (10:47→21:34)
[2019-08-20] MEDS ORDERED: Valproic Acid CAP(*) 250 MG PO SCH (11:00)
--- NOTE | 2019-08-20 13:18 | CONS ---
CONSULTATION REPORT: DATE OF CONSULT: 08/20/19 REQUESTING PROVIDER: Elsi Vu NP REASON FOR CONSULT: LIONEL on CKD. HISTORY OF PRESENT ILLNESS: A 64-year-old male with history of behavioral disturbances living in a assisted. He came into the hospital with ear pain, was also noted to have LIONEL on CKD. The patient has a history of bipolar schizophrenia, history of self abuse, autism, GERD, intellectual disability, who came to the ER with aggressive behavior. The patient has also been more aggressive over the last month per discussion with staff, prior to that was very friendly. The patient was seen in the ER on 08/13/19 and followed with the psychiatrist and his medications have been adjusted in the last month. The patient was seen by Dr. Trevino, my partner, as an outpatient for CKD thought to be secondary to lithium use and his losartan was stopped at that time as his kidney function was worsening on the losartan. He was placed on amlodipine in stead for blood pressure management. He also has component of nephrogenic diabetes insipidus and had been on amiloride for polyuria and history of urinary retention. PAST MEDICAL HISTORY: 1. Bipolar schizophrenia. 2. Self abuse. 3. Autism. 4. Intellectual delay. HOME MEDICATIONS: 1. Guaifenesin 10 mL p.o. q.4 hours. 2. Tylenol 650 mg p.o. q.4 hours as needed. 3. Biotene 10 mL swish and spit b.i.d. 4. EpiPen as needed. 5. Bacitracin topical b.i.d. 6. Maalox 15 mL p.o. b.i.d. 7. Trazodone 100 mg p.o. at bedtime. 8. Halcion 0.5 mg as needed for procedures. 9. Keflex 500 mg p.o. 4 times a day. 10. Amlodipine 5 mg p.o. at bedtime. 11. Nasacort in the nose. 12. Sertraline 100 mg p.o. daily. 13. Ipratropium. 14. Haldol 5 mg p.o. t.i.d. 15. Proscar 5 mg p.o. daily. 16. Uroxatral 10 mg p.o. daily. 17. Ranitidine 150 mg p.o. b.i.d. 18. Zyprexa 15 mg p.o. b.i.d. 19. MiraLAX 17 g p.o. daily. 20. [place] 150 mg p.o. b.i.d. 21. Chlorhexidine mouthwash. 22. Amiloride 5 mg p.o. daily. 23. Multivitamin. 24. Louann 180 mg p.o. daily. 25. Bactroban daily. 26. Levothyroxine 75 mcg p.o. daily. 27. Abilify 400 mg IM monthly. 28. Milk of magnesia. ALLERGIES: Have been reviewed. FAMILY HISTORY: Not available for review. SOCIAL HISTORY: Does not drink, smoke. Lives in a assisted. History of behavioral disturbances. REVIEW OF SYSTEMS: Denies any complaints. Denies any pain. Denies any shortness of breath. Other 14-point review of systems within normal limits. PHYSICAL EXAMINATION: Vitals: Temperature 97.9, pulse 72, respiratory rate 18 , oxygen saturation 100% on room air, blood pressure 137/68. HEENT: The patient noted to have erythema in the pinna with some crusting. Heart: S1, S2 present. Regular at the time of exam. Lungs: Clear to auscultation bilaterally. Abdomen: Soft. Extremities: Noted to have no edema. Neuro: Alert. DIAGNOSTIC STUDIES/LAB DATA: Sodium 140, potassium 4.5, chloride 113, bicarb 23. BUN 39; creatinine 3.03, yesterday was 3.57, baseline creatinine around 2 to 2.3. Calcium yesterday was 10.6, today is 9.4. ASSESSMENT AND PLAN: A 64-year-old male with history of bipolar disorder, schizophrenia, self destructive behavior, urinary retention and chronic kidney disease, thought to be secondary to lithium use, here for further evaluation. 1. Acute kidney injury on chronic kidney disease. Likely from dehydration. The patient noted to be hypercalcemic, also has had poor p.o. intake over the last few weeks. Agree with hydration and patient's creatinine is improving with hydration. Recommend switching to half normal saline to avoid precipitating hypernatremia in the setting of possible diabetes insipidus and monitoring creatinine trend. Agree with holding off on losartan. 2. Amiloride can cause hyperkalemia, but the patient is appropriately on it in the setting of possible nephrogenic diabetes insipidus and polyuria as amiloride blocks the ENaC entry of lithium. 3. We will monitor his electrolytes closely. 4. Recommend checking possible nephrogenic diabetes insipidus. Continue amiloride for now and check urine osmolality, serum osmolality, and urine sodium and creatinine. 5. Recommend checking kidney ultrasound to make sure that he does not have any hydronephrosis. The patient does have a history of urinary retention. 6. Urinary retention. Can consider stopping the trazodone that the patient is taking as this can cause acute urinary retention on top of his BPH. Can evaluate use of other agents at bedtime. 7. Unfortunately, it appears that the patient does need to be on lithium and also having severe behavioral disturbances at this time. It would be okay to continue the lithium and evaluate his kidney function closely. 8. The patient noted to have alk phos elevation. Recommend gallbladder and liver evaluation to rule out other pathology that could be contributing to the patient's confusion. 9. No signs of urinary tract infection per the UA. 10. We will follow with the medical team and be available for any questions. [id number]/[facility] #: [id number] PENNY
[2019-08-20] MEDS: Divalproex Sprinkle CAP* 125 MG PO SCH ×2 (14:17→21:15)
[2019-08-20] MEDS: ARIPiprazole TAB* 5 MG PO SCH (14:18)
[2019-08-20] MEDS: Naltrexone TAB* 50 MG TAB PO SCH (14:18)
--- NOTE | 2019-08-20 16:39 | PN ---
Subjective Date of Service: 08/20/19 Interval History: Patient seen, difficult to examine 2/2 easy agitation. Patient had difficult night, throwing trays and yelling. Aid at bedside. Brother (HCP) at bedside. Patient is able to state he feels "bad". Objective Active Medications: Acetaminophen (Tylenol Tab*) 650 mg PO Q4H PRN PRN Reason: MILD PAIN or TEMP > 100.4 Al Hydrox/Mg Hydrox/Simethicone (Maalox Plus*) 15 ml PO BID [facility] Last Admin: 08/20/19 09:30 Dose: 15 ml Amiloride HCl (Midamor Tab*) 5 mg PO DAILY [facility] Last Admin: 08/20/19 09:33 Dose: 5 mg Amlodipine Besylate (Norvasc Tab*) 5 mg PO BEDTIME [facility] Aripiprazole (Abilify Tab*) 10 mg PO DAILY [facility] Last Admin: 08/20/19 14:18 Dose: 10 mg Bacitracin (Bacitracin Ointment*) 1 applic TOPICAL BID [facility] Last Admin: 08/20/19 09:32 Dose: 1 applic Divalproex Sodium (Depakote Sprinkle Cap*) 250 mg PO BID [facility] Last Admin: 08/20/19 14:17 Dose: 250 mg Sodium Chloride (Ns 0.45% 1000 Ml Bag*) 1,000 mls @ 100 mls/hr IV PER RATE [facility] Last Admin: 08/20/19 09:44 Dose: 100 mls/hr Cefazolin Sodium 1 gm/ Sodium (Chloride) 50 mls @ 200 mls/hr IVPB Q12H [facility] Last Admin: 08/20/19 10:47 Dose: 200 mls/hr Levothyroxine Sodium (Synthroid Tab*) 75 mcg PO 0600 [facility] Last Admin: 08/20/19 07:41 Dose: 75 mcg Miscellaneous (Ativan Pyxis Severino) 1 ea N/A .ATIVAN IV SEVERINO PRN PRN Reason: PYXIS SEVERINO Multivitamins (Theragran W/Minerals Liq*) 5 ml PO DAILY [facility] Last Admin: 08/20/19 09:59 Dose: Not Given Naltrexone HCl (Naltrexone Tab*) 50 mg PO DAILY [facility]; Protocol Last Admin: 08/20/19 14:18 Dose: 50 mg Olanzapine (Zyprexa * Tab Odt) 15 mg PO BID [facility] Last Admin: 08/20/19 09:38 Dose: 15 mg Polyethylene Glycol/Electrolytes (Miralax*) 17 gm PO DAILY [facility] Last Admin: 08/20/19 09:30 Dose: 17 gm Sertraline HCl (Zoloft*) 100 mg PO DAILY [facility] Last Admin: 08/20/19 09:38 Dose: 100 mg Trazodone HCl (Desyrel Tab*) 100 mg PO BEDTIME PRN PRN Reason: ANXIETY Last Admin: 08/19/19 23:33 Dose: 100 mg Vital Signs - 8 hr 08/20/19 08/20/19 08/20/19 09:34 10:34 11:15 Temperature 98.2 F Pulse Rate 76 Respiratory 20 18 16 Rate Blood Pressure 155/70 (mmHg) O2 Sat by Pulse 100 Oximetry 08/20/19 08/20/19 08/20/19 12:35 13:35 14:35 Temperature Pulse Rate Respiratory 20 16 16 Rate Blood Pressure (mmHg) O2 Sat by Pulse Oximetry Oxygen Devices in Use Now: None Appearance: alert, agitated Eyes: PERRLA Respiratory: Symmetrical Chest Expansion and Respiratory Effort, Clear to Auscultation Cardiovascular: NL Sounds; No Murmurs; No JVD, RRR, No Edema Abdominal: NL Sounds; No Tenderness; No Distention - alert to person Nutrition: Taking PO's Result Diagrams: 08/20/19 05:47 08/20/19 05:47 Assess/Plan/Problems-Billing Assessment: This is a 64 year old male with history of intellectual disability, autism, HTN , CKD that presents with his aid from his assisted with report of outburst behavior, self-injury and LIONEL on CKD. - Patient Problems (1) Acute kidney injury superimposed on CKD Code(s): N17.9 - ACUTE KIDNEY FAILURE, UNSPECIFIED; N18.9 - CHRONIC KIDNEY DISEASE, UNSPECIFIED SNOMED Code(s): 11636159 Comment: - Etiology likely 2/2 to combination of manager women lithium use (20 years per patient's brother), antihypertensives and antipsychotic medications with acute dehydration - Serum and Urine osmo, Na and creat pending - Renal US pending - Nephrology consulted - Continue hydration, change to 1/2 NS, as sodium is already 140 - Centre should be discontinued, defer to psychiatry for recommendations (2) Intellectual disability Code(s): F79 - UNSPECIFIED INTELLECTUAL DISABILITIES SNOMED Code(s): 519029584 Comment: - Persistent behavioral disturbance noted per assisted staff and nursing staff here - Patient is uncontrollable at times and prone to throwing items, yelling, and is inconsolable and exhibits self injurious behavior (banging head against the wall, scratching at ears and face) - Appreciate recommendations by psychiatry for medication management, as patient is failing lithium, haldol and zyprexa. Cannot increase lithium dose given increasingly poor renal function; new med recs are abilify, depakote sprinkles, naltrexone, sertraline - Will trial new med regimen starting today and monitor closely (3) Leukocytosis Code(s): D72.829 - ELEVATED WHITE BLOOD CELL COUNT, UNSPECIFIED SNOMED Code(s) : 842962240 Comment: - Persistent luekocytosis for several months - Likely related to constant self injury and stress with mild cellulitis of external ears from scratching and pulling - Was on keflex for the last week after last ER visit and ears seem to be improving, will continue two more days of renally dosed cefazolin with hope that naltrexone curbs the self-injurious behavior - Monitor CBC and temps (4) Urine retention Code(s): R33.9 - RETENTION OF URINE, UNSPECIFIED SNOMED Code(s): 869718652 Comment: - Had outpatient urology visit, no need for lundberg and patient cannot tolerate - Had lithium induced polyuria/nephrogenic DI? and placed on amiloride with partial retention since , would hope to DC amiloride now that lithium being discontinued - Monitor output, bladder scan for PVR (5) DVT prophylaxis Code(s): Z29.9 - ENCOUNTER FOR PROPHYLACTIC MEASURES, UNSPECIFIED SNOMED Code( s): 857204650 Comment: - SCDs (6) Full code status Code(s): Z78.9 - OTHER SPECIFIED HEALTH STATUS SNOMED Code(s): 466342206
[2019-08-20 20:03] LABS: Urine Creatinine Concentration 27.49 mg/dL
[2019-08-20] MEDS: amLODIPine TAB* 5 MG PO SCH (21:15)
[2019-08-21] MEDS: Levothyroxine TAB* 75 MCG TAB PO SCH (05:27)
[2019-08-21] MEDS: NS 0.45% 1000 ML BAG* 1,000 ML IV SCH (07:25)
[2019-08-21] MEDS: Bacitracin OINTMENT* 0.5% 0.5 oz TUBE TOPICAL SCH ×2 (07:39→21:53)
[2019-08-21] MEDS: Al Hydrox/Mg Hydrox/Simet LIQ* 30 ML UDC PO SCH ×2 (07:40→21:52)
[2019-08-21] MEDS: Multivitamins ADULT w/MIN LIQ* 15 ML UDC PO SCH (07:42)
[2019-08-21] MEDS: Naltrexone TAB* 50 MG TAB PO SCH (07:43)
[2019-08-21] MEDS: aMILoride TAB* 5 MG PO SCH (07:43)
[2019-08-21] MEDS: Divalproex Sprinkle CAP* 125 MG PO SCH ×2 (07:45→21:52)
[2019-08-21] MEDS: ARIPiprazole TAB* 5 MG PO SCH (07:46)
[2019-08-21] MEDS: OLANzapine TAB*ODT* 5 MG PO SCH ×2 (07:46→21:52)
[2019-08-21] MEDS: Sertraline* 100 MG TAB PO SCH (07:49)
[2019-08-21] MEDS: Polyethylene Glycol 3350* 17 GM PACKET PO SCH (07:49)
[2019-08-21] MEDS ORDERED: Lorazepam PYXIS KEY PRN (08:44)
[2019-08-21] MEDS ORDERED: LORazepam INJ* 2 MG/ML 1 ML VIAL IV PUSH ONE (08:44)
--- NOTE | 2019-08-21 08:53 | CONSULT ---
Consult Consult: Reason for consult: Behavioral disturbance CC " Hi" The patient is accompanied by care worker from [facility]. Patient continues to be a behavioral disturbance such as screaming and yelling. Patient has been scratching his ears and making his nose bleed by mutilating the inside of his nose. Treatment team meeting from [facility] and patients health care proxy took place and discussed treatment options, targeted goals and disposition. They describe his baseline as non combative, able to follow re- direction, sleeps without difficulty and usually has no self harm behavior. Mental Status Exam APPEARANCE : 64 year old male poor hygiene and grooming with multiple scratch rocha on his ears and nose. EYE CONTACT: Poor PSYCHOMOTOR ACTIVITY: psychomotor agitation MOVEMENTS: Rocking back and forth moving around SPEECH : loud volume MOOD : " Okay" AFFECT : Type elated Mood Incongruent THOUGHT PROCESS: Illogical THOUGHT CONTENT: obsessions PERCEPTION: no AH/ VH SUICIDALITY Denied suicidal ideation, intent or plan. HOMICIDALITY Denied homicidal ideation, intent or plan. Insight/judgment: Poor insight and judgment ORIENTATION: Oriented to self not to location, and time. Plan # The patient does NOT require psychiatric inpatient admission at this time # Medical issues managed by Primary team # Recommend cutting nails and hand mittens to prevent harm from self injury # Treatment team meeting took place. Patient is on multiple anti-psychotics and psychotropic medications. Given the severity of his presenting behavior and history including multiple failed medication trials, other alternative options and doses surpassing the FDA recommendations will be implemented. Consideration of these risks was presented to his treatment team from [facility] and health care proxy and everyone is in agreement with the plan. #Most recent QTc 410. Daily EKG for risk of QT prolongation of antipsychotic medication. # While Connell is a sound and effective treatment in controlling aggression, the risk of kidney damage is severe and the continuation would indefinitely result in the need for life long dialysis, at this time lithium will be discontinued given these risks of permanent renal disease. # Increase abilify 10mg daily for aggression last CLEMONS abilify 400mg q4 weeks was on 08/07/19 # Increase valproic acid 500mg BID for mood #Continue Ativan as needed # Valproic acid level ordered # Increase naltrexone to 100mg daily for self injurious behavior # Continue zyprexa 15mg BID , zoloft 100mg daily and trazodone 100mg qhs. # Patient is unable to leave AMA # Continue constant supervision #Dagoberto older brother and health care proxy [phone] #Social work meeting took place and patient can return back to [facility] once stabilized. #Targeted Goals: Reduce self injurious behavior # Psychiatry will continue to follow the patient. Sodium 140 mmol/L (135-145) 08/20/19 05:47 Potassium 4.5 mmol/L (3.5-5.0) 08/20/19 05:47 BUN 39 mg/dL (6-24) H 08/20/19 05:47 Creatinine 3.03 mg/dL (0.67-1.17) H 08/20/19 05:47 Calcium 9.4 mg/dL (8.6-10.3) 08/20/19 05:47 AST 31 U/L (13-39) 08/19/19 17:28 ALT 27 U/L (7-52) 08/19/19 17:28
[2019-08-21] MEDS: ceFAZolin 1 GM ADVAN(*) 1 GM in NS 0.9% 50 ML* 50 ML IVPB SCH ×2 (10:02→22:16)
[2019-08-21 10:51] LABS: ABS Eosinophils 0.5 10^3/ul (0-0.6); ABS Monocytes 0.9 10^3/ul (0-0.8); ABS Neutrophils 10.9 10^3/ul (1.5-7.7); Eosinophil % 3.5 %; Hematocrit 27 % (42-52); Hemoglobin 8.9 g/dL (14.0-18.0); Lymphocyte % 7.5 %; Mean Corpuscular HGB Conc 33 g/dL (31-36); Mean Corpuscular Hemoglobin 31 pg (27-31); Mean Corpuscular Volume 94 fL (80-94); Mean Platelet Volume 6.6 fL (7.4-10.4); Platelet Count 375 10^3/uL (150-450); Red Blood Count 2.85 10^6 /uL (4.18-5.48); Red Cell Distribution Width 14 % (10-15); White Blood Count 13.3 10^3/uL (3.5-10.8)
[2019-08-21 11:33] LABS: BUN/Creatinine Ratio 11.1 (8-20); Calcium 9.1 mg/dL (8.6-10.3); EGFR African American 28.8 (>60); EGFR Non-African American 23.8 (>60); Potassium 4.3 mmol/L (3.5-5.0)
[2019-08-21 13:18] LABS: BUN/Creatinine Ratio 10.8 (8-20); Calcium 9.6 mg/dL (8.6-10.3); Potassium 4.4 mmol/L (3.5-5.0)
--- NOTE | 2019-08-21 18:03 | PN ---
Subjective Date of Service: 08/21/19 Interval History: Patient seen and examined. Remains with periods of agitation and yelling. His aid from [facility] is at bedside. "Yuri", shich he prefers to be called, can be redirected in between his yelling but is still exhibiting outburst behavior. He is able to answer simple questions and follow some commands. States he feels good today. Objective Active Medications: Acetaminophen (Tylenol Tab*) 650 mg PO Q4H PRN PRN Reason: MILD PAIN or TEMP > 100.4 Al Hydrox/Mg Hydrox/Simethicone (Maalox Plus*) 15 ml PO BID [facility] Last Admin: 08/21/19 07:40 Dose: 15 ml Amiloride HCl (Midamor Tab*) 5 mg PO DAILY [facility] Last Admin: 08/21/19 07:43 Dose: 5 mg Amlodipine Besylate (Norvasc Tab*) 5 mg PO BEDTIME [facility] Last Admin: 08/20/19 21:15 Dose: 5 mg Aripiprazole (Abilify Tab*) 10 mg PO DAILY [facility] Bacitracin (Bacitracin Ointment*) 1 applic TOPICAL BID [facility] Last Admin: 08/21/19 07:39 Dose: 1 applic Divalproex Sodium (Depakote Sprinkle Cap*) 500 mg PO BID [facility] Sodium Chloride (Ns 0.45% 1000 Ml Bag*) 1,000 mls @ 100 mls/hr IV PER RATE [facility] Last Admin: 08/21/19 07:25 Dose: 100 mls/hr Cefazolin Sodium 1 gm/ Sodium (Chloride) 50 mls @ 200 mls/hr IVPB Q12H [facility] Last Admin: 08/21/19 10:02 Dose: 200 mls/hr Levothyroxine Sodium (Synthroid Tab*) 75 mcg PO 0600 [facility] Last Admin: 08/21/19 05:27 Dose: 75 mcg Miscellaneous (Ativan Pyxis Severino) 1 ea N/A .ATIVAN IV SEVERINO PRN PRN Reason: PYXIS SEVERINO Miscellaneous (Ativan Pyxis Severino) 1 ea N/A .ATIVAN IV SEVERINO PRN PRN Reason: PYXIS SEVERINO Multivitamins (Theragran W/Minerals Liq*) 5 ml PO DAILY [facility] Last Admin: 08/21/19 07:42 Dose: 5 ml Naltrexone HCl (Naltrexone Tab*) 100 mg PO DAILY [facility]; Protocol Olanzapine (Zyprexa * Tab Odt) 15 mg PO BID [facility] Polyethylene Glycol/Electrolytes (Miralax*) 17 gm PO DAILY [facility] Last Admin: 08/21/19 07:49 Dose: 17 gm Sertraline HCl (Zoloft*) 100 mg PO DAILY [facility] Last Admin: 08/21/19 07:49 Dose: 100 mg Trazodone HCl (Desyrel Tab*) 100 mg PO BEDTIME PRN PRN Reason: ANXIETY Last Admin: 08/19/19 23:33 Dose: 100 mg Vital Signs - 8 hr 08/21/19 08/21/19 08/21/19 10:02 11:27 11:57 Temperature 97.9 F Pulse Rate 74 Respiratory 20 16 16 Rate Blood Pressure 148/74 (mmHg) O2 Sat by Pulse 100 Oximetry 08/21/19 16:00 Temperature 97.1 F Pulse Rate 69 Respiratory 16 Rate Blood Pressure 152/79 (mmHg) O2 Sat by Pulse 100 Oximetry Oxygen Devices in Use Now: None Appearance: alert with periods of gross agitation Eyes: PERRLA - scratches to ears improving, scabs noted, no discharge, decreasing erythema Ears/Nose/Mouth/Throat: Mucous Membranes Moist Neck: NL Appearance and Movements; NL JVP, Trachea Midline Respiratory: Symmetrical Chest Expansion and Respiratory Effort, Clear to Auscultation Cardiovascular: NL Sounds; No Murmurs; No JVD Abdominal: NL Sounds; No Tenderness; No Distention Extremities: No Edema, No Clubbing, Cyanosis Skin: - Neurological: NL Muscle Strength and Tone, - - alert to person Nutrition: Taking PO's Result Diagrams: 08/21/19 10:44 08/21/19 12:39 Assess/Plan/Problems-Billing Assessment: This is a 64 year old male with history of intellectual disability, autism, HTN , CKD that presents with his aid from his assisted with report of outburst behavior, self-injury and LIONEL on CKD. - Patient Problems (1) Acute kidney injury superimposed on CKD Code(s): N17.9 - ACUTE KIDNEY FAILURE, UNSPECIFIED; N18.9 - CHRONIC KIDNEY DISEASE, UNSPECIFIED SNOMED Code(s): 88365620 Comment: - Etiology likely 2/2 to combination of alf lithium use (20 years per patient's brother), antihypertensives and antipsychotic medications with acute dehydration - Serum and Urine osmo, Na and creat indicating chronic renal disease with superimposed LIONEL - Renal US shows no hydro with medical renal disease - Nephrology following - Continue hydration, change to 1/2 NS, as sodium is 142 - Bertha has been discontinued (2) Intellectual disability Code(s): F79 - UNSPECIFIED INTELLECTUAL DISABILITIES SNOMED Code(s): 834028343 Comment: - Persistent behavioral disturbance noted per assisted staff and nursing staff here - Patient is uncontrollable at times and prone to throwing items, yelling, and is inconsolable and exhibits self injurious behavior (banging head against the wall, scratching at ears and face) - Appreciate recommendations by psychiatry for medication management, as patient is failing lithium, haldol and zyprexa. Cannot increase lithium dose given increasingly poor renal function; new med recs are abilify, depakote sprinkles, naltrexone, sertraline - Serial EKGs to monitor QTc and daily labs while new medication regimen is being trialed (3) Leukocytosis Code(s): D72.829 - ELEVATED WHITE BLOOD CELL COUNT, UNSPECIFIED SNOMED Code(s) : 870460564 Comment: - Persistent luekocytosis for several months - Likely related to constant self injury and stress with mild cellulitis of external ears from scratching and pulling - Was on keflex for the last week after last ER visit and ears seem to be improving, will continue two more days of renally dosed cefazolin with hope that naltrexone curbs the self-injurious behavior - Monitor CBC and temps (4) Urine retention Code(s): R33.9 - RETENTION OF URINE, UNSPECIFIED SNOMED Code(s): 790974470 Comment: - Had outpatient urology visit, no need for lundberg and patient cannot tolerate - Had lithium induced polyuria/nephrogenic DI? and placed on amiloride with partial retention since , would hope to DC amiloride now that lithium being discontinued - Monitor output, bladder scan for PVR if needed (5) DVT prophylaxis Code(s): Z29.9 - ENCOUNTER FOR PROPHYLACTIC MEASURES, UNSPECIFIED SNOMED Code( s): 631206536 Comment: - SCDs (6) Full code status Code(s): Z78.9 - OTHER SPECIFIED HEALTH STATUS SNOMED Code(s): 037716578 Status and Disposition: SW and psychiatry met with [facility] regarding disposition. Goal would be reducing harmful behaviors and self injury and discharge back to assisted when stable.
[2019-08-21] MEDS: amLODIPine TAB* 5 MG PO SCH (21:52)
[2019-08-21] MEDS: traZODone TAB* 100 MG PO PRN (22:37)
[2019-08-22] MEDS ORDERED: Lorazepam PYXIS KEY PRN ×2 (02:15→10:21)
[2019-08-22] MEDS ORDERED: LORazepam INJ* 2 MG/ML 1 ML VIAL IV PUSH ONE (02:30)
[2019-08-22 05:33] LABS: BUN/Creatinine Ratio 10.2 (8-20); Calcium 9.4 mg/dL (8.6-10.3); EGFR African American 30.6 (>60); EGFR Non-African American 25.3 (>60); Potassium 4.6 mmol/L (3.5-5.0)
[2019-08-22] MEDS: Multivitamins ADULT w/MIN LIQ* 15 ML UDC PO SCH (08:11)
[2019-08-22] MEDS: aMILoride TAB* 5 MG PO SCH (08:12)
[2019-08-22] MEDS: Al Hydrox/Mg Hydrox/Simet LIQ* 30 ML UDC PO SCH ×3 (08:12→20:37)
[2019-08-22] MEDS: Naltrexone TAB* 50 MG TAB PO SCH (08:12)
[2019-08-22] MEDS: Divalproex Sprinkle CAP* 125 MG PO SCH ×2 (08:13→19:52)
[2019-08-22] MEDS: ARIPiprazole TAB* 5 MG PO SCH (08:13)
[2019-08-22] MEDS: OLANzapine TAB*ODT* 5 MG PO SCH ×2 (08:13→19:52)
[2019-08-22] MEDS: Levothyroxine TAB* 75 MCG TAB PO SCH (08:13)
[2019-08-22] MEDS: Sertraline* 100 MG TAB PO SCH (08:14)
[2019-08-22] MEDS: Polyethylene Glycol 3350* 17 GM PACKET PO SCH (08:14)
[2019-08-22] MEDS: Bacitracin OINTMENT* 0.5% 0.5 oz TUBE TOPICAL SCH ×2 (08:14→20:37)
[2019-08-22] MEDS ORDERED: ARIPiprazole TAB* 20 MG PO SCH (09:00)
[2019-08-22] MEDS ORDERED: LORazepam INJ* 2 MG/ML 1 ML VIAL ONE (10:30)
[2019-08-22] MEDS: ceFAZolin 1 GM ADVAN(*) 1 GM in NS 0.9% 50 ML* 50 ML IVPB SCH ×2 (10:36→20:29)
[2019-08-22] MEDS: NS 0.45% 1000 ML BAG* 1,000 ML IV SCH (10:38)
[2019-08-22] MEDS: LORazepam INJ* 2 MG/ML 1 ML VIAL IV PUSH PRN ×2 (10:40→19:48)
--- NOTE | 2019-08-22 13:41 | PN ---
Subjective Date of Service: 08/22/19 Interval History: Mr. Mckoy is sleeping peacefully. He has been reported to be yelling, screaming and rolling out of bed earlier today and was given ativan which worked well. He appears to be in no acute distress. Objective Active Medications: Acetaminophen (Tylenol Tab*) 650 mg PO Q4H PRN Al Hydrox/Mg Hydrox/Simethicone (Maalox Plus*) 15 ml PO BID [facility] Amiloride HCl (Midamor Tab*) 5 mg PO DAILY [facility] Amlodipine Besylate (Norvasc Tab*) 5 mg PO BEDTIME [facility] Aripiprazole (Abilify Tab*) 10 mg PO DAILY [facility] Bacitracin (Bacitracin Ointment*) 1 applic TOPICAL BID [facility] Divalproex Sodium (Depakote Sprinkle Cap*) 500 mg PO BID [facility] Cefazolin Sodium 1 gm/ Sodium (Chloride) 50 mls @ 200 mls/hr IVPB Q12H [facility] Sodium Chloride (Ns 0.45% 1000 Ml Bag*) 1,000 mls @ 75 mls/hr IV PER RATE [facility] Levothyroxine Sodium (Synthroid Tab*) 75 mcg PO 0600 [facility] Lorazepam (Ativan Inj*) 1 mg IV PUSH Q6H PRN Miscellaneous (Ativan Pyxis Perera) 1 ea N/A .PYXIS PERERA PRN Miscellaneous (Ativan Pyxis Perera) 1 ea N/A .ATIVAN IV PERERA PRN Multivitamins (Theragran W/Minerals Liq*) 5 ml PO DAILY [facility] Naltrexone HCl (Naltrexone Tab*) 100 mg PO DAILY [facility]; Protocol Polyethylene Glycol/Electrolytes (Miralax*) 17 gm PO DAILY [facility] Sertraline HCl (Zoloft*) 100 mg PO DAILY [facility] Trazodone HCl (Desyrel Tab*) 100 mg PO BEDTIME PRN Vital Signs: Temp Pulse Resp BP Pulse Ox 97.1 F 71 12 144/90 100 08/22/19 11:00 08/22/19 11:00 08/22/19 11:43 08/22/19 11:00 08/22/19 11:00 Oxygen Devices in Use Now: None Appearance: Male lying in bed Eyes: No Scleral Icterus Ears/Nose/Mouth/Throat: NL Teeth, Lips, Gums Neck: NL Appearance and Movements; NL JVP Respiratory: Symmetrical Chest Expansion and Respiratory Effort, Clear to Auscultation Cardiovascular: NL Sounds; No Murmurs; No JVD, No Edema Abdominal: NL Sounds; No Tenderness; No Distention Extremities: No Edema Neurological: - - Sleeping, moans and withdraws, lifting his arms and legs in the air when stimulated, moves all extremities spontaneously Result Diagrams: 08/21/19 10:44 08/22/19 05:05 Assess/Plan/Problems-Billing Assessment: Mr. Mckoy is a 64 year old male with history of intellectual disability, autism, HTN, CKD that presents with his aid from his residential with report of outburst behavior, self-injury and LIONEL on CKD. - Patient Problems (1) Acute kidney injury superimposed on CKD Comment: - Improving slowly - Etiology likely 2/2 to combination of jail lithium use (20 years per patient's brother), antihypertensives and antipsychotic medications with acute dehydration - Serum and Urine osmo, Na and creat indicating chronic renal disease with superimposed LIONEL. Renal US shows no hydro with medical renal disease - Nephrology following - Continue hydration, change to 1/2 NS, as sodium is 143 - Dubois has been discontinued (2) Intellectual disability Comment: - Symptoms unchanged but med change only recently performed, continue to monitor. - Persistent behavioral disturbance noted per residential staff and nursing staff here. - Patient is uncontrollable at times and prone to throwing items, yelling, and is inconsolable and exhibits self injurious behavior (banging head against the wall, scratching at ears and face). Ativan prn is very helpful. - Appreciate recommendations by psychiatry for medication management, as patient is failing lithium, haldol and zyprexa. Cannot increase lithium dose given increasingly poor renal function; new med recs are abilify, depakote sprinkles, naltrexone, sertraline - Serial EKGs to monitor QTc and daily labs while new medication regimen is being trialed (3) Leukocytosis Comment: - Persistent luekocytosis for several months - No evidence of infection. Likely related to constant self injury and stress with mild cellulitis of external ears from scratching and pulling - Was on keflex for the last week after last ER visit and ears seem to be improving, will continue two more days of renally dosed cefazolin with hope that naltrexone curbs the self-injurious behavior - Monitor CBC and temps (4) Urine retention Comment: - Had outpatient urology visit, no need for lundberg and patient cannot tolerate - Had lithium induced polyuria/nephrogenic DI? and placed on amiloride with partial retention since , would hope to DC amiloride now that lithium being discontinued - Monitor output, bladder scan for PVR if needed (5) DVT prophylaxis Comment: - SCDs (6) Full code status Comment: Status and Disposition: SW and psychiatry met with [facility] regarding disposition. Goal would be reducing harmful behaviors and self injury and discharge back to residential when stable.
--- NOTE | 2019-08-22 15:47 | CONSULT ---
Identification - Patient Identification Reason for Psychiatric Consultation: Violent Behavior -: Patient is a 64 year old, M admitted on 08/20/19. - MHU Identification Employment Status: Disabled Hx Psychiatric Hospitalization: No History - Objective HPI: "Linwood" is seen for psychiatric follow up. He is accompanied by an aide from [employer] named Isatu who reports that she has worked with him for years and that he remains far from baseline. He received prn IV lorazepam once overnight for agitation and self-injury and this was repeated again this afternoon. Currently he is somewhat sedated and does not respond much to questioning other than to briefly open his eyes and raise his legs up off the bed. Exam Appearance: Thin Framed Hygiene: Normal Grooming: Fairly Well Kept Exhibits Abnormal Movement: Yes Attitude and Relatedness: Child Like Eye Contact: Poor Level of Consciousness: Lethargic Orientation: No Intact, No Orientated to Time, No Orientated to Place, No Orientated to Person Impulse Control: Poor Insight and Judgement: Impaired Impression - Impression Clinical Impression: 64 y.o. single, white male with a history of developmental delay and intellectual deficits hospitalized on the medical service due to renal failure presents with comorbid behavioral dysinhibition and agitation. Inpatient DSM-V Dx: F63.9 BSU: Problem List - Patient Problems (1) Impulse control disorder Current Visit: Yes Status: Acute Code(s): F63.9 - IMPULSE DISORDER, UNSPECIFIED SNOMED Code(s): 57447477 Plan - Treatment Plan Treatment Plan: The patient must be taken off lithium due to renal concerns. He is now on a combination of naltrexone, depakote and aripiprazole. Will need updated VPA level within next 2 days. Psychiatry will continue to follow. May use prn IV lorazepam per primary team's discretion. Continued Medication Management: Different Medication Medications: Current Medications Acetaminophen (Tylenol Tab*) 650 mg PO Q4H PRN PRN Reason: MILD PAIN or TEMP > 100.4 Al Hydrox/Mg Hydrox/Simethicone (Maalox Plus*) 15 ml PO BID [facility] Last Admin: 08/22/19 08:31 Dose: Not Given Amiloride HCl (Midamor Tab*) 5 mg PO DAILY [facility] Last Admin: 08/22/19 08:12 Dose: 5 mg Amlodipine Besylate (Norvasc Tab*) 5 mg PO BEDTIME [facility] Last Admin: 08/21/19 21:52 Dose: 5 mg Aripiprazole (Abilify Tab*) 10 mg PO DAILY [facility] Last Admin: 08/22/19 08:13 Dose: 10 mg Bacitracin (Bacitracin Ointment*) 1 applic TOPICAL BID [facility] Last Admin: 08/22/19 08:14 Dose: 1 applic Divalproex Sodium (Depakote Sprinkle Cap*) 500 mg PO BID [facility] Last Admin: 08/22/19 08:13 Dose: 500 mg Cefazolin Sodium 1 gm/ Sodium (Chloride) 50 mls @ 200 mls/hr IVPB Q12H [facility] Last Admin: 08/22/19 10:36 Dose: 200 mls/hr Sodium Chloride (Ns 0.45% 1000 Ml Bag*) 1,000 mls @ 75 mls/hr IV PER RATE [facility] Last Admin: 08/22/19 10:38 Dose: 75 mls/hr Levothyroxine Sodium (Synthroid Tab*) 75 mcg PO 0600 [facility] Last Admin: 08/22/19 08:13 Dose: 75 mcg Lorazepam (Ativan Inj*) 1 mg IV PUSH Q6H PRN PRN Reason: ANXIETY Last Admin: 08/22/19 10:40 Dose: 1 mg Miscellaneous (Ativan Pyxis Severino) 1 ea N/A .PYXIS SEVERINO PRN PRN Reason: PER PROTOCOL Miscellaneous (Ativan Pyxis Severino) 1 ea N/A .ATIVAN IV SEVERINO PRN PRN Reason: PYXIS SEVERINO Multivitamins (Theragran W/Minerals Liq*) 5 ml PO DAILY [facility] Last Admin: 08/22/19 08:11 Dose: 5 ml Naltrexone HCl (Naltrexone Tab*) 100 mg PO DAILY [facility]; Protocol Last Admin: 08/22/19 08:12 Dose: 100 mg Olanzapine (Zyprexa * Tab Odt) 15 mg PO BID [facility] Last Admin: 08/22/19 08:13 Dose: 15 mg Polyethylene Glycol/Electrolytes (Miralax*) 17 gm PO DAILY [facility] Last Admin: 08/22/19 08:14 Dose: 17 gm Sertraline HCl (Zoloft*) 100 mg PO DAILY [facility] Last Admin: 08/22/19 08:14 Dose: 100 mg Trazodone HCl (Desyrel Tab*) 100 mg PO BEDTIME PRN PRN Reason: ANXIETY Last Admin: 08/21/19 22:37 Dose: 100 mg
[2019-08-22] MEDS: traZODone TAB* 100 MG PO PRN (19:52)
[2019-08-22] MEDS: amLODIPine TAB* 5 MG PO SCH (19:52)
[2019-08-22] MEDS: Pantoprazole IV* 40 MG IV SCH (20:38)
[2019-08-23] MEDS: NS 0.45% 1000 ML BAG* 1,000 ML IV SCH (02:03)
[2019-08-23] MEDS: LORazepam INJ* 2 MG/ML 1 ML VIAL IV PUSH PRN ×3 (02:11→20:09)
[2019-08-23] MEDS: Levothyroxine TAB* 75 MCG TAB PO SCH (05:29)
[2019-08-23 06:46] LABS: ABS Basophils 0.1 10^3/ul (0-0.2); ABS Eosinophils 0.6 10^3/ul (0-0.6); ABS Lymphocytes 1.4 10^3/ul (1.0-4.8); ABS Monocytes 0.8 10^3/ul (0-0.8); ABS Neutrophils 8.3 10^3/ul (1.5-7.7); Eosinophil % 5.3 %; Hematocrit 30 % (42-52); Hemoglobin 10.1 g/dL (14.0-18.0); Lymphocyte % 12.6 %; Mean Corpuscular HGB Conc 34 g/dL (31-36); Mean Corpuscular Hemoglobin 32 pg (27-31); Mean Corpuscular Volume 95 fL (80-94); Platelet Count 392 10^3/uL (150-450); Red Blood Count 3.16 10^6 /uL (4.18-5.48); Red Cell Distribution Width 15 % (10-15); White Blood Count 11.2 10^3/uL (3.5-10.8)
[2019-08-23 07:06] LABS: BUN/Creatinine Ratio 9.6 (8-20); Blood Urea Nitrogen 22 mg/dL (6-24); CO2 Carbon Dioxide 21 mmol/L (22-32); Calcium 9.4 mg/dL (8.6-10.3); EGFR African American 34.6 (>60); EGFR Non-African American 28.6 (>60); Glucose 97 mg/dL (70-100); Potassium 4.8 mmol/L (3.5-5.0)
[2019-08-23 07:08] LABS: Anion Gap 4 mmol/L (2-11); Chloride 121 mmol/L (101-111); Sodium 146 mmol/L (135-145)
[2019-08-23 07:39] LABS: % Iron Saturation 23 % (15-55); Iron 68 ug/dL (50-212); Total Iron Binding Capacity 298 mcg/dL (250-450); Transferrin 213 mg/dL (203-362)
[2019-08-23 07:59] LABS: Ferritin 168.3 ng/mL (24-336)
[2019-08-23] MEDS: Al Hydrox/Mg Hydrox/Simet LIQ* 30 ML UDC PO SCH ×3 (08:51→20:37)
[2019-08-23] MEDS: Divalproex Sprinkle CAP* 125 MG PO SCH ×2 (08:52→20:26)
[2019-08-23] MEDS: Multivitamins ADULT w/MIN LIQ* 15 ML UDC PO SCH (08:52)
[2019-08-23] MEDS: ARIPiprazole TAB* 5 MG PO SCH (08:52)
[2019-08-23] MEDS: Sertraline* 100 MG TAB PO SCH (08:52)
[2019-08-23] MEDS: aMILoride TAB* 5 MG PO SCH (08:52)
[2019-08-23] MEDS: Bacitracin OINTMENT* 0.5% 0.5 oz TUBE TOPICAL SCH ×2 (08:53→20:38)
[2019-08-23] MEDS: Naltrexone TAB* 50 MG TAB PO SCH (08:53)
[2019-08-23] MEDS: OLANzapine TAB*ODT* 5 MG PO SCH ×2 (08:53→20:20)
[2019-08-23] MEDS: Polyethylene Glycol 3350* 17 GM PACKET PO SCH (08:53)
[2019-08-23] MEDS: Pantoprazole IV* 40 MG IV SCH (08:54)
[2019-08-23] MEDS: ceFAZolin 1 GM ADVAN(*) 1 GM in NS 0.9% 50 ML* 50 ML IVPB SCH ×2 (09:15→22:58)
[2019-08-23] MEDS: Sodium Bicarbonate (ANTACID)* 650 MG TAB PO SCH ×2 (12:41→20:36)
[2019-08-23] MEDS: D5W 1000 ML BAG* 1,000 ML IV SCH (12:43)
--- NOTE | 2019-08-23 15:15 | PN ---
Subjective Date of Service: 08/23/19 Interval History: Mr. Mckoy is yelling and moaning but is otherwise nonverbal. He does not appear to be in any acute distress. His administrative support assistant in the room note that he was able to say "Hello" and appropriately called her by her name, Irma, earlier today. Objective Active Medications: Acetaminophen (Tylenol Tab*) 650 mg PO Q4H PRN Al Hydrox/Mg Hydrox/Simethicone (Maalox Plus*) 15 ml PO BID MARY Amiloride HCl (Midamor Tab*) 5 mg PO DAILY MARY Amlodipine Besylate (Norvasc Tab*) 5 mg PO BEDTIME MARY Aripiprazole (Abilify Tab*) 10 mg PO DAILY MARY Bacitracin (Bacitracin Ointment*) 1 applic TOPICAL BID MARY Divalproex Sodium (Depakote Sprinkle Cap*) 500 mg PO BID MARY Cefazolin Sodium 1 gm/ Sodium (Chloride) 50 mls @ 200 mls/hr IVPB Q12H MARY Dextrose (D5w 1000 Ml Bag*) 1,000 mls @ 50 mls/hr IV PER RATE MARY Levothyroxine Sodium (Synthroid Tab*) 75 mcg PO 0600 MARY Lorazepam (Ativan Inj*) 1 mg IV PUSH Q6H PRN Miscellaneous (Ativan Pyxis Perera) 1 ea N/A .PYXIS PERERA PRN Miscellaneous (Ativan Pyxis Perera) 1 ea N/A .ATIVAN IV PERERA PRN Multivitamins (Theragran W/Minerals Liq*) 5 ml PO DAILY MARY Naltrexone HCl (Naltrexone Tab*) 100 mg PO DAILY MARY; Protocol Olanzapine (Zyprexa * Tab Odt) 15 mg PO BID MARY Ondansetron HCl (Zofran Inj*) 4 mg IV Q6H PRN Pantoprazole Sodium (Protonix Iv*) 40 mg IV BID MARY Polyethylene Glycol/Electrolytes (Miralax*) 17 gm PO DAILY MARY Sertraline HCl (Zoloft*) 100 mg PO DAILY MARY Sodium Bicarbonate (Sodium Bicarbonate (Antacid)*) 650 mg PO BID MARY Trazodone HCl (Desyrel Tab*) 100 mg PO BEDTIME PRN Vital Signs: Temp Pulse Resp BP Pulse Ox 97.2 F 70 18 147/76 100 08/23/19 10:00 08/23/19 10:00 08/23/19 12:35 08/23/19 10:00 08/23/19 10:00 Oxygen Devices in Use Now: None Appearance: Male lying in bed in NAD Eyes: No Scleral Icterus Ears/Nose/Mouth/Throat: Mucous Membranes Moist Neck: Trachea Midline Respiratory: Symmetrical Chest Expansion and Respiratory Effort, Clear to Auscultation Cardiovascular: NL Sounds; No Murmurs; No JVD, No Edema Abdominal: NL Sounds; No Tenderness; No Distention Extremities: No Edema Skin: No Rash or Ulcers Neurological: NL Muscle Strength and Tone, - - Intermittently alert Result Diagrams: 08/23/19 06:30 08/23/19 06:30 Assess/Plan/Problems-Billing Assessment: Mr. Mckoy is a 64 year old male with history of intellectual disability, autism, HTN, CKD that presents with his aid from his nursing home with report of outburst behavior, self-injury and nephrogenic DI with LIONEL on CKD. - Patient Problems (1) Acute kidney injury superimposed on CKD Comment: - Continue to improve - Etiology likely 2/2 to combination of [employer] lithium use with nephrogenic DI, antihypertensives and antipsychotic medications with acute dehydration - Serum and Urine osmo, Na and creat indicating chronic renal disease with superimposed LIONEL. Renal US shows no hydro with medical renal disease - Nephrology following - Continue hydration, change to 1/2 NS, as sodium is 143 - [place] has been discontinued (2) Nephrogenic diabetes insipidus Comment: - Na up to 146 - Switched to D5W at 50ml/hr - Encourage fluid intake - Continue amiloride - Appreciate input from nephrology (3) Intellectual disability Comment: - Symptoms unchanged but med change only recently performed, continue to monitor. - Persistent behavioral disturbance noted per nursing home staff and nursing staff here. - Patient is uncontrollable at times and prone to throwing items, yelling, and is inconsolable and exhibits self injurious behavior (banging head against the wall, scratching at ears and face). Ativan prn is very helpful. - Appreciate recommendations by psychiatry for medication management, as patient is failing lithium, haldol and zyprexa. Cannot increase lithium dose given increasingly poor renal function; new med recs are abilify, depakote sprinkles, naltrexone, sertraline - Serial EKGs to monitor QTc and daily labs while new medication regimen is being trialed - QTc stable - Dr Ward to check valproic acid levels tomorrow and make adjustments in med regimen as indicated (4) Leukocytosis Comment: - Persistent luekocytosis for several months - No evidence of infection. Likely related to constant self injury and stress with mild cellulitis of external ears from scratching and pulling - Was on keflex for the last week after last ER visit and ears seem to be improving, will continue two more days of renally dosed cefazolin with hope that naltrexone curbs the self-injurious behavior - Monitor CBC and temps (5) Urine retention Comment: - Had outpatient urology visit, no need for lundberg and patient cannot tolerate - Had lithium induced polyuria/nephrogenic DI and placed on amiloride with partial retention since june - Monitor output, bladder scan for PVR if needed (6) DVT prophylaxis Comment: - SCDs (7) Full code status Comment: Status and Disposition: SW and psychiatry met with Nguyen PAK regarding disposition. Goal would be reducing harmful behaviors and self injury and discharge back to nursing home when stable.
[2019-08-23] MEDS: amLODIPine TAB* 5 MG PO SCH (20:23)
[2019-08-23] MEDS: Ondansetron INJ* 2 MG/ML VIAL IV PRN (20:30)
[2019-08-23 21:49] LABS: ALT 3 U/L (7-52); AST 18 U/L (13-39)
[2019-08-24] MEDS: Levothyroxine TAB* 75 MCG TAB PO SCH (06:25)
[2019-08-24 06:42] LABS: Calcium 9.3 mg/dL (8.6-10.3); EGFR African American 36.6 (>60); EGFR Non-African American 30.3 (>60)
--- NOTE | 2019-08-24 08:19 | CONSULT ---
Consult Consult: Reason for consult: Self Injurious behavior Patient was seen today. The [facility] aid reported that the patient was combative with staff earlier in the morning but has calmed down since that time. He has been yelling less frequently. He tried to put his fingers in his mouth earlier and scratch his ears. Patient ate some of his breakfast. The patient has been less verbal than what his close contacts describe. Mental Status Exam APPEARANCE : 64 year old male poor hygiene and grooming with multiple scratch rocha on his ears and nose. EYE CONTACT: Poor PSYCHOMOTOR ACTIVITY: psychomotor agitation MOVEMENTS: Rocking back and forth moving around SPEECH : loud volume MOOD : " so so" AFFECT : Type elated Mood Incongruent THOUGHT PROCESS: Illogical THOUGHT CONTENT: obsessions PERCEPTION: no AH/ VH SUICIDALITY Denied suicidal ideation, intent or plan. HOMICIDALITY Denied homicidal ideation, intent or plan. Insight/judgment: Poor insight and judgment ORIENTATION: Oriented to self not to location, and time. Assessment: 64 year old male with severe intellectual disability and recent changes in behavior that include self injury. Plan # The patient does NOT require psychiatric inpatient admission at this time. # Medical issues managed by Primary team # Safety Measures floor pad, cutting nails and unrestricted hand mittens to reduce risk of harm from self injury # Treatment team meeting took place. Patient is on multiple anti-psychotics and psychotropic medications. Given the severity of his presenting behavior and history including multiple failed medication trials, other alternative options and doses surpassing the FDA recommendations will be implemented. Consideration of these risks was presented to his treatment team from [facility] and health care proxy and everyone is in agreement with the plan. #Most recent QTc 410. Daily EKG for risk of QT prolongation from antipsychotic medication. # Dagoberto (older brother) also his health care proxy is involved with plan of care and is in agreement with the plan. # [phone] # While [place] is a sound and effective treatment in controlling aggression, the risk of kidney damage is severe and the continuation would indefinitely result in the need for life long dialysis, at this time lithium will be discontinued given these risks of permanent renal disease. Continue IV fluids. # Cr trending down from 3.57--> 2.19 #Discontinue oral Abilify at this time. Last [facility]MON[facility] abilify 400mg q4 weeks was on 08/07/19 # Start paliperidone 3mg daily for aggression and ASD, will continue to monitor impact on renal function and QTc. # Increase valproic acid 750mg BID for mood #Continue Ativan as needed # Valproic acid level 33 AST/ALT within normal limits # Continue naltrexone to 100mg daily for self injurious behavior # Start N- acetyl cysteine 600mg BID for self injurious behavior, as well as provides renal protection # Continue zyprexa 15mg BID, zoloft 100mg daily and trazodone 100mg qhs. # Patient is unable to leave AMA # Continue constant supervision # Communication with primary team #Social work meeting took place and patient can return back to [facility] once stabilized. #Targeted Goals: Reduce self injurious behavior # Psychiatry will continue to follow the patient.
[2019-08-24] MEDS: LORazepam INJ* 2 MG/ML 1 ML VIAL IV PUSH PRN ×3 (08:42→23:10)
[2019-08-24] MEDS ORDERED: Paliperidone ER TAB* 3 MG TAB.ER PO SCH (09:00)
[2019-08-24] MEDS: D5W 1000 ML BAG* 1,000 ML IV SCH (10:02)
[2019-08-24] MEDS: ceFAZolin 1 GM ADVAN(*) 1 GM in NS 0.9% 50 ML* 50 ML IVPB SCH ×2 (10:02→21:09)
[2019-08-24] MEDS: Al Hydrox/Mg Hydrox/Simet LIQ* 30 ML UDC PO SCH ×2 (10:06→21:05)
[2019-08-24] MEDS: Multivitamins ADULT w/MIN LIQ* 15 ML UDC PO SCH (10:11)
[2019-08-24] MEDS: Polyethylene Glycol 3350* 17 GM PACKET PO SCH (10:12)
[2019-08-24] MEDS: Bacitracin OINTMENT* 0.5% 0.5 oz TUBE TOPICAL SCH ×2 (10:13→21:08)
[2019-08-24] MEDS: Sodium Bicarbonate (ANTACID)* 650 MG TAB PO SCH ×2 (10:15→21:09)
[2019-08-24] MEDS: aMILoride TAB* 5 MG PO SCH (10:15)
[2019-08-24] MEDS: Sertraline* 100 MG TAB PO SCH (10:15)
[2019-08-24] MEDS: Pantoprazole TAB * 40 MG TAB PO SCH (10:15)
[2019-08-24] MEDS: Naltrexone TAB* 50 MG TAB PO SCH (10:16)
[2019-08-24] MEDS: OLANzapine TAB*ODT* 5 MG PO SCH ×2 (10:18→21:08)
[2019-08-24] MEDS: Acetylcysteine CAP (RENAL)* 600 MG PO SCH ×4 (10:24→21:05)
[2019-08-24] MEDS: Divalproex Sprinkle CAP* 125 MG PO SCH ×2 (13:13→21:06)
--- NOTE | 2019-08-24 14:17 | PN ---
Subjective Date of Service: 08/24/19 Interval History: Patient can answer yes or no questions at times. Follows some simple commands at times. Aide from shelter at bedside endorses that patient is not at his baseline. He typically is able to speak complete sentences and he is not doing so. Nursing reports he has been agitated intermittently throughout the day but has responded well to aide from shelter's redirection. He spit out some of his meds this morning, but later took them. Objective Active Medications: Acetaminophen (Tylenol Tab*) 650 mg PO Q4H PRN PRN Reason: MILD PAIN or TEMP > 100.4 Acetylcysteine (Acetylcysteine Cap (Renal)*) 600 mg PO BID [facility] Stop: 08/25/19 21:01 Last Admin: 08/24/19 13:30 Dose: Not Given Al Hydrox/Mg Hydrox/Simethicone (Maalox Plus*) 15 ml PO BID [facility] Last Admin: 08/24/19 10:06 Dose: 15 ml Amiloride HCl (Midamor Tab*) 5 mg PO DAILY [facility] Last Admin: 08/24/19 10:15 Dose: 5 mg Amlodipine Besylate (Norvasc Tab*) 5 mg PO BEDTIME [facility] Last Admin: 08/23/19 20:23 Dose: 5 mg Bacitracin (Bacitracin Ointment*) 1 applic TOPICAL BID [facility] Last Admin: 08/24/19 10:13 Dose: 1 applic Divalproex Sodium (Depakote Sprinkle Cap*) 750 mg PO BID [facility] Last Admin: 08/24/19 13:13 Dose: 750 mg Cefazolin Sodium 1 gm/ Sodium (Chloride) 50 mls @ 200 mls/hr IVPB Q12H [facility] Last Admin: 08/24/19 10:02 Dose: 200 mls/hr Dextrose (D5w 1000 Ml Bag*) 1,000 mls @ 50 mls/hr IV PER RATE [facility] Last Admin: 08/24/19 10:02 Dose: 50 mls/hr Levothyroxine Sodium (Synthroid Tab*) 75 mcg PO 0600 [facility] Last Admin: 08/24/19 06:25 Dose: 75 mcg Lorazepam (Ativan Inj*) 1 mg IV PUSH Q6H PRN PRN Reason: ANXIETY Last Admin: 08/24/19 08:42 Dose: 1 mg Miscellaneous (Ativan Pyxis Perera) 1 ea N/A .PYXIS PERERA PRN PRN Reason: PER PROTOCOL Miscellaneous (Ativan Pyxis Perera) 1 ea N/A .ATIVAN IV PERERA PRN PRN Reason: PYXIS PERERA Multivitamins (Theragran W/Minerals Liq*) 5 ml PO DAILY [facility] Last Admin: 08/24/19 10:11 Dose: 5 ml Naltrexone HCl (Naltrexone Tab*) 100 mg PO DAILY [facility]; Protocol Last Admin: 08/24/19 10:16 Dose: 100 mg Olanzapine (Zyprexa * Tab Odt) 15 mg PO BID [facility] Last Admin: 08/24/19 10:18 Dose: 15 mg Ondansetron HCl (Zofran Inj*) 4 mg IV Q6H PRN PRN Reason: NAUSEA Last Admin: 08/23/19 20:30 Dose: 4 mg Paliperidone (Invega Er Tab*) 3 mg PO DAILY [facility] Last Admin: 08/24/19 13:19 Dose: 3 mg Pantoprazole Sodium (Protonix Tab*) 40 mg PO DAILY [facility] Last Admin: 08/24/19 10:15 Dose: 40 mg Polyethylene Glycol/Electrolytes (Miralax*) 17 gm PO DAILY [facility] Last Admin: 08/24/19 10:12 Dose: 17 gm Sertraline HCl (Zoloft*) 100 mg PO DAILY [facility] Last Admin: 08/24/19 10:15 Dose: 100 mg Sodium Bicarbonate (Sodium Bicarbonate (Antacid)*) 650 mg PO BID [facility] Last Admin: 08/24/19 10:15 Dose: 650 mg Trazodone HCl (Desyrel Tab*) 100 mg PO BEDTIME PRN PRN Reason: ANXIETY Last Admin: 08/22/19 19:52 Dose: 100 mg Vital Signs - 8 hr 08/24/19 08/24/19 08/24/19 08:37 08:42 11:26 Temperature 97.5 F 97.8 F Pulse Rate 80 74 Respiratory 16 14 16 Rate Blood Pressure 151/78 133/70 (mmHg) O2 Sat by Pulse 100 100 Oximetry Oxygen Devices in Use Now: None Appearance: White male, appears stated age, laying in hospital bed, calling out at times, appearing in NAD Eyes: No Scleral Icterus Ears/Nose/Mouth/Throat: Mucous Membranes Moist, - - poor dentition Neck: NL Appearance and Movements; NL JVP Respiratory: Symmetrical Chest Expansion and Respiratory Effort, - - difficult to assess due to poor patient effort, but overall clear Cardiovascular: NL Sounds; No Murmurs; No JVD, RRR Abdominal: - - abd soft, nontender, nondistended Skin: - - healing eschar to bilateral knees and external ears; skin otherwise warm and dry Neurological: NL Muscle Strength and Tone, - - alert, oriented to self; speech is not clear Result Diagrams: 08/23/19 06:30 08/24/19 05:54 Assess/Plan/Problems-Billing Assessment: Mr. Mckoy is a 64 year old male with history of intellectual disability, autism, HTN, CKD that presents with his aid from his shelter with report of outburst behavior, self-injury and nephrogenic DI with LIONEL on CKD. - Patient Problems (1) [place] toxicity Current Visit: Yes Status: Acute Code(s): T56.891A - TOXIC EFFECT OF OTH METALS, ACCIDENTAL (UNINTENTIONAL), INIT SNOMED Code(s): 499270195 Comment: -resolved, though does continue to have agitation which is improving -lithium has been discontinued during this hospital stay (2) Acute kidney injury superimposed on CKD Current Visit: Yes Status: Acute Code(s): N17.9 - ACUTE KIDNEY FAILURE, UNSPECIFIED; N18.9 - CHRONIC KIDNEY DISEASE, UNSPECIFIED SNOMED Code(s): 63766789 Comment: - Continues to improve. Cr to 2.19 today - Etiology likely 2/2 to combination of [place] [facility] lithium use with nephrogenic DI, antihypertensives and antipsychotic medications with acute dehydration - Serum and Urine osmo, Na and creat indicating chronic renal disease with superimposed LIONEL. Renal US shows no hydro with medical renal disease - Nephrology following - Continue hydration, change to 1/2 NS, as sodium is 143 - [place] has been discontinued (3) Nephrogenic diabetes insipidus Current Visit: Yes Status: Acute Code(s): N25.1 - NEPHROGENIC DIABETES INSIPIDUS SNOMED Code(s): 549392162 Comment: - Na wnl today - Encourage fluid intake - Continue amiloride - Appreciate input from nephrology (4) Intellectual disability Current Visit: Yes Status: Acute Code(s): F79 - UNSPECIFIED INTELLECTUAL DISABILITIES SNOMED Code(s): 771679226 Comment: - Symptoms unchanged but med change only recently performed, continue to monitor. - Persistent behavioral disturbance noted per shelter staff and nursing staff here. - Patient is uncontrollable at times and prone to throwing items, yelling, and is inconsolable and exhibits self injurious behavior (banging head against the wall, scratching at ears and face). Ativan prn is very helpful and this has been well controlled thus far today. - Appreciate recommendations by psychiatry for medication management. Further medication changes as below. Regarding self injurious behavior, psychiatry has recommended acetylcystein and naltrexone - Serial EKGs to monitor QTc and daily labs while new medication regimen is being trialed - QTc stable (5) Leukocytosis Current Visit: No Status: Acute Code(s): D72.829 - ELEVATED WHITE BLOOD CELL COUNT, UNSPECIFIED SNOMED Code(s): 631186399 Comment: - Persistent luekocytosis for several months - No evidence of infection. Likely related to constant self injury and stress with mild cellulitis of external ears from scratching and pulling - Was on keflex for the last week after last ER visit and ears seem to be improving, will continue one more day of keflex. Ordered d/c for tomorrow evening - Monitor CBC and temps (6) Urine retention Current Visit: No Status: Acute Code(s): R33.9 - RETENTION OF URINE, UNSPECIFIED SNOMED Code(s): 545168424 Comment: - Not an acute issue - Had outpatient urology visit, no need for lundberg and patient cannot tolerate - Had lithium induced polyuria/nephrogenic DI and placed on amiloride with partial retention since june - Monitor output, bladder scan for PVR if needed (7) Bipolar disorder Current Visit: Yes Status: Acute Code(s): F31.9 - BIPOLAR DISORDER, UNSPECIFIED SNOMED Code(s): 68950760 Comment: -Psychiatry has made multiple medication changes during this hospitalization considering lithium discontinuation in setting of nephrogenic DI and lithium toxicity. Appreciate consultation. -depakote increased, continue sertraline (8) Schizophrenia Current Visit: Yes Status: Acute Code(s): F20.9 - SCHIZOPHRENIA, UNSPECIFIED SNOMED Code(s): 38647633 Comment: -home abilify and haldol discontinued per psychiatry rec. Paliperidone and olanzapine started (9) DVT prophylaxis Current Visit: No Status: Acute Code(s): Z29.9 - ENCOUNTER FOR PROPHYLACTIC MEASURES, UNSPECIFIED SNOMED Code(s): 903955505 Comment: - SCDs (10) Full code status Current Visit: No Status: Acute Code(s): Z78.9 - OTHER SPECIFIED HEALTH STATUS SNOMED Code(s): 424102835 Comment: Status and Disposition: SW and psychiatry met with Nguyen PAK regarding disposition. Goal would be reducing harmful behaviors and self injury and discharge back to shelter when stable.
[2019-08-24] MEDS: Acetaminophen TAB* 325 MG PO PRN (21:08)
[2019-08-24] MEDS: amLODIPine TAB* 5 MG PO SCH (21:09)
[2019-08-25] MEDS: Levothyroxine TAB* 75 MCG TAB PO SCH (05:08)
[2019-08-25 07:41] LABS: ABS Eosinophils 0.7 10^3/ul (0-0.6); ABS Lymphocytes 1.1 10^3/ul (1.0-4.8); ABS Monocytes 0.6 10^3/ul (0-0.8); ABS Neutrophils 6.9 10^3/ul (1.5-7.7); Eosinophil % 7.2 %; Hematocrit 30 % (42-52); Lymphocyte % 11.9 %; Mean Corpuscular HGB Conc 34 g/dL (31-36); Mean Corpuscular Hemoglobin 32 pg (27-31); Mean Corpuscular Volume 95 fL (80-94); Mean Platelet Volume 7.2 fL (7.4-10.4); Nucleated Red Blood Cells % 0.1; Platelet Count 332 10^3/uL (150-450); Red Blood Count 3.12 10^6 /uL (4.18-5.48); Red Cell Distribution Width 15 % (10-15); White Blood Count 9.3 10^3/uL (3.5-10.8)
[2019-08-25 07:59] LABS: BUN/Creatinine Ratio 8.8 (8-20); Calcium 9.3 mg/dL (8.6-10.3); EGFR African American 37.4 (>60); EGFR Non-African American 30.9 (>60); Potassium 4.9 mmol/L (3.5-5.0)
[2019-08-25] MEDS: D5W 1000 ML BAG* 1,000 ML IV SCH (09:31)
[2019-08-25] MEDS: Multivitamins ADULT w/MIN LIQ* 15 ML UDC PO SCH (09:32)
[2019-08-25] MEDS: Al Hydrox/Mg Hydrox/Simet LIQ* 30 ML UDC PO SCH ×2 (09:34→20:35)
[2019-08-25] MEDS: LORazepam INJ* 2 MG/ML 1 ML VIAL IV PUSH PRN (09:41)
[2019-08-25] MEDS: ceFAZolin 1 GM ADVAN(*) 1 GM in NS 0.9% 50 ML* 50 ML IVPB SCH (09:44)
[2019-08-25] MEDS: Paliperidone ER TAB* 6 MG TAB.ER PO SCH (09:45)
[2019-08-25] MEDS: Bacitracin OINTMENT* 0.5% 0.5 oz TUBE TOPICAL SCH ×2 (09:49→20:35)
[2019-08-25] MEDS: Polyethylene Glycol 3350* 17 GM PACKET PO SCH (09:52)
[2019-08-25] MEDS: Divalproex Sprinkle CAP* 125 MG PO SCH ×2 (09:52→20:35)
[2019-08-25] MEDS: Acetylcysteine CAP (RENAL)* 600 MG PO SCH ×2 (09:57→20:35)
[2019-08-25] MEDS: aMILoride TAB* 5 MG PO SCH (10:00)
[2019-08-25] MEDS: Naltrexone TAB* 50 MG TAB PO SCH (10:01)
[2019-08-25] MEDS: Pantoprazole TAB * 40 MG TAB PO SCH (10:03)
[2019-08-25] MEDS: Sertraline* 100 MG TAB PO SCH (10:03)
[2019-08-25] MEDS: Sodium Bicarbonate (ANTACID)* 650 MG TAB PO SCH ×2 (10:05→20:35)
[2019-08-25] MEDS: OLANzapine TAB*ODT* 5 MG PO SCH ×2 (10:05→20:34)
--- NOTE | 2019-08-25 10:17 | CONSULT ---
Consult Consult: Reason for consult: Self Injurious behavior Patient was seen today in his room. He was in bed resting and was able to recognize his elementary ell teacher from [facility]. His sleep showed improvement overnight. He at times would shout and yell. He has not been forming sentences. He received ativan before the encounter Patient ate his breakfast this morning and took his medications. Patient has been obtunded, talking less, and not engaging in interaction with others. Mental Status Exam APPEARANCE : 64 year old male poor hygiene and grooming with multiple scratch rocha on his ears and nose. EYE CONTACT: Poor PSYCHOMOTOR ACTIVITY: mild psychomotor agitation MOVEMENTS: repetitive movements SPEECH : loud volume MOOD : " ahhh " AFFECT : Mood Incongruent THOUGHT PROCESS: Illogical THOUGHT CONTENT: Obsessions PERCEPTION: no AH/ VH SUICIDALITY Denied suicidal ideation, intent or plan. HOMICIDALITY Denied homicidal ideation, intent or plan. Insight/judgment: Poor insight and judgment ORIENTATION: Oriented to self not to location, and time. Assessment: 64 year old male with a history of severe intellectual disability and recent changes in behavior that include self injury. Diagnosis: Intellectual disability, severe. [place] toxicity Plan # The patient does NOT require psychiatric inpatient admission at this time. # Medical issues managed by Primary team # Safety Measures constant supervision, floor pad, cutting nails and unrestricted hand mittens to reduce risk of harm from self injury # Treatment team meeting took place. Patient is on multiple anti-psychotics and psychotropic medications. Given the severity of his presenting behavior and history including multiple failed medication trials, other alternative options and doses surpassing the FDA recommendations will be implemented. Consideration of these risks was presented to his treatment team from [facility] and health care proxy and everyone is in agreement with the plan. #Most recent QTc 352. Daily EKG for risk of QT prolongation from antipsychotic medication. # Dagoberto (older brother) also his health care proxy is involved with plan of care and is in agreement with the plan. # [phone] # While [place] is a sound and effective treatment in controlling aggression, the risk of kidney damage is severe and the continuation would indefinitely result in the need for life long dialysis, at this time lithium will be discontinued given these risks of permanent renal disease. Continue IV fluids. # Cr trending down from 3.57--> 2.15 #Last long acting injection of Abilify 400mg q4 weeks was on 08/07/19 # Increase paliperidone 6mg daily for aggression and ASD, will continue to monitor impact on renal function and QTc. #Continue valproic acid 750mg BID for mood # Valproic acid level 33 AST/ALT within normal limits # Continue naltrexone to 100mg daily for self injurious behavior # Continue N- acetyl cysteine 600mg BID for self injurious behavior, as well as provides renal protection # Decrease zyprexa 10mg BID # Continue zoloft 100mg daily and trazodone 100mg qhs. # Patient is unable to leave AMA # Continue constant supervision # Discussed treatment plan with primary team # Use Ativan conservatively with first implementing behavior re-direction, and ativan as last resort, as it has shown to cause behavioral disinhibition and sedation. #Social work confirmed that patient can return back to [facility] once stabilized. #Targeted Goals: Reduce self injurious behavior # Psychiatry will continue to follow the patient. Sodium 144 mmol/L (135-145) 08/25/19 07:02 Potassium 4.9 mmol/L (3.5-5.0) 08/25/19 07:02 BUN 19 mg/dL (6-24) 08/25/19 07:02 Creatinine 2.15 mg/dL (0.67-1.17) H 08/25/19 07:02 Calcium 9.3 mg/dL (8.6-10.3) 08/25/19 07:02 AST 18 U/L (13-39) 08/23/19 21:26 ALT 3 U/L (7-52) L 08/23/19 21:26
--- NOTE | 2019-08-25 11:37 | PN ---
Subjective Date of Service: 08/25/19 Interval History: Patient reportedly slept well overnight. Patient received ativan prior to exam and was sedated but rousable, not able to participate in history taking. No acute events overnight per nursing. Took his po meds today. Objective Active Medications: Acetaminophen (Tylenol Tab*) 650 mg PO Q4H PRN PRN Reason: MILD PAIN or TEMP > 100.4 Last Admin: 08/24/19 21:08 Dose: 650 mg Acetylcysteine (Acetylcysteine Cap (Renal)*) 600 mg PO BID [facility] Stop: 08/26/19 21:01 Last Admin: 08/25/19 09:57 Dose: Not Given Al Hydrox/Mg Hydrox/Simethicone (Maalox Plus*) 15 ml PO BID [facility] Last Admin: 08/25/19 09:34 Dose: 15 ml Amiloride HCl (Midamor Tab*) 5 mg PO DAILY [facility] Last Admin: 08/25/19 10:00 Dose: 5 mg Amlodipine Besylate (Norvasc Tab*) 5 mg PO BEDTIME [facility] Last Admin: 08/24/19 21:09 Dose: 5 mg Bacitracin (Bacitracin Ointment*) 1 applic TOPICAL BID [facility] Last Admin: 08/25/19 09:49 Dose: 1 applic Divalproex Sodium (Depakote Sprinkle Cap*) 750 mg PO BID [facility] Last Admin: 08/25/19 09:52 Dose: 750 mg Enoxaparin Sodium (Lovenox(*)) 30 mg SUBCUT Q24H [facility] Cefazolin Sodium 1 gm/ Sodium (Chloride) 50 mls @ 200 mls/hr IVPB Q12H [facility] Stop: 08/25/19 18:00 Last Admin: 08/25/19 09:44 Dose: 200 mls/hr Dextrose (D5w 1000 Ml Bag*) 1,000 mls @ 50 mls/hr IV PER RATE [facility] Last Admin: 08/25/19 09:31 Dose: 50 mls/hr Levothyroxine Sodium (Synthroid Tab*) 75 mcg PO 0600 [facility] Last Admin: 08/25/19 05:08 Dose: 75 mcg Lorazepam (Ativan Inj*) 1 mg IV PUSH Q6H PRN PRN Reason: ANXIETY Last Admin: 08/25/19 09:41 Dose: 1 mg Miscellaneous (Ativan Pyxis Perera) 1 ea N/A .ATIVAN IV PERERA PRN PRN Reason: PYXIS PERERA Multivitamins (Theragran W/Minerals Liq*) 5 ml PO DAILY [facility] Last Admin: 08/25/19 09:32 Dose: 5 ml Naltrexone HCl (Naltrexone Tab*) 100 mg PO DAILY [facility]; Protocol Last Admin: 08/25/19 10:01 Dose: 100 mg Olanzapine (Zyprexa * Tab Odt) 10 mg PO BID [facility] Last Admin: 08/25/19 10:05 Dose: 10 mg Ondansetron HCl (Zofran Inj*) 4 mg IV Q6H PRN PRN Reason: NAUSEA Last Admin: 08/23/19 20:30 Dose: 4 mg Paliperidone (Invega Er Tab*) 6 mg PO DAILY [facility] Pantoprazole Sodium (Protonix Tab*) 40 mg PO DAILY [facility] Last Admin: 08/25/19 10:03 Dose: 40 mg Polyethylene Glycol/Electrolytes (Miralax*) 17 gm PO DAILY [facility] Last Admin: 08/25/19 09:52 Dose: 17 gm Sertraline HCl (Zoloft*) 100 mg PO DAILY [facility] Last Admin: 08/25/19 10:03 Dose: 100 mg Sodium Bicarbonate (Sodium Bicarbonate (Antacid)*) 650 mg PO BID [facility] Last Admin: 08/25/19 10:05 Dose: 650 mg Trazodone HCl (Desyrel Tab*) 100 mg PO BEDTIME PRN PRN Reason: ANXIETY Last Admin: 08/22/19 19:52 Dose: 100 mg Vital Signs - 8 hr 08/25/19 08/25/19 08/25/19 03:45 07:30 09:41 Temperature 96.4 F 97.6 F Pulse Rate 72 63 Respiratory 18 14 16 Rate Blood Pressure 149/105 139/86 (mmHg) O2 Sat by Pulse 100 100 Oximetry 08/25/19 10:10 Temperature Pulse Rate Respiratory 14 Rate Blood Pressure (mmHg) O2 Sat by Pulse Oximetry Oxygen Devices in Use Now: None Appearance: Thin, white male, laying in bed, appearing in NAD, private aide at bedside Eyes: No Scleral Icterus, - - PERRL Ears/Nose/Mouth/Throat: Mucous Membranes Moist Respiratory: Symmetrical Chest Expansion and Respiratory Effort, Clear to Auscultation Cardiovascular: NL Sounds; No Murmurs; No JVD, RRR Abdominal: - - abd soft, nontender, nondistended Extremities: No Edema, No Clubbing, Cyanosis Skin: No Rash or Ulcers Neurological: NL Muscle Strength and Tone, - - overall sedated during exam but rouses easily to touch; unable to participate in exam Result Diagrams: 08/25/19 07:02 08/25/19 07:02 Assess/Plan/Problems-Billing Assessment: Mr. Mckoy is a 64 year old male with history of intellectual disability, autism, HTN, CKD that presents with his aid from his [facility] with report of outburst behavior, self-injury and nephrogenic DI with LIONEL on CKD. - Patient Problems (1) [place] toxicity Current Visit: Yes Status: Acute Code(s): T56.891A - TOXIC EFFECT OF OTH METALS, ACCIDENTAL (UNINTENTIONAL), INIT SNOMED Code(s): 136945169 Comment: -resolved, though does continue to have agitation which is improving -lithium has been discontinued during this hospital stay (2) Acute kidney injury superimposed on CKD Current Visit: Yes Status: Acute Code(s): N17.9 - ACUTE KIDNEY FAILURE, UNSPECIFIED; N18.9 - CHRONIC KIDNEY DISEASE, UNSPECIFIED SNOMED Code(s): 15566275 Comment: - Continues to improve. Cr continues to improve - Etiology likely 2/2 to combination of intermediate lithium use with nephrogenic DI, antihypertensives and antipsychotic medications with acute dehydration - Serum and Urine osmo, Na and creat indicating chronic renal disease with superimposed LIONEL. Renal US shows no hydro with medical renal disease - Continue hydration - [place] has been discontinued (3) Nephrogenic diabetes insipidus Current Visit: Yes Status: Acute Code(s): N25.1 - NEPHROGENIC DIABETES INSIPIDUS SNOMED Code(s): 520766750 Comment: - Na remains wnl - Encourage fluid intake - Continue amiloride - Appreciate input from nephrology - Continuing IVF because patient is not able to maintain po output in setting of high volume urine output. D5W continues to be used due to mild hypernatremia previously (4) Intellectual disability Current Visit: Yes Status: Acute Code(s): F79 - UNSPECIFIED INTELLECTUAL DISABILITIES SNOMED Code(s): 548959716 Comment: - Symptoms unchanged but med change only recently performed, continue to monitor. - Persistent behavioral disturbance noted per [facility] staff and nursing staff here. - Patient is uncontrollable at times and prone to throwing items, yelling, and is inconsolable and exhibits self injurious behavior (banging head against the wall, scratching at ears and face). Ativan prn is very helpful and this has been more well controlled. - Appreciate recommendations by psychiatry for medication management. Further medication changes as below. Regarding self injurious behavior, psychiatry has recommended acetylcystein and naltrexone - Serial EKGs to monitor QTc and daily labs while new medication regimen is being trialed. QTc stable thus far - Decreased prn dose of ativan. Discussed with nursing limited use of ativan if possible, favoring redirection; recommended by psychiatry (5) Leukocytosis Current Visit: No Status: Acute Code(s): D72.829 - ELEVATED WHITE BLOOD CELL COUNT, UNSPECIFIED SNOMED Code(s): 522854316 Comment: - Persistent luekocytosis for several months. Now resolved. - No evidence of infection. Likely related to constant self injury and stress with mild cellulitis of external ears from scratching and pulling - Was on keflex for the last week after last ER visit and ears seem to be improving, now d/c keflex - has been afebrile (6) Bipolar disorder Current Visit: Yes Status: Acute Code(s): F31.9 - BIPOLAR DISORDER, UNSPECIFIED SNOMED Code(s): 11050419 Comment: -Psychiatry has made multiple medication changes during this hospitalization considering lithium discontinuation in setting of nephrogenic DI and lithium toxicity. Appreciate consultation. -continue trazadone, depakote, and sertraline (7) Schizophrenia Current Visit: Yes Status: Acute Code(s): F20.9 - SCHIZOPHRENIA, UNSPECIFIED SNOMED Code(s): 70008000 Comment: -home abilify and haldol discontinued per psychiatry rec. Paliperidone and olanzapine started. Olanzapine dose decreased today per psychiatry (8) Urine retention Current Visit: No Status: Acute Code(s): R33.9 - RETENTION OF URINE, UNSPECIFIED SNOMED Code(s): 594285808 Comment: - Not an acute issue - Had outpatient urology visit, no need for lundberg and patient cannot tolerate - Had lithium induced polyuria/nephrogenic DI and placed on amiloride with partial retention since june - Monitor output, bladder scan for PVR if needed (9) DVT prophylaxis Current Visit: No Status: Acute Code(s): Z29.9 - ENCOUNTER FOR PROPHYLACTIC MEASURES, UNSPECIFIED SNOMED Code(s): 420555894 Comment: - SCDs, starting lovenox as CrCl has improved and is sedentary in the hospital (10) Full code status Current Visit: No Status: Acute Code(s): Z78.9 - OTHER SPECIFIED HEALTH STATUS SNOMED Code(s): 982515877 Comment: Status and Disposition: SW and psychiatry met with Nguyen PAK regarding disposition. Goal would be reducing harmful behaviors and self injury and discharge back to [facility] when stable.
[2019-08-25] MEDS: Enoxaparin(*) 30 MG/0.3 ML SYR SUBCUT SCH (13:02)
[2019-08-25] MEDS: amLODIPine TAB* 5 MG PO SCH (20:35)
[2019-08-25] MEDS: traZODone TAB* 100 MG PO PRN (21:32)
[2019-08-26] MEDS: LORazepam INJ* 2 MG/ML 1 ML VIAL IV PUSH PRN ×3 (01:25→20:32)
[2019-08-26] MEDS ORDERED: LORazepam INJ* 2 MG/ML 1 ML VIAL IV PUSH ONE (03:17)
[2019-08-26 05:30] LABS: BUN/Creatinine Ratio 9.5 (8-20); Calcium 9.6 mg/dL (8.6-10.3); EGFR African American 40.4 (>60); EGFR Non-African American 33.4 (>60); Potassium 4.8 mmol/L (3.5-5.0)
[2019-08-26] MEDS: Levothyroxine TAB* 75 MCG TAB PO SCH (05:35)
[2019-08-26] MEDS: Acetaminophen TAB* 325 MG PO PRN (05:35)
[2019-08-26] MEDS: D5W 1000 ML BAG* 1,000 ML IV SCH (05:47)
--- NOTE | 2019-08-26 08:07 | CONSULT ---
Consult Consult: Reason for consult: Self Injurious behavior Patient was seen and evaluated today. He received a bath today and is in the company of his program aide group work from [facility]. No report or objective signs of new self inflicted injury. He ate some of his breakfast this morning. He has not been aggressive or violent towards staff. His program aide group work reported that about a month ago he would hold a conversation and more responsive to re direction as well as able to participate in caring for himself. Mental Status Exam APPEARANCE : 64 year old male poor hygiene and grooming with multiple scratch rocha on his ears and nose. EYE CONTACT: Poor PSYCHOMOTOR ACTIVITY: mild psychomotor agitation MOVEMENTS: repetitive movements SPEECH : loud volume MOOD : " mmmm " AFFECT : Mood Incongruent THOUGHT PROCESS: Illogical THOUGHT CONTENT: Obsessions PERCEPTION: no AH/ VH SUICIDALITY Denied suicidal ideation, intent or plan. HOMICIDALITY Denied homicidal ideation, intent or plan. Insight/judgment: Poor insight and judgment ORIENTATION: Oriented to self not to location, and time. Assessment: 64 year old male with a history of severe intellectual disability and recent changes in behavior that include self injury. Diagnosis: Intellectual disability, severe. [place] toxicity Plan # The patient does NOT require psychiatric inpatient admission at this time. # Medical issues managed by Primary team # Safety Measures constant supervision, floor pad, cutting nails and unrestricted hand mittens to reduce risk of harm from self injury # Treatment team meeting took place. Patient is on multiple anti-psychotics and psychotropic medications. Given the severity of his presenting behavior and history including multiple failed medication trials, other alternative options and doses surpassing the FDA recommendations will be implemented. Consideration of these risks was presented to his treatment team from [facility] and health care proxy and everyone is in agreement with the plan. #Most recent QTc 352. Daily EKG for risk of QT prolongation from antipsychotic medication. # Dagoberto (older brother) also his health care proxy is involved with plan of care and is in agreement with the plan. # [phone] # While [place] is a sound and effective treatment in controlling aggression, the risk of kidney damage is severe and the continuation would indefinitely result in the need for life long dialysis, at this time lithium will be discontinued given these risks of permanent renal disease. Continue IV fluids. # Cr trending down from 3.57--> 2.01 #Last long acting injection of Abilify 400mg q4 weeks was on 08/07/19 # Continue paliperidone 6mg daily for aggression and ASD, will continue to monitor impact on renal function and QTc. #Continue valproic acid 750mg BID for mood # Valproic acid level 45 AST/ALT within normal limits # Continue naltrexone to 100mg daily for self injurious behavior # Continue N- acetyl cysteine 600mg BID for self injurious behavior, as well as provides renal protection # Continue zyprexa 10mg BID # Continue zoloft 100mg daily and trazodone 100mg qhs. # Patient is unable to leave AMA # Continue constant supervision # Discussed treatment plan with primary team # Use Ativan conservatively with first implementing behavior re-direction, and ativan as last resort, as it has shown to cause behavioral disinhibition and sedation. #Social work confirmed that patient can return back to [facility] once stabilized. #Targeted Goals: Reduce self injurious behavior. Progress of objective Goal - Self mutilation has remitted with no signs of new self inflicted injury or scratch rocha on ears or nose. Patient continues to be irritable, scream, and unable to engage in taking care of himself. # Psychiatry will continue to follow the patient. 08/23/19 08/24/19 08/25/19 21:26 05:54 07:02 WBC 9.3 RBC 3.12 L Hgb 10.0 L Hct 30 L MCV 95 H MCH 32 H MCHC 34 RDW 15 Plt Count 332 MPV 7.2 L Neut % (Auto) 73.6 Lymph % (Auto) 11.9 [place] % (Auto) 6.8 Eos % (Auto) 7.2 Baso % (Auto) 0.5 Absolute Neuts (auto) 6.9 Absolute Lymphs (auto) 1.1 Absolute Monos (auto) 0.6 Absolute Eos (auto) 0.7 H Absolute Basos (auto) 0.0 Absolute Nucleated RBC 0.0 Nucleated RBC % 0.1 Sodium 144 Potassium 5.0 Chloride 120 H Carbon Dioxide 22 Anion Gap 2 BUN 22 Creatinine 2.19 H Est GFR ( Amer) 36.6 Est GFR (Non-Af Amer) 30.3 BUN/Creatinine Ratio 10.0 Glucose 105 H Calcium 9.3 AST 18 ALT 3 L Valproic Acid 33.0 L 10/29/19 10/30/19 07:02 04:45 WBC RBC Hgb Hct MCV MCH MCHC RDW Plt Count MPV Neut % (Auto) Lymph % (Auto) [place] % (Auto) Eos % (Auto) Baso % (Auto) Absolute Neuts (auto) Absolute Lymphs (auto) Absolute Monos (auto) Absolute Eos (auto) Absolute Basos (auto) Absolute Nucleated RBC Nucleated RBC % Sodium 144 140 Potassium 4.9 4.8 Chloride 118 H 112 H Carbon Dioxide 24 22 Anion Gap 2 6 BUN 19 19 Creatinine 2.15 H 2.01 H Est GFR ( Amer) 37.4 40.4 Est GFR (Non-Af Amer) 30.9 33.4 BUN/Creatinine Ratio 8.8 9.5 Glucose 102 H 109 H Calcium 9.3 9.6 AST ALT Valproic Acid 45.0 L
[2019-08-26] MEDS: Naltrexone TAB* 50 MG TAB PO SCH (08:58)
[2019-08-26] MEDS: Polyethylene Glycol 3350* 17 GM PACKET PO SCH (08:58)
[2019-08-26] MEDS: Paliperidone ER TAB* 6 MG TAB.ER PO SCH (08:58)
[2019-08-26] MEDS: Sodium Bicarbonate (ANTACID)* 650 MG TAB PO SCH ×2 (08:59→20:30)
[2019-08-26] MEDS: OLANzapine TAB*ODT* 5 MG PO SCH ×2 (08:59→20:30)
[2019-08-26] MEDS: Acetylcysteine CAP (RENAL)* 600 MG PO SCH ×2 (08:59→20:30)
[2019-08-26] MEDS: Pantoprazole TAB * 40 MG TAB PO SCH (09:00)
[2019-08-26] MEDS: Al Hydrox/Mg Hydrox/Simet LIQ* 30 ML UDC PO SCH ×2 (09:00→20:32)
[2019-08-26] MEDS: Sertraline* 100 MG TAB PO SCH (09:00)
[2019-08-26] MEDS: Divalproex Sprinkle CAP* 125 MG PO SCH ×2 (09:22→20:31)
[2019-08-26] MEDS: aMILoride TAB* 5 MG PO SCH (09:25)
[2019-08-26] MEDS: Multivitamins ADULT w/MIN LIQ* 15 ML UDC PO SCH (09:26)
[2019-08-26] MEDS: Bacitracin OINTMENT* 0.5% 0.5 oz TUBE TOPICAL SCH ×2 (09:36→20:29)
--- NOTE | 2019-08-26 10:42 | PN ---
Subjective Date of Service: 08/26/19 Interval History: Patient was agitated overnight per nursing notes. Discussed with CHUCK El this AM and patient has not been agitated this AM, swallowed his meds without issues , and has overall been calm. PT attempted evaluation but patient was reportedly attempting to throw himself on the floor during eval. At time of my eval, patient is calm. Does not answer questions or follow simple commands, cannot participate in history. Objective Active Medications: Acetaminophen (Tylenol Tab*) 650 mg PO Q4H PRN PRN Reason: MILD PAIN or TEMP > 100.4 Last Admin: 08/26/19 05:35 Dose: 650 mg Acetylcysteine (Acetylcysteine Cap (Renal)*) 600 mg PO BID [facility] Stop: 08/26/19 21:01 Last Admin: 08/26/19 08:59 Dose: 600 mg Al Hydrox/Mg Hydrox/Simethicone (Maalox Plus*) 15 ml PO BID [facility] Last Admin: 08/26/19 09:00 Dose: 15 ml Amiloride HCl (Midamor Tab*) 5 mg PO DAILY [facility] Last Admin: 08/26/19 09:25 Dose: 5 mg Amlodipine Besylate (Norvasc Tab*) 5 mg PO BEDTIME [facility] Last Admin: 08/25/19 20:35 Dose: 5 mg Bacitracin (Bacitracin Ointment*) 1 applic TOPICAL BID [facility] Last Admin: 08/26/19 09:36 Dose: 1 applic Divalproex Sodium (Depakote Sprinkle Cap*) 750 mg PO BID [facility] Last Admin: 08/26/19 09:22 Dose: 750 mg Enoxaparin Sodium (Lovenox(*)) 30 mg SUBCUT Q24H [facility] Last Admin: 08/25/19 13:02 Dose: 30 mg Dextrose (D5w 1000 Ml Bag*) 1,000 mls @ 50 mls/hr IV PER RATE [facility] Last Admin: 08/26/19 05:47 Dose: 50 mls/hr Levothyroxine Sodium (Synthroid Tab*) 75 mcg PO 0600 [facility] Last Admin: 08/26/19 05:35 Dose: 75 mcg Lorazepam (Ativan Inj*) 0.5 mg IV PUSH Q6H PRN PRN Reason: ANXIETY Last Admin: 08/26/19 01:25 Dose: 0.5 mg Miscellaneous (Ativan Pyxis Perera) 1 ea N/A .ATIVAN IV PERERA PRN PRN Reason: PYXIS PERERA Multivitamins (Theragran W/Minerals Liq*) 5 ml PO DAILY [facility] Last Admin: 08/26/19 09:26 Dose: 5 ml Naltrexone HCl (Naltrexone Tab*) 100 mg PO DAILY [facility]; Protocol Last Admin: 08/26/19 08:58 Dose: 100 mg Olanzapine (Zyprexa * Tab Odt) 10 mg PO BID [facility] Last Admin: 08/26/19 08:59 Dose: 10 mg Ondansetron HCl (Zofran Inj*) 4 mg IV Q6H PRN PRN Reason: NAUSEA Last Admin: 08/23/19 20:30 Dose: 4 mg Paliperidone (Invega Er Tab*) 6 mg PO DAILY [facility] Last Admin: 08/26/19 08:58 Dose: 6 mg Pantoprazole Sodium (Protonix Tab*) 40 mg PO DAILY [facility] Last Admin: 08/26/19 09:00 Dose: 40 mg Polyethylene Glycol/Electrolytes (Miralax*) 17 gm PO DAILY [facility] Last Admin: 08/26/19 08:58 Dose: 17 gm Sertraline HCl (Zoloft*) 100 mg PO DAILY [facility] Last Admin: 08/26/19 09:00 Dose: 100 mg Sodium Bicarbonate (Sodium Bicarbonate (Antacid)*) 650 mg PO BID [facility] Last Admin: 08/26/19 08:59 Dose: 650 mg Trazodone HCl (Desyrel Tab*) 100 mg PO BEDTIME PRN PRN Reason: ANXIETY Last Admin: 08/25/19 21:32 Dose: 100 mg Vital Signs - 8 hr 08/26/19 08/26/19 08/26/19 03:00 03:10 03:43 Temperature 97.6 F Pulse Rate 85 Respiratory 20 19 18 Rate Blood Pressure 153/91 (mmHg) O2 Sat by Pulse 98 Oximetry 08/26/19 08/26/19 05:00 07:26 Temperature 96.8 F Pulse Rate 66 Respiratory 20 12 Rate Blood Pressure 131/68 (mmHg) O2 Sat by Pulse 100 Oximetry Oxygen Devices in Use Now: None Appearance: Thin, eldelry white male, laying in hospital bed, appearing in NAD Eyes: No Scleral Icterus, - - PERRL Ears/Nose/Mouth/Throat: Mucous Membranes Moist Neck: NL Appearance and Movements; NL JVP Respiratory: Symmetrical Chest Expansion and Respiratory Effort, - - poor patient effort but no adventitious lung sounds appreciated Cardiovascular: NL Sounds; No Murmurs; No JVD, RRR Abdominal: - - abd soft, nontender, nondistended Extremities: No Edema, No Clubbing, Cyanosis, - - neg calf tenderness Skin: No Rash or Ulcers Neurological: NL Muscle Strength and Tone, - - alert but not able to participate in neurological exam Result Diagrams: 08/25/19 07:02 08/26/19 04:45 Assess/Plan/Problems-Billing Assessment: Mr. Mckoy is a 64 year old male with history of intellectual disability, autism, HTN, CKD that presents with his aide from his [place] [facility] with report of outburst behavior, self-injury and nephrogenic DI with LIONEL on CKD. - Patient Problems (1) Acute kidney injury superimposed on CKD Current Visit: Yes Status: Acute Code(s): N17.9 - ACUTE KIDNEY FAILURE, UNSPECIFIED; N18.9 - CHRONIC KIDNEY DISEASE, UNSPECIFIED SNOMED Code(s): 60113354 Comment: - Continues to improve. Cr continues to improve, to 2.01 today - Etiology likely 2/2 to combination of [facility] lithium use with nephrogenic DI, antihypertensives and antipsychotic medications with acute dehydration - Serum and Urine osmo, Na and creat indicating chronic renal disease with superimposed LIONEL. Renal US shows no hydro with medical renal disease - Continue hydration as patient is not maintaining good po intake - [place] has been discontinued (2) Nephrogenic diabetes insipidus Current Visit: Yes Status: Acute Code(s): N25.1 - NEPHROGENIC DIABETES INSIPIDUS SNOMED Code(s): 121863180 Comment: - Na remains wnl - Continue amiloride - Appreciate input from nephrology - Trialing discontinuation of IVF today to see if patient is able to maintain good po intake. This will be beneficial to observe while he is still in the hospital. Will follow BMP. [place] noted on I&O is not entirely accurate as patient is wearing brief (3) Intellectual disability Current Visit: Yes Status: Acute Code(s): F79 - UNSPECIFIED INTELLECTUAL DISABILITIES SNOMED Code(s): 675153856 Comment: - Patient was previously uncontrollable at times and prone to throwing items, yelling, and was inconsolable and exhibits self injurious behavior (banging head against the wall, scratching at ears and face). These behavioral disturbances have greatly improved and are more consistent with yelling and attempting to throw himself to floor at times, much less frequent. Continuing mucomyst, naltrexone, and prn ativan - Discussed with patient's brother, Rich, who confirms that prior to this the patient's baseline included full conversations, ambulating on his own - Appreciate recommendations by psychiatry for medication management. Further medication changes as below. Regarding self injurious behavior, psychiatry has recommended acetylcystein and naltrexone - It appears self injurious behavior of scratching etc have resolved - Discussed with nursing limited use of ativan if possible, favoring redirection ; recommended by psychiatry (4) [place] toxicity Current Visit: Yes Status: Acute Code(s): T56.891A - TOXIC EFFECT OF OTH METALS, ACCIDENTAL (UNINTENTIONAL), INIT SNOMED Code(s): 726577833 Comment: -resolved, though does continue to have agitation which is improving -lithium has been discontinued during this hospital stay (5) Bipolar disorder Current Visit: Yes Status: Acute Code(s): F31.9 - BIPOLAR DISORDER, UNSPECIFIED SNOMED Code(s): 08685761 Comment: -Psychiatry has made multiple medication changes during this hospitalization considering lithium discontinuation in setting of nephrogenic DI and lithium toxicity. Appreciate consultation. -continue trazadone, depakote, and sertraline (6) Schizophrenia Current Visit: Yes Status: Acute Code(s): F20.9 - SCHIZOPHRENIA, UNSPECIFIED SNOMED Code(s): 75170842 Comment: -home abilify and haldol discontinued per psychiatry rec. Paliperidone and olanzapine started. Will continue -Serial EKGs to monitor QTc and daily labs while new medication regimen is being trialed. QTc stable thus far (7) Leukocytosis Current Visit: No Status: Acute Code(s): D72.829 - ELEVATED WHITE BLOOD CELL COUNT, UNSPECIFIED SNOMED Code(s): 040012972 Comment: - Persistent luekocytosis for several months. Now resolved. Has been afebrile thus far. - No evidence of infection. Likely related to constant self injury and stress with mild cellulitis of external ears from scratching and pulling - Received full course of keflex (8) Urine retention Current Visit: No Status: Acute Code(s): R33.9 - RETENTION OF URINE, UNSPECIFIED SNOMED Code(s): 283997337 Comment: - Not an acute issue - Had outpatient urology visit, no need for lundberg and patient cannot tolerate - Had lithium induced polyuria/nephrogenic DI and placed on amiloride with partial retention since june - Monitor output, bladder scan for PVR if needed (9) DVT prophylaxis Current Visit: No Status: Acute Code(s): Z29.9 - ENCOUNTER FOR PROPHYLACTIC MEASURES, UNSPECIFIED SNOMED Code(s): 744397210 Comment: - SCDs, lovenox (10) Full code status Current Visit: No Status: Acute Code(s): Z78.9 - OTHER SPECIFIED HEALTH STATUS SNOMED Code(s): 972765419 Comment: Status and Disposition: SW and psychiatry met with Nguyen PAK regarding disposition. Goal would be reducing harmful behaviors and self injury and discharge back to [place] [facility] when stable.
[2019-08-26] MEDS: Enoxaparin(*) 30 MG/0.3 ML SYR SUBCUT SCH (12:46)
[2019-08-26] MEDS: Acetaminophen ADULT LIQ* 650 MG/20.3 ML UDC PO PRN (17:28)
[2019-08-26] MEDS: traZODone TAB* 100 MG PO PRN (20:30)
[2019-08-26] MEDS: amLODIPine TAB* 5 MG PO SCH (20:30)
[2019-08-27] MEDS: Acetaminophen ADULT LIQ* 650 MG/20.3 ML UDC PO PRN ×2 (01:17→16:49)
[2019-08-27] MEDS: LORazepam INJ* 2 MG/ML 1 ML VIAL IV PUSH PRN ×4 (01:18→22:07)
--- NOTE | 2019-08-27 08:50 | CONSULT ---
Consult Consult: Reason for consult: Self Injurious behavior Patient was seen and evaluated today in his room with his neurology epilepsy physician from [facility] present. During encounter he looked at the telephone and would repeat the word telephone. This morning he tried throwing himself on the floor. Per neurology epilepsy physician, he slept well overnight and has been less agitated. He has not scratched himself or punched himself. He has not been aggressive or violent towards staff. Patient unable to eat or go to the bathroom by himself. Mental Status Exam APPEARANCE : 64 year old male poor hygiene and grooming with multiple scratch rocha on his ears and nose. EYE CONTACT: Poor PSYCHOMOTOR ACTIVITY: mild psychomotor agitation MOVEMENTS: repetitive movements SPEECH : loud volume MOOD : "ahhh" AFFECT : Mood Incongruent THOUGHT PROCESS: Illogical THOUGHT CONTENT: Obsessions PERCEPTION: no AH/ VH SUICIDALITY Denied suicidal ideation, intent or plan. HOMICIDALITY Denied homicidal ideation, intent or plan. Insight/judgment: Poor insight and judgment ORIENTATION: Oriented to self not to location, and time. Assessment: 64 year old male with a history of severe intellectual disability and recent changes in behavior that include self injury. Diagnosis: Intellectual disability, severe. Pauline toxicity Plan # The patient does NOT require psychiatric inpatient admission at this time. # Medical issues managed by Primary team # Safety Measures constant supervision, floor pad, cutting nails and unrestricted hand mittens to reduce risk of harm from self injury # Treatment team meeting took place. Patient is on multiple anti-psychotics and psychotropic medications. Given the severity of his presenting behavior and history including multiple failed medication trials, other alternative options and doses surpassing the FDA recommendations will be implemented. Consideration of these risks was presented to his treatment team from [facility] and health care proxy and everyone is in agreement with the plan. #Most recent QTc 395. Daily EKG for risk of QT prolongation from antipsychotic medication. # Dagoberto (older brother) also his health care proxy is involved with plan of care and is in agreement with the plan. # [phone] # While Pauline is a sound and effective treatment in controlling aggression, the risk of kidney damage is severe and the continuation would indefinitely result in the need for life long dialysis, at this time lithium will be discontinued given these risks of permanent renal disease. Continue IV fluids. # Cr trending down from 3.57--> 2.01 #Last long acting injection of Abilify 400mg q4 weeks was on 08/07/19, Outpatient provider can consider switching long acting injection to paliperidone once renal function is monitored on oral dose. # Continue paliperidone 6mg daily for aggression and ASD, will continue to monitor impact on renal function and QTc. #Continue valproic acid 750mg BID for mood # Valproic acid level 45 AST/ALT within normal limits # Continue naltrexone to 100mg daily for self injurious behavior # Continue N- acetyl cysteine 600mg BID for self injurious behavior, as well as provides renal protection # Change zyprexa to 20mg po qhs # Continue zoloft 100mg daily and trazodone 100mg qhs. # Patient is unable to leave AMA # Continue constant supervision # Discussed treatment plan with primary team # Use Ativan conservatively with first implementing behavior re-direction, and ativan as last resort, as it has shown to cause behavioral disinhibition and sedation. #Social work confirmed that patient can return back to [facility] once stabilized. #Targeted Goals: To reduce self injurious behavior. Progress of objective Goals - Self mutilation has remitted with no signs of new self inflicted injury or scratch rocha on ears or nose. Patient showed some improvement of speech with decreased intensity and frequency of tantrums and yelling. Patient continues to be unable to care for himself and attempts to fall onto padded mat on floor. # Psychiatry will continue to follow the patient. Sodium 141 mmol/L (135-145) 08/27/19 08:56 Potassium 5.5 mmol/L (3.5-5.0) H 08/27/19 08:56 BUN 19 mg/dL (6-24) 08/27/19 08:56 Creatinine 1.94 mg/dL (0.67-1.17) H 08/27/19 08:56 Calcium 9.9 mg/dL (8.6-10.3) 08/27/19 08:56 AST 18 U/L (13-39) 08/23/19 21:26 ALT 3 U/L (7-52) L 08/23/19 21:26
[2019-08-27 09:28] LABS: BUN/Creatinine Ratio 9.8 (8-20); Calcium 9.9 mg/dL (8.6-10.3); EGFR African American 42.1 (>60); EGFR Non-African American 34.8 (>60)
[2019-08-27 09:34] LABS: Potassium 5.5 mmol/L (3.5-5.0)
[2019-08-27] MEDS: Polyethylene Glycol 3350* 17 GM PACKET PO SCH (09:34)
[2019-08-27] MEDS: Al Hydrox/Mg Hydrox/Simet LIQ* 30 ML UDC PO SCH ×2 (09:34→19:58)
[2019-08-27] MEDS: aMILoride TAB* 5 MG PO SCH (09:35)
[2019-08-27] MEDS: Multivitamins ADULT w/MIN LIQ* 15 ML UDC PO SCH (09:36)
[2019-08-27] MEDS: Divalproex Sprinkle CAP* 125 MG PO SCH ×2 (09:37→19:56)
[2019-08-27] MEDS: Levothyroxine TAB* 75 MCG TAB PO SCH (09:38)
[2019-08-27] MEDS: Naltrexone TAB* 50 MG TAB PO SCH (09:38)
[2019-08-27] MEDS: Pantoprazole TAB * 40 MG TAB PO SCH (09:39)
[2019-08-27] MEDS: Sodium Bicarbonate (ANTACID)* 650 MG TAB PO SCH ×2 (09:39→19:57)
[2019-08-27] MEDS: Bacitracin OINTMENT* 0.5% 0.5 oz TUBE TOPICAL SCH ×2 (09:40→19:59)
[2019-08-27] MEDS: Paliperidone ER TAB* 6 MG TAB.ER PO SCH (09:40)
[2019-08-27] MEDS: Sertraline* 100 MG TAB PO SCH (09:40)
[2019-08-27] MEDS: traZODone TAB* 100 MG PO PRN ×2 (10:25→19:55)
[2019-08-27] MEDS ORDERED: Magnesium CITRATE* 300 ML BTL PO ONE (13:00)
[2019-08-27] MEDS: Enoxaparin(*) 30 MG/0.3 ML SYR SUBCUT SCH (13:58)
[2019-08-27] MEDS: Bisacodyl SUPP* 10 MG SUPP PR PRN (16:50)
--- NOTE | 2019-08-27 19:36 | PN ---
Subjective Date of Service: 08/27/19 Interval History: Patient far more interactive today. He is able to answer questions appropriately and express to me that he is okay with me looking in his ears. He is cooperative with exam and overall pleasant. He did have an episode of vomiting after eating today, private aide reports that he does this frequently at baseline as a behavior. Patient denies pain anywhere. Denies abd pain, nausea, fever/chills. Objective Active Medications: Acetaminophen (Tylenol Adult Liq*) 650 mg PO Q4H PRN PRN Reason: PAIN - MILD OR TEMP > 100.4 Last Admin: 08/27/19 16:49 Dose: 650 mg Al Hydrox/Mg Hydrox/Simethicone (Maalox Plus*) 15 ml PO BID [facility] Last Admin: 08/27/19 09:34 Dose: 15 ml Amiloride HCl (Midamor Tab*) 5 mg PO DAILY [facility] Last Admin: 08/27/19 09:35 Dose: 5 mg Amlodipine Besylate (Norvasc Tab*) 5 mg PO BEDTIME [facility] Last Admin: 08/26/19 20:30 Dose: 5 mg Bacitracin (Bacitracin Ointment*) 1 applic TOPICAL BID [facility] Last Admin: 08/27/19 09:40 Dose: 1 applic Bisacodyl (Dulcolax Supp*) 10 mg DE DAILY PRN PRN Reason: CONSTIPATION Last Admin: 08/27/19 16:50 Dose: 10 mg Divalproex Sodium (Depakote Sprinkle Cap*) 750 mg PO BID [facility] Last Admin: 08/27/19 09:37 Dose: 750 mg Enoxaparin Sodium (Lovenox(*)) 30 mg SUBCUT Q24H [facility] Last Admin: 08/27/19 13:58 Dose: 30 mg Levothyroxine Sodium (Synthroid Tab*) 75 mcg PO 0600 [facility] Last Admin: 08/27/19 09:38 Dose: 75 mcg Lorazepam (Ativan Inj*) 0.5 mg IV PUSH Q6H PRN PRN Reason: ANXIETY Last Admin: 08/27/19 16:49 Dose: 0.5 mg Miscellaneous (Ativan Pyxis Severino) 1 ea N/A .ATIVAN IV SEVERINO PRN PRN Reason: PYXIS SEVERINO Multivitamins (Theragran W/Minerals Liq*) 5 ml PO DAILY [facility] Last Admin: 08/27/19 09:36 Dose: 5 ml Naltrexone HCl (Naltrexone Tab*) 100 mg PO DAILY [facility]; Protocol Last Admin: 08/27/19 09:38 Dose: 100 mg Olanzapine (Zyprexa *Odt*) 20 mg PO 2100 [facility] Ondansetron HCl (Zofran Inj*) 4 mg IV Q6H PRN PRN Reason: NAUSEA Last Admin: 08/23/19 20:30 Dose: 4 mg Paliperidone (Invega Er Tab*) 6 mg PO DAILY [facility] Last Admin: 08/27/19 09:40 Dose: 6 mg Pantoprazole Sodium (Protonix Tab*) 40 mg PO DAILY [facility] Last Admin: 08/27/19 09:39 Dose: 40 mg Polyethylene Glycol/Electrolytes (Miralax*) 17 gm PO DAILY [facility] Last Admin: 08/27/19 09:34 Dose: 17 gm Sertraline HCl (Zoloft*) 100 mg PO DAILY [facility] Last Admin: 08/27/19 09:40 Dose: 100 mg Sodium Bicarbonate (Sodium Bicarbonate (Antacid)*) 650 mg PO BID [facility] Last Admin: 08/27/19 09:39 Dose: 650 mg Trazodone HCl (Desyrel Tab*) 100 mg PO BEDTIME PRN PRN Reason: ANXIETY Last Admin: 08/27/19 10:25 Dose: 100 mg Vital Signs - 8 hr 08/27/19 08/27/19 08/27/19 11:35 11:40 15:15 Temperature 97.4 F 98.8 F Pulse Rate 99 100 Respiratory 16 20 18 Rate Blood Pressure 122/77 160/90 (mmHg) O2 Sat by Pulse 99 100 Oximetry 08/27/19 08/27/19 16:49 17:45 Temperature Pulse Rate Respiratory 18 16 Rate Blood Pressure (mmHg) O2 Sat by Pulse Oximetry Oxygen Devices in Use Now: None Appearance: Thin, white male, appears younger than stated age, laying in bed Eyes: No Scleral Icterus Ears/Nose/Mouth/Throat: - - dark blood behind left tympanic membrane; trace fresh blood in left ear canal Neck: NL Appearance and Movements; NL JVP Respiratory: Symmetrical Chest Expansion and Respiratory Effort, Clear to Auscultation Cardiovascular: NL Sounds; No Murmurs; No JVD, RRR Abdominal: NL Sounds; No Tenderness; No Distention Extremities: No Edema, No Clubbing, Cyanosis Skin: No Rash or Ulcers Neurological: NL Muscle Strength and Tone, - - alert, oriented to self; regards face and interacts appropriately Result Diagrams: 08/25/19 07:02 08/27/19 08:56 Assess/Plan/Problems-Billing Assessment: Mr. Mckoy is a 64 year old male with history of intellectual disability, autism, HTN, CKD that presents with his aide from his care home with report of outburst behavior, self-injury and nephrogenic DI with LIONEL on CKD. - Patient Problems (1) Tympanic membrane perforation Current Visit: Yes Status: Acute Code(s): H72.90 - UNSP PERFORATION OF TYMPANIC MEMBRANE, UNSPECIFIED EAR SNOMED Code(s): 67759698 Comment: -there was previous suspicion that perhaps patient was scratching his ears due to pain, however up until today he was not cooperative enough for otoscope exam -fresh blood in ear canal indicates that TM was previously perforated. It is unclear if this was a perf due to otitis media or if there was self-induced trauma previously. In any case, he was treated with cephalosporins and no longer symptomatic, has been afebrile (2) Acute kidney injury superimposed on CKD Current Visit: Yes Status: Acute Code(s): N17.9 - ACUTE KIDNEY FAILURE, UNSPECIFIED; N18.9 - CHRONIC KIDNEY DISEASE, UNSPECIFIED SNOMED Code(s): 24683704 Comment: - Continues to improve. Cr is better than baseline today - Etiology likely 2/2 to combination of nursing home lithium use with nephrogenic DI, antihypertensives and antipsychotic medications with acute dehydration - Serum and Urine osmo, Na and creat indicating chronic renal disease with superimposed LIONEL. Renal US shows no hydro with medical renal disease - Continue hydration as patient is not maintaining good po intake - [place] has been discontinued (3) Nephrogenic diabetes insipidus Current Visit: Yes Status: Acute Code(s): N25.1 - NEPHROGENIC DIABETES INSIPIDUS SNOMED Code(s): 388236592 Comment: - Na remains wnl - Continue amiloride - Appreciate input from nephrology - Trialing discontinuation of IVF to see if patient is able to maintain good po intake. This will be beneficial to observe while he is still in the hospital. Will follow BMP. [place] noted on I&O is not entirely accurate as patient is wearing brief (4) Intellectual disability Current Visit: Yes Status: Acute Code(s): F79 - UNSPECIFIED INTELLECTUAL DISABILITIES SNOMED Code(s): 178641333 Comment: - Patient was previously uncontrollable at times and prone to throwing items, yelling, and was inconsolable and exhibits self injurious behavior (banging head against the wall, scratching at ears and face). These behavioral disturbances have greatly improved and appear overall resolved. Continuing mucomyst, naltrexone, and prn ativan - Discussed with patient's brother, Rich, who confirms that prior to this the patient's baseline included full conversations, ambulating on his own - Appreciate recommendations by psychiatry for medication management. Further medication changes as below. Regarding self injurious behavior, psychiatry has recommended acetylcystein and naltrexone - It appears self injurious behavior of scratching etc have resolved - Discussed with nursing limited use of ativan if possible, favoring redirection ; recommended by psychiatry (5) Mu[place] toxicity Current Visit: Yes Status: Acute Code(s): T56.891A - TOXIC EFFECT OF OTH METALS, ACCIDENTAL (UNINTENTIONAL), INIT SNOMED Code(s): 365620237 Comment: -resolved, though does continue to have agitation which is improving -lithium has been discontinued during this hospital stay (6) Bipolar disorder Current Visit: Yes Status: Acute Code(s): F31.9 - BIPOLAR DISORDER, UNSPECIFIED SNOMED Code(s): 29032237 Comment: -Psychiatry has made multiple medication changes during this hospitalization considering lithium discontinuation in setting of nephrogenic DI and lithium toxicity. Appreciate consultation. -continue trazadone, depakote, and sertraline (7) Schizophrenia Current Visit: Yes Status: Acute Code(s): F20.9 - SCHIZOPHRENIA, UNSPECIFIED SNOMED Code(s): 74769347 Comment: -home abilify and haldol discontinued per psychiatry rec. Paliperidone and olanzapine started. Will continue -Serial EKGs to monitor QTc and daily labs while new medication regimen is being trialed. QTc stable thus far -patient's flat affect is far improved today and is more interactive (8) Leukocytosis Current Visit: No Status: Acute Code(s): D72.829 - ELEVATED WHITE BLOOD CELL COUNT, UNSPECIFIED SNOMED Code(s): 913555605 Comment: - Persistent luekocytosis for several months. Now resolved. Has been afebrile thus far. - Possibly related to unknown otitis media considering TM perforation found today - Received full course of keflex (9) Urine retention Current Visit: No Status: Acute Code(s): R33.9 - RETENTION OF URINE, UNSPECIFIED SNOMED Code(s): 869200937 Comment: - Not an acute issue - Had outpatient urology visit, no need for lundberg and patient cannot tolerate - Had lithium induced polyuria/nephrogenic DI and placed on amiloride with partial retention since june - Monitor output, bladder scan for PVR if needed (10) DVT prophylaxis Current Visit: No Status: Acute Code(s): Z29.9 - ENCOUNTER FOR PROPHYLACTIC MEASURES, UNSPECIFIED SNOMED Code(s): 191040637 Comment: - SCDs, lovenox (11) Full code status Current Visit: No Status: Acute Code(s): Z78.9 - OTHER SPECIFIED HEALTH STATUS SNOMED Code(s): 771120109 Comment: Status and Disposition: Considering patient's great improvement, he appears able to return back to his care home. Pending logistics of this. Please see SW note
[2019-08-27] MEDS: amLODIPine TAB* 5 MG PO SCH (19:54)
[2019-08-27] MEDS: OLANzapine TAB*ODT* 10 MG TAB PO SCH (19:55)
[2019-08-28 07:10] LABS: BUN/Creatinine Ratio 12.1 (8-20); Calcium 10.1 mg/dL (8.6-10.3); EGFR African American 41.1 (>60)
[2019-08-28 07:22] LABS: Potassium 5.2 mmol/L (3.5-5.0)
[2019-08-28] MEDS: Levothyroxine TAB* 75 MCG TAB PO SCH (07:22)
[2019-08-28] MEDS: Polyethylene Glycol 3350* 17 GM PACKET PO SCH (09:13)
[2019-08-28] MEDS: Patiromer POWDER* 8.4 GM PAK PO SCH (09:14)
[2019-08-28] MEDS: Al Hydrox/Mg Hydrox/Simet LIQ* 30 ML UDC PO SCH ×2 (09:15→21:51)
[2019-08-28] MEDS: Divalproex Sprinkle CAP* 125 MG PO SCH ×2 (09:15→21:54)
[2019-08-28] MEDS: Multivitamins ADULT w/MIN LIQ* 15 ML UDC PO SCH (09:20)
[2019-08-28] MEDS: Bacitracin OINTMENT* 0.5% 0.5 oz TUBE TOPICAL SCH ×2 (09:20→21:55)
[2019-08-28] MEDS: Sodium Bicarbonate (ANTACID)* 650 MG TAB PO SCH ×2 (09:21→21:51)
[2019-08-28] MEDS: Naltrexone TAB* 50 MG TAB PO SCH (09:21)
[2019-08-28] MEDS: aMILoride TAB* 5 MG PO SCH (09:21)
[2019-08-28] MEDS: Pantoprazole TAB * 40 MG TAB PO SCH (09:23)
[2019-08-28] MEDS: Paliperidone ER TAB* 6 MG TAB.ER PO SCH (09:23)
[2019-08-28] MEDS: Sertraline* 100 MG TAB PO SCH (09:24)
--- NOTE | 2019-08-28 09:57 | PN ---
Subjective Date of Service: 08/28/19 Interval History: Patient reportedly did not sleep well overnight but overall no acute events. Patient has not entirely swallowed his medications today, which he is known to do at baseline. Patient is somewhat less interactive today, but is quite cooperative with exam and tells me he feels good. Objective Active Medications: Acetaminophen (Tylenol Adult Liq*) 650 mg PO Q4H PRN PRN Reason: PAIN - MILD OR TEMP > 100.4 Last Admin: 08/27/19 16:49 Dose: 650 mg Al Hydrox/Mg Hydrox/Simethicone (Maalox Plus*) 15 ml PO BID [facility] Last Admin: 08/28/19 09:15 Dose: 15 ml Amiloride HCl (Midamor Tab*) 5 mg PO DAILY [facility] Last Admin: 08/28/19 09:21 Dose: 5 mg Amlodipine Besylate (Norvasc Tab*) 5 mg PO BEDTIME [facility] Last Admin: 08/27/19 19:54 Dose: 5 mg Bacitracin (Bacitracin Ointment*) 1 applic TOPICAL BID [facility] Last Admin: 08/28/19 09:20 Dose: 1 applic Bisacodyl (Dulcolax Supp*) 10 mg DE DAILY PRN PRN Reason: CONSTIPATION Last Admin: 08/27/19 16:50 Dose: 10 mg Divalproex Sodium (Depakote Sprinkle Cap*) 750 mg PO BID [facility] Last Admin: 08/28/19 09:15 Dose: 750 mg Enoxaparin Sodium (Lovenox(*)) 30 mg SUBCUT Q24H [facility] Last Admin: 08/27/19 13:58 Dose: 30 mg Levothyroxine Sodium (Synthroid Tab*) 75 mcg PO 0600 [facility] Last Admin: 08/28/19 07:22 Dose: 75 mcg Lorazepam (Ativan Inj*) 0.5 mg IV PUSH Q6H PRN PRN Reason: ANXIETY Last Admin: 08/27/19 22:07 Dose: 0.5 mg Miscellaneous (Ativan Pyxis Severino) 1 ea N/A .ATIVAN IV SEVERINO PRN PRN Reason: PYXIS SEVERINO Multivitamins (Theragran W/Minerals Liq*) 5 ml PO DAILY [facility] Last Admin: 08/28/19 09:20 Dose: 5 ml Naltrexone HCl (Naltrexone Tab*) 100 mg PO DAILY [facility]; Protocol Last Admin: 08/28/19 09:21 Dose: 100 mg Olanzapine (Zyprexa *Odt*) 20 mg PO 2100 [facility] Last Admin: 08/27/19 19:55 Dose: 20 mg Ondansetron HCl (Zofran Inj*) 4 mg IV Q6H PRN PRN Reason: NAUSEA Last Admin: 08/23/19 20:30 Dose: 4 mg Paliperidone (Invega Er Tab*) 6 mg PO DAILY [facility] Last Admin: 08/28/19 09:23 Dose: 6 mg Pantoprazole Sodium (Protonix Tab*) 40 mg PO DAILY [facility] Last Admin: 08/28/19 09:23 Dose: 40 mg Patiromer (Veltassa Powder*) 8.4 gm PO DAILY [facility] Last Admin: 08/28/19 09:14 Dose: 8.4 gm Polyethylene Glycol/Electrolytes (Miralax*) 17 gm PO DAILY [facility] Last Admin: 08/28/19 09:13 Dose: 17 gm Sertraline HCl (Zoloft*) 100 mg PO DAILY [facility] Last Admin: 08/28/19 09:24 Dose: 100 mg Sodium Bicarbonate (Sodium Bicarbonate (Antacid)*) 650 mg PO BID [facility] Last Admin: 08/28/19 09:21 Dose: 650 mg Trazodone HCl (Desyrel Tab*) 100 mg PO BEDTIME PRN PRN Reason: ANXIETY Last Admin: 08/27/19 19:55 Dose: 100 mg Vital Signs - 8 hr 08/28/19 03:15 Temperature 97.8 F Pulse Rate 80 Respiratory 12 Rate Blood Pressure 154/73 (mmHg) O2 Sat by Pulse 100 Oximetry Oxygen Devices in Use Now: None Appearance: Thin, white male, appears younger than stated age, laying in bed in NAD; private aide at baseline Eyes: No Scleral Icterus, - - PERRL Ears/Nose/Mouth/Throat: Mucous Membranes Moist, - - dissolving pills on tongue Neck: NL Appearance and Movements; NL JVP Respiratory: Symmetrical Chest Expansion and Respiratory Effort, Clear to Auscultation Cardiovascular: NL Sounds; No Murmurs; No JVD, RRR Abdominal: - - abd soft, nontender, nondistended Extremities: No Edema, No Clubbing, Cyanosis Skin: No Rash or Ulcers Neurological: NL Muscle Strength and Tone, - - alert, oriented to self Result Diagrams: 10/29/19 07:02 08/28/19 06:24 Assess/Plan/Problems-Billing Assessment: Mr. Mckoy is a 64 year old male with history of intellectual disability, autism, HTN, CKD that presents with his aide from his fpc with report of outburst behavior, self-injury and nephrogenic DI with LIONEL on CKD. - Patient Problems (1) Hyperkalemia Current Visit: Yes Status: Acute Code(s): E87.5 - HYPERKALEMIA SNOMED Code (s): 84355682 Comment: -mild, likely 2/2 renal disease -patiromer ordered -will follow BMP (2) Acute kidney injury superimposed on CKD Current Visit: Yes Status: Acute Code(s): N17.9 - ACUTE KIDNEY FAILURE, UNSPECIFIED; N18.9 - CHRONIC KIDNEY DISEASE, UNSPECIFIED SNOMED Code(s): 66711826 Comment: - Resolved. Cr is better than baseline today - Etiology likely 2/2 to combination of residential lithium use with nephrogenic DI, antihypertensives and antipsychotic medications with acute dehydration - Serum and Urine osmo, Na and creat indicating chronic renal disease with superimposed LIONEL. Renal US shows no hydro with medical renal disease - [place] has been discontinued (3) Nephrogenic diabetes insipidus Current Visit: Yes Status: Acute Code(s): N25.1 - NEPHROGENIC DIABETES INSIPIDUS SNOMED Code(s): 364701701 Comment: - Na remains wnl - Continue amiloride - Appreciate input from nephrology - Trialing discontinuation of IVF to see if patient is able to maintain good po intake. This will be beneficial to observe while he is still in the hospital. Will follow BMP. [place] noted on I&O is not entirely accurate as patient is wearing brief (4) Intellectual disability Current Visit: Yes Status: Acute Code(s): F79 - UNSPECIFIED INTELLECTUAL DISABILITIES SNOMED Code(s): 450849147 Comment: - Patient was previously uncontrollable at times and prone to throwing items, yelling, and was inconsolable and exhibits self injurious behavior (banging head against the wall, scratching at ears and face). These behavioral disturbances have greatly improved and appear overall resolved. Continuing mucomyst, naltrexone, and prn ativan - Discussed with patient's brother, Rich, who confirms that prior to this the patient's baseline included full conversations, ambulating on his own - Appreciate recommendations by psychiatry for medication management. Further medication changes as below. Regarding self injurious behavior, psychiatry has recommended acetylcystein and naltrexone - It appears self injurious behavior of scratching etc have resolved - Discussed with nursing limited use of ativan if possible, favoring redirection ; recommended by psychiatry (5) [place] toxicity Current Visit: Yes Status: Acute Code(s): T56.891A - TOXIC EFFECT OF OTH METALS, ACCIDENTAL (UNINTENTIONAL), INIT SNOMED Code(s): 234746435 Comment: -resolved, though does continue to have intermittent agitation which is improving -lithium has been discontinued during this hospital stay (6) Tympanic membrane perforation Current Visit: Yes Status: Acute Code(s): H72.90 - UNSP PERFORATION OF TYMPANIC MEMBRANE, UNSPECIFIED EAR SNOMED Code(s): 12051170 Comment: -there was previous suspicion that perhaps patient was scratching his ears due to pain, however up until today he was not cooperative enough for otoscope exam -fresh blood in ear canal indicates that TM was previously perforated. It is unclear if this was a perf due to otitis media or if there was self-induced trauma previously. In any case, he was treated with cephalosporins and no longer symptomatic, has been afebrile (7) Bipolar disorder Current Visit: Yes Status: Acute Code(s): F31.9 - BIPOLAR DISORDER, UNSPECIFIED SNOMED Code(s): 38752937 Comment: -Psychiatry has made multiple medication changes during this hospitalization considering lithium discontinuation in setting of nephrogenic DI and lithium toxicity. Appreciate consultation. -continue trazadone, depakote, and sertraline (8) Schizophrenia Current Visit: Yes Status: Acute Code(s): F20.9 - SCHIZOPHRENIA, UNSPECIFIED SNOMED Code(s): 00390758 Comment: -home abilify and haldol discontinued per psychiatry rec. Paliperidone and olanzapine started. Will continue -QTc stable thus far -patient's flat affect is far improved and is more interactive (9) Leukocytosis Current Visit: No Status: Acute Code(s): D72.829 - ELEVATED WHITE BLOOD CELL COUNT, UNSPECIFIED SNOMED Code(s): 613558469 Comment: - Persistent luekocytosis for several months. Now resolved. Has been afebrile thus far. - Possibly related to unknown otitis media considering TM perforation found today - Received full course of keflex (10) Urine retention Current Visit: No Status: Acute Code(s): R33.9 - RETENTION OF URINE, UNSPECIFIED SNOMED Code(s): 096084003 Comment: - Not an acute issue - Had outpatient urology visit, no need for lundberg and patient cannot tolerate - Had lithium induced polyuria/nephrogenic DI and placed on amiloride with partial retention since june - Monitor output, bladder scan for PVR if needed (11) DVT prophylaxis Current Visit: No Status: Acute Code(s): Z29.9 - ENCOUNTER FOR PROPHYLACTIC MEASURES, UNSPECIFIED SNOMED Code(s): 188201896 Comment: - SCDs, lovenox (12) Full code status Current Visit: No Status: Acute Code(s): Z78.9 - OTHER SPECIFIED HEALTH STATUS SNOMED Code(s): 431580299 Comment: Status and Disposition: Considering patient's great improvement, he appears able to return back to his [facility]. However, due to logistics of his fpc it appears he will not be able to return until Saturday08/31/19.
--- NOTE | 2019-08-28 10:34 | CONSULT ---
Consult Consult: Reason for consult: Self Injurious behavior CC: "Hi" Patient was seen and evaluated today in his room with his fingerprint clerk from [facility] present. Bricklayer Apprentice reported that he was forming sentences this morning and interacting with others. He said " good bye have a nice day". Today there was no report of self injurious behavior. He did not slept well overnight. According to staff he has been less agitated. Patient ate breakfast this morning. Mental Status Exam APPEARANCE : 64 year old male poor hygiene and grooming with multiple scratch rocha on his ears and nose. EYE CONTACT: Poor PSYCHOMOTOR ACTIVITY: mild psychomotor agitation MOVEMENTS: repetitive movements SPEECH : loud volume MOOD : "ahh" AFFECT : Mood Incongruent THOUGHT PROCESS: Illogical THOUGHT CONTENT: Obsessions PERCEPTION: no AH/ VH SUICIDALITY Denied suicidal ideation, intent or plan. HOMICIDALITY Denied homicidal ideation, intent or plan. Insight/judgment: Poor insight and judgment ORIENTATION: Oriented to self not to location, and time. Assessment: 64 year old male with a history of severe intellectual disability and recent self injurious behavior being treated for lithium toxicity Diagnosis: Intellectual disability, severe. Momeyer toxicity Plan # The patient does NOT require psychiatric inpatient admission at this time. # Medical issues managed by Primary team # Safety Measures constant supervision, floor pad, cutting nails and unrestricted hand mittens to reduce risk of harm from self injury # Treatment team meeting took place. Patient is on multiple anti-psychotics and psychotropic medications. Given the severity of his presenting behavior and history including multiple failed medication trials, other alternative options and doses surpassing the FDA recommendations will be implemented. Consideration of these risks was presented to his treatment team from [facility] and health care proxy and everyone is in agreement with the plan. #Most recent QTc 395. Daily EKG for risk of QT prolongation from antipsychotic medication. # Dagoberto (older brother) also his health care proxy is involved with plan of care and is in agreement with the plan. # [phone] # While Momeyer is a sound and effective treatment in controlling aggression, the risk of kidney damage is severe and the continuation would indefinitely result in the need for life long dialysis, at this time lithium will be discontinued given these risks of permanent renal disease. Continue IV fluids. # Cr trending down from 3.57--> 1.98 #Last long acting injection of Abilify 400mg q4 weeks was on 08/07/19 # Continue paliperidone 6mg po daily for aggression and ASD, will continue to monitor impact on renal function and QTc. #Continue valproic acid 750mg BID for mood # Valproic acid level 34 AST/ALT within normal limits # Continue naltrexone to 100mg daily for self injurious behavior # Continue N- acetyl cysteine 600mg BID for self injurious behavior, as well as provides renal protection # Continue zyprexa to 20mg po qhs # Continue zoloft 100mg daily and trazodone 100mg qhs. # Patient is unable to leave AMA # Continue constant supervision # Discussed treatment plan with primary team # Use Ativan conservatively with first implementing behavior re-direction, and ativan as last resort, as it has shown to cause behavioral disinhibition and sedation. #Social work confirmed that patient can return back to [facility] once stabilized. #Targeted Goals: To reduce self injurious behavior. Progress of objective Goals - Self mutilation has remitted with no signs of new self inflicted injury or scratch rocha on ears or nose. Patient showed some improvement of speech over the last 2 days and has decreased intensity and frequency of tantrums and yelling. Patient continues to have difficulty with feeding himself and going to the bathroom on his own. # Psychiatry will continue to follow the patient. Sodium 144 mmol/L (135-145) 08/28/19 06:24 Potassium 5.2 mmol/L (3.5-5.0) H 08/28/19 06:24 BUN 24 mg/dL (6-24) 08/28/19 06:24 Creatinine 1.98 mg/dL (0.67-1.17) H 08/28/19 06:24 Calcium 10.1 mg/dL (8.6-10.3) 08/28/19 06:24 AST 18 U/L (13-39) 08/23/19 21:26 ALT 3 U/L (7-52) L 08/23/19 21:26
[2019-08-28] MEDS: Acetaminophen ADULT LIQ* 650 MG/20.3 ML UDC PO PRN (12:44)
[2019-08-28] MEDS: LORazepam TAB(*) 0.5 MG PO PRN (12:45)
[2019-08-28] MEDS: Enoxaparin(*) 30 MG/0.3 ML SYR SUBCUT SCH (12:51)
[2019-08-28] MEDS: amLODIPine TAB* 5 MG PO SCH (21:51)
[2019-08-28] MEDS: OLANzapine TAB*ODT* 10 MG TAB PO SCH (21:51)
[2019-08-29] MEDS: Levothyroxine TAB* 75 MCG TAB PO SCH (05:09)
[2019-08-29 07:24] LABS: EGFR African American 37.4 (>60); EGFR Non-African American 30.9 (>60)
[2019-08-29] MEDS: Sodium Bicarbonate (ANTACID)* 650 MG TAB PO SCH ×2 (09:33→20:26)
[2019-08-29] MEDS: Al Hydrox/Mg Hydrox/Simet LIQ* 30 ML UDC PO SCH ×2 (09:33→20:36)
[2019-08-29] MEDS: Paliperidone ER TAB* 6 MG TAB.ER PO SCH ×2 (09:33→09:40)
[2019-08-29] MEDS: Pantoprazole TAB * 40 MG TAB PO SCH (09:33)
[2019-08-29] MEDS: Sertraline* 100 MG TAB PO SCH (09:33)
[2019-08-29] MEDS: Multivitamins ADULT w/MIN LIQ* 15 ML UDC PO SCH (09:34)
[2019-08-29] MEDS: Polyethylene Glycol 3350* 17 GM PACKET PO SCH (09:35)
[2019-08-29] MEDS: Bacitracin OINTMENT* 0.5% 0.5 oz TUBE TOPICAL SCH ×2 (09:50→20:37)
[2019-08-29] MEDS: aMILoride TAB* 5 MG PO SCH (09:56)
[2019-08-29] MEDS: Naltrexone TAB* 50 MG TAB PO SCH (09:56)
[2019-08-29] MEDS: Divalproex Sprinkle CAP* 125 MG PO SCH ×2 (10:04→20:26)
[2019-08-29] MEDS: Patiromer POWDER* 8.4 GM PAK PO SCH (10:22)
[2019-08-29] MEDS: Enoxaparin(*) 30 MG/0.3 ML SYR SUBCUT SCH (12:01)
[2019-08-29] MEDS: Sodium Polystyrene ORAL.SOL* 15 GM/60 ML BTL PO SCH ×3 (12:01→21:16)
--- NOTE | 2019-08-29 12:36 | PN ---
Subjective Date of Service: 08/29/19 Interval History: Patient is visiting with his brother, Dagoberto, at time of evaluation. Patient tells me "good morning" and says he feels, "good." Patient overall comfortable. Patient had BM yesterday. Does not indicate yes when asked if he has pain. Objective Active Medications: Acetaminophen (Tylenol Adult Liq*) 650 mg PO Q4H PRN PRN Reason: PAIN - MILD OR TEMP > 100.4 Last Admin: 08/28/19 12:44 Dose: 650 mg Al Hydrox/Mg Hydrox/Simethicone (Maalox Plus*) 15 ml PO BID [facility] Last Admin: 08/29/19 09:33 Dose: 15 ml Amiloride HCl (Midamor Tab*) 5 mg PO DAILY [facility] Last Admin: 08/29/19 09:56 Dose: 5 mg Amlodipine Besylate (Norvasc Tab*) 5 mg PO BEDTIME [facility] Last Admin: 08/28/19 21:51 Dose: 5 mg Bacitracin (Bacitracin Ointment*) 1 applic TOPICAL BID [facility] Last Admin: 08/29/19 09:50 Dose: 1 applic Bisacodyl (Dulcolax Supp*) 10 mg [place] DAILY PRN PRN Reason: CONSTIPATION Last Admin: 08/27/19 16:50 Dose: 10 mg Divalproex Sodium (Depakote Sprinkle Cap*) 750 mg PO BID [facility] Last Admin: 08/29/19 10:04 Dose: 750 mg Enoxaparin Sodium (Lovenox(*)) 30 mg SUBCUT Q24H [facility] Last Admin: 08/29/19 12:01 Dose: 30 mg Levothyroxine Sodium (Synthroid Tab*) 75 mcg PO 0600 [facility] Last Admin: 08/29/19 05:09 Dose: 75 mcg Lorazepam (Ativan Tab(*)) 0.5 mg PO Q6H PRN PRN Reason: AGITATION Last Admin: 08/28/19 12:45 Dose: 0.5 mg Miscellaneous (Ativan Pyxis Severino) 1 ea N/A .ATIVAN IV SEVERINO PRN PRN Reason: PYXIS SEVERINO Multivitamins (Theragran W/Minerals Liq*) 5 ml PO DAILY [facility] Last Admin: 08/29/19 09:34 Dose: 5 ml Naltrexone HCl (Naltrexone Tab*) 100 mg PO DAILY [facility]; Protocol Last Admin: 08/29/19 09:56 Dose: 100 mg Olanzapine (Zyprexa *Odt*) 20 mg PO 2100 [facility] Last Admin: 08/28/19 21:51 Dose: 20 mg Ondansetron HCl (Zofran Inj*) 4 mg IV Q6H PRN PRN Reason: NAUSEA Last Admin: 08/23/19 20:30 Dose: 4 mg Paliperidone (Invega Er Tab*) 6 mg PO DAILY [facility] Last Admin: 08/29/19 09:40 Dose: 6 mg Pantoprazole Sodium (Protonix Tab*) 40 mg PO DAILY [facility] Last Admin: 08/29/19 09:33 Dose: 40 mg Polyethylene Glycol/Electrolytes (Miralax*) 17 gm PO DAILY [facility] Last Admin: 08/29/19 09:35 Dose: 17 gm Sertraline HCl (Zoloft*) 100 mg PO DAILY [facility] Last Admin: 08/29/19 09:33 Dose: 100 mg Sodium Bicarbonate (Sodium Bicarbonate (Antacid)*) 650 mg PO BID [facility] Last Admin: 08/29/19 09:33 Dose: 650 mg Sodium Polystyrene Sulfonate (Kayexalate Oral.Ursula*) 15 gm PO Q6H [facility] Last Admin: 08/29/19 12:01 Dose: 15 gm Trazodone HCl (Desyrel Tab*) 100 mg PO BEDTIME PRN PRN Reason: ANXIETY Last Admin: 08/27/19 19:55 Dose: 100 mg Vital Signs - 8 hr 08/29/19 08/29/19 07:35 11:33 Temperature 98.0 F 99.2 F Pulse Rate 113 103 Respiratory 18 18 Rate Blood Pressure 184/73 134/82 (mmHg) O2 Sat by Pulse 100 Oximetry Oxygen Devices in Use Now: None Appearance: Thin, elderly white male, laying in bed, appears younger than stated age, in NAD Eyes: No Scleral Icterus, - - PERRL Ears/Nose/Mouth/Throat: Mucous Membranes Moist Neck: - - neck supple Respiratory: Symmetrical Chest Expansion and Respiratory Effort, Clear to Auscultation Cardiovascular: NL Sounds; No Murmurs; No JVD, RRR Abdominal: - - abd soft, nontender, nondistended Extremities: No Edema, No Clubbing, Cyanosis, - - no calf tenderness, no palpable cord Skin: No Rash or Ulcers Neurological: NL Muscle Strength and Tone, - - alert and oriented to self Result Diagrams: 08/25/19 07:02 08/29/19 06:42 Assess/Plan/Problems-Billing Assessment: Mr. Mckoy is a 64 year old male with history of intellectual disability, autism, HTN, CKD that presents with his aide from his senior living with report of outburst behavior, self-injury and nephrogenic DI with LIONEL on CKD. - Patient Problems (1) Hyperkalemia Current Visit: Yes Status: Acute Code(s): E87.5 - HYPERKALEMIA SNOMED Code (s): 52693284 Comment: -worsening today -likely 2/2 renal disease -changed patiromer to kayexalate -will follow BMP -tele (2) Acute kidney injury superimposed on CKD Current Visit: Yes Status: Acute Code(s): N17.9 - ACUTE KIDNEY FAILURE, UNSPECIFIED; N18.9 - CHRONIC KIDNEY DISEASE, UNSPECIFIED SNOMED Code(s): 73479777 Comment: - Cr to baseline - Etiology likely 2/2 to combination of [facility] lithium use with nephrogenic DI, antihypertensives and antipsychotic medications with acute dehydration - Serum and Urine osmo, Na and creat indicating chronic renal disease with superimposed LIONEL. Renal US shows no hydro with medical renal disease - Cassel has been discontinued - will contine to follow BMP considering po intake of fluids is still not optimal in setting of DI (3) Nephrogenic diabetes insipidus Current Visit: Yes Status: Acute Code(s): N25.1 - NEPHROGENIC DIABETES INSIPIDUS SNOMED Code(s): 844914053 Comment: - Na remains wnl - Continue amiloride - Appreciate input from nephrology - Trialing discontinuation of IVF to see if patient is able to maintain good po intake. This will be beneficial to observe while he is still in the hospital. Will follow BMP. [place] noted on I&O is not entirely accurate as patient is wearing brief (4) Intellectual disability Current Visit: Yes Status: Acute Code(s): F79 - UNSPECIFIED INTELLECTUAL DISABILITIES SNOMED Code(s): 912144697 Comment: - Patient was previously uncontrollable at times and prone to throwing items, yelling, and was inconsolable and exhibits self injurious behavior (banging head against the wall, scratching at ears and face). These behavioral disturbances have greatly improved and appear overall resolved. Continuing mucomyst, naltrexone, and prn ativan - Discussed with patient's brother, Rich, who confirms that prior to this the patient's baseline included full conversations, ambulating on his own - Appreciate recommendations by psychiatry for medication management. Further medication changes as below. Regarding self injurious behavior, psychiatry has recommended acetylcystein and naltrexone - It appears self injurious behavior of scratching etc have resolved - Discussed with nursing limited use of ativan if possible, favoring redirection ; recommended by psychiatry (5) Cassel toxicity Current Visit: Yes Status: Acute Code(s): T56.891A - TOXIC EFFECT OF OTH METALS, ACCIDENTAL (UNINTENTIONAL), INIT SNOMED Code(s): 617913269 Comment: -resolved, though does continue to have intermittent agitation which is improving -lithium has been discontinued during this hospital stay (6) Tympanic membrane perforation Current Visit: Yes Status: Acute Code(s): H72.90 - UNSP PERFORATION OF TYMPANIC MEMBRANE, UNSPECIFIED EAR SNOMED Code(s): 82017231 Comment: -there was previous suspicion that perhaps patient was scratching his ears due to pain, however up until today he was not cooperative enough for otoscope exam -fresh blood in ear canal indicates that TM was previously perforated. It is unclear if this was a perf due to otitis media or if there was self-induced trauma previously. In any case, he was treated with cephalosporins and no longer symptomatic, has been afebrile (7) Bipolar disorder Current Visit: Yes Status: Acute Code(s): F31.9 - BIPOLAR DISORDER, UNSPECIFIED SNOMED Code(s): 32309662 Comment: -Psychiatry has made multiple medication changes during this hospitalization considering lithium discontinuation in setting of nephrogenic DI and lithium toxicity. Appreciate consultation. -continue trazadone, depakote, and sertraline (8) Schizophrenia Current Visit: Yes Status: Acute Code(s): F20.9 - SCHIZOPHRENIA, UNSPECIFIED SNOMED Code(s): 63926289 Comment: -home abilify and haldol discontinued per psychiatry rec. Paliperidone and olanzapine started. Will continue -QTc stable thus far -patient's flat affect is far improved and is more interactive (9) Leukocytosis Current Visit: No Status: Acute Code(s): D72.829 - ELEVATED WHITE BLOOD CELL COUNT, UNSPECIFIED SNOMED Code(s): 077516633 Comment: - Persistent luekocytosis for several months. Now resolved. Has been afebrile thus far. - Possibly related to unknown otitis media considering TM perforation found today - Received full course of cefazolin (10) Urine retention Current Visit: No Status: Acute Code(s): R33.9 - RETENTION OF URINE, UNSPECIFIED SNOMED Code(s): 696971866 Comment: - Not an acute issue - Had outpatient urology visit, no need for lundberg and patient cannot tolerate - Had lithium induced polyuria/nephrogenic DI and placed on amiloride with partial retention since june - Monitor output, bladder scan for PVR if needed (11) DVT prophylaxis Current Visit: No Status: Acute Code(s): Z29.9 - ENCOUNTER FOR PROPHYLACTIC MEASURES, UNSPECIFIED SNOMED Code(s): 137521698 Comment: - SCDs, lovenox (12) Full code status Current Visit: No Status: Acute Code(s): Z78.9 - OTHER SPECIFIED HEALTH STATUS SNOMED Code(s): 026594361 Comment: Status and Disposition: Considering patient's great improvement, he appears able to return back to his senior living. However, due to logistics of his senior living it appears he will not be able to return until Saturday08/31/19.
[2019-08-29] MEDS: Acetaminophen ADULT LIQ* 650 MG/20.3 ML UDC PO PRN ×3 (14:08→23:12)
[2019-08-29] MEDS: LORazepam TAB(*) 0.5 MG PO PRN ×2 (14:09→20:26)
[2019-08-29] MEDS: Senna TAB 8.6 mg* TAB PO SCH (15:13)
[2019-08-29 17:19] LABS: BUN/Creatinine Ratio 13.4 (8-20); Calcium 9.8 mg/dL (8.6-10.3); EGFR African American 34.3 (>60); EGFR Non-African American 28.3 (>60); Potassium 5.2 mmol/L (3.5-5.0)
[2019-08-29] MEDS: OLANzapine TAB*ODT* 10 MG TAB PO SCH (20:26)
[2019-08-29] MEDS: traZODone TAB* 100 MG PO PRN (20:26)
[2019-08-29] MEDS: amLODIPine TAB* 5 MG PO SCH (20:30)
[2019-08-30] MEDS: LORazepam TAB(*) 0.5 MG PO PRN ×2 (01:19→13:22)
[2019-08-30] MEDS ORDERED: LORazepam INJ* 2 MG/ML 1 ML VIAL IV PUSH ONE (03:27)
[2019-08-30] MEDS ORDERED: Lorazepam PYXIS KEY PRN (03:27)
[2019-08-30] MEDS: Sodium Polystyrene ORAL.SOL* 15 GM/60 ML BTL PO SCH ×2 (03:28→09:55)
[2019-08-30] MEDS: Levothyroxine TAB* 75 MCG TAB PO SCH (06:04)
[2019-08-30 06:58] LABS: BUN/Creatinine Ratio 14.6 (8-20); Calcium 9.9 mg/dL (8.6-10.3); EGFR African American 34.1 (>60); EGFR Non-African American 28.2 (>60)
[2019-08-30] MEDS ORDERED: Polyethylene Glycol 3350* 17 GM PACKET PO PRN (09:50)
[2019-08-30] MEDS: aMILoride TAB* 5 MG PO SCH (09:56)
[2019-08-30] MEDS: Sodium Bicarbonate (ANTACID)* 650 MG TAB PO SCH ×2 (09:57→20:44)
[2019-08-30] MEDS: Divalproex Sprinkle CAP* 125 MG PO SCH ×2 (09:57→20:40)
[2019-08-30] MEDS: Pantoprazole TAB * 40 MG TAB PO SCH (09:57)
[2019-08-30] MEDS: Naltrexone TAB* 50 MG TAB PO SCH (09:58)
[2019-08-30] MEDS: Multivitamins ADULT w/MIN LIQ* 15 ML UDC PO SCH (09:58)
[2019-08-30] MEDS: Sertraline* 100 MG TAB PO SCH (09:59)
[2019-08-30] MEDS: Bacitracin OINTMENT* 0.5% 0.5 oz TUBE TOPICAL SCH ×2 (09:59→20:44)
[2019-08-30] MEDS: Paliperidone ER TAB* 6 MG TAB.ER PO SCH (09:59)
[2019-08-30] MEDS: Senna TAB 8.6 mg* TAB PO SCH (09:59)
[2019-08-30] MEDS: Ondansetron INJ* 2 MG/ML VIAL IV PRN (11:43)
[2019-08-30] MEDS: Enoxaparin(*) 30 MG/0.3 ML SYR SUBCUT SCH (13:22)
[2019-08-30] MEDS: Acetaminophen ADULT LIQ* 650 MG/20.3 ML UDC PO PRN (13:22)
--- NOTE | 2019-08-30 13:53 | PN ---
Subjective Date of Service: 08/30/19 Interval History: Mr. Mckoy is sleeping when I enter; he wakes easily and responds with few words. He states he is "fine" and then asks for "water." Nursing reports that he has had no self-injurious behavior in the last couple of days. It is reported that he had difficulty with sleep last night. Objective Active Medications: Acetaminophen (Tylenol Adult Liq*) 650 mg PO Q4H PRN PRN Reason: PAIN - MILD OR TEMP > 100.4 Last Admin: 08/30/19 13:22 Dose: 650 mg Al Hydrox/Mg Hydrox/Simethicone (Maalox Plus*) 15 ml PO BID PRN PRN Reason: CONSTIPATION Amiloride HCl (Midamor Tab*) 5 mg PO DAILY [facility] Last Admin: 08/30/19 09:56 Dose: 5 mg Amlodipine Besylate (Norvasc Tab*) 5 mg PO BEDTIME [facility] Last Admin: 08/29/19 20:30 Dose: 5 mg Bacitracin (Bacitracin Ointment*) 1 applic TOPICAL BID [facility] Last Admin: 08/30/19 09:59 Dose: 1 applic Bisacodyl (Dulcolax Supp*) 10 mg [place] DAILY PRN PRN Reason: CONSTIPATION Last Admin: 08/27/19 16:50 Dose: 10 mg Divalproex Sodium (Depakote Sprinkle Cap*) 750 mg PO BID [facility] Last Admin: 08/30/19 09:57 Dose: 750 mg Enoxaparin Sodium (Lovenox(*)) 30 mg SUBCUT Q24H [facility] Last Admin: 08/30/19 13:22 Dose: 30 mg Levothyroxine Sodium (Synthroid Tab*) 75 mcg PO 0600 [facility] Last Admin: 08/30/19 06:04 Dose: 75 mcg Lorazepam (Ativan Tab(*)) 0.5 mg PO Q6H PRN PRN Reason: AGITATION Last Admin: 08/30/19 13:22 Dose: 0.5 mg Multivitamins (Theragran W/Minerals Liq*) 5 ml PO DAILY [facility] Last Admin: 08/30/19 09:58 Dose: 5 ml Naltrexone HCl (Naltrexone Tab*) 100 mg PO DAILY [facility]; Protocol Last Admin: 08/30/19 09:58 Dose: 100 mg Olanzapine (Zyprexa *Odt*) 20 mg PO 2100 [facility] Last Admin: 08/29/19 20:26 Dose: 20 mg Ondansetron HCl (Zofran Inj*) 4 mg IV Q6H PRN PRN Reason: NAUSEA Last Admin: 08/30/19 11:43 Dose: 4 mg Paliperidone (Invega Er Tab*) 6 mg PO DAILY [facility] Last Admin: 08/30/19 09:59 Dose: 6 mg Pantoprazole Sodium (Protonix Tab*) 40 mg PO DAILY [facility] Last Admin: 08/30/19 09:57 Dose: 40 mg Polyethylene Glycol/Electrolytes (Miralax*) 17 gm PO DAILY PRN PRN Reason: CONSTIPATION Senna (Senokot 8.6 Mg Tab*) 1 tab PO DAILY [facility] Last Admin: 08/30/19 09:59 Dose: 1 tab Sertraline HCl (Zoloft*) 100 mg PO DAILY [facility] Last Admin: 08/30/19 09:59 Dose: 100 mg Sodium Bicarbonate (Sodium Bicarbonate (Antacid)*) 650 mg PO BID [facility] Last Admin: 08/30/19 09:57 Dose: 650 mg Sodium Polystyrene Sulfonate (Kayexalate Oral.Ursula*) 15 gm PO Q6H [facility] Last Admin: 08/30/19 09:55 Dose: 15 gm Trazodone HCl (Desyrel Tab*) 100 mg PO BEDTIME PRN PRN Reason: ANXIETY Last Admin: 08/29/19 20:26 Dose: 100 mg Vital Signs: Temp Pulse Resp BP Pulse Ox 98.6 F 101 18 139/82 100 08/30/19 11:15 08/30/19 11:15 08/30/19 13:22 08/30/19 11:15 08/30/19 11:15 Oxygen Devices in Use Now: None Appearance: Mr. Mckoy is asleep when I enter; he wakes easily. He appears groggy, but is cooperative and appropriate. No acute distress, no overt aggitation noted. Neck: NL Appearance and Movements; NL JVP, Trachea Midline Respiratory: Symmetrical Chest Expansion and Respiratory Effort, Clear to Auscultation - Anteriorly Cardiovascular: NL Sounds; No Murmurs; No JVD, RRR Abdominal: NL Sounds; No Tenderness; No Distention, No Hepatosplenomegaly Extremities: No Edema, No Clubbing, Cyanosis Skin: - - Abrasions noted to b/l knees without signs of infection Neurological: Alert and Oriented x 3 Result Diagrams: 08/25/19 07:02 08/30/19 06:03 Assess/Plan/Problems-Billing Assessment: Mr. Mckoy is a 64 year old male with history of intellectual disability, autism, HTN, CKD that presents with his aide from his [facility] with report of outburst behavior, self-injury and nephrogenic DI with LIONEL on CKD. - Patient Problems (1) Acute kidney injury superimposed on CKD Comment: - Cr back to baseline - Etiology likely 2/2 combination of termite inspector lithium use with nephrogenic DI, antihypertensives and antipsychotic medications with acute dehydration - Serum and Urine osmo, Na and creat indicating chronic renal disease with superimposed LIONEL - Renal US shows no hydro with medical renal disease - [place] has been discontinued - Fluid intake improving - Will contine to follow BMP (2) Hyperkalemia Comment: -resolved today with q6h kayexalate since 08/29 a.m. -likely 2/2 renal disease -amiloride may be contributing; this has been d/c'd -change kayexalate to daily and recheck BMP in a.m. -will follow BMP and continue tele (3) Schizophrenia Comment: -home abilify and haldol discontinued per psychiatry rec. -continue paliperidone and olanzapine -QTc stable thus far -patient's flat affect is far improved and he is more interactive (4) Nephrogenic diabetes insipidus Comment: - Na remains wnl - PO intake is improving - Appreciate input from nephrology (5) Leukocytosis Comment: - Persistent leukocytosis for several months, now resolved - Afebrile - Possibly related to otitis media considering TM perforation found 08/29 - Received full course of cefazolin (6) Urine retention Comment: - Not an acute issue - Had outpatient urology visit scheduled - No need for lundberg; patient cannot tolerate - Had lithium induced polyuria/nephrogenic DI and placed on amiloride with partial retention since june - Unable to accurately assess urine output, due to urinary incontinence - Bladder scan for PVR if needed (7) DVT prophylaxis Comment: -SCDs, lovenox (8) Full code status Comment: Status and Disposition: Considering patient's great improvement, he is medically stable to return back to his [facility]. However, due to logistics of his [facility] it appears he will not be able to return until Saturday08/31/19. Likely discharge tomorrow a.m.
[2019-08-30] MEDS: OLANzapine TAB*ODT* 10 MG TAB PO SCH (20:43)
[2019-08-30] MEDS: amLODIPine TAB* 5 MG PO SCH (20:44)
[2019-08-30] MEDS: Polyethylene Glycol 3350* 17 GM PACKET PO SCH (21:02)
[2019-08-30] MEDS: Al Hydrox/Mg Hydrox/Simet LIQ* 30 ML UDC PO SCH (21:02)
[2019-08-31] MEDS: Levothyroxine TAB* 75 MCG TAB PO SCH (04:47)
[2019-08-31 06:29] LABS: Calcium 9.6 mg/dL (8.6-10.3)
[2019-08-31 06:35] LABS: BUN/Creatinine Ratio 17.6 (8-20); EGFR African American 31.4 (>60)
[2019-08-31 06:44] LABS: Potassium 5.2 mmol/L (3.5-5.0)
[2019-08-31 07:55] LABS: Hematocrit 37 % (42-52); Hemoglobin 11.6 g/dL (14.0-18.0); Mean Corpuscular HGB Conc 32 g/dL (31-36); Mean Corpuscular Hemoglobin 31 pg (27-31); Mean Corpuscular Volume 98 fL (80-94); Mean Platelet Volume 8.8 fL (7.4-10.4); Platelet Count 378 10^3/uL (150-450); Red Blood Count 3.75 10^6 /uL (4.18-5.48); Red Cell Distribution Width 16 % (10-15); White Blood Count 12.5 10^3/uL (3.5-10.8)
[2019-08-31 08:02] LABS: Albumin 3.6 g/dL (3.2-5.2); Indirect Bilirubin 0.3 mg/dL (0.3-1.0); Total Bilirubin 0.4 mg/dL (0.2-1.0)
[2019-08-31 08:08] LABS: Albumin/Globulin Ratio 1.3 (1-3); Globulin 2.7 g/dL (2-4); Total Protein 6.3 g/dL (6.4-8.9)
--- NOTE | 2019-08-31 08:46 | CONSULT ---
Consult Consult: Reason for consult: Self Injurious behavior CC: "ahhhh" Patient was seen and evaluated today in his room with 2 caretakers from [facility] present. Director Bioinformatics reported that today he was kicking staff and trying to get out of bed and has not been eating. He refused medications this morning and has been yelling and punching himself. Mental Status Exam APPEARANCE : 64 year old male poor hygiene and grooming sitting in bed. EYE CONTACT: Poor PSYCHOMOTOR ACTIVITY: mild psychomotor agitation MOVEMENTS: repetitive movements SPEECH : loud volume MOOD : "ahh ahh" AFFECT : Mood Incongruent THOUGHT PROCESS: Poverty of content THOUGHT CONTENT: Obsessions PERCEPTION: no AH/ VH SUICIDALITY Denied suicidal ideation, intent or plan. HOMICIDALITY Denied homicidal ideation, intent or plan. Insight/judgment: Poor insight and judgment ORIENTATION: Oriented to self not to location, and time. Assessment: 64 year old male with a history of severe intellectual disability and recent self injurious behavior being treated for lithium toxicity Diagnosis: Intellectual disability, severe. Recent [place] toxicity Plan # The patient does NOT require psychiatric inpatient admission at this time. # Medical issues managed by Primary team # Safety Measures constant supervision, floor pad, cutting nails and unrestricted hand mittens to reduce risk of harm from self injury # Patient is on multiple anti-psychotics and psychotropic medications. Given the severity of his presenting behavior and history including multiple failed medication trials, other alternative options and doses surpassing the FDA recommendations will be implemented. Consideration of these risks was presented to his treatment team from [facility] and health care proxy and everyone is in agreement with the plan. Black box warning of using anti psychotics as well as multiple anti psychotics in those over 65 were described to his health care proxy Dagoberto who accepted these risks. # Daily EKG for risk of QT prolongation from antipsychotic medication. #Last long acting injection of Abilify 400mg q4 weeks was on 08/07/19 # Continue paliperidone 6mg po daily for aggression and ASD, will continue to monitor impact on renal function and QTc. #Decrease valproic acid 250mg BID for mood # Valproic acid level 34 AST/ALT within normal limits # D/C naltrexone # Continue N- acetyl cysteine 600mg BID for self injurious behavior, as well as provides renal protection # Zyprexa to 10mg po BID # Continue zoloft 100mg daily and trazodone 100mg qhs. # Patient is unable to leave AMA # Continue constant supervision # Discussed treatment plan with primary team # Use Ativan conservatively with first implementing behavior re-direction, and ativan as last resort, as it has shown to cause behavioral disinhibition and sedation. #Social work confirmed that patient can return back to [facility] once stabilized. # Start lithium 150mg BID. Treatment meeting today took place and patients family verbalized that lithium benefited the patient in the past and they would like to start it. While [place] is a sound and effective treatment in controlling aggression, the risk of kidney damage is severe and the continuation would put the patient at risk for permanent renal disease and the need for life long dialysis and possible without any guaranteed outcomes. The patients health care proxy accepted these risk and the quality of life associated with dialysis. This was discussed with the patients family and health care proxy, Dr. Quan renal specialist and the patients primary team who are all in agreement with the plan. #Targeted Goals: To reduce self injurious behavior. Progress of objective Goals - Patient no longer scratching his ears or nose. Today the patient has not been eating and has been refusing medications and has been combative towards staff. Patient continues to have difficulty with feeding himself and going to the bathroom on his own. # Psychiatry will continue to follow the patient. 08/29/19 08/29/19 08/30/19 06:42 16:52 06:03 WBC RBC Hgb Hct MCV MCH MCHC RDW Plt Count MPV Sodium 143 140 144 Potassium 6.0 H 5.2 H 5.0 Chloride 114 H 111 112 H Carbon Dioxide 25 22 28 Anion Gap 4 7 4 BUN 30 H 31 H 34 H Creatinine 2.15 H 2.32 H 2.33 H Est GFR ( Amer) 37.4 34.3 34.1 Est GFR (Non-Af Amer) 30.9 28.3 28.2 BUN/Creatinine Ratio 14.0 13.4 14.6 Glucose 125 H 157 H 114 H Calcium 10.0 9.8 9.9 Total Bilirubin Direct Bilirubin Indirect Bilirubin AST ALT Alkaline Phosphatase Total Protein Albumin Globulin Albumin/Globulin Ratio 08/31/19 08/31/19 05:03 05:03 WBC 12.5 H RBC 3.75 L Hgb 11.6 L Hct 37 L MCV 98 H MCH 31 MCHC 32 RDW 16 H Plt Count 378 MPV 8.8 Sodium 146 H Potassium 5.2 H Chloride 113 H Carbon Dioxide 21 L Anion Gap 12 H BUN 44 H Creatinine 2.50 H Est GFR ( Amer) 31.4 Est GFR (Non-Af Amer) 26.0 BUN/Creatinine Ratio 17.6 Glucose 102 H Calcium 9.6 Total Bilirubin 0.40 Direct Bilirubin 0.10 Indirect Bilirubin 0.3 AST 31 ALT 11 Alkaline Phosphatase 133 H Total Protein 6.3 L Albumin 3.6 Globulin 2.7 Albumin/Globulin Ratio 1.3
[2019-08-31] MEDS ORDERED: Sodium Polystyrene ORAL.SOL* 15 GM/60 ML BTL PO SCH (09:00)
[2019-08-31] MEDS: NS 0.9% 1000 ML** 1,000 ML IV SCH (09:59)
[2019-08-31] MEDS: Sodium Bicarbonate (ANTACID)* 650 MG TAB PO SCH ×2 (10:00→10:24)
[2019-08-31] MEDS: Naltrexone TAB* 50 MG TAB PO SCH ×2 (10:00→10:23)
[2019-08-31] MEDS: Pantoprazole TAB * 40 MG TAB PO SCH ×2 (10:00→10:23)
[2019-08-31] MEDS: Acetaminophen ADULT LIQ* 650 MG/20.3 ML UDC PO PRN (10:00)
[2019-08-31] MEDS: Senna TAB 8.6 mg* TAB PO SCH ×2 (10:00→10:23)
[2019-08-31] MEDS: LORazepam TAB(*) 0.5 MG PO PRN (10:00)
[2019-08-31] MEDS: Multivitamins ADULT w/MIN LIQ* 15 ML UDC PO SCH ×2 (10:00→10:23)
[2019-08-31] MEDS: Sertraline* 100 MG TAB PO SCH ×2 (10:00→10:23)
[2019-08-31] MEDS: Divalproex Sprinkle CAP* 125 MG PO SCH ×2 (10:11→10:21)
[2019-08-31] MEDS: Acetylcysteine CAP (RENAL)* 600 MG PO SCH ×3 (10:11→22:02)
[2019-08-31] MEDS: Paliperidone ER TAB* 6 MG TAB.ER PO SCH (10:21)
[2019-08-31] MEDS: Bacitracin OINTMENT* 0.5% 0.5 oz TUBE TOPICAL SCH ×2 (10:21→22:24)
[2019-08-31] MEDS ORDERED: Lorazepam PYXIS KEY PRN ×2 (10:55→11:35)
--- NOTE | 2019-08-31 10:55 | PN ---
Progress Note - Progress Note Date of Service: 08/31/19 Note: Inpatient FU Note: Performed by Dr. Chris Quan, [facility] Nephrology 08/31/2019 I know Alexander from renal clinic. sCr baseline 2.0. eGFR 30. CKD stage IIIb-IV Known severe schizoaffective with self-mutilating disorder, was on Li, stopped by Psych, switched to Depakote His care givers said hes significantly worse since this change and I promised to pass this information on to primary team. I dont have an issue with regard to his renal function if he goes back on Li, as long as it works & adds any benefit. Of note, I couldnt come close to him today, he was spitting, violently throwing kicks & punches. Remember, he had Hx of urine retention, likely from his meds! Currently, he has poor po intake, food and water for last 4-5 days. Has mild hyperkalemia 5.2, prescribed SPS 15 gm QID for the last few days, some of them didnt work, no diarrhea was mentioned. Of note, was on Amiloride for Li-induced polyuria, stopped by primary team as Hyperkalemia and possible dehydration were issues. sCr getting worse 1.98~08/28, 2.15~08/29, 2.33~08/30 & 3.5-~08/31 Hx of LIONEL sCr 3.57~08/19 improved with IVF Volume status no edema, likely dry Active Medications: Acetaminophen Acetylcysteine Amlodipine Bacitracin Bisacodyl Divalproex 750 BID Enoxaparin Sodium [id number] cc/Hr Levothyroxine Lorazepam Multivitamins Naltrexone Olanzapine Ondansetron Paliperidone Pantoprazole Senna Sertraline Sodium Bicarbonate 650 BID Trazodone Objective: .Vital Signs: Temp Pulse Resp BP Pulse Ox 98.1 F 101 14 173/88 100 08/31/19 07:33 08/31/19 07:33 08/31/19 07:33 08/31/19 07:33 08/31/19 03:15 .Extremities: No LE edema I couldn't perform more than that O/E Laboratory Reviewed Sodium 146 mmol/L (135-145) H 08/31/19 05:03 Potassium 5.2 mmol/L (3.5-5.0) H 08/31/19 05:03 BUN 44 mg/dL (6-24) H 08/31/19 05:03 Creatinine 2.50 mg/dL (0.67-1.17) H 08/31/19 05:03 Calcium 9.6 mg/dL (8.6-10.3) 08/31/19 05:03 AST 31 U/L (13-39) 08/31/19 05:03 ALT 11 U/L (7-52) 08/31/19 05:03 Assessment and Plan: LIONEL on CKD likely dehydration in view of poor functional status and decrease PO intake. Note, he had Hx of urine retention, it pays to check bladder scan or bladder U/ S to r/o Urine retention Electrolytes Na 146 & K 5.2, likely from dehydration, hold off of K Binders I have no problem if Psych is willing to try Li, in case current med regimen isn 't working-per care givers, who they know him for 30 years. Caregivers were informed about lab/radiology results & prognosis. All questions were answered. They were made part of the treatment plan.
[2019-08-31] MEDS: LORazepam INJ* 2 MG/ML 1 ML VIAL IV PUSH ONE ×2 (11:11→14:54)
[2019-08-31] MEDS ORDERED: LORazepam INJ* 2 MG/ML 1 ML VIAL IV PUSH ONE (11:35)
[2019-08-31] MEDS: Enoxaparin(*) 30 MG/0.3 ML SYR SUBCUT SCH (12:26)
--- NOTE | 2019-08-31 13:25 | PN ---
Subjective Date of Service: 08/31/19 Interval History: Mr. Mckoy with increased agitation today, refusing to take oral medications. Family and caretakers are at bedside. Discussion had with brothers, caretakers about management, and they request restarting Yaurel. They states that the patient discontinued this medication 2-3 times in the past, which caused changes in behavior, altered mental status. They are aware of the risk of worsening kidney function which may lead to dialysis in the near future; they feel that the risk of dialysis is worth the benefit of return of function that they are anticipating with restarting lithium (feeding self, talking, walking, toileting, etc.). Discussed that restarting medication may not lead to return in baseline functioning; despite this, they would like to pursue lithium restart today. Objective Active Medications: Acetaminophen (Tylenol Adult Liq*) 650 mg PO Q4H PRN PRN Reason: PAIN - MILD OR TEMP > 100.4 Last Admin: 08/30/19 13:22 Dose: 650 mg Acetaminophen (Tylenol Supp*) 650 mg [place] Q6H PRN PRN Reason: pain-mild to moderate Acetylcysteine (Acetylcysteine Cap (Renal)*) 600 mg PO BID [facility] Stop: 09/01/19 21:01 Last Admin: 08/31/19 10:23 Dose: Not Given Al Hydrox/Mg Hydrox/Simethicone (Maalox Plus*) 15 ml PO BID PRN PRN Reason: CONSTIPATION Amlodipine Besylate (Norvasc Tab*) 5 mg PO BEDTIME [facility] Last Admin: 08/30/19 20:44 Dose: 5 mg Bacitracin (Bacitracin Ointment*) 1 applic TOPICAL BID [facility] Last Admin: 08/31/19 10:21 Dose: Not Given Bisacodyl (Dulcolax Supp*) 10 mg NH DAILY PRN PRN Reason: CONSTIPATION Last Admin: 08/27/19 16:50 Dose: 10 mg Divalproex Sodium (Depakote Sprinkle Cap*) 250 mg PO BID [facility] Enoxaparin Sodium (Lovenox(*)) 30 mg SUBCUT Q24H [facility] Last Admin: 08/31/19 12:26 Dose: Not Given Sodium Chloride (Ns 0.9% 1000 Ml) 1,000 mls @ 100 mls/hr IV PER RATE [facility] Last Admin: 08/31/19 09:59 Dose: 100 mls/hr Levothyroxine Sodium (Synthroid Tab*) 75 mcg PO 0600 [facility] Last Admin: 08/31/19 04:47 Dose: 75 mcg [place] Carbonate ([place]urel Carbonate Cap) 150 mg PO BID [facility] Lorazepam (Ativan Tab(*)) 0.5 mg PO Q6H PRN PRN Reason: AGITATION Last Admin: 08/30/19 13:22 Dose: 0.5 mg Miscellaneous (Ativan Pyxis Perera) 1 ea N/A .ATIVAN IV PERERA PRN PRN Reason: PYXIS PERERA Multivitamins (Theragran W/Minerals Liq*) 5 ml PO DAILY [facility] Last Admin: 08/31/19 10:23 Dose: Not Given Olanzapine (Zyprexa *Odt*) 10 mg PO BID [facility] Ondansetron HCl (Zofran Inj*) 4 mg IV Q6H PRN PRN Reason: NAUSEA Last Admin: 08/30/19 11:43 Dose: 4 mg Paliperidone (Invega Er Tab*) 6 mg PO DAILY [facility] Last Admin: 08/31/19 10:21 Dose: Not Given Pantoprazole Sodium (Protonix Tab*) 40 mg PO DAILY [facility] Last Admin: 08/31/19 10:23 Dose: Not Given Polyethylene Glycol/Electrolytes (Miralax*) 17 gm PO DAILY PRN PRN Reason: CONSTIPATION Senna (Senokot 8.6 Mg Tab*) 1 tab PO DAILY [facility] Last Admin: 08/31/19 10:23 Dose: Not Given Sertraline HCl (Zoloft*) 100 mg PO DAILY [facility] Last Admin: 08/31/19 10:23 Dose: Not Given Sodium Bicarbonate (Sodium Bicarbonate (Antacid)*) 650 mg PO BID [facility] Last Admin: 08/31/19 10:24 Dose: Not Given Trazodone HCl (Desyrel Tab*) 100 mg PO BEDTIME PRN PRN Reason: ANXIETY Last Admin: 08/29/19 20:26 Dose: 100 mg Vital Signs: Temp Pulse Resp BP Pulse Ox 97.2 F 116 16 143/79 94 08/31/19 15:54 08/31/19 15:54 08/31/19 15:54 08/31/19 15:54 08/31/19 15:54 Oxygen Devices in Use Now: None Appearance: Mr. Mckoy is a middle aged white male who is laying in bed. He is resting comfortably, but becomes agitated without provocation and starts kicking, punching. He occasionally moans. Eyes: No Scleral Icterus Ears/Nose/Mouth/Throat: NL Teeth, Lips, Gums, Clear Oropharnyx, - - Dry oral mucosa Neck: NL Appearance and Movements; NL JVP, Trachea Midline Respiratory: Symmetrical Chest Expansion and Respiratory Effort, Clear to Auscultation - Anteriorly; unable to follow instructions for deep breathing Cardiovascular: NL Sounds; No Murmurs; No JVD, RRR, No Edema Abdominal: NL Sounds; No Tenderness; No Distention, No Hepatosplenomegaly Extremities: No Edema, No Clubbing, Cyanosis Neurological: - - Alert. Does not respond to orientation questions. Result Diagrams: 08/31/19 05:03 08/31/19 17:34 Assess/Plan/Problems-Billing Assessment: Mr. Mckoy is a 64 year old male with history of intellectual disability, autism, HTN, CKD that presents with [facility] aide from [facility] with report of outburst behavior, self-injury and nephrogenic DI with LIONEL on CKD. - Patient Problems (1) Acute kidney injury superimposed on CKD Comment: - Cr increasing - Etiology likely 2/2 combination of nephrogenic DI 2/2 lithium use, antihypertensives, antipsychotic medications, acute dehydration - Serum and Urine osmo, Na and creat indicating chronic renal disease with superimposed LIONEL - Renal US shows no hydro with medical renal disease - Yaurel has been discontinued, but will restart at the request of patient's HCPs - Nephrology following; thank you for recommendations - IVF started, as patients LIONEL has worsened, presumably from dehydration - Will contine to follow BMP (2) Hyperkalemia Comment: -worsening overnight -likely 2/2 renal disease, dehydration -amiloride may be contributing; this has been d/c'd -d/c kayexalate and restart IVF -will follow BMP and continue tele (3) Schizophrenia Comment: -home lithium, abilify, haldol discontinued per psychiatry rec. -continue paliperidone and olanzapine -QTc stable thus far -patient worsening today, agitated and hitting/kicking -family and caregivers request restart of lithium; they understand and accept the risk of worsening kidney function, including possible need for dialysis in the future -lithium restarted (4) Nephrogenic diabetes insipidus Comment: - Na very mildly elevated, likely related to dehydration - PO worsened today; restart IVF - Appreciate input from nephrology (5) Leukocytosis Comment: - Persistent leukocytosis for several months - Afebrile - Possibly related to otitis media considering TM perforation found 08/29 - Possibly agitation/stress contributing to slight increase in leukocytosis today - Received full course of cefazolin - Continue to trend (6) Urine retention Comment: - Not an acute issue - Had outpatient urology visit scheduled - No need for lundberg; patient cannot tolerate - Had lithium induced polyuria/nephrogenic DI and placed on amiloride with partial retention since june - Unable to accurately assess urine output, due to urinary incontinence - Bladder scan for PVR if needed (7) DVT prophylaxis Comment: -SCDs, lovenox (8) Full code status Comment: Status and Disposition: Considering patient's great improvement, he is medically stable to [facility]. However, due to logistics of his jail it appears he will not be able to return until Saturday08/31/19. Likely discharge tomorrow a.m.
[2019-08-31] MEDS: Acetaminophen SUPP* 650 MG SUPP PR PRN (17:51)
[2019-08-31 17:58] LABS: BUN/Creatinine Ratio 19.1 (8-20); Calcium 10.1 mg/dL (8.6-10.3); EGFR African American 30.6 (>60); EGFR Non-African American 25.3 (>60); Potassium 4.1 mmol/L (3.5-5.0)
[2019-08-31] MEDS ORDERED: Divalproex Sprinkle CAP* 125 MG PO SCH (21:00)
[2019-08-31] MEDS: traZODone TAB* 100 MG PO PRN (22:02)
[2019-09-01] MEDS: LORazepam INJ* 2 MG/ML 1 ML VIAL IV PUSH PRN ×3 (01:19→18:50)
[2019-09-01] MEDS: amLODIPine TAB* 5 MG PO SCH ×2 (02:58→21:11)
[2019-09-01] MEDS: Lithium Carbonate CAP 150 MG ** CAPSULE PO SCH ×3 (02:58→21:12)
[2019-09-01] MEDS: Divalproex Sprinkle CAP* 125 MG PO SCH ×3 (02:58→21:11)
[2019-09-01] MEDS: Acetylcysteine CAP (RENAL)* 600 MG PO SCH ×3 (02:58→21:12)
[2019-09-01] MEDS: Sodium Bicarbonate (ANTACID)* 650 MG TAB PO SCH ×3 (02:59→21:11)
[2019-09-01] MEDS: OLANzapine TAB*ODT* 10 MG TAB PO SCH ×3 (02:59→21:11)
[2019-09-01 06:34] LABS: ABS Basophils 0.1 10^3/ul (0-0.2); ABS Eosinophils 0.3 10^3/ul (0-0.6); ABS Lymphocytes 1.1 10^3/ul (1.0-4.8); ABS Monocytes 1.5 10^3/ul (0-0.8); ABS Neutrophils 10.5 10^3/ul (1.5-7.7); Eosinophil % 1.9 %; Hematocrit 33 % (42-52); Hemoglobin 10.6 g/dL (14.0-18.0); Lymphocyte % 7.9 %; Mean Corpuscular HGB Conc 32 g/dL (31-36); Mean Corpuscular Hemoglobin 32 pg (27-31); Mean Corpuscular Volume 98 fL (80-94); Platelet Count 394 10^3/uL (150-450); Red Blood Count 3.33 10^6 /uL (4.18-5.48); Red Cell Distribution Width 16 % (10-15); White Blood Count 13.4 10^3/uL (3.5-10.8)
[2019-09-01 06:57] LABS: BUN/Creatinine Ratio 21.6 (8-20); Calcium 9.7 mg/dL (8.6-10.3); EGFR African American 34.3 (>60); EGFR Non-African American 28.3 (>60); Potassium 4.5 mmol/L (3.5-5.0)
[2019-09-01] MEDS: NS 0.9% 1000 ML** 1,000 ML IV SCH (08:05)
--- NOTE | 2019-09-01 09:13 | PN ---
Progress Note - Progress Note Date of Service: 09/01/19 Note: Inpatient FU Note: Performed by Dr. Chris Quan, [facility] Nephrology 09/01/2019 CKD 2/2 Li sCr baseline 2. I spoke to Psych, t be switched back to Li, as the family and his caregivers understood the risk of continuing Li, including ESRD and needing HD. Today more quiet, didnt start Li yet. In view of poor po intake, I stared IVF and sCr improved sCr 1.98~08/28, 2.15~08/29, 2.33~08/30, 3.5~08/31 & 2.32 today Hx of LIONEL sCr 3.57~08/19 improved with IVF Volume status no edema Active Medications: Acetaminophen (Tylenol Adult Liq*) 650 mg PO Q4H PRN PRN Reason: PAIN - MILD OR TEMP > 100.4 Last Admin: 08/30/19 13:22 Dose: 650 mg Acetaminophen (Tylenol Supp*) 650 mg MS Q6H PRN PRN Reason: pain-mild to moderate Last Admin: 08/31/19 17:51 Dose: 650 mg Acetylcysteine (Acetylcysteine Cap (Renal)*) 600 mg PO BID [facility] Stop: 09/01/19 21:01 Last Admin: 09/01/19 02:58 Dose: Not Given Al Hydrox/Mg Hydrox/Simethicone (Maalox Plus*) 15 ml PO BID PRN PRN Reason: CONSTIPATION Amlodipine Besylate (Norvasc Tab*) 5 mg PO BEDTIME [facility] Last Admin: 09/01/19 02:58 Dose: Not Given Bacitracin (Bacitracin Ointment*) 1 applic TOPICAL BID [facility] Last Admin: 08/31/19 22:24 Dose: 1 applic Bisacodyl (Dulcolax Supp*) 10 mg MS DAILY PRN PRN Reason: CONSTIPATION Last Admin: 08/27/19 16:50 Dose: 10 mg Divalproex Sodium (Depakote Sprinkle Cap*) 250 mg PO BID [facility] Last Admin: 09/01/19 02:58 Dose: Not Given Enoxaparin Sodium (Lovenox(*)) 30 mg SUBCUT Q24H [facility] Last Admin: 08/31/19 12:26 Dose: Not Given Sodium Chloride (Ns 0.9% 1000 Ml) 1,000 mls @ 100 mls/hr IV PER RATE [facility] Last Admin: 08/31/19 09:59 Dose: 100 mls/hr Levothyroxine Sodium (Synthroid Tab*) 75 mcg PO 0600 [facility] Last Admin: 08/31/19 04:47 Dose: 75 mcg [place] Carbonate ([place] Carbonate Cap) 150 mg PO BID [facility] Last Admin: 09/01/19 02:58 Dose: Not Given Lorazepam (Ativan Inj*) 0.5 mg IV PUSH Q6H PRN PRN Reason: ANXIETY Last Admin: 09/01/19 01:19 Dose: 0.5 mg Miscellaneous (Ativan Pyxis Severino) 1 ea N/A .ATIVAN IV SEVERINO PRN PRN Reason: PYXIS SEVERINO Multivitamins (Theragran W/Minerals Liq*) 5 ml PO DAILY [facility] Last Admin: 08/31/19 10:23 Dose: Not Given Olanzapine (Zyprexa *Odt*) 10 mg PO BID [facility] Last Admin: 09/01/19 02:59 Dose: Not Given Ondansetron HCl (Zofran Inj*) 4 mg IV Q6H PRN PRN Reason: NAUSEA Last Admin: 08/30/19 11:43 Dose: 4 mg Paliperidone (Invega Er Tab*) 6 mg PO DAILY [facility] Last Admin: 08/31/19 10:21 Dose: Not Given Pantoprazole Sodium (Protonix Tab*) 40 mg PO DAILY [facility] Last Admin: 08/31/19 10:23 Dose: Not Given Polyethylene Glycol/Electrolytes (Miralax*) 17 gm PO DAILY PRN PRN Reason: CONSTIPATION Senna (Senokot 8.6 Mg Tab*) 1 tab PO DAILY [facility] Last Admin: 08/31/19 10:23 Dose: Not Given Sertraline HCl (Zoloft*) 100 mg PO DAILY [facility] Last Admin: 08/31/19 10:23 Dose: Not Given Sodium Bicarbonate (Sodium Bicarbonate (Antacid)*) 650 mg PO BID [facility] Last Admin: 09/01/19 02:59 Dose: Not Given Trazodone HCl (Desyrel Tab*) 100 mg PO BEDTIME PRN PRN Reason: ANXIETY Last Admin: 08/29/19 20:26 Dose: 100 mg Objective: .Vital Signs: Temp Pulse Resp BP Pulse Ox 98.7 F 96 16 165/83 100 09/01/19 00:20 09/01/19 00:20 09/01/19 03:00 09/01/19 00:20 09/01/19 00:20 .Heart: Regular rate and rhythm No murmur or gallop No LE Edema .Lungs: Clear to auscultation and percussion No wheezes or Crackles .Extremities: No LE edema Laboratory Reviewed and pertinents are: Assessment and Plan: Sodium 153 mmol/L (135-145) H 09/01/19 06:07 Potassium 4.5 mmol/L (3.5-5.0) 09/01/19 06:07 BUN 50 mg/dL (6-24) H 09/01/19 06:07 Creatinine 2.32 mg/dL (0.67-1.17) H 09/01/19 06:07 Calcium 9.7 mg/dL (8.6-10.3) 09/01/19 06:07 AST 31 U/L (13-39) 08/31/19 05:03 ALT 11 U/L (7-52) 08/31/19 05:03 A/P: LIONEL on CKD 2/2 dehydration from poor functional status and decrease PO intake. sCr improved Electrolytes Ok better I have no problem if Psych is willing to try Li, family aware of risks of continued Li including ESRD and HD. Family & Caregivers were informed about lab/radiology results & prognosis. All questions were answered. They were made part of the treatment plan..
[2019-09-01] MEDS: Levothyroxine TAB* 75 MCG TAB PO SCH (09:38)
[2019-09-01] MEDS: Sertraline* 100 MG TAB PO SCH (09:39)
[2019-09-01] MEDS: Pantoprazole TAB * 40 MG TAB PO SCH (09:41)
[2019-09-01] MEDS: Senna TAB 8.6 mg* TAB PO SCH (09:41)
[2019-09-01] MEDS: Multivitamins ADULT w/MIN LIQ* 15 ML UDC PO SCH (09:49)
--- NOTE | 2019-09-01 09:51 | CONSULT ---
Consult Consult: Reason for consult: Self Injurious behavior CC: "AHH" Patient was seen and evaluated today in his room with his tour production supervisor from [facility] present. Field Hockey Coach reported that today he ate minimal food and took his medications this morning. His yelling was more intense and frequent with intermittent periods of silence. Mental Status Exam APPEARANCE : 64 year old male poor hygiene and grooming sitting in bed. EYE CONTACT: Poor PSYCHOMOTOR ACTIVITY: mild psychomotor agitation MOVEMENTS: repetitive movements SPEECH : loud volume MOOD : "ahh ahh" AFFECT : Mood Incongruent THOUGHT PROCESS: Poverty of content THOUGHT CONTENT: Obsessions PERCEPTION: no AH/ VH SUICIDALITY Denied suicidal ideation, intent or plan. HOMICIDALITY Denied homicidal ideation, intent or plan. Insight/judgment: Poor insight and judgment ORIENTATION: Oriented to self not to location, and time. Assessment: 64 year old male with a history of severe intellectual disability and recent self injurious behavior being treated for lithium toxicity Diagnosis: Intellectual disability, severe. Recent [place] toxicity Plan # The patient does NOT require psychiatric inpatient admission at this time. # Medical issues managed by Primary team # Safety Measures constant supervision, floor pad, cutting nails and unrestricted hand mittens to reduce risk of harm from self injury # Patient is on multiple anti-psychotics and psychotropic medications. Given the severity of his presenting behavior and history including multiple failed medication trials, other alternative options and doses surpassing the FDA recommendations will be implemented. Consideration of these risks was presented to his treatment team from [facility] and health care proxy and everyone is in agreement with the plan. Black box warning of using anti psychotics as well as multiple anti psychotics in those over 65 were described to his health care proxy and treatment team who accepted these risks. # Daily EKG for risk of QT prolongation from antipsychotic medication. #Last long acting injection of Abilify 400mg q4 weeks was on 08/07/19 # Continue paliperidone 6mg po daily for aggression and ASD, will continue to monitor impact on renal function and QTc. #Titrate down valproic acid 250mg BID for mood # D/C naltrexone # Continue N- acetyl cysteine 600mg BID for self injurious behavior, as well as provides renal protection # Zyprexa to 10mg po BID # Continue zoloft 100mg daily and trazodone 100mg qhs. # Patient is unable to leave AMA # Continue constant supervision # Discussed recommendations with primary team # Use Ativan conservatively with first implementing behavior re-direction, and ativan as last resort, as it has shown to cause behavioral disinhibition and sedation. #Social work confirmed that patient can return back to [facility] once stabilized. # Patient being followed by Nephrology # Continue lithium 150mg BID with plan to titrate up to 300mg BID this week. # Patients family verbalized that lithium benefited the patient in the past and they would like to start it again. While [place] is a sound and effective treatment in controlling aggression, the risk of kidney damage is severe and the continuation would put the patient at risk for permanent renal disease and the need for life long dialysis and possible without any guaranteed outcomes. The patients health care proxy accepted these risk and the quality of life associated with dialysis. #Targeted Goals: To reduce self injurious behavior. Progress of objective Goals - Patient no longer scratching his ears or nose. Patient took most of his medications today. Patient continues to have difficulty with feeding himself and going to the bathroom on his own. # Psychiatry will continue to follow the patient. Sodium 153 mmol/L (135-145) H 09/01/19 06:07 Potassium 4.5 mmol/L (3.5-5.0) 09/01/19 06:07 BUN 50 mg/dL (6-24) H 09/01/19 06:07 Creatinine 2.32 mg/dL (0.67-1.17) H 09/01/19 06:07 Calcium 9.7 mg/dL (8.6-10.3) 09/01/19 06:07 AST 31 U/L (13-39) 08/31/19 05:03 ALT 11 U/L (7-52) 08/31/19 05:03
[2019-09-01] MEDS: Paliperidone ER TAB* 6 MG TAB.ER PO SCH (09:52)
[2019-09-01] MEDS: Bacitracin OINTMENT* 0.5% 0.5 oz TUBE TOPICAL SCH ×2 (10:04→21:12)
[2019-09-01] MEDS: Enoxaparin(*) 30 MG/0.3 ML SYR SUBCUT SCH (13:17)
[2019-09-01] MEDS: Al Hydrox/Mg Hydrox/Simet LIQ* 30 ML UDC PO PRN (13:17)
[2019-09-01 13:39] LABS: Urine Appearance Clear; Urine Bilirubin Negative (Negative); Urine Blood Negative (Negative); Urine Color Yellow; Urine Glucose Negative (Negative); Urine Ketones Negative (Negative); Urine Nitrite Negative (Negative); Urine Protein Negative (Negative); Urine Specific Gravity 1.009 (1.010-1.030); Urine Urobilinogen Negative (Negative)
--- NOTE | 2019-09-01 14:17 | PN ---
Subjective Date of Service: 09/01/19 Interval History: Mr. Mckoy is doing well today. He is much more alert and talkative, less combative today. He has taken his medications without difficulty. When asked about pain, he states he has pain; when asked about specific locations, he says yes to everything; he did ask for Tylenol for headache later today. Staff report that he has improved. Objective Active Medications: Acetaminophen (Tylenol Adult Liq*) 650 mg PO Q4H PRN PRN Reason: PAIN - MILD OR TEMP > 100.4 Last Admin: 08/30/19 13:22 Dose: 650 mg Acetaminophen (Tylenol Supp*) [address] Q6H PRN PRN Reason: pain-mild to moderate Last Admin: 08/31/19 17:51 Dose: 650 mg Acetylcysteine (Acetylcysteine Cap (Renal)*) 600 mg PO BID [facility] Stop: 09/01/19 21:01 Last Admin: 09/01/19 09:50 Dose: 600 mg Al Hydrox/Mg Hydrox/Simethicone (Maalox Plus*) 15 ml PO BID PRN PRN Reason: CONSTIPATION Last Admin: 09/01/19 13:17 Dose: 15 ml Alfuzosin HCl (Uroxatral (Nf)) 10 mg PO DAILY [facility] Amlodipine Besylate (Norvasc Tab*) 5 mg PO BEDTIME [facility] Last Admin: 09/01/19 02:58 Dose: Not Given Bacitracin (Bacitracin Ointment*) 1 applic TOPICAL BID [facility] Last Admin: 09/01/19 10:04 Dose: Not Given Bisacodyl (Dulcolax Supp*) [address] DAILY PRN PRN Reason: CONSTIPATION Last Admin: 08/27/19 16:50 Dose: 10 mg Divalproex Sodium (Depakote Sprinkle Cap*) 250 mg PO BID [facility] Last Admin: 09/01/19 09:44 Dose: 250 mg Enoxaparin Sodium (Lovenox(*)) 30 mg SUBCUT Q24H [facility] Last Admin: 09/01/19 13:17 Dose: 30 mg Finasteride (Proscar Tab*) 5 mg PO DAILY [facility] Sodium Chloride (Ns 0.9% 1000 Ml) 1,000 mls @ 100 mls/hr IV PER RATE [facility] Last Admin: 09/01/19 08:05 Dose: 100 mls/hr Levothyroxine Sodium (Synthroid Tab*) 75 mcg PO 0600 [facility] Last Admin: 09/01/19 09:38 Dose: Not Given Raymond Carbonate (Raymond Carbonate Cap) 150 mg PO BID [facility] Last Admin: 09/01/19 09:45 Dose: 150 mg Lorazepam (Ativan Inj*) 0.5 mg IV PUSH Q6H PRN PRN Reason: ANXIETY Last Admin: 09/01/19 11:17 Dose: 0.5 mg Miscellaneous (Ativan Pyxis Perera) 1 ea N/A .ATIVAN IV PERERA PRN PRN Reason: PYXIS PERERA Multivitamins (Theragran W/Minerals Liq*) 5 ml PO DAILY [facility] Last Admin: 09/01/19 09:49 Dose: 5 ml Olanzapine (Zyprexa *Odt*) 10 mg PO BID [facility] Last Admin: 09/01/19 09:47 Dose: 10 mg Ondansetron HCl (Zofran Inj*) 4 mg IV Q6H PRN PRN Reason: NAUSEA Last Admin: 08/30/19 11:43 Dose: 4 mg Paliperidone (Invega Er Tab*) 6 mg PO DAILY [facility] Last Admin: 09/01/19 09:52 Dose: 6 mg Pantoprazole Sodium (Protonix Tab*) 40 mg PO DAILY [facility] Last Admin: 09/01/19 09:41 Dose: 40 mg Polyethylene Glycol/Electrolytes (Miralax*) 17 gm PO DAILY PRN PRN Reason: CONSTIPATION Senna (Senokot 8.6 Mg Tab*) 1 tab PO DAILY [facility] Last Admin: 09/01/19 09:41 Dose: 1 tab Sertraline HCl (Zoloft*) 100 mg PO DAILY [facility] Last Admin: 09/01/19 09:39 Dose: 100 mg Sodium Bicarbonate (Sodium Bicarbonate (Antacid)*) 650 mg PO BID [facility] Last Admin: 09/01/19 09:42 Dose: 650 mg Trazodone HCl (Desyrel Tab*) 100 mg PO BEDTIME PRN PRN Reason: ANXIETY Last Admin: 08/29/19 20:26 Dose: 100 mg Vital Signs: Temp Pulse Resp BP Pulse Ox 97.8 F 94 16 153/77 97 09/01/19 07:15 09/01/19 07:15 09/01/19 12:10 09/01/19 07:15 09/01/19 07:15 Oxygen Devices in Use Now: None Appearance: Mr. Mckoy is a middle-aged white male who is laying in bed, in no acute distress. He appears comfortable; he is cooperative, appropriate. Eyes: No Scleral Icterus, PERRLA Ears/Nose/Mouth/Throat: NL Teeth, Lips, Gums, Clear Oropharnyx, - - Dry oral mucosa Neck: NL Appearance and Movements; NL JVP, Trachea Midline Respiratory: Symmetrical Chest Expansion and Respiratory Effort, Clear to Auscultation - Anteriorly; unable to follow instructions for deep breathing Cardiovascular: NL Sounds; No Murmurs; No JVD, RRR, No Edema Abdominal: NL Sounds; No Tenderness; No Distention Extremities: No Edema, No Clubbing, Cyanosis Result Diagrams: 09/01/19 06:07 09/01/19 06:07 Assess/Plan/Problems-Billing Assessment: Mr. Mckoy is a 64 year old male with history of intellectual disability, autism, HTN, CKD that presents with his aide from his half-way with report of outburst behavior, self-injury and nephrogenic DI with LIONEL on CKD. - Patient Problems (1) Acute kidney injury superimposed on CKD Comment: - Cr improving with rehydration - Etiology likely 2/2 lithium use, acute dehydration - Serum and Urine osmo, Na and creat indicating chronic renal disease with superimposed LIONEL - Renal US shows no hydro with medical renal disease - Raymond has been restarted 09/01 at the request of patient's HCPs - Nephrology following; thank you for recommendations - Will contine to follow BMP (2) Hyperkalemia Comment: -Resolved with IVF -likely 2/2 renal disease, dehydration -amiloride may be contributing; this has been d/c'd -will follow BMP -tele d/c (3) Urine retention Comment: - Pt with > 500 cc urine in bladder - Restart home alfuzosin, finasteride - Straight cath and bladder scan q6h and monitor for resolution with restart of rx - Will consult urology if this continues - Unable to accurately assess urine output, due to urinary incontinence - Had outpatient urology visit scheduled (4) Nephrogenic diabetes insipidus Comment: - Na elevating - Change IVF to 1/2NS at 100cc/h - Appreciate input from nephrology - Recheck in a.m. (5) Schizophrenia Comment: -home abilify, haldol discontinued per psychiatry rec. -continue paliperidone and olanzapine -QTc stable thus far -patient is cooperative, appropriate, only occasional aggitation without hitting /kicking -lithium restarted at request of family/caregivers with understanding that it may worsen kidney disease and may lead to need for HD (6) Leukocytosis Comment: - Persistent leukocytosis for several months - Afebrile; UA WNL - Possibly related to otitis media considering TM perforation found 08/29 - Possibly agitation/stress contributing to slight increase in leukocytosis today - Received full course of cefazolin - Continue to trend (7) DVT prophylaxis Comment: -SCDs, stefany (8) Full code status Comment: Status and Disposition: Considering patient's great improvement, he is medically stable to return back to his half-way. However, due to logistics of his half-way it appears he will not be able to return until Saturday08/31/19. Likely discharge tomorrow a.m.
[2019-09-01] MEDS: Acetaminophen ADULT LIQ* 650 MG/20.3 ML UDC PO PRN (14:58)
[2019-09-01] MEDS: Finasteride TAB* 5 MG PO SCH (14:58)
[2019-09-01] MEDS: CMCS: Alfuzosin ER (NF) 10 MG TAB.ER PO SCH (15:05)
[2019-09-01] MEDS: NS 0.45% 1000 ML BAG* 1,000 ML IV SCH (16:59)
[2019-09-02] MEDS: LORazepam INJ* 2 MG/ML 1 ML VIAL IV PUSH PRN ×2 (01:18→09:58)
[2019-09-02] MEDS: Acetaminophen SUPP* 650 MG SUPP PR PRN (02:27)
[2019-09-02] MEDS: Ondansetron INJ* 2 MG/ML VIAL IV PRN ×2 (02:32→09:50)
[2019-09-02] MEDS: traZODone TAB* 100 MG PO PRN (02:38)
[2019-09-02] MEDS: NS 0.45% 1000 ML BAG* 1,000 ML IV SCH (03:36)
[2019-09-02] MEDS ORDERED: Lorazepam PYXIS KEY PRN (05:13)
[2019-09-02] MEDS ORDERED: LORazepam INJ* 2 MG/ML 1 ML VIAL IV PUSH ONE (05:13)
[2019-09-02] MEDS: Levothyroxine TAB* 75 MCG TAB PO SCH (05:27)
[2019-09-02 06:52] LABS: CO2 Carbon Dioxide 15 mmol/L (22-32); Calcium 8.7 mg/dL (8.6-10.3)
[2019-09-02 06:57] LABS: BUN/Creatinine Ratio 21.6 (8-20); Blood Urea Nitrogen 46 mg/dL (6-24); EGFR African American 37.8 (>60); EGFR Non-African American 31.2 (>60); Glucose 106 mg/dL (70-100)
[2019-09-02 07:21] LABS: Anion Gap 8 mmol/L (2-11); Chloride 124 mmol/L (101-111); Sodium 147 mmol/L (135-145)
--- NOTE | 2019-09-02 08:10 | CONSULT ---
Consult Consult: Reason for consult: Self Injurious behavior CC: "Vi" Patient was seen and evaluated today in his room with his records manager from [facility] present and his older brother. Cargo Broker reported that today he ate earlier but spit up medications. The patient did not sleep well overnight and has been pulling at his IV line and spitting into a towel. Mental Status Exam APPEARANCE : 64 year old male poor hygiene and grooming sitting in bed. EYE CONTACT: Poor PSYCHOMOTOR ACTIVITY: mild psychomotor agitation MOVEMENTS: repetitive movements SPEECH : loud volume MOOD : "mmmmm" AFFECT : Mood Incongruent THOUGHT PROCESS: Poverty of content THOUGHT CONTENT: Obsessions PERCEPTION: no AH/ VH SUICIDALITY Denied suicidal ideation, intent or plan. HOMICIDALITY Denied homicidal ideation, intent or plan. Insight/judgment: Poor insight and judgment ORIENTATION: Oriented to self not to location, and time. Assessment: 64 year old male with a history of severe intellectual disability and recent self injurious behavior being treated for lithium toxicity Diagnosis: Intellectual disability, severe. Recent [place] toxicity Plan # The patient does NOT require psychiatric inpatient admission at this time. # Medical issues managed by Primary team # Safety Measures constant supervision, floor pad, cutting nails and unrestricted hand mittens to reduce risk of harm from self injury # Daily EKG for risk of QT prolongation from antipsychotic medication. #Last long acting injection of Abilify 400mg q4 weeks was on 08/07/19 # Continue paliperidone 6mg po daily for aggression and ASD, will continue to monitor impact on renal function and QTc. #Discontinue valproic acid # [place] level and valproic acid level. # Continue N- acetyl cysteine 600mg BID for self injurious behavior, as well as provides renal protection # Zyprexa to 10mg po BID # Continue zoloft 100mg daily and trazodone 100mg qhs. # Patient is unable to leave AMA # Continue constant supervision # Discussed recommendations with primary team # Use Ativan conservatively with first implementing behavior re-direction, as it has shown to cause behavioral disinhibition and sedation. # Social work confirmed that patient can return back to [facility] once stabilized. # Patient being followed by Nephrology # Increase lithium 300mg BID Cr 2.13 to avoid NSAIDs and other renal toxic agents #Targeted Goals: To reduce self injurious behavior. Progress of objective Goals - Patient no longer scratching his ears or nose. Patient spit up medications today and has been pulling on IV line. Patient continues to have difficulty with feeding himself and going to the bathroom on his own. # Psychiatry will continue to follow the patient. # Patients family verbalized that lithium benefited the patient in the past and they would like to start it again. While [place] is a sound and effective treatment in controlling aggression, the risk of kidney damage is severe and the continuation would put the patient at risk for permanent renal disease and the need for life long dialysis and possible without any guaranteed outcomes. The patients health care proxy accepted these risk and the quality of life associated with dialysis. # Patient is on multiple anti-psychotics and psychotropic medications. Given the severity of his presenting behavior and history including multiple failed medication trials, other alternative options and doses surpassing the FDA recommendations will be implemented. Consideration of these risks was presented to his treatment team from [facility] and health care proxy and everyone is in agreement with the plan. Black box warning of using anti psychotics as well as multiple anti psychotics in those over 65 were described to his health care proxy and treatment team who accepted these risks. Sodium 147 mmol/L (135-145) H 09/02/19 05:54 Potassium TNP 09/02/19 05:54 BUN 46 mg/dL (6-24) H 09/02/19 05:54 Creatinine 2.13 mg/dL (0.67-1.17) H 09/02/19 05:54 Calcium 8.7 mg/dL (8.6-10.3) 09/02/19 05:54 AST 31 U/L (13-39) 08/31/19 05:03 ALT 11 U/L (7-52) 08/31/19 05:03
[2019-09-02] MEDS: Multivitamins ADULT w/MIN LIQ* 15 ML UDC PO SCH (08:45)
[2019-09-02] MEDS: Lithium Carbonate CAP 150 MG ** CAPSULE PO SCH ×2 (08:45→23:08)
[2019-09-02] MEDS: Finasteride TAB* 5 MG PO SCH (08:46)
[2019-09-02] MEDS: Sodium Bicarbonate (ANTACID)* 650 MG TAB PO SCH ×2 (08:46→23:07)
[2019-09-02] MEDS: Sertraline* 100 MG TAB PO SCH (08:46)
[2019-09-02] MEDS: OLANzapine TAB*ODT* 10 MG TAB PO SCH ×2 (08:46→23:07)
[2019-09-02] MEDS: Pantoprazole TAB * 40 MG TAB PO SCH (08:46)
[2019-09-02] MEDS: Senna TAB 8.6 mg* TAB PO SCH (08:46)
[2019-09-02] MEDS: CMCS: Alfuzosin ER (NF) 10 MG TAB.ER PO SCH (08:47)
[2019-09-02] MEDS: Paliperidone ER TAB* 6 MG TAB.ER PO SCH (08:47)
[2019-09-02] MEDS: Bacitracin OINTMENT* 0.5% 0.5 oz TUBE TOPICAL SCH ×3 (08:47→23:15)
[2019-09-02] MEDS: Divalproex Sprinkle CAP* 125 MG PO SCH (08:47)
--- NOTE | 2019-09-02 09:10 | PN ---
Progress Note - Progress Note Date of Service: 09/02/19 Note: Inpatient Nephrology FU Note: Performed by Dr. Chris Quan, [facility] Nephrology 09/01/2019 CKD 2/2 Li sCr baseline 2.0 Back on Li by Psych, Ok with me! Family and his caregivers understand the risk of continuing Li, including ESRD and needing HD for life. Had Hypernatremia, 2/2 to dehydration and free water deficit, possible element of NDI, started on 0.45% saline last night 100 cc/Hr, and sCr still improving as well as Na is coming down. sCr 1.98~08/28, 2.15~08/29, 2.33~08/30, 3.5~08/31, 2.32~09/01 & 2.13~09/02 Of note, Hx of LIONEL sCr 3.57~08/19 improved with IVF BUN coming down 50 to 46 Na 153 down to 147 Active Medications: Acetaminophen Al Hydrox/Mg Hydrox/Simethicone (Maalox Plus*) Alfuzosin Amlodipine Bacitracin Bisacodyl Divalproex Enoxaparin Finasteride 0.45% 100 mls/hr Levothyroxine [place] 150 BID Lorazepam Multivitamins Olanzapine Ondansetron Paliperidone Pantoprazole Polyethylene Glycol Senna Sertraline Sodium Bicarbonate 650 BID Trazodone .Vital Signs: Temp Pulse Resp BP Pulse Ox 97.8 F 81 16 162/77 100 09/02/19 08:15 09/02/19 08:15 09/02/19 08:15 09/02/19 08:15 09/02/19 08:15 .Heart: Regular rate and rhythm No murmur or gallop No LE Edema .Lungs: Clear to auscultation and percussion No wheezes or Crackles .Extremities: No amputations No LE edema Laboratory Reviewed Sodium 147 mmol/L (135-145) H 09/02/19 05:54 Potassium TNP 09/02/19 05:54 BUN 46 mg/dL (6-24) H 09/02/19 05:54 Creatinine 2.13 mg/dL (0.67-1.17) H 09/02/19 05:54 Calcium 8.7 mg/dL (8.6-10.3) 09/02/19 05:54 AST 31 U/L (13-39) 08/31/19 05:03 ALT 11 U/L (7-52) 08/31/19 05:03 A/P: LIONEL on CKD 2/2 dehydration. sCr improved, almost back to baseline Electrolytes Ok Hypernatremia 2/2 to free water deficit, improving on 0.45% saline Family & Caregivers were informed about lab/radiology results & prognosis. All questions were answered. They were made part of the treatment plan.
[2019-09-02] MEDS: Enoxaparin(*) 30 MG/0.3 ML SYR SUBCUT SCH (11:44)
[2019-09-02] MEDS: Bisacodyl SUPP* 10 MG SUPP PR PRN (11:45)
--- NOTE | 2019-09-02 12:08 | PN ---
Subjective Date of Service: 09/02/19 Interval History: Mr. Mckoy appears to be doing well today. He is intermittently fidgeting, but appears to be in no acute distress. He answers "yes" to all questions asked , therefore ROS was not revealing. Bedside staff has no concerns, other than dry skin. Objective Active Medications: Acetaminophen (Tylenol Adult Liq*) 650 mg PO Q4H PRN PRN Reason: PAIN - MILD OR TEMP > 100.4 Last Admin: 09/01/19 14:58 Dose: 650 mg Acetaminophen (Tylenol Supp*) 650 mg [place] Q6H PRN PRN Reason: pain-mild to moderate Last Admin: 09/02/19 02:27 Dose: 650 mg Al Hydrox/Mg Hydrox/Simethicone (Maalox Plus*) 15 ml PO BID PRN PRN Reason: CONSTIPATION Last Admin: 09/01/19 13:17 Dose: 15 ml Alfuzosin HCl (Uroxatral (Nf)) 10 mg PO DAILY [facility] Last Admin: 09/02/19 08:47 Dose: 10 mg Amlodipine Besylate (Norvasc Tab*) 5 mg PO BEDTIME [facility] Last Admin: 09/01/19 21:11 Dose: 5 mg Bacitracin (Bacitracin Ointment*) 1 applic TOPICAL BID [facility] Last Admin: 09/02/19 08:47 Dose: 1 applic Bisacodyl (Dulcolax Supp*) 10 mg [place] DAILY PRN PRN Reason: CONSTIPATION Last Admin: 09/02/19 11:45 Dose: 10 mg Enoxaparin Sodium (Lovenox(*)) 30 mg SUBCUT Q24H [facility] Last Admin: 09/02/19 11:44 Dose: 30 mg Finasteride (Proscar Tab*) 5 mg PO DAILY [facility] Last Admin: 09/02/19 08:46 Dose: 5 mg Levothyroxine Sodium (Synthroid Tab*) 75 mcg PO 0600 [facility] Last Admin: 09/02/19 05:27 Dose: 75 mcg [place]ened[place] Carbonate ([place] Carbonate Cap) 300 mg PO BID [facility] Lorazepam (Ativan Inj*) 0.5 mg IV PUSH Q6H PRN PRN Reason: ANXIETY Last Admin: 09/02/19 09:58 Dose: 0.5 mg Miscellaneous (Ativan Pyxis Perera) 1 ea N/A .ATIVAN IV PERERA PRN PRN Reason: PYXIS PERERA Multivitamins (Theragran W/Minerals Liq*) 5 ml PO DAILY [facility] Last Admin: 09/02/19 08:45 Dose: 5 ml Olanzapine (Zyprexa *Odt*) 10 mg PO BID [facility] Last Admin: 09/02/19 08:46 Dose: 10 mg Ondansetron HCl (Zofran Inj*) 4 mg IV Q6H PRN PRN Reason: NAUSEA Last Admin: 09/02/19 09:50 Dose: 4 mg Paliperidone (Invega Er Tab*) 6 mg PO DAILY [facility] Last Admin: 09/02/19 08:47 Dose: 6 mg Pantoprazole Sodium (Protonix Tab*) 40 mg PO DAILY [facility] Last Admin: 09/02/19 08:46 Dose: 40 mg Polyethylene Glycol/Electrolytes (Miralax*) 17 gm PO DAILY PRN PRN Reason: CONSTIPATION Senna (Senokot 8.6 Mg Tab*) 1 tab PO DAILY [facility] Last Admin: 09/02/19 08:46 Dose: 1 tab Sertraline HCl (Zoloft*) 100 mg PO DAILY [facility] Last Admin: 09/02/19 08:46 Dose: 100 mg Sodium Bicarbonate (Sodium Bicarbonate (Antacid)*) 650 mg PO BID [facility] Last Admin: 09/02/19 08:46 Dose: 650 mg Trazodone HCl (Desyrel Tab*) 100 mg PO BEDTIME PRN PRN Reason: ANXIETY Last Admin: 09/02/19 02:38 Dose: 100 mg Vital Signs: Temp Pulse Resp BP Pulse Ox 96.3 F 83 20 141/63 100 09/02/19 10:58 09/02/19 10:58 09/02/19 11:57 09/02/19 10:58 09/02/19 10:58 Oxygen Devices in Use Now: None Appearance: Mr. Mckoy is a middle-aged white male who is sitting up in bed. He is fidgeting, but in no acute distress; does not appear uncomfortable. Ears/Nose/Mouth/Throat: NL Teeth, Lips, Gums, Mucous Membranes Moist Neck: NL Appearance and Movements; NL JVP, Trachea Midline Respiratory: Symmetrical Chest Expansion and Respiratory Effort, Clear to Auscultation - Anteriorly; unable to follow instructions for deep breathing; no noted wheeze, rhonchi, rales Cardiovascular: NL Sounds; No Murmurs; No JVD, RRR, No Edema Abdominal: NL Sounds; No Tenderness; No Distention, No Hepatosplenomegaly Extremities: No Edema, No Clubbing, Cyanosis Skin: - - L medial arm with area of ecchymosis Neurological: - - Alert; does not answer orientation questions Result Diagrams: 09/01/19 06:07 09/02/19 12:46 Assess/Plan/Problems-Billing Assessment: Mr. Mckoy is a 64 year old male with history of intellectual disability, autism, HTN, CKD that presents with his aide from his correction with report of outburst behavior, self-injury and nephrogenic DI with LIONEL on CKD. - Patient Problems (1) Acute kidney injury superimposed on CKD Comment: - Cr improving with rehydration, now back to baseline - Etiology likely acute dehydration leading to LIONEL; lithium use likely the cause of CKD and may further exacerbate this - Serum and Urine osmo, Na and creat indicating chronic renal disease with superimposed LIONEL - Renal US shows no hydro with medical renal disease - Vened[place] has been restarted 09/01 at the request of patient's HCPs - Nephrology following; thank you for recommendations - Will contine to follow BMP (2) Urine retention Comment: - Pt with > 500 cc urine in bladder 09/01; bladder scans with instructions for staright cath - Restarted home alfuzosin, finasteride with good results- no residual noted on bladder scans - Unable to accurately assess urine output, due to urinary incontinence - Change bladder scan to q12h, call with results > 300cc - SW to schedule outpatient urology appointment prior to discharge (3) Nephrogenic diabetes insipidus Comment: - Hyponatremia resolving, but still elevated - Change IVF to 1/2NS at 100cc/h - d/c IVF, due to patient repeatedly pulling out IV; please keep water available to patient at bedside with staff - Appreciate input from nephrology - Recheck in a.m. (4) Schizophrenia Comment: -home abilify, haldol discontinued per psychiatry rec. -continue paliperidone and olanzapine -QTc stable thus far -patient is cooperative, appropriate, but is fidgeting -lithium restarted at request of family/caregivers with understanding that it may worsen kidney disease and may ultimately lead to need for HD (5) Leukocytosis Comment: - Persistent leukocytosis for several months - Afebrile; UA WNL - Possibly related to otitis media considering TM perforation found 08/29 - Possibly agitation/stress contributing to slight increase in leukocytosis in last couple days - Received full course of cefazolin - Continue to trend (6) DVT prophylaxis Comment: -lovenox (7) Full code status Comment: Status and Disposition: Considering patient's great improvement, he is medically stable to return back to his correction. However, due to logistics of his correction it appears he will not be able to return until Saturday08/31/19. Likely discharge tomorrow a.m.
[2019-09-02] MEDS: PTO:IPRATROPIUM BR (NF)0.06% NASAL 1 SPRAY BTL BOTH NARES SCH ×2 (16:46→23:39)
[2019-09-02] MEDS: amLODIPine TAB* 5 MG PO SCH (23:07)
[2019-09-02] MEDS: Acetylcysteine CAP (RENAL)* 600 MG PO SCH (23:08)
[2019-09-03] MEDS ORDERED: Labetalol IV* 5 MG/ML 20 ML VIAL IV ONE (05:30)
[2019-09-03 05:48] LABS: BUN/Creatinine Ratio 18.5 (8-20); Calcium 9.7 mg/dL (8.6-10.3); EGFR African American 39.5 (>60); EGFR Non-African American 32.7 (>60); Potassium 4.6 mmol/L (3.5-5.0)
[2019-09-03] MEDS: Levothyroxine TAB* 75 MCG TAB PO SCH (06:30)
[2019-09-03] MEDS: Finasteride TAB* 5 MG PO SCH (08:17)
[2019-09-03] MEDS: Sertraline* 100 MG TAB PO SCH (08:17)
[2019-09-03] MEDS: Pantoprazole TAB * 40 MG TAB PO SCH (08:17)
[2019-09-03] MEDS: Senna TAB 8.6 mg* TAB PO SCH (08:17)
[2019-09-03] MEDS: Sodium Bicarbonate (ANTACID)* 650 MG TAB PO SCH ×2 (08:17→22:24)
[2019-09-03] MEDS: Acetylcysteine CAP (RENAL)* 600 MG PO SCH ×2 (08:18→22:23)
[2019-09-03] MEDS: Multivitamins ADULT w/MIN LIQ* 15 ML UDC PO SCH (08:19)
[2019-09-03] MEDS: Paliperidone ER TAB* 6 MG TAB.ER PO SCH (08:19)
[2019-09-03] MEDS: CMCS: Alfuzosin ER (NF) 10 MG TAB.ER PO SCH (08:19)
[2019-09-03] MEDS: Lithium Carbonate CAP 150 MG ** CAPSULE PO SCH ×2 (08:19→22:23)
[2019-09-03] MEDS: OLANzapine TAB*ODT* 10 MG TAB PO SCH (08:20)
[2019-09-03] MEDS: Bacitracin OINTMENT* 0.5% 0.5 oz TUBE TOPICAL SCH ×2 (08:21→22:24)
[2019-09-03] MEDS: Fluticasone NASAL SPRAY 50MCG* 16 gm SPRAY BTL BOTH NARES SCH (08:33)
[2019-09-03] MEDS: PTO:IPRATROPIUM BR (NF)0.06% NASAL 1 SPRAY BTL BOTH NARES SCH ×4 (08:34→22:24)
[2019-09-03 09:09] LABS: Lithium 0.36 mmol/L (0.6-1.2)
[2019-09-03] MEDS: LORazepam INJ* 2 MG/ML 1 ML VIAL IV PUSH PRN ×3 (10:00→23:37)
[2019-09-03] MEDS: D5W 1000 ML BAG* 1,000 ML IV SCH ×2 (10:00→20:26)
[2019-09-03] MEDS: Enoxaparin(*) 30 MG/0.3 ML SYR SUBCUT SCH (11:26)
--- NOTE | 2019-09-03 12:32 | CONSULT ---
Consult Consult: Reason for consult: Self Injurious behavior CC: "Hi doctor " Patient was seen and evaluated today in his room with 2 caretakers from [facility] present. Instructional Services Specialist reported that today he took his medications and refused to eat. He has been screaming and yelling and at times they are words. Patient has been pulling at his IV line and spitting into a towel. Mental Status Exam APPEARANCE : 64 year old male poor hygiene and grooming sitting in bed. EYE CONTACT: Poor PSYCHOMOTOR ACTIVITY: mild psychomotor agitation MOVEMENTS: repetitive movements SPEECH : loud volume MOOD : "okay" AFFECT : Mood Incongruent THOUGHT PROCESS: Poverty of content THOUGHT CONTENT: Obsessions PERCEPTION: no AH/ VH SUICIDALITY Denied suicidal ideation, intent or plan. HOMICIDALITY Denied homicidal ideation, intent or plan. Insight/judgment: Poor insight and judgment ORIENTATION: Oriented to self not to location, and time. Assessment: 64 year old male with a history of severe intellectual disability and recent self injurious behavior being treated for lithium toxicity Diagnosis: Intellectual disability, severe. Recent [place] toxicity Plan # The patient does NOT require psychiatric inpatient admission at this time. # Medical issues managed by Primary team # Safety Measures constant supervision, floor pad, cutting nails and unrestricted hand mittens to reduce risk of harm from self injury # Daily EKG for risk of QT prolongation from antipsychotic medication. #Last long acting injection of Abilify 400mg q4 weeks was on 08/07/19 # Continue paliperidone 6mg po daily for aggression and ASD, will continue to monitor impact on renal function and QTc. #Discontinue valproic acid # [place] level 0.36 and valproic acid level <13 # Continue N- acetyl cysteine 600mg BID for self injurious behavior, as well as provides renal protection # Increase Zyprexa to 15mg po BID # Continue zoloft 100mg daily and trazodone 100mg qhs. # Patient is unable to leave AMA # Continue constant supervision # Discussed recommendations with primary team # Use Ativan conservatively with first implementing behavior re-direction, as it has shown to cause behavioral disinhibition and sedation. # Social work confirmed that patient can return back to [facility] once stabilized. # Patient being followed by Nephrology # Increase lithium 300mg BID Cr 2.05 to avoid NSAIDs and other renal toxic agents and encourage fluid intake #Targeted Goals: To reduce self injurious behavior. Progress of objective Goals - Patient no longer scratching his ears or nose. Patient has been pulling on IV line and yelling most of the morning. Patient verbalized complete sentence today which is a improvement. Patient continues to have difficulty with ADLs. # Psychiatry will continue to follow the patient. # Patients family verbalized that lithium benefited the patient in the past and they would like to start it again. While [place] is a sound and effective treatment in controlling aggression, the risk of kidney damage is severe and the continuation would put the patient at risk for permanent renal disease and the need for life long dialysis and possible without any guaranteed outcomes. The patients health care proxy accepted these risk and the quality of life associated with dialysis. # Patient is on multiple anti-psychotics and psychotropic medications. Given the severity of his presenting behavior and history including multiple failed medication trials, other alternative options and doses surpassing the FDA recommendations will be implemented. Consideration of these risks was presented to his treatment team from [facility] and health care proxy and everyone is in agreement with the plan. Black box warning of using anti psychotics as well as multiple anti psychotics in those over 65 were described to his health care proxy and treatment team who accepted these risks. Sodium 151 mmol/L (135-145) H 09/03/19 05:09 Potassium 4.6 mmol/L (3.5-5.0) 09/03/19 05:09 BUN 38 mg/dL (6-24) H 09/03/19 05:09 Creatinine 2.05 mg/dL (0.67-1.17) H 09/03/19 05:09 Calcium 9.7 mg/dL (8.6-10.3) 09/03/19 05:09 AST 31 U/L (13-39) 08/31/19 05:03 ALT 11 U/L (7-52) 08/31/19 05:03
--- NOTE | 2019-09-03 16:32 | PN ---
Subjective Date of Service: 09/03/19 Interval History: Nursing alerts me to patient having new lung crackles. Leading up to this, he was holding water in his mouth and not swallowing it for an extended period of time. When evaluating patient, he overall does not answer questions appropriately and is overall not participatory in exam. Continues to state he wants to see Kassidy. Objective Active Medications: Acetaminophen (Tylenol Adult Liq*) 650 mg PO Q4H PRN PRN Reason: PAIN - MILD OR TEMP > 100.4 Last Admin: 09/01/19 14:58 Dose: 650 mg Acetaminophen (Tylenol Supp*) 650 mg PA Q6H PRN PRN Reason: pain-mild to moderate Last Admin: 09/02/19 02:27 Dose: 650 mg Acetylcysteine (Acetylcysteine Cap (Renal)*) 600 mg PO BID [facility] Stop: 09/04/19 09:01 Last Admin: 09/03/19 08:18 Dose: 600 mg Al Hydrox/Mg Hydrox/Simethicone (Maalox Plus*) 15 ml PO BID PRN PRN Reason: CONSTIPATION Last Admin: 09/01/19 13:17 Dose: 15 ml Alfuzosin HCl (Uroxatral (Nf)) 10 mg PO DAILY [facility] Last Admin: 09/03/19 08:19 Dose: 10 mg Amlodipine Besylate (Norvasc Tab*) 5 mg PO BEDTIME [facility] Last Admin: 09/02/19 23:07 Dose: 5 mg Bacitracin (Bacitracin Ointment*) 1 applic TOPICAL BID [facility] Last Admin: 09/03/19 08:21 Dose: 1 applic Bisacodyl (Dulcolax Supp*) 10 mg PA DAILY PRN PRN Reason: CONSTIPATION Last Admin: 09/02/19 11:45 Dose: 10 mg Enoxaparin Sodium (Lovenox(*)) 30 mg SUBCUT Q24H [facility] Last Admin: 09/03/19 11:26 Dose: 30 mg Finasteride (Proscar Tab*) 5 mg PO DAILY [facility] Last Admin: 09/03/19 08:17 Dose: 5 mg Fluticasone Propionate (Flonase Nasal [place] 50mcg*) 2 spray BOTH NARES DAILY [facility] Last Admin: 09/03/19 08:33 Dose: 2 spray Dextrose (D5w 1000 Ml Bag*) 1,000 mls @ 100 mls/hr IV PER RATE [facility] Stop: 09/03/19 21:00 Last Admin: 09/03/19 10:00 Dose: 100 mls/hr Ipratropium [place] (Ipratropium [place]) 2 spray BOTH NARES QID [facility] Last Admin: 09/03/19 14:45 Dose: 2 spray Levothyroxine Sodium (Synthroid Tab*) 75 mcg PO 0600 [facility] Last Admin: 09/03/19 06:30 Dose: 75 mcg [place] Carbonate ([place] Carbonate Cap) 300 mg PO BID [facility] Last Admin: 09/03/19 08:19 Dose: 300 mg Lorazepam (Ativan Inj*) 0.5 mg IV PUSH Q6H PRN PRN Reason: ANXIETY Last Admin: 09/03/19 10:00 Dose: 0.5 mg Miscellaneous (Ativan Pyxis Severino) 1 ea N/A .ATIVAN IV SEVERINO PRN PRN Reason: PYXIS SEVERINO Multivitamins (Theragran W/Minerals Liq*) 5 ml PO DAILY [facility] Last Admin: 09/03/19 08:19 Dose: 5 ml Olanzapine (Zyprexa * Tab Odt) 15 mg PO BID [facility] Ondansetron HCl (Zofran Inj*) 4 mg IV Q6H PRN PRN Reason: NAUSEA Last Admin: 09/02/19 09:50 Dose: 4 mg Paliperidone (Invega Er Tab*) 6 mg PO DAILY [facility] Last Admin: 09/03/19 08:19 Dose: 6 mg Pantoprazole Sodium (Protonix Tab*) 40 mg PO DAILY [facility] Last Admin: 09/03/19 08:17 Dose: 40 mg Polyethylene Glycol/Electrolytes (Miralax*) 17 gm PO DAILY PRN PRN Reason: CONSTIPATION Senna (Senokot 8.6 Mg Tab*) 1 tab PO DAILY [facility] Last Admin: 09/03/19 08:17 Dose: 1 tab Sertraline HCl (Zoloft*) 100 mg PO DAILY [facility] Last Admin: 09/03/19 08:17 Dose: 100 mg Sodium Bicarbonate (Sodium Bicarbonate (Antacid)*) 650 mg PO BID [facility] Last Admin: 09/03/19 08:17 Dose: 650 mg Trazodone HCl (Desyrel Tab*) 100 mg PO BEDTIME PRN PRN Reason: ANXIETY Last Admin: 09/02/19 02:38 Dose: 100 mg Vital Signs - 8 hr 09/03/19 09/03/19 09/03/19 10:00 11:15 11:33 Temperature 99.7 F Pulse Rate 90 Respiratory 20 20 20 Rate Blood Pressure 154/70 (mmHg) O2 Sat by Pulse 99 Oximetry 09/03/19 14:20 Temperature 98.2 F Pulse Rate 92 Respiratory Rate Blood Pressure 149/74 (mmHg) O2 Sat by Pulse 93 Oximetry Oxygen Devices in Use Now: None Appearance: Thin, white male, laying upright in bed, appearing in NAD Eyes: No Scleral Icterus, - - PERRL Ears/Nose/Mouth/Throat: Mucous Membranes Moist Neck: - - neck supple Respiratory: Symmetrical Chest Expansion and Respiratory Effort, - - lungs with scattered rhonchi Cardiovascular: NL Sounds; No Murmurs; No JVD, RRR Abdominal: - - abd soft, nontender, nondistended Extremities: No Edema, No Clubbing, Cyanosis Skin: No Rash or Ulcers Neurological: Alert and Oriented x 3, NL Muscle Strength and Tone Result Diagrams: 09/01/19 06:07 09/03/19 05:09 Assess/Plan/Problems-Billing Assessment: Mr. Mckoy is a 64 year old male with history of intellectual disability, autism, HTN, CKD that presents with [facility] aide [facility] with report of outburst behavior, self-injury and nephrogenic DI with LIONEL on CKD. - Patient Problems (1) Hypernatremia Current Visit: Yes Status: Acute Code(s): E87.0 - HYPEROSMOLALITY AND HYPERNATREMIA SNOMED Code(s): 410179564 Comment: -likely secondary to poor oral intake and nephrogenic DI -changing diet to low sodium -ordering 1000cc D5W -will need to encourage po fluid intake frequently (2) Abnormal lung sounds Current Visit: Yes Status: Acute Code(s): R09.89 - OTH SYMPTOMS AND SIGNS INVOLVING THE CIRC AND RESP SYSTEMS SNOMED Code(s): 84089091569543 Comment: -on exam, more consistent with rhonchi than crackles which I believe is due to upper airway fluid -CXR negative -low concern for aspiration -O2 saturations wnl (3) Acute kidney injury superimposed on CKD Current Visit: Yes Status: Acute Code(s): N17.9 - ACUTE KIDNEY FAILURE, UNSPECIFIED; N18.9 - CHRONIC KIDNEY DISEASE, UNSPECIFIED SNOMED Code(s): 06863028 Comment: - Cr improved today - Etiology likely acute dehydration leading to LIONEL; lithium use likely the cause of CKD and may further exacerbate this - Serum and Urine osmo, Na and creat indicating chronic renal disease with superimposed LIONEL - Renal US shows no hydro with medical renal disease - [place] has been restarted 09/01 at the request of patient's HCPs - Nephrology following; thank you for recommendations - Will contine to follow BMP (4) Nephrogenic diabetes insipidus Current Visit: Yes Status: Acute Code(s): N25.1 - NEPHROGENIC DIABETES INSIPIDUS SNOMED Code(s): 877120789 Comment: - Hypernatremia worse today - IVF as above - Appreciate input from nephrology - Amiloride previously discontinued due to hyperkalemia, may need to reconsider restarting if patient does not maintain po intake (5) Schizophrenia Current Visit: Yes Status: Acute Code(s): F20.9 - SCHIZOPHRENIA, UNSPECIFIED SNOMED Code(s): 19037811 Comment: -home abilify, haldol discontinued per psychiatry rec. -continue paliperidone and olanzapine -QTc stable thus far -patient is cooperative, appropriate, but is fidgeting -lithium restarted at request of family/caregivers with understanding that it may worsen kidney disease and may ultimately lead to need for HD (6) Urine retention Current Visit: No Status: Acute Code(s): R33.9 - RETENTION OF URINE, UNSPECIFIED SNOMED Code(s): 983087936 Comment: - Pt with > 500 cc urine in bladder 09/01; bladder scans with instructions for staright cath - Restarted home alfuzosin, finasteride with good results- no residual noted on bladder scans - Unable to accurately assess urine output due to urinary incontinence - Change bladder scan to q12h, call with results > 300cc - SW to schedule outpatient urology appointment prior to discharge (7) Leukocytosis Current Visit: No Status: Acute Code(s): D72.829 - ELEVATED WHITE BLOOD CELL COUNT, UNSPECIFIED SNOMED Code(s): 655412839 Comment: - Persistent leukocytosis for several months - Afebrile; UA WNL - Possibly related to otitis media considering TM perforation found 08/29 - Possibly agitation/stress contributing to slight increase in leukocytosis in last couple days - Received full course of cefazolin - Continue to trend (8) DVT prophylaxis Current Visit: No Status: Acute Code(s): Z29.9 - ENCOUNTER FOR PROPHYLACTIC MEASURES, UNSPECIFIED SNOMED Code(s): 610054419 Comment: -lovenox (9) Full code status Current Visit: No Status: Acute Code(s): Z78.9 - OTHER SPECIFIED HEALTH STATUS SNOMED Code(s): 786983516 Comment: Status and Disposition: pending hypernatremia improvement
[2019-09-03] MEDS: Acetaminophen SUPP* 650 MG SUPP PR PRN (20:36)
[2019-09-03] MEDS: OLANzapine TAB*ODT* 5 MG PO SCH (22:23)
[2019-09-03] MEDS: amLODIPine TAB* 5 MG PO SCH (22:23)
[2019-09-03] MEDS: traZODone TAB* 100 MG PO PRN (22:23)
[2019-09-04 06:09] LABS: Hematocrit 29 % (42-52); Hemoglobin 9.2 g/dL (14.0-18.0); Mean Corpuscular HGB Conc 32 g/dL (31-36); Mean Corpuscular Hemoglobin 31 pg (27-31); Mean Corpuscular Volume 95 fL (80-94); Mean Platelet Volume 7.6 fL (7.4-10.4); Platelet Count 360 10^3/uL (150-450); Red Blood Count 3.01 10^6 /uL (4.18-5.48); Red Cell Distribution Width 14 % (10-15); White Blood Count 30.7 10^3/uL (3.5-10.8)
[2019-09-04 06:27] LABS: BUN/Creatinine Ratio 17.4 (8-20); Calcium 9.4 mg/dL (8.6-10.3); EGFR African American 35.7 (>60); EGFR Non-African American 29.5 (>60); Potassium 4.3 mmol/L (3.5-5.0)
[2019-09-04] MEDS: Levothyroxine TAB* 75 MCG TAB PO SCH (06:37)
[2019-09-04 07:29] LABS: ABS Basophils 0.1 10^3/ul (0-0.2); ABS Eosinophils 0.2 10^3/ul (0-0.6); ABS Lymphocytes 1.2 10^3/ul (1.0-4.8); ABS Neutrophils 27.2 10^3/ul (1.5-7.7); Eosinophil % 0.8 %; Lymphocyte % 4.1 %
[2019-09-04] MEDS: Finasteride TAB* 5 MG PO SCH ×2 (10:20→14:26)
[2019-09-04] MEDS: OLANzapine TAB*ODT* 5 MG PO SCH ×2 (10:21→14:24)
[2019-09-04] MEDS: Senna TAB 8.6 mg* TAB PO SCH ×2 (10:30→14:27)
[2019-09-04] MEDS: Sodium Bicarbonate (ANTACID)* 650 MG TAB PO SCH ×3 (10:30→22:11)
[2019-09-04] MEDS: Sertraline* 100 MG TAB PO SCH ×2 (10:31→14:27)
--- NOTE | 2019-09-04 10:43 | CONSULT ---
Consult Consult: Reason for consult: Self Injurious behavior CC: "Where is Kassidy ? " Patient was seen and evaluated today in his room with 2 caretakers from [facility] present. Registered Route Associate reported that today he spit up some of his medications earlier. He slept overnight. He was combative with staff this morning and continues to scream and yell. Patient was more verbal today. Mental Status Exam APPEARANCE : 64 year old male poor hygiene and grooming sitting in bed. EYE CONTACT: Poor PSYCHOMOTOR ACTIVITY: mild psychomotor agitation MOVEMENTS: repetitive movements SPEECH : loud volume MOOD : "Hi" AFFECT : Mood Incongruent THOUGHT PROCESS: Poverty of content THOUGHT CONTENT: Obsessions PERCEPTION: no AH/ VH SUICIDALITY Denied suicidal ideation, intent or plan. HOMICIDALITY Denied homicidal ideation, intent or plan. Insight/judgment: Poor insight and judgment ORIENTATION: Oriented to self not to location, and time. Assessment: 64 year old male with a history of severe intellectual disability and recent self injurious behavior being treated for lithium toxicity Diagnosis: Intellectual disability, severe. Recent Antelope toxicity Plan # The patient does NOT require psychiatric inpatient admission at this time. # Medical issues managed by Primary team # Safety Measures constant supervision, floor pad, cutting nails and unrestricted hand mittens to reduce risk of harm from self injury # Daily EKG for risk of QT prolongation from antipsychotic medication. #Last long acting injection of Abilify 400mg q4 weeks was on 08/07/19 # Continue paliperidone 6mg po daily for aggression and ASD, will continue to monitor impact on renal function and QTc. #Discontinued valproic acid # Antelope level 0.36 and valproic acid level <13 # Continue N- acetyl cysteine 600mg BID for self injurious behavior, as well as provides renal protection # Continue Zyprexa to 15mg po BID # Continue zoloft 100mg daily and trazodone 100mg qhs. # Patient is unable to leave AMA # Continue constant supervision # Discussed recommendations with primary team # Use Ativan conservatively with first implementing behavior re-direction, as it has shown to cause behavioral disinhibition and sedation. # Social work confirmed that patient can return back to [facility] once stabilized. # Patient being followed by Nephrology # Continue lithium 300mg BID # Avoid NSAIDs and other renal toxic agents and encourage fluid intake #Targeted Goals: To reduce self injurious behavior. Progress of objective Goals - Improvement of articulating words, continues to yell. Patient no longer scratching his ears or nose. Patient combative with staff and continues to have difficulty with ADLs. # Psychiatry will continue to follow the patient. # Patients family verbalized that lithium benefited the patient in the past and they would like to start it again. While Antelope is a sound and effective treatment in controlling aggression, the risk of kidney damage is severe and the continuation would put the patient at risk for permanent renal disease and the need for life long dialysis and possible without any guaranteed outcomes. The patients health care proxy accepted these risk and the quality of life associated with dialysis. # Patient is on multiple anti-psychotics and psychotropic medications. Given the severity of his presenting behavior and history including multiple failed medication trials, other alternative options and doses surpassing the FDA recommendations will be implemented. Consideration of these risks was presented to his treatment team from [facility] and health care proxy and everyone is in agreement with the plan. Black box warning of using anti psychotics as well as multiple anti psychotics in those over 65 were described to his health care proxy and treatment team who accepted these risks. Sodium 144 mmol/L (135-145) 09/04/19 05:44 Potassium 4.3 mmol/L (3.5-5.0) 09/04/19 05:44 BUN 39 mg/dL (6-24) H 09/04/19 05:44 Creatinine 2.24 mg/dL (0.67-1.17) H 09/04/19 05:44 Calcium 9.4 mg/dL (8.6-10.3) 09/04/19 05:44 AST 31 U/L (13-39) 08/31/19 05:03 ALT 11 U/L (7-52) 08/31/19 05:03
[2019-09-04] MEDS: LORazepam INJ* 2 MG/ML 1 ML VIAL IV PUSH PRN ×2 (12:02→22:10)
[2019-09-04] MEDS: Lithium LIQ* 300 MG/5 ML UDC PO SCH ×2 (13:52→22:11)
[2019-09-04] MEDS: OLANzapine TAB*ODT* 10 MG TAB PO SCH ×2 (13:57→22:11)
[2019-09-04] MEDS ORDERED: LORazepam INJ* 2 MG/ML 1 ML VIAL IV PUSH ONE (13:59)
[2019-09-04] MEDS: Fluticasone NASAL SPRAY 50MCG* 16 gm SPRAY BTL BOTH NARES SCH (14:03)
[2019-09-04] MEDS: Bacitracin OINTMENT* 0.5% 0.5 oz TUBE TOPICAL SCH (14:03)
[2019-09-04] MEDS: PTO:IPRATROPIUM BR (NF)0.06% NASAL 1 SPRAY BTL BOTH NARES SCH ×3 (14:04→22:13)
[2019-09-04] MEDS ORDERED: Lorazepam PYXIS KEY PRN (14:04)
[2019-09-04] MEDS: Paliperidone ER TAB* 6 MG TAB.ER PO SCH (14:05)
[2019-09-04] MEDS ORDERED: Lorazepam PYXIS KEY ONE (14:10)
[2019-09-04] MEDS: Acetylcysteine CAP (RENAL)* 600 MG PO SCH (14:25)
[2019-09-04] MEDS: Lansoprazole SUSP* ORALSYR 3 MG/ML PO SCH (14:26)
[2019-09-04] MEDS: CMCS: Alfuzosin ER (NF) 10 MG TAB.ER PO SCH (14:26)
[2019-09-04] MEDS: Multivitamins ADULT w/MIN LIQ* 15 ML UDC PO SCH (14:26)
[2019-09-04] MEDS: Lithium Carbonate CAP 150 MG ** CAPSULE PO SCH (14:28)
[2019-09-04] MEDS: Pantoprazole TAB * 40 MG TAB PO SCH (14:28)
[2019-09-04] MEDS: Enoxaparin(*) 30 MG/0.3 ML SYR SUBCUT SCH (16:17)
[2019-09-04 18:28] LABS: Urine Appearance Cloudy; Urine Bacteria Absent (Absent); Urine Bilirubin Negative (Negative); Urine Blood 2+ (Negative); Urine Color Yellow; Urine Glucose Negative (Negative); Urine Ketones Negative (Negative); Urine Nitrite Negative (Negative); Urine Protein Negative (Negative); Urine Red Blood Cell 2+(6-10/hpf) (Absent); Urine Specific Gravity 1.005 (1.010-1.030); Urine Urobilinogen Negative (Negative); Urine White Blood Cell 3+(>20/hpf) (Absent)
--- NOTE | 2019-09-04 19:02 | PN ---
Subjective Date of Service: 09/04/19 Interval History: Patient frequently yelling, "where is Kassidy?" today. Frequently asking this writer producer and other staff for their names. Overall does not answer questions appropriately but does allow physical exam. Objective Active Medications: Acetaminophen (Tylenol Adult Liq*) 650 mg PO Q4H PRN PRN Reason: PAIN - MILD OR TEMP > 100.4 Last Admin: 09/01/19 14:58 Dose: 650 mg Acetaminophen (Tylenol Supp*) 650 mg [place] Q6H PRN PRN Reason: pain-mild to moderate Last Admin: 09/03/19 20:36 Dose: 650 mg Al Hydrox/Mg Hydrox/Simethicone (Maalox Plus*) 15 ml PO BID PRN PRN Reason: CONSTIPATION Last Admin: 09/01/19 13:17 Dose: 15 ml Alfuzosin HCl (Uroxatral (Nf)) 10 mg PO DAILY [facility] Last Admin: 09/04/19 14:26 Dose: Not Given Amlodipine Besylate (Norvasc Tab*) 5 mg PO BEDTIME [facility] Last Admin: 09/03/19 22:23 Dose: 5 mg Bacitracin (Bacitracin Ointment*) 1 applic TOPICAL BID [facility] Last Admin: 09/04/19 14:03 Dose: Not Given Bisacodyl (Dulcolax Supp*) 10 mg [place] DAILY PRN PRN Reason: CONSTIPATION Last Admin: 09/02/19 11:45 Dose: 10 mg Carbamide Peroxide (Debrox 6.5% Otic*) 2 drop RIGHT EAR BID [facility] Enoxaparin Sodium (Lovenox(*)) 30 mg SUBCUT Q24H [facility] Last Admin: 09/04/19 16:17 Dose: 30 mg Finasteride (Proscar Tab*) 5 mg PO DAILY [facility] Last Admin: 09/04/19 14:26 Dose: Not Given Fluticasone Propionate (Flonase Nasal [place] 50mcg*) 2 spray BOTH NARES DAILY [facility] Last Admin: 09/04/19 14:03 Dose: Not Given Ipratropium [place] (Ipratropium [place]) 2 spray BOTH NARES QID [facility] Last Admin: 09/04/19 17:27 Dose: 2 spray Lansoprazole (Lansoprazole Susp* Oralsyr) 15 mg PO DAILY [facility] Last Admin: 09/04/19 14:26 Dose: Not Given Levothyroxine Sodium (Synthroid Tab*) 75 mcg PO 0600 [facility] Last Admin: 09/04/19 06:37 Dose: 75 mcg [place] Citrate ([place] Liq*) 300 mg PO BID [facility] Last Admin: 09/04/19 13:52 Dose: 300 mg Lorazepam (Ativan Inj*) 0.5 mg IV PUSH Q6H PRN PRN Reason: ANXIETY Last Admin: 09/04/19 12:02 Dose: 0.5 mg Miscellaneous (Ativan Pyxis [place]) 1 ea N/A .ATIVAN IV SVEERINO PRN PRN Reason: PYXIS SEVERINO Miscellaneous (Ativan Pyxis [place]) 1 ea N/A .PYXIS SEVERINO PRN PRN Reason: PER PROTOCOL Multivitamins (Theragran W/Minerals Liq*) 5 ml PO DAILY [facility] Last Admin: 09/04/19 14:26 Dose: Not Given Olanzapine (Zyprexa *Odt*) 15 mg PO BID [facility] Last Admin: 09/04/19 13:57 Dose: 15 mg Ondansetron HCl (Zofran Inj*) 4 mg IV Q6H PRN PRN Reason: NAUSEA Last Admin: 09/02/19 09:50 Dose: 4 mg Paliperidone (Invega Er Tab*) 6 mg PO DAILY [facility] Last Admin: 09/04/19 14:05 Dose: Not Given Polyethylene Glycol/Electrolytes (Miralax*) 17 gm PO DAILY PRN PRN Reason: CONSTIPATION Senna (Senokot 8.6 Mg Tab*) 1 tab PO DAILY [facility] Last Admin: 09/04/19 14:27 Dose: Not Given Sertraline HCl (Zoloft*) 100 mg PO DAILY [facility] Last Admin: 09/04/19 14:27 Dose: Not Given Sodium Bicarbonate (Sodium Bicarbonate (Antacid)*) 650 mg PO BID [facility] Last Admin: 09/04/19 14:16 Dose: Not Given Trazodone HCl (Desyrel Tab*) 100 mg PO BEDTIME PRN PRN Reason: ANXIETY Last Admin: 09/03/19 22:23 Dose: 100 mg Vital Signs - 8 hr 09/04/19 09/04/19 09/04/19 11:15 12:02 14:18 Temperature 99.1 F Pulse Rate 123 Respiratory 22 18 24 Rate Blood Pressure 148/69 (mmHg) O2 Sat by Pulse 90 Oximetry 09/04/19 16:31 Temperature Pulse Rate Respiratory 18 Rate Blood Pressure (mmHg) O2 Sat by Pulse Oximetry Oxygen Devices in Use Now: None Appearance: thin, elderly white male, laying in bed, appearing comfortable, in minimal distress at times Eyes: No Scleral Icterus, - - PERRL Ears/Nose/Mouth/Throat: Mucous Membranes Moist Neck: Trachea Midline Respiratory: Symmetrical Chest Expansion and Respiratory Effort, - - poor patient effort Cardiovascular: NL Sounds; No Murmurs; No JVD, RRR Abdominal: - - abd soft, nontender, nondistended Extremities: No Edema, No Clubbing, Cyanosis, - - no calf tenderness Skin: No Rash or Ulcers Neurological: NL Muscle Strength and Tone, - - alert, Result Diagrams: 09/04/19 05:44 09/04/19 05:44 Assess/Plan/Problems-Billing Assessment: Mr. Mckoy is a 64 year old male with history of intellectual disability, autism, HTN, CKD that presents with his aide from his alf with report of outburst behavior, self-injury and nephrogenic DI with LIONEL on CKD. - Patient Problems (1) Hypernatremia Current Visit: Yes Status: Acute Code(s): E87.0 - HYPEROSMOLALITY AND HYPERNATREMIA SNOMED Code(s): 607415904 Comment: -resolved today after IVF yesterday -likely secondary to poor oral intake and nephrogenic DI -low sodium diet -will need to encourage po fluid intake frequently (2) Acute kidney injury superimposed on CKD Current Visit: Yes Status: Acute Code(s): N17.9 - ACUTE KIDNEY FAILURE, UNSPECIFIED; N18.9 - CHRONIC KIDNEY DISEASE, UNSPECIFIED SNOMED Code(s): 19051262 Comment: - Cr worsened today - Etiology likely acute dehydration leading to LIONEL; lithium use likely the cause of CKD and may further exacerbate this - Serum and Urine osmo, Na and creat indicating chronic renal disease with superimposed LIONEL - Renal US shows no hydro with medical renal disease - [place] has been restarted 09/01 at the request of patient's HCPs - Nephrology following; thank you for recommendations - Will contine to follow BMP (3) Nephrogenic diabetes insipidus Current Visit: Yes Status: Acute Code(s): N25.1 - NEPHROGENIC DIABETES INSIPIDUS SNOMED Code(s): 817108992 Comment: - Hypernatremia improved today after IVF yesterday, will continue to monitor - Appreciate input from nephrology - Amiloride previously discontinued due to hyperkalemia, may need to reconsider restarting if patient does not maintain po intake (4) Schizophrenia Current Visit: Yes Status: Acute Code(s): F20.9 - SCHIZOPHRENIA, UNSPECIFIED SNOMED Code(s): 98061849 Comment: -home abilify, haldol discontinued per psychiatry rec. -continue paliperidone and olanzapine -QTc stable thus far -patient is cooperative, appropriate, but is fidgeting -lithium restarted for treatment of BPD at request of family/caregivers with understanding that it may worsen kidney disease and may ultimately lead to need for HD (5) Urine retention Current Visit: No Status: Acute Code(s): R33.9 - RETENTION OF URINE, UNSPECIFIED SNOMED Code(s): 498100757 Comment: - Pt with > 500 cc urine in bladder 09/01; bladder scans with instructions for straight cath - Restarted home alfuzosin, finasteride with good results- no residual noted on bladder scans - Change bladder scan to q12h, call with results > 300cc - SW to schedule outpatient urology appointment prior to discharge (6) Leukocytosis Current Visit: No Status: Acute Code(s): D72.829 - ELEVATED WHITE BLOOD CELL COUNT, UNSPECIFIED SNOMED Code(s): 361726904 Comment: - Persistent leukocytosis for several months - Possibly related to otitis media considering TM perforation found 08/29 - Possibly agitation/stress contributing to slight increase in leukocytosis in last couple days - Received full course of cefazolin - Significant increase today. CXR normal. UA positive, awaiting urine culture. Patient has been afebrile. Unable to assess right TM - Could be related to restarting lithium but likely not to such significant degree (7) Impacted cerumen of right ear Current Visit: Yes Status: Acute Code(s): H61.21 - IMPACTED CERUMEN, RIGHT EAR SNOMED Code(s): 35553644 Comment: -unable to assess right TM for this reason -debrox BID and will attempt to re-evaluate (8) DVT prophylaxis Current Visit: No Status: Acute Code(s): Z29.9 - ENCOUNTER FOR PROPHYLACTIC MEASURES, UNSPECIFIED SNOMED Code(s): 476155275 Comment: -lovenox (9) Full code status Current Visit: No Status: Acute Code(s): Z78.9 - OTHER SPECIFIED HEALTH STATUS SNOMED Code(s): 344854514 Comment:
[2019-09-04] MEDS: Acetaminophen SUPP* 650 MG SUPP PR PRN (20:17)
[2019-09-04] MEDS: amLODIPine TAB* 5 MG PO SCH (22:11)
[2019-09-04] MEDS: Carbamide Peroxide 6.5% OTIC* 15 ML BTL RIGHT EAR SCH (22:15)
[2019-09-05] MEDS: Bacitracin OINTMENT* 0.5% 0.5 oz TUBE TOPICAL SCH ×3 (00:02→20:26)
[2019-09-05] MEDS: Levothyroxine TAB* 75 MCG TAB PO SCH (05:08)
[2019-09-05 05:26] LABS: Hematocrit 27 % (42-52); Hemoglobin 8.9 g/dL (14.0-18.0); Mean Corpuscular HGB Conc 33 g/dL (31-36); Mean Corpuscular Hemoglobin 32 pg (27-31); Mean Corpuscular Volume 96 fL (80-94); Mean Platelet Volume 7.8 fL (7.4-10.4); Platelet Count 347 10^3/uL (150-450); Red Blood Count 2.82 10^6 /uL (4.18-5.48); Red Cell Distribution Width 15 % (10-15); White Blood Count 23.4 10^3/uL (3.5-10.8)
[2019-09-05 05:31] LABS: ABS Eosinophils 0.5 10^3/ul (0-0.6); ABS Lymphocytes 1.5 10^3/ul (1.0-4.8); ABS Monocytes 1.6 10^3/ul (0-0.8); ABS Neutrophils 19.7 10^3/ul (1.5-7.7); Eosinophil % 2.2 %; Lymphocyte % 6.4 %
[2019-09-05 05:45] LABS: BUN/Creatinine Ratio 17.4 (8-20); Calcium 9.5 mg/dL (8.6-10.3); EGFR African American 33.7 (>60); EGFR Non-African American 27.9 (>60); Potassium 4.2 mmol/L (3.5-5.0)
[2019-09-05] MEDS: LORazepam INJ* 2 MG/ML 1 ML VIAL IV PUSH PRN ×2 (07:18→16:01)
[2019-09-05] MEDS ORDERED: D5W 1000 ML BAG* 1,000 ML IV SCH (09:00)
[2019-09-05] MEDS: Senna TAB 8.6 mg* TAB PO SCH (09:04)
[2019-09-05] MEDS: Sodium Bicarbonate (ANTACID)* 650 MG TAB PO SCH ×2 (09:06→20:27)
[2019-09-05] MEDS: Sertraline* 100 MG TAB PO SCH (09:07)
[2019-09-05] MEDS: Lithium LIQ* 300 MG/5 ML UDC PO SCH ×2 (09:08→20:27)
[2019-09-05] MEDS: Paliperidone ER TAB* 6 MG TAB.ER PO SCH ×2 (09:09→09:17)
[2019-09-05] MEDS: Carbamide Peroxide 6.5% OTIC* 15 ML BTL RIGHT EAR SCH ×2 (09:12→20:27)
[2019-09-05] MEDS: PTO:IPRATROPIUM BR (NF)0.06% NASAL 1 SPRAY BTL BOTH NARES SCH ×4 (09:13→20:26)
[2019-09-05] MEDS: OLANzapine TAB*ODT* 10 MG TAB PO SCH ×2 (09:21→20:28)
[2019-09-05] MEDS: Multivitamins ADULT w/MIN LIQ* 15 ML UDC PO SCH (09:22)
[2019-09-05] MEDS: CMCS: Alfuzosin ER (NF) 10 MG TAB.ER PO SCH (09:24)
[2019-09-05] MEDS: Fluticasone NASAL SPRAY 50MCG* 16 gm SPRAY BTL BOTH NARES SCH (09:27)
[2019-09-05] MEDS: Lansoprazole SUSP* ORALSYR 3 MG/ML PO SCH (09:39)
[2019-09-05] MEDS: Finasteride TAB* 5 MG PO SCH (09:39)
[2019-09-05] MEDS: Enoxaparin(*) 30 MG/0.3 ML SYR SUBCUT SCH (12:48)
--- NOTE | 2019-09-05 15:12 | PN ---
Subjective Date of Service: 09/05/19 Interval History: Patient attempting to remove IV at times and throwing punches at [employer] aide at bedside reportedly. At time of my evaluation patient is calm but becomes more agitated when trying to examine. Does ultimately allow some of exam. Tells me he feels "better" when asked how he feels. Denies having pain anywhere. Doesn't answer if he has painful urination or feeling fever/chills. Objective Active Medications: Acetaminophen (Tylenol Adult Liq*) 650 mg PO Q4H PRN PRN Reason: PAIN - MILD OR TEMP > 100.4 Last Admin: 09/01/19 14:58 Dose: 650 mg Acetaminophen (Tylenol Supp*) 650 mg [place] Q6H PRN PRN Reason: pain-mild to moderate Last Admin: 09/04/19 20:17 Dose: 650 mg Al Hydrox/Mg Hydrox/Simethicone (Maalox Plus*) 15 ml PO BID PRN PRN Reason: CONSTIPATION Last Admin: 09/01/19 13:17 Dose: 15 ml Alfuzosin HCl (Uroxatral (Nf)) 10 mg PO DAILY [facility] Last Admin: 09/05/19 09:24 Dose: 10 mg Amlodipine Besylate (Norvasc Tab*) 5 mg PO BEDTIME [facility] Last Admin: 09/04/19 22:11 Dose: 5 mg Bacitracin (Bacitracin Ointment*) 1 applic TOPICAL BID [facility] Last Admin: 09/05/19 09:15 Dose: 1 applic Bisacodyl (Dulcolax Supp*) 10 mg [place] DAILY PRN PRN Reason: CONSTIPATION Last Admin: 09/02/19 11:45 Dose: 10 mg Carbamide Peroxide (Debrox 6.5% Otic*) 2 drop RIGHT EAR BID [facility] Last Admin: 09/05/19 09:12 Dose: 2 drop Enoxaparin Sodium (Lovenox(*)) 30 mg SUBCUT Q24H [facility] Last Admin: 09/05/19 12:48 Dose: 30 mg Finasteride (Proscar Tab*) 5 mg PO DAILY [facility] Last Admin: 09/05/19 09:39 Dose: 5 mg Fluticasone Propionate (Flonase Nasal [place] 50mcg*) 2 spray BOTH NARES DAILY [facility] Last Admin: 09/05/19 09:27 Dose: Not Given Dextrose (D5w 1000 Ml Bag*) 1,000 mls @ 100 mls/hr IV PER RATE [facility] Stop: 09/05/19 21:00 Last Admin: 09/05/19 09:40 Dose: 100 mls/hr Ceftriaxone Sodium 1 gm/ (Sodium Chloride) 50 mls @ 100 mls/hr IVPB Q24H [facility] Ipratropium [place] (Ipratropium [place]) 2 spray BOTH NARES QID [facility] Last Admin: 09/05/19 12:48 Dose: 2 spray Lansoprazole (Lansoprazole Susp* Oralsyr) 15 mg PO DAILY [facility] Last Admin: 09/05/19 09:39 Dose: 15 mg Levothyroxine Sodium (Synthroid Tab*) 75 mcg PO 0600 [facility] Last Admin: 09/05/19 05:08 Dose: 75 mcg [place] Citrate ([place] Liq*) 300 mg PO BID [facility] Last Admin: 09/05/19 09:08 Dose: 300 mg Lorazepam (Ativan Inj*) 0.5 mg IV PUSH Q6H PRN PRN Reason: ANXIETY Last Admin: 09/05/19 07:18 Dose: 0.5 mg Miscellaneous (Ativan Pyxis Severino) 1 ea N/A .ATIVAN IV SEVERINO PRN PRN Reason: PYXIS SEVERINO Miscellaneous (Ativan Pyxis Severino) 1 ea N/A .PYXIS SEVERINO PRN PRN Reason: PER PROTOCOL Multivitamins (Theragran W/Minerals Liq*) 5 ml PO DAILY [facility] Last Admin: 09/05/19 09:22 Dose: 5 ml Olanzapine (Zyprexa *Odt*) 15 mg PO BID [facility] Last Admin: 09/05/19 09:21 Dose: 15 mg Ondansetron HCl (Zofran Inj*) 4 mg IV Q6H PRN PRN Reason: NAUSEA Last Admin: 09/02/19 09:50 Dose: 4 mg Paliperidone (Invega Er Tab*) 6 mg PO DAILY [facility] Last Admin: 09/05/19 09:17 Dose: Not Given Polyethylene Glycol/Electrolytes (Miralax*) 17 gm PO DAILY PRN PRN Reason: CONSTIPATION Senna (Senokot 8.6 Mg Tab*) 1 tab PO DAILY [facility] Last Admin: 09/05/19 09:04 Dose: 1 tab Sertraline HCl (Zoloft*) 100 mg PO DAILY [facility] Last Admin: 09/05/19 09:07 Dose: 100 mg Sodium Bicarbonate (Sodium Bicarbonate (Antacid)*) 650 mg PO BID [facility] Last Admin: 09/05/19 09:06 Dose: 650 mg Trazodone HCl (Desyrel Tab*) 100 mg PO BEDTIME PRN PRN Reason: ANXIETY Last Admin: 09/03/19 22:23 Dose: 100 mg Vital Signs - 8 hr 09/05/19 09/05/19 09/05/19 07:15 07:18 08:00 Temperature 99.6 F Pulse Rate 112 Respiratory 20 16 20 Rate Blood Pressure 166/66 (mmHg) O2 Sat by Pulse 99 Oximetry 09/05/19 09/05/19 08:46 11:20 Temperature 99.4 F Pulse Rate 106 Respiratory 18 18 Rate Blood Pressure 140/71 (mmHg) O2 Sat by Pulse 99 Oximetry Oxygen Devices in Use Now: None Appearance: Thin, elderly white male who appears younger than stated age, laying in bed, appearing in NAD Eyes: No Scleral Icterus, - - PERRL Ears/Nose/Mouth/Throat: Mucous Membranes Moist Neck: Trachea Midline Respiratory: Symmetrical Chest Expansion and Respiratory Effort, - - difficult exam due to poor cooperation of patient, no adventitious lung sounds auscultated anterolaterally Cardiovascular: NL Sounds; No Murmurs; No JVD, RRR Abdominal: - - abd soft, nontender, nondistended; no suprapubic tenderness Extremities: No Edema, No Clubbing, Cyanosis, - - no calf tenderness Skin: No Rash or Ulcers Neurological: NL Muscle Strength and Tone, - - alert and oriented to self Result Diagrams: 09/05/19 05:03 09/05/19 05:03 Assess/Plan/Problems-Billing Assessment: Mr. Mckoy is a 64 year old male with history of intellectual disability, autism, HTN, CKD that presents with his aide from his [facility] with report of outburst behavior, self-injury and nephrogenic DI with LIONEL on CKD. - Patient Problems (1) UTI (urinary tract infection) Current Visit: Yes Status: Acute Comment: -urine culture with pseudomonas and serratia, awaiting sensitivities -ordering cefepime -Leukocytosis is significantly decreased today despite no intervention changes between yesterday and today -previous UAs in hospitalization were wnl (2) Hypernatremia Current Visit: Yes Status: Acute Code(s): E87.0 - HYPEROSMOLALITY AND HYPERNATREMIA SNOMED Code(s): 236394946 Comment: -minimal increase again today -restarting 1L D5W -likely secondary to poor oral intake and nephrogenic DI -low sodium diet -will need to encourage po fluid intake frequently (3) Acute kidney injury superimposed on CKD Current Visit: Yes Status: Acute Code(s): N17.9 - ACUTE KIDNEY FAILURE, UNSPECIFIED; N18.9 - CHRONIC KIDNEY DISEASE, UNSPECIFIED SNOMED Code(s): 39306699 Comment: - Cr worsened today again - Etiology likely acute dehydration leading to LIONEL; lithium use likely the cause of CKD and may further exacerbate this - Serum and Urine osmo, Na and creat indicating chronic renal disease with superimposed LIONEL - Renal US shows no hydro with medical renal disease - [place] has been restarted 09/01 at the request of patient's HCPs - Nephrology following; thank you for recommendations - Will contine to follow BMP (4) Nephrogenic diabetes insipidus Current Visit: Yes Status: Acute Code(s): N25.1 - NEPHROGENIC DIABETES INSIPIDUS SNOMED Code(s): 932369011 Comment: - Hypernatremia mild today, restarting D5W - Appreciate input from nephrology - Amiloride previously discontinued due to hyperkalemia, may need to reconsider restarting if patient does not maintain po intake (5) Schizophrenia Current Visit: Yes Status: Acute Code(s): F20.9 - SCHIZOPHRENIA, UNSPECIFIED SNOMED Code(s): 28149590 Comment: -home abilify, haldol discontinued per psychiatry rec. -continue paliperidone and olanzapine -QTc stable thus far -lithium restarted for treatment of BPD at request of family/caregivers with understanding that it may worsen kidney disease and may ultimately lead to need for HD (6) Urine retention Current Visit: No Status: Acute Code(s): R33.9 - RETENTION OF URINE, UNSPECIFIED SNOMED Code(s): 527997439 Comment: - Restarted home alfuzosin, finasteride with good results- no residual noted on bladder scans - SW to schedule outpatient urology appointment prior to discharge (7) Leukocytosis Current Visit: No Status: Acute Code(s): D72.829 - ELEVATED WHITE BLOOD CELL COUNT, UNSPECIFIED SNOMED Code(s): 838537828 Comment: - Persistent leukocytosis for several months - Possibly related to otitis media considering TM perforation found 08/29 - Possibly agitation/stress contributing to slight increase in leukocytosis in last couple days - Received full course of cefazolin - Significant increase 09/04/19 to 30,000. CXR normal. UA as described above. - Could be related to restarting lithium but likely not to such significant degree (8) Impacted cerumen of right ear Current Visit: Yes Status: Acute Code(s): H61.21 - IMPACTED CERUMEN, RIGHT EAR SNOMED Code(s): 03624367 Comment: -unable to assess right TM for this reason -debrox BID and will attempt to re-evaluate (9) DVT prophylaxis Current Visit: No Status: Acute Code(s): Z29.9 - ENCOUNTER FOR PROPHYLACTIC MEASURES, UNSPECIFIED SNOMED Code(s): 103150869 Comment: -lovenox (10) Full code status Current Visit: No Status: Acute Code(s): Z78.9 - OTHER SPECIFIED HEALTH STATUS SNOMED Code(s): 313588944 Comment: Status and Disposition: pending hypernatremia improvement.
[2019-09-05] MEDS ORDERED: cefTRIAXone(*) 1 GM in NS 0.9% 50 ML* 50 ML IVPB SCH (16:00)
[2019-09-05] MEDS: Cefepime 1 GM in Dextrose(*) 1 GM/50 ML BAG IV SCH (18:04)
[2019-09-05] MEDS: amLODIPine TAB* 5 MG PO SCH (20:27)
[2019-09-06] MEDS: Acetaminophen ADULT LIQ* 650 MG/20.3 ML UDC PO PRN (01:09)
[2019-09-06] MEDS: LORazepam INJ* 2 MG/ML 1 ML VIAL IV PUSH PRN ×4 (01:25→21:20)
[2019-09-06 04:44] LABS: ABS Basophils 0.1 10^3/ul (0-0.2); ABS Eosinophils 0.7 10^3/ul (0-0.6); ABS Lymphocytes 1.2 10^3/ul (1.0-4.8); ABS Monocytes 1.3 10^3/ul (0-0.8); ABS Neutrophils 14.1 10^3/ul (1.5-7.7); Eosinophil % 4.1 %; Hematocrit 29 % (42-52); Hemoglobin 9.1 g/dL (14.0-18.0); Mean Corpuscular HGB Conc 32 g/dL (31-36); Mean Corpuscular Hemoglobin 30 pg (27-31); Mean Corpuscular Volume 96 fL (80-94); Mean Platelet Volume 7.7 fL (7.4-10.4); Platelet Count 399 10^3/uL (150-450); Red Cell Distribution Width 15 % (10-15); White Blood Count 17.4 10^3/uL (3.5-10.8)
[2019-09-06 04:59] LABS: BUN/Creatinine Ratio 15.5 (8-20); Calcium 9.9 mg/dL (8.6-10.3); EGFR African American 34.1 (>60); EGFR Non-African American 28.2 (>60); Potassium 4.1 mmol/L (3.5-5.0)
[2019-09-06] MEDS: Levothyroxine TAB* 75 MCG TAB PO SCH (05:33)
[2019-09-06] MEDS: Cefepime 1 GM in Dextrose(*) 1 GM/50 ML BAG IV SCH ×2 (05:34→17:17)
[2019-09-06] MEDS: PTO:IPRATROPIUM BR (NF)0.06% NASAL 1 SPRAY BTL BOTH NARES SCH ×4 (08:09→21:16)
[2019-09-06] MEDS: Lithium LIQ* 300 MG/5 ML UDC PO SCH ×2 (08:11→21:14)
[2019-09-06] MEDS: Multivitamins ADULT w/MIN LIQ* 15 ML UDC PO SCH (08:13)
[2019-09-06] MEDS: Sodium Bicarbonate (ANTACID)* 650 MG TAB PO SCH ×2 (08:13→21:13)
[2019-09-06] MEDS: Senna TAB 8.6 mg* TAB PO SCH (08:13)
[2019-09-06] MEDS: OLANzapine TAB*ODT* 10 MG TAB PO SCH ×2 (08:13→21:13)
[2019-09-06] MEDS: Sertraline* 100 MG TAB PO SCH (08:13)
[2019-09-06] MEDS: Finasteride TAB* 5 MG PO SCH (08:13)
[2019-09-06] MEDS: CMCS: Alfuzosin ER (NF) 10 MG TAB.ER PO SCH (08:14)
[2019-09-06] MEDS: Paliperidone ER TAB* 6 MG TAB.ER PO SCH (08:14)
[2019-09-06] MEDS: Fluticasone NASAL SPRAY 50MCG* 16 gm SPRAY BTL BOTH NARES SCH (08:14)
[2019-09-06] MEDS: Bacitracin OINTMENT* 0.5% 0.5 oz TUBE TOPICAL SCH ×2 (08:14→21:14)
[2019-09-06] MEDS: Carbamide Peroxide 6.5% OTIC* 15 ML BTL RIGHT EAR SCH ×2 (10:21→21:29)
[2019-09-06] MEDS: Enoxaparin(*) 30 MG/0.3 ML SYR SUBCUT SCH (13:20)
[2019-09-06] MEDS: HCTZ PO SCH (13:20)
[2019-09-06] MEDS: AMILORIDE PO SCH (13:20)
[2019-09-06] MEDS: Lansoprazole SUSP* ORALSYR 3 MG/ML PO SCH (13:24)
--- NOTE | 2019-09-06 14:27 | PN ---
Progress Note - Progress Note Date of Service: 09/06/19 Note: Records including Dr. Ward's note and Hospitalist's notes reviewed and went to see patient. It was impossible to communicate with patient as he was yelling out and wasn't responding to my questions. Nursing staffs and [facility] aides were assisting patient with ADLs and that's what was making him unhappy. At this time there is nothing more Psychiatry can offer other than what Dr. Ward has already offered. However, we will continue to monitor on an ongoing basis.
--- NOTE | 2019-09-06 17:49 | PN ---
Subjective Date of Service: 09/06/19 Interval History: Patient agitated and attempting to leave bed at times, and banging his arms on the bed rails at times. Otherwise he is very interactive and answers questions overall appropriately. Says he feels good. Tells me he has a "Warm belly" but denies pain in his abdomen. Denies pain otherwise. Doesn't answer if he has dysuria. Objective Active Medications: Acetaminophen (Tylenol Adult Liq*) 650 mg PO Q4H PRN PRN Reason: PAIN - MILD OR TEMP > 100.4 Last Admin: 09/01/19 14:58 Dose: 650 mg Acetaminophen (Tylenol Supp*) 650 mg [place] Q6H PRN PRN Reason: pain-mild to moderate Last Admin: 09/04/19 20:17 Dose: 650 mg Al Hydrox/Mg Hydrox/Simethicone (Maalox Plus*) 15 ml PO BID PRN PRN Reason: CONSTIPATION Last Admin: 09/01/19 13:17 Dose: 15 ml Alfuzosin HCl (Uroxatral (Nf)) 10 mg PO DAILY [facility] Last Admin: 09/06/19 08:14 Dose: 10 mg Amiloride/HCTZ (Moduretic 5-50 Tab*) 1 tab PO DAILY [facility] Last Admin: 09/06/19 13:20 Dose: 1 tab Amlodipine Besylate (Norvasc Tab*) 5 mg PO BEDTIME [facility] Last Admin: 09/05/19 20:27 Dose: 5 mg Bacitracin (Bacitracin Ointment*) 1 applic TOPICAL BID [facility] Last Admin: 09/06/19 08:14 Dose: 1 applic Bisacodyl (Dulcolax Supp*) 10 mg [place] DAILY PRN PRN Reason: CONSTIPATION Last Admin: 09/02/19 11:45 Dose: 10 mg Carbamide Peroxide (Debrox 6.5% Otic*) 2 drop RIGHT EAR BID [facility] Last Admin: 09/06/19 10:21 Dose: Not Given Enoxaparin Sodium (Lovenox(*)) 30 mg SUBCUT Q24H [facility] Last Admin: 09/06/19 13:20 Dose: 30 mg Finasteride (Proscar Tab*) 5 mg PO DAILY [facility] Last Admin: 09/06/19 08:13 Dose: 5 mg Fluticasone Propionate (Flonase Nasal [place] 50mcg*) 2 spray BOTH NARES DAILY [facility] Last Admin: 09/06/19 08:14 Dose: Not Given Cefepime HCl (Maxipime 1 Gm In Dextrose Duplex (*)) 1 gm in 50 mls @ 100 mls/ hr IV Q12H [facility] Last Admin: 09/06/19 17:17 Dose: 100 mls/hr Ipratropium [place] (Ipratropium [place]) 2 spray BOTH NARES QID [facility] Last Admin: 09/06/19 13:23 Dose: Not Given Lansoprazole (Lansoprazole Susp* Oralsyr) 15 mg PO DAILY [facility] Last Admin: 09/06/19 13:24 Dose: Not Given Levothyroxine Sodium (Synthroid Tab*) 75 mcg PO 0600 [facility] Last Admin: 09/06/19 05:33 Dose: 75 mcg [place] Citrate (Soso Liq*) 300 mg PO BID [facility] Last Admin: 09/06/19 08:11 Dose: 300 mg Lorazepam (Ativan Inj*) 0.5 mg IV PUSH Q4H PRN PRN Reason: ANXIETY Miscellaneous (Ativan Pyxis Severino) 1 ea N/A .ATIVAN IV SEVERINO PRN PRN Reason: PYXIS SEVERINO Miscellaneous (Ativan Pyxis Severino) 1 ea N/A .PYXIS SEVERINO PRN PRN Reason: PER PROTOCOL Multivitamins (Theragran W/Minerals Liq*) 5 ml PO DAILY [facility] Last Admin: 09/06/19 08:13 Dose: 5 ml Olanzapine (Zyprexa *Odt*) 15 mg PO BID [facility] Last Admin: 09/06/19 08:13 Dose: 15 mg Ondansetron HCl (Zofran Inj*) 4 mg IV Q6H PRN PRN Reason: NAUSEA Last Admin: 09/02/19 09:50 Dose: 4 mg Paliperidone (Invega Er Tab*) 6 mg PO DAILY [facility] Last Admin: 09/06/19 08:14 Dose: 6 mg Polyethylene Glycol/Electrolytes (Miralax*) 17 gm PO DAILY PRN PRN Reason: CONSTIPATION Senna (Senokot 8.6 Mg Tab*) 1 tab PO DAILY [facility] Last Admin: 09/06/19 08:13 Dose: 1 tab Sertraline HCl (Zoloft*) 100 mg PO DAILY [facility] Last Admin: 09/06/19 08:13 Dose: 100 mg Sodium Bicarbonate (Sodium Bicarbonate (Antacid)*) 650 mg PO BID [facility] Last Admin: 09/06/19 08:13 Dose: 650 mg Trazodone HCl (Desyrel Tab*) 100 mg PO BEDTIME PRN PRN Reason: ANXIETY Last Admin: 09/03/19 22:23 Dose: 100 mg Vital Signs - 8 hr 09/06/19 09/06/19 09/06/19 10:22 14:24 17:16 Respiratory 18 26 20 Rate Oxygen Devices in Use Now: None Appearance: Thin, white male who appears younger than stated age laying in bed appearing in NAD Eyes: No Scleral Icterus, - - PERRL Ears/Nose/Mouth/Throat: Mucous Membranes Moist Neck: Trachea Midline Respiratory: Symmetrical Chest Expansion and Respiratory Effort, Clear to Auscultation Cardiovascular: NL Sounds; No Murmurs; No JVD, RRR Abdominal: - - abd soft, nontender, nondistended; no suprapubic tenderness Extremities: No Edema, No Clubbing, Cyanosis Skin: No Rash or Ulcers Neurological: NL Muscle Strength and Tone, - - alert and oriented to self Result Diagrams: 09/06/19 04:35 09/06/19 04:35 Microbiology and Other Data: Microbiology 09/04/19 13:50 Urine Culture - Preliminary Urine Pseudomonas Aeruginosa Serratia Marcescens Assess/Plan/Problems-Billing Assessment: Mr. Mckoy is a 64 year old male with history of intellectual disability, autism, HTN, CKD that presents with his aide from his detention with report of outburst behavior, self-injury and nephrogenic DI with LIONEL on CKD. - Patient Problems (1) UTI (urinary tract infection) Current Visit: Yes Status: Acute Comment: -urine culture with pseudomonas and serratia, awaiting sensitivities -continue cefepime -afebrile, leukocytosis downtrending -previous UAs in hospitalization were wnl (2) Hypernatremia Current Visit: Yes Status: Acute Code(s): E87.0 - HYPEROSMOLALITY AND HYPERNATREMIA SNOMED Code(s): 746368332 Comment: -minimal increase again today -not restarting D5W because would like to observe if starting amiloride and hctz helps -likely secondary to poor oral intake and nephrogenic DI -low sodium diet -will need to encourage po fluid intake frequently (3) Acute kidney injury superimposed on CKD Current Visit: Yes Status: Acute Code(s): N17.9 - ACUTE KIDNEY FAILURE, UNSPECIFIED; N18.9 - CHRONIC KIDNEY DISEASE, UNSPECIFIED SNOMED Code(s): 32609742 Comment: - Cr unchanged today - Etiology likely acute dehydration leading to LIONEL; lithium use likely the cause of CKD and may further exacerbate this - Serum and Urine osmo, Na and creat indicating chronic renal disease with superimposed LIONEL - Renal US shows no hydro with medical renal disease - [place] has been restarted 09/01 at the request of patient's HCPs - Nephrology following; thank you for recommendations - Will contine to follow BMP (4) Nephrogenic diabetes insipidus Current Visit: Yes Status: Acute Code(s): N25.1 - NEPHROGENIC DIABETES INSIPIDUS SNOMED Code(s): 422448478 Comment: - Hypernatremia mild today, restarting D5W - Appreciate input from nephrology - Amiloride previously discontinued due to hyperkalemia, may need to reconsider restarting if patient does not maintain po intake (5) Schizophrenia Current Visit: Yes Status: Acute Code(s): F20.9 - SCHIZOPHRENIA, UNSPECIFIED SNOMED Code(s): 67603509 Comment: -home abilify, haldol discontinued per psychiatry rec. -continue paliperidone and olanzapine -QTc stable thus far -lithium restarted for treatment of BPD at request of family/caregivers with understanding that it may worsen kidney disease and may ultimately lead to need for HD (6) Urine retention Current Visit: No Status: Acute Code(s): R33.9 - RETENTION OF URINE, UNSPECIFIED SNOMED Code(s): 596401785 Comment: - Restarted home alfuzosin, finasteride with good results- no residual noted on bladder scans - SW to schedule outpatient urology appointment prior to discharge (7) Leukocytosis Current Visit: No Status: Acute Code(s): D72.829 - ELEVATED WHITE BLOOD CELL COUNT, UNSPECIFIED SNOMED Code(s): 129240441 Comment: - Persistent leukocytosis for several months - Possibly related to otitis media considering TM perforation found 08/29 - Possibly agitation/stress contributing to slight increase in leukocytosis in last couple days - Received full course of cefazolin - Significant increase 09/04/19 to 30,000. CXR normal. UA as described above. - Could be related to restarting lithium but likely not to such significant degree (8) Impacted cerumen of right ear Current Visit: Yes Status: Acute Code(s): H61.21 - IMPACTED CERUMEN, RIGHT EAR SNOMED Code(s): 20725821 Comment: -unable to assess right TM for this reason -debrox BID and will attempt to re-evaluate (9) DVT prophylaxis Current Visit: No Status: Acute Code(s): Z29.9 - ENCOUNTER FOR PROPHYLACTIC MEASURES, UNSPECIFIED SNOMED Code(s): 938695057 Comment: -lovenox (10) Full code status Current Visit: No Status: Acute Code(s): Z78.9 - OTHER SPECIFIED HEALTH STATUS SNOMED Code(s): 985335797 Comment: Status and Disposition: pending hypernatremia improvement.
[2019-09-06] MEDS: amLODIPine TAB* 5 MG PO SCH (21:13)
[2019-09-07] MEDS: LORazepam INJ* 2 MG/ML 1 ML VIAL IV PUSH PRN ×6 (01:22→21:17)
[2019-09-07] MEDS: Acetaminophen ADULT LIQ* 650 MG/20.3 ML UDC PO PRN ×2 (02:03→22:15)
[2019-09-07] MEDS: traZODone TAB* 100 MG PO PRN (02:03)
[2019-09-07] MEDS: Levothyroxine TAB* 75 MCG TAB PO SCH (05:43)
[2019-09-07] MEDS: Cefepime 1 GM in Dextrose(*) 1 GM/50 ML BAG IV SCH ×3 (05:43→17:48)
[2019-09-07 06:06] LABS: Hematocrit 31 % (42-52); Hemoglobin 9.8 g/dL (14.0-18.0); Mean Corpuscular HGB Conc 32 g/dL (31-36); Mean Corpuscular Hemoglobin 31 pg (27-31); Mean Corpuscular Volume 97 fL (80-94); Mean Platelet Volume 7.7 fL (7.4-10.4); Platelet Count 461 10^3/uL (150-450); Red Blood Count 3.16 10^6 /uL (4.18-5.48); Red Cell Distribution Width 15 % (10-15); White Blood Count 16.7 10^3/uL (3.5-10.8)
[2019-09-07] MEDS ORDERED: LORazepam INJ* 2 MG/ML 1 ML VIAL IM ONE ×2 (06:24→23:13)
[2019-09-07] MEDS ORDERED: Lorazepam PYXIS KEY PRN ×2 (06:24→23:13)
[2019-09-07 06:33] LABS: BUN/Creatinine Ratio 16.3 (8-20); Calcium 10.1 mg/dL (8.6-10.3); EGFR African American 30.4 (>60); EGFR Non-African American 25.2 (>60); Potassium 3.9 mmol/L (3.5-5.0)
[2019-09-07 06:35] LABS: Lithium 0.8 mmol/L (0.6-1.2)
[2019-09-07 06:49] LABS: ABS Basophils 0.1 10^3/ul (0-0.2); ABS Eosinophils 0.6 10^3/ul (0-0.6); ABS Lymphocytes 1.7 10^3/ul (1.0-4.8); ABS Monocytes 1.7 10^3/ul (0-0.8); ABS Neutrophils 12.7 10^3/ul (1.5-7.7); Eosinophil % 3.8 %; Lymphocyte % 10.3 %; Nucleated Red Blood Cells % 0.1
[2019-09-07] MEDS: OLANzapine TAB*ODT* 10 MG TAB PO SCH ×2 (08:39→19:28)
[2019-09-07] MEDS: Sertraline* 100 MG TAB PO SCH (08:41)
[2019-09-07] MEDS: Sodium Bicarbonate (ANTACID)* 650 MG TAB PO SCH ×2 (08:41→19:29)
[2019-09-07] MEDS: Senna TAB 8.6 mg* TAB PO SCH (08:43)
[2019-09-07] MEDS: Finasteride TAB* 5 MG PO SCH (08:44)
[2019-09-07] MEDS: CMCS: Alfuzosin ER (NF) 10 MG TAB.ER PO SCH (08:46)
[2019-09-07] MEDS: AMILORIDE PO SCH (08:50)
[2019-09-07] MEDS: HCTZ PO SCH (08:50)
[2019-09-07] MEDS: Paliperidone ER TAB* 6 MG TAB.ER PO SCH (08:53)
[2019-09-07] MEDS: Lithium LIQ* 300 MG/5 ML UDC PO SCH ×2 (08:55→19:29)
[2019-09-07] MEDS: Multivitamins ADULT w/MIN LIQ* 15 ML UDC PO SCH (08:56)
[2019-09-07] MEDS: Fluticasone NASAL SPRAY 50MCG* 16 gm SPRAY BTL BOTH NARES SCH (08:58)
[2019-09-07] MEDS: Bacitracin OINTMENT* 0.5% 0.5 oz TUBE TOPICAL SCH ×2 (08:59→19:29)
[2019-09-07] MEDS ORDERED: D5W 1000 ML BAG* 1,000 ML IV SCH (09:00)
--- NOTE | 2019-09-07 09:00 | CONSULT ---
Consult Consult: Reason for consult: Self Injurious behavior CC: "What ? " Patient was seen and evaluated today in his room with trimmer press clippings from [facility] present. Mine Supervisor reported that he has been punching himself , not sleeping, and has combative with staff. He did sleep after getting Ativan today. According to the weekend report the patient has been difficult to redirect refusing medication and shown increased self injurious behavior. Mental Status Exam APPEARANCE : 64 year old male poor hygiene and grooming sitting in bed. EYE CONTACT: Poor PSYCHOMOTOR ACTIVITY: mild psychomotor agitation MOVEMENTS: repetitive movements SPEECH : loud volume MOOD : "AH " AFFECT : Mood Incongruent THOUGHT PROCESS: Poverty of content THOUGHT CONTENT: Obsessions PERCEPTION: no AH/ VH SUICIDALITY Denied suicidal ideation, intent or plan. HOMICIDALITY Denied homicidal ideation, intent or plan. Insight/judgment: Poor insight and judgment ORIENTATION: Oriented to self not to location, and time. Assessment: 64 year old male with a history of severe intellectual disability and recent self injurious behavior being treated for lithium toxicity Diagnosis: Metabolic Encephalopathy Intellectual disability, severe. Recent [place] toxicity Plan # The patient does NOT require psychiatric inpatient admission at this time. # Medical issues managed by Primary team to include current treatment for infection # Safety Measures constant supervision, floor pad, cutting nails and unrestricted hand mittens to reduce risk of harm from self injury # Monitor EKG for risk of QT prolongation #Last long acting injection of Abilify 400mg q4 weeks was on 08/07/19 # Continue paliperidone 6mg po daily for aggression and ASD, will continue to monitor impact on renal function and QTc. # [place] level 0.80 level is therapeutic at this time with worsening self injurious behavior. # Continue N- acetyl cysteine 600mg BID for self injurious behavior, as well as provides renal protection # Continue Zyprexa 15mg PO BID # Continue zoloft 100mg daily # Patient is unable to leave AMA # Continue constant supervision # Discussed recommendations with primary team # Use Ativan conservatively with first implementing behavior re-direction, as it has shown to cause delirium, behavioral disinhibition and sedation. # Patient being followed by Nephrology # Continue lithium 300mg BID for now # Avoid NSAIDs and other renal toxic agents and encourage fluid intake # Trazodone 50mg PRN Q6H # Consult Ethics committee. # Meeting with Patients family took place and plan of care was discussed. Primary team will continue to treat infectious etiology that could be contributing to delirium. Target date of Saturday was established. If patients infection has resolved and he continues to not show improvement in behavior, will discontinue lithium and begin valproic acid given that the risks outweigh the benefit. If there is improvement in behavior will consider continuing lithium for the benefit of quality of life for the meantime. The guardian has acknowledged that this plan entails permanent kidney damage leading to dialysis and shortened life expectancy. #Targeted Goals: To reduce self injurious behavior. Progress of objective Goals - While patient is more interactive and verbal he has shown increased self injurious behavior. Patient is combative with staff and continues to have difficulty with ADLs. # Psychiatry will continue to follow the patient. # Patients family verbalized that lithium benefited the patient in the past and they would like to start it again. While [place] is a sound and effective treatment in controlling aggression, the risk of kidney damage is severe and the continuation would put the patient at risk for permanent renal disease and the need for life long dialysis and possible without any guaranteed outcomes. The patients health care proxy accepted these risk and the quality of life associated with dialysis. # Patient is on multiple anti-psychotics and psychotropic medications. Given the severity of his presenting behavior and history including multiple failed medication trials, other alternative options and doses surpassing the FDA recommendations will be implemented. Consideration of these risks was presented to his treatment team from [facility] and health care proxy and everyone is in agreement with the plan. Black box warning of using anti psychotics as well as multiple anti psychotics in those over 65 were described to his health care proxy and treatment team who accepted these risks. Sodium 147 mmol/L (135-145) H 09/07/19 05:43 Potassium 3.9 mmol/L (3.5-5.0) 09/07/19 05:43 BUN 42 mg/dL (6-24) H 09/07/19 05:43 Creatinine 2.57 mg/dL (0.67-1.17) H 09/07/19 05:43 Calcium 10.1 mg/dL (8.6-10.3) 09/07/19 05:43 AST 31 U/L (13-39) 08/31/19 05:03 ALT 11 U/L (7-52) 08/31/19 05:03
[2019-09-07] MEDS: Carbamide Peroxide 6.5% OTIC* 15 ML BTL RIGHT EAR SCH ×2 (09:39→19:29)
[2019-09-07] MEDS: Lansoprazole SUSP* ORALSYR 3 MG/ML PO SCH (09:40)
[2019-09-07] MEDS: PTO:IPRATROPIUM BR (NF)0.06% NASAL 1 SPRAY BTL BOTH NARES SCH ×4 (10:18→20:06)
[2019-09-07] MEDS: Enoxaparin(*) 30 MG/0.3 ML SYR SUBCUT SCH (11:30)
--- NOTE | 2019-09-07 12:38 | PN ---
Subjective Date of Service: 09/07/19 Interval History: Had extensive family meeting with patient's brothers Rich and Dagoberto, patient's nieces Britt and Gail, Neelam from , and Dr. Ward. Many questions answered by this junior underwriter and Dr. Ward. Patient's healthcare proxy is brother Rich. All family is in agreement with plan discussed below. Family in agreement with ethical committee consult. Discussed palliative medicine, though Dr. Ward did emphasize that continued ativan use contributes to delirium. Very frequent agitation from patient today. This morning removed brief, yelling out, attempting to hit staff, and hitting himself again. Patient does not participate in history collecting today, doesn't answer questions appropriately today. Objective Active Medications: Acetaminophen (Tylenol Adult Liq*) 650 mg PO Q4H PRN PRN Reason: PAIN - MILD OR TEMP > 100.4 Last Admin: 09/07/19 02:03 Dose: 650 mg Acetaminophen (Tylenol Supp*) 650 mg ID Q6H PRN PRN Reason: pain-mild to moderate Last Admin: 09/04/19 20:17 Dose: 650 mg Al Hydrox/Mg Hydrox/Simethicone (Maalox Plus*) 15 ml PO BID PRN PRN Reason: CONSTIPATION Last Admin: 09/01/19 13:17 Dose: 15 ml Alfuzosin HCl (Uroxatral (Nf)) 10 mg PO DAILY [facility] Last Admin: 09/07/19 08:46 Dose: 10 mg Amiloride/HCTZ (Moduretic 5-50 Tab*) 1 tab PO DAILY [facility] Last Admin: 09/07/19 08:50 Dose: 1 tab Amlodipine Besylate (Norvasc Tab*) 5 mg PO BEDTIME [facility] Last Admin: 09/06/19 21:13 Dose: 5 mg Bacitracin (Bacitracin Ointment*) 1 applic TOPICAL BID [facility] Last Admin: 09/07/19 08:59 Dose: 1 applic Bisacodyl (Dulcolax Supp*) 10 mg ID DAILY PRN PRN Reason: CONSTIPATION Last Admin: 09/02/19 11:45 Dose: 10 mg Carbamide Peroxide (Debrox 6.5% Otic*) 2 drop RIGHT EAR BID [facility] Last Admin: 09/07/19 09:39 Dose: Not Given Enoxaparin Sodium (Lovenox(*)) 30 mg SUBCUT Q24H [facility] Last Admin: 09/07/19 11:30 Dose: 30 mg Finasteride (Proscar Tab*) 5 mg PO DAILY [facility] Last Admin: 09/07/19 08:44 Dose: 5 mg Fluticasone Propionate (Flonase Nasal [place] 50mcg*) 2 spray BOTH NARES DAILY [facility] Last Admin: 09/07/19 08:58 Dose: 2 spray Cefepime HCl (Maxipime 1 Gm In Dextrose Duplex (*)) 1 gm in 50 mls @ 100 mls/ hr IV Q12H [facility] Last Admin: 09/07/19 07:36 Dose: 100 mls/hr Dextrose (D5w 1000 Ml Bag*) 1,000 mls @ 100 mls/hr IV PER RATE [facility] Stop: 09/07/19 21:00 Ipratropium [place] (Ipratropium [place]) 2 spray BOTH NARES QID [facility] Last Admin: 09/07/19 10:18 Dose: Not Given Lansoprazole (Lansoprazole Susp* Oralsyr) 15 mg PO DAILY [facility] Last Admin: 09/07/19 09:40 Dose: Not Given Levothyroxine Sodium (Synthroid Tab*) 75 mcg PO 0600 [facility] Last Admin: 09/07/19 05:43 Dose: 75 mcg [place] Citrate ([place] Liq*) 300 mg PO BID [facility] Last Admin: 09/07/19 08:55 Dose: 300 mg Lorazepam (Ativan Inj*) 0.5 mg IV PUSH Q4H PRN PRN Reason: ANXIETY Last Admin: 09/07/19 09:29 Dose: 0.5 mg Miscellaneous (Ativan Pyxis Severino) 1 ea N/A .ATIVAN IV SEVERINO PRN PRN Reason: PYXIS SEVERINO Miscellaneous (Ativan Pyxis [place]) 1 ea N/A .PYXIS SEVERINO PRN PRN Reason: PER PROTOCOL Multivitamins (Theragran W/Minerals Liq*) 5 ml PO DAILY [facility] Last Admin: 09/07/19 08:56 Dose: 5 ml Olanzapine (Zyprexa *Odt*) 15 mg PO BID [facility] Last Admin: 09/07/19 08:39 Dose: 15 mg Ondansetron HCl (Zofran Inj*) 4 mg IV Q6H PRN PRN Reason: NAUSEA Last Admin: 09/02/19 09:50 Dose: 4 mg Paliperidone (Invega Er Tab*) 6 mg PO DAILY [facility] Last Admin: 09/07/19 08:53 Dose: 6 mg Polyethylene Glycol/Electrolytes (Miralax*) 17 gm PO DAILY PRN PRN Reason: CONSTIPATION Senna (Senokot 8.6 Mg Tab*) 1 tab PO DAILY [facility] Last Admin: 09/07/19 08:43 Dose: 1 tab Sertraline HCl (Zoloft*) 100 mg PO DAILY [facility] Last Admin: 09/07/19 08:41 Dose: 100 mg Sodium Bicarbonate (Sodium Bicarbonate (Antacid)*) 650 mg PO BID [facility] Last Admin: 09/07/19 08:41 Dose: 650 mg Trazodone HCl (Desyrel Tab*) 100 mg PO BEDTIME PRN PRN Reason: ANXIETY Last Admin: 09/07/19 02:03 Dose: 100 mg Vital Signs - 8 hr 09/07/19 09/07/19 09/07/19 05:50 06:34 07:43 Temperature Pulse Rate Respiratory 18 20 18 Rate Blood Pressure (mmHg) O2 Sat by Pulse Oximetry 09/07/19 09/07/19 09/07/19 08:00 08:48 09:29 Temperature 99.1 F Pulse Rate 90 Respiratory 16 20 18 Rate Blood Pressure 177/82 (mmHg) O2 Sat by Pulse 100 Oximetry 09/07/19 09/07/19 09/07/19 09:38 10:19 11:15 Temperature 98.2 F Pulse Rate 87 Respiratory 18 16 20 Rate Blood Pressure 137/59 (mmHg) O2 Sat by Pulse Oximetry Oxygen Devices in Use Now: None Appearance: Thin, elderly white male who appears younger than stated age, sticking his foot on the shelf next to his hospital bed and grabbing this junior underwriter 's clothing Eyes: No Scleral Icterus, - - PERRL Ears/Nose/Mouth/Throat: Mucous Membranes Moist Neck: NL Appearance and Movements; NL JVP Respiratory: Symmetrical Chest Expansion and Respiratory Effort, - - difficult to auscultate due to poor patient cooperation; does sound like there is some upper airway sounds with breaths Cardiovascular: NL Sounds; No Murmurs; No JVD, RRR Abdominal: - - abd soft, nontender, nondistended Extremities: No Edema, No Clubbing, Cyanosis Skin: No Rash or Ulcers Neurological: NL Muscle Strength and Tone, - - alert, does not answer questions Result Diagrams: 09/07/19 05:44 09/07/19 05:43 Microbiology and Other Data: Microbiology 09/04/19 13:50 Urine Culture - Preliminary Urine Pseudomonas Aeruginosa Serratia Marcescens Assess/Plan/Problems-Billing Assessment: Mr. Mckoy is a 64 year old male with history of intellectual disability, autism, HTN, CKD that presents with his aide from his half-way with report of outburst behavior, self-injury and nephrogenic DI with LIONEL on CKD. - Patient Problems (1) Self-inflicted injury Current Visit: Yes Status: Acute Code(s): Z72.89 - OTHER PROBLEMS RELATED TO LIFESTYLE SNOMED Code(s): 269374729 Comment: -this behavior has recurred -extensive discussion at family meeting today -if by Saturday (09/09/19), his leukocytosis is continued to downtrend then the clinical suspicion would be that there is no contributing metabolic encephalopathy, and therefore this is a psychiatric issue. Family agrees at this point he can be changed back to depakote and discontinue lithium Saturday morning. -my suspicion is this is again lithium toxicity due to clinical presentation despite lithium level wnl -Dr. Ward has added q6hr prn trazodone in addition to the prn ativan -continue naltrexone and NAC (2) UTI (urinary tract infection) Current Visit: Yes Status: Acute Comment: -urine culture with pseudomonas and serratia -continue cefepime, both pathogens are sensitive -afebrile, leukocytosis downtrending -previous UAs in hospitalization were wnl (3) Hypernatremia Current Visit: Yes Status: Acute Code(s): E87.0 - HYPEROSMOLALITY AND HYPERNATREMIA SNOMED Code(s): 658624199 Comment: -Na remains 147 today -continue amiloride and hctz helps -likely secondary to poor oral intake and nephrogenic DI -D5W continuous fluids -low sodium diet -will need to encourage po fluid intake frequently (4) Acute kidney injury superimposed on CKD Current Visit: Yes Status: Acute Code(s): N17.9 - ACUTE KIDNEY FAILURE, UNSPECIFIED; N18.9 - CHRONIC KIDNEY DISEASE, UNSPECIFIED SNOMED Code(s): 95728304 Comment: - Cr worsened today - IVF as above - Etiology likely acute dehydration leading to LIONEL; lithium use likely the cause of CKD and may further exacerbate this - Serum and Urine osmo, Na and creat indicating chronic renal disease with superimposed LIONEL - Renal US shows no hydro with medical renal disease - [place] has been restarted 09/01 at the request of patient's HCPs - Nephrology following; thank you for recommendations - Will contine to follow BMP (5) Nephrogenic diabetes insipidus Current Visit: Yes Status: Acute Code(s): N25.1 - NEPHROGENIC DIABETES INSIPIDUS SNOMED Code(s): 280728360 Comment: - Hypernatremia mild today, restarting D5W - Appreciate input from nephrology - Continue amiloride and HCTZ (6) Schizophrenia Current Visit: Yes Status: Acute Code(s): F20.9 - SCHIZOPHRENIA, UNSPECIFIED SNOMED Code(s): 21192832 Comment: -home abilify, haldol discontinued per psychiatry rec. -continue paliperidone and olanzapine -QTc stable thus far -lithium restarted for treatment of BPD at request of family/caregivers with understanding that it may worsen kidney disease and may ultimately lead to need for HD. Plan for whether to continue/discontinue lithium as described above based on family meeting today (7) Urine retention Current Visit: No Status: Acute Code(s): R33.9 - RETENTION OF URINE, UNSPECIFIED SNOMED Code(s): 930858117 Comment: - Restarted home alfuzosin, finasteride with good results- no residual noted on bladder scans - SW to schedule outpatient urology appointment prior to discharge (8) Leukocytosis Current Visit: No Status: Acute Code(s): D72.829 - ELEVATED WHITE BLOOD CELL COUNT, UNSPECIFIED SNOMED Code(s): 664371574 Comment: - Persistent leukocytosis for several months - Possibly related to otitis media considering TM perforation found 08/29 - Possibly agitation/stress contributing to slight increase in leukocytosis in last couple days - Received full course of cefazolin - Significant increase 09/04/19 to 30,000. CXR normal. UA as described above. - Could be related to restarting lithium but likely not to such significant degree (9) Impacted cerumen of right ear Current Visit: Yes Status: Acute Code(s): H61.21 - IMPACTED CERUMEN, RIGHT EAR SNOMED Code(s): 48145576 Comment: -unable to assess right TM for this reason -debrox BID and will attempt to re-evaluate -unable to assess today due to patient's behavior (10) DVT prophylaxis Current Visit: No Status: Acute Code(s): Z29.9 - ENCOUNTER FOR PROPHYLACTIC MEASURES, UNSPECIFIED SNOMED Code(s): 224398828 Comment: -lovenox (11) Full code status Current Visit: No Status: Acute Code(s): Z78.9 - OTHER SPECIFIED HEALTH STATUS SNOMED Code(s): 656586008 Comment: Status and Disposition: pending hypernatremia improvement. Hopeful for eventual d/c back to half-way when medically and behaviorally improved
[2019-09-07] MEDS ORDERED: traZODone TAB* 100 MG PO PRN (12:49)
[2019-09-07] MEDS ORDERED: traZODone TAB* 50 MG TAB PO PRN (12:55)
[2019-09-07] MEDS: Acetylcysteine CAP (RENAL)* 600 MG PO SCH ×2 (15:38→19:57)
[2019-09-07] MEDS: guaiFENesin ER TAB 600 MG PO SCH ×3 (15:38→19:53)
[2019-09-07] MEDS: amLODIPine TAB* 5 MG PO SCH (19:29)
[2019-09-08] MEDS: LORazepam INJ* 2 MG/ML 1 ML VIAL IV PUSH PRN (03:49)
[2019-09-08] MEDS ORDERED: Lorazepam PYXIS KEY PRN (05:04)
[2019-09-08] MEDS ORDERED: LORazepam INJ* 2 MG/ML 1 ML VIAL IV PUSH ONE (05:04)
[2019-09-08] MEDS: Levothyroxine TAB* 75 MCG TAB PO SCH (05:26)
[2019-09-08] MEDS: Cefepime 1 GM in Dextrose(*) 1 GM/50 ML BAG IV SCH (06:16)
[2019-09-08] MEDS: Acetaminophen ADULT LIQ* 650 MG/20.3 ML UDC PO PRN ×2 (07:38→21:36)
[2019-09-08] MEDS ORDERED: Haloperidol INJ IV/IM* 5 MG/ML AMP IV SLOW PU ONE (07:39)
[2019-09-08] MEDS: Acetylcysteine CAP (RENAL)* 600 MG PO SCH ×2 (08:07→21:39)
[2019-09-08] MEDS: AMILORIDE PO SCH (08:08)
[2019-09-08] MEDS: HCTZ PO SCH (08:08)
[2019-09-08] MEDS: CMCS: Alfuzosin ER (NF) 10 MG TAB.ER PO SCH (08:08)
[2019-09-08] MEDS: Bacitracin OINTMENT* 0.5% 0.5 oz TUBE TOPICAL SCH (08:09)
[2019-09-08] MEDS: Carbamide Peroxide 6.5% OTIC* 15 ML BTL RIGHT EAR SCH (08:09)
[2019-09-08] MEDS: Sertraline* 100 MG TAB PO SCH (08:10)
[2019-09-08] MEDS: guaiFENesin ER TAB 600 MG PO SCH (08:10)
[2019-09-08] MEDS: Finasteride TAB* 5 MG PO SCH (08:11)
[2019-09-08] MEDS: Senna TAB 8.6 mg* TAB PO SCH (08:11)
[2019-09-08] MEDS: Sodium Bicarbonate (ANTACID)* 650 MG TAB PO SCH (08:12)
[2019-09-08] MEDS: Lithium LIQ* 300 MG/5 ML UDC PO SCH ×2 (08:13→21:37)
[2019-09-08] MEDS: Naltrexone TAB* 50 MG TAB PO SCH (08:13)
[2019-09-08] MEDS: OLANzapine TAB*ODT* 10 MG TAB PO SCH ×2 (08:15→21:38)
[2019-09-08] MEDS: Paliperidone ER TAB* 6 MG TAB.ER PO SCH (08:16)
[2019-09-08] MEDS: Multivitamins ADULT w/MIN LIQ* 15 ML UDC PO SCH (08:26)
[2019-09-08] MEDS: Fluticasone NASAL SPRAY 50MCG* 16 gm SPRAY BTL BOTH NARES SCH (08:26)
[2019-09-08] MEDS: PTO:IPRATROPIUM BR (NF)0.06% NASAL 1 SPRAY BTL BOTH NARES SCH ×4 (08:26→22:35)
[2019-09-08] MEDS: Lansoprazole SUSP* ORALSYR 3 MG/ML PO SCH (08:26)
--- NOTE | 2019-09-08 08:38 | CONSULT ---
Consult Consult: Reason for consult: Self Injurious behavior CC: "Ahh Ice cream ? " Patient was seen and evaluated today in his room with nurse and process safety specialist from [facility] present. Staff reported that he did not sleep and spit up his medications this morning, combative with staff, restless and pulling out IV, attempting to jump out of bed. Mental Status Exam APPEARANCE : 64 year old male poor hygiene and grooming sitting in bed. EYE CONTACT: Poor PSYCHOMOTOR ACTIVITY: mild psychomotor agitation MOVEMENTS: repetitive movements SPEECH : loud volume MOOD : "Ahh" AFFECT : Mood Incongruent THOUGHT PROCESS: Poverty of content THOUGHT CONTENT: Obsessions PERCEPTION: no AH/ VH SUICIDALITY Denied suicidal ideation, intent or plan. HOMICIDALITY Denied homicidal ideation, intent or plan. Insight/judgment: Poor insight and judgment ORIENTATION: Oriented to self not to location, and time. Assessment: 64 year old male with a history of severe intellectual disability and recent self injurious behavior being treated for lithium toxicity Diagnosis: Metabolic Encephalopathy Intellectual disability, severe. Recent [place] toxicity Plan # The patient does NOT require psychiatric inpatient admission at this time. # Medical issues managed by Primary team to include current treatment for infection # Safety Measures constant supervision, floor pad, cutting nails and unrestricted hand mittens to reduce risk of harm from self injury # Monitor EKG for risk of QT prolongation #Last long acting injection of Abilify 400mg q4 weeks was on 08/07/19 # Continue paliperidone 6mg po daily for aggression and ASD, will continue to monitor impact on renal function and QTc. # [place] level 0.80 level is therapeutic at this time with worsening self injurious behavior. # Continue N- acetyl cysteine 600mg BID for self injurious behavior, as well as provides renal protection # Continue Zyprexa 15mg PO BID # Continue zoloft 100mg daily # Patient is unable to leave AMA # Continue constant supervision # Discussed recommendations with primary team # Discontinue ativan and do NOT give other benzodiazipines or anticholinergic agents given that it precipitates delirium. # Implement behavioral redirection and give Haldol PO/IM/IV Q6PRN for behavioral control during times when he presents a danger to himself and or others # Patient being followed by Nephrology # Continue lithium 300mg BID for now # Avoid NSAIDs and other renal toxic agents and encourage fluid intake # Discontinue Trazodone 50mg PRN Q6H # Consult Ethics committee. # Meeting with Patients family took place and plan of care was discussed. Primary team will continue to treat infectious etiology that could be contributing to delirium. Target date of Saturday was established. If patients infection has resolved and he continues to not show improvement in behavior, will discontinue lithium and begin valproic acid given that the risks outweigh the benefit. If there is improvement in behavior will consider continuing lithium for the benefit of quality of life for the meantime. The guardian has acknowledged that this plan entails permanent kidney damage leading to dialysis and shortened life expectancy. #Targeted Goals: To reduce self injurious behavior. Progress of objective Goals - Patient is combative with staff and difficult to redirect, punching himself, refusing medications and pulling out IV # Patients family verbalized that lithium benefited the patient in the past and they would like to start it again. While [place] is a sound and effective treatment in controlling aggression, the risk of kidney damage is severe and the continuation would put the patient at risk for shortened life expectancy, permanent renal disease and the need for life long dialysis and possible without any guaranteed outcomes. The patients health care proxy accepted these risk and the quality of life associated with dialysis. [place] will not be continued unless the benefit of remitting behavioral disturbance and improvement of quality of life is apparent. # Patient is on multiple anti-psychotics and psychotropic medications. Given the severity of his presenting behavior and history including multiple failed medication trials, other alternative options and doses surpassing the FDA recommendations will be implemented. Consideration of these risks was presented to his treatment team from [facility] and health care proxy and everyone is in agreement with the plan. Black box warning of using anti psychotics as well as multiple anti psychotics in those over 65 were described to his health care proxy and treatment team who accepted these risks. # Psychiatry will continue to follow the patient. Sodium 147 mmol/L (135-145) H 09/07/19 05:43 Potassium 3.9 mmol/L (3.5-5.0) 09/07/19 05:43 BUN 42 mg/dL (6-24) H 09/07/19 05:43 Creatinine 2.57 mg/dL (0.67-1.17) H 09/07/19 05:43 Calcium 10.1 mg/dL (8.6-10.3) 09/07/19 05:43 AST 31 U/L (13-39) 08/31/19 05:03 ALT 11 U/L (7-52) 08/31/19 05:03
[2019-09-08] MEDS: Haloperidol INJ IV/IM* 5 MG/ML AMP IV SLOW PU PRN ×3 (09:33→22:07)
[2019-09-08 10:25] LABS: Hematocrit 31 % (42-52); Hemoglobin 9.9 g/dL (14.0-18.0); Mean Corpuscular HGB Conc 32 g/dL (31-36); Mean Corpuscular Hemoglobin 31 pg (27-31); Mean Corpuscular Volume 97 fL (80-94); Platelet Count 489 10^3/uL (150-450); Red Blood Count 3.17 10^6 /uL (4.18-5.48); Red Cell Distribution Width 15 % (10-15); White Blood Count 23.1 10^3/uL (3.5-10.8)
[2019-09-08 10:34] LABS: BUN/Creatinine Ratio 16.3 (8-20); Calcium 10.1 mg/dL (8.6-10.3); EGFR African American 28.8 (>60); EGFR Non-African American 23.8 (>60); Potassium 3.8 mmol/L (3.5-5.0)
[2019-09-08] MEDS ORDERED: diPHENhydraMINE PO* 50 MG PO PRN (10:49)
[2019-09-08] MEDS: Enoxaparin(*) 30 MG/0.3 ML SYR SUBCUT SCH (11:18)
[2019-09-08 13:26] LABS: ABS Basophils 0.1 10^3/ul (0-0.2); ABS Eosinophils 0.6 10^3/ul (0-0.6); ABS Lymphocytes 1.7 10^3/ul (1.0-4.8); ABS Monocytes 1.6 10^3/ul (0-0.8); ABS Neutrophils 19.1 10^3/ul (1.5-7.7); Eosinophil % 2.4 %; Lymphocyte % 7.2 %
[2019-09-08 16:36] LABS: C Reactive Protein 23.69 mg/L (<8.01)
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
[2019-09-08 18:20] LABS: Folate 18.83 ng/mL (>3.99)
[2019-09-08] MEDS: Ciprofloxacin TAB* 250 MG PO SCH (21:39)
[2019-09-08] MEDS: traZODone TAB* 50 MG TAB PO SCH (21:39)
[2019-09-08] MEDS: Nystatin TOP POWDER* 15 GM BTL TOPICAL SCH (21:40)
[2019-09-08] MEDS: amLODIPine TAB* 5 MG PO SCH (21:40)
[2019-09-08] MEDS: Bisacodyl SUPP* 10 MG SUPP PR PRN (21:56)
--- NOTE | 2019-09-09 00:31 | DS ---
TRANSITION OF CARE NOTE: Please note this is not a discharge summary. DATE OF ADMISSION: 08/19/19 DATE OF SERVICE: 09/08/19, day of admission #21. ATTENDING PROVIDER: Laura Kirkpatrick MD * (DICTATED BY ELIANE TEMPLE) SECONDARY DIAGNOSES: 1. Bipolar disorder. 2. Schizophrenia. 3. Self abuse. 4. Autism spectrum disorder. 5. Intellectual delay. 6. Nephrogenic diabetes insipidus. 7. Urinary retention. TENTATIVE DIAGNOSES THUS FAR: 1. Self injury. 2. Bonanza toxicity. 3. Acute on chronic renal insufficiency. 4. Hyponatremia, resolving. 5. Likely left otitis media, now with perforated left tympanic membrane. 6. Right groin candidiasis. 7. Urinary tract infection with pseudomonas and serratia. SUMMARY OF HOSPITAL COURSE THUS FAR: Alexander Mckoy (Barney) is a 64-year-old white male with past medical history significant for prior history of CKD secondary to lithium use, bipolar disorder, schizophrenia, autism spectrum disorder, intellectual delay, self abuse, and urinary retention and recent hospitalization, who presented on 08/19/19 due to aggressive behavior. The patient is coming from a residential owned by [facility]. His brother, Rich, is his primary guardian and healthcare proxy and his brother Dagoberto and his 2 daughters (Yuri's nieces) have been involved in his care. The patient presented due to aggressive behavior at his residential and was complaining of ear pain to the emergency department provider. He was scratching at his ears, banging his head, rolling onto the ground and also having aggressive behavior with the staff. Due to his aggressive behavior, his ears were not able to be examined until 08/29/19. Up until at this point, he was empirically treated for the thought of possible otitis media given his presentation, his intellectual delay, and leukocytosis. Ultimately, his ears were examined on 12/16 and a left tympanic membrane perforation was found. At that point, he had already completed a full course of cefazolin. When the patient arrived during this hospital stay, the psychiatry team was consulted. The patient was previously on Haldol, Abilify, lithium and Zoloft as far as his psychotropic medications. His lithium was discontinued and Depakote was started. His Haldol was discontinued and Zyprexa was started and ultimately later paliperidone was started as well. The patient was diagnosed with nephrogenic diabetes insipidus outpatient and has been followed by Nephrology long-term for his chronic kidney disease. He was advised by Nephrology many times outpatient, including by Dr. Neumann, that the ongoing use of lithium would continue to damage his kidneys and the family did accept this knowledge and wanted to continue use of lithium therapy for this patient. During this hospitalization, the patient presented with a creatinine of 3.57 initially. This did improve with IV hydration somewhat and amiloride was continued at this point. IV hydration could only be used intermittently given the patient's poor compliance of IV line, frequently removing them himself. Ultimately with lithium no longer on board, his creatinine did improve to 1.94 on 08/27/19, which was the best that his creatinine had been since 2014. With continued use of amiloride, he did develop a mild hyperkalemia and it was then discontinued; however, this has since been restarted in combination with hydrochlorothiazide and hyperkalemia has not recurred. The patient was ultimately ready to be discharged for medical and behavioral standpoint on 08/28/19. At this point, he was no longer injuring himself. He had become more interactive although he was not at his baseline, which includes ambulating on his own, feeding himself, and having full conversations. By , he was interacting appropriately, regarding faces, demonstrating emotion, and again no longer injuring himself. Unfortunately due to logistics at his residential, he was not able to be discharged until 08/31/19 and this was planned. However, on this date, he began having urinary retention and his electrolytes were abnormal. The discharge as cancelled. At this point, it was recognized that his alfuzosin and finasteride, which were prescribed on his previous hospital stay, were unfortunately not continued up to this point during this hospital stay. These were restarted. The patient had a straight cath and had no future residual retention on future bladder scans. At this point, the bladder scans have been discontinued and the patient has a good urine output. On 08/31/19, the patient's brother, Rich, requested restart of lithium. It appears that he was concerned regarding the adverse effects of Depakote, primarily that the patient had a low appetite and was refusing to eat. He was reassures by Dr. Ward that decrease in appetite is not an adverse effect of Depakote and that this was likely behavioral as the patient is known to do this at baseline. However, Dr. Ward did agree to restart lithium. Dr. Ward and ELIANE Carpenter did both advise the patient's healthcare proxy that restarting lithium comes with a great risk of further kidney damage and he was accepting of this. Since lithium has been restarted, his electrolytes have been difficult to manage and his kidney function has continued to worsen. By date of this note, his creatinine is 2.7, though his hyponatremia is resolved today as sodium is 144. On 09/04/19, leukocytosis of 30,000 was noted and evidence of infection was thoroughly investigated. Chest x-ray had no evidence of consolidation. Tympanic membranes were not able to be examined on that date due to cerumen impaction. However, ultimately by 09/08/19, I have visualized both TMs and is documented in my physical exam on today's date as well as oropharynx appearing clear. The patient has been afebrile the entirety of this hospital stay and to this point differential for this leukocytosis is as follows: The patient has urine culture with 75,000 to 100,000 cfu of both serratia and pseudomonas and I have been treated for UTI with cefepime. Additionally contributing could be candidiasis in the right groin as well as lithium use and the trauma of patient self abusing and the severe stress associated with his ongoing confusion while in the hospital. The patient has been treated with cefepime since urine culture demonstrated pseudomonas on 09/05/19, which also covers for serratia. The patient removed his IV on 09/08/19 and he was changed to ciprofloxacin. EKG demonstrated no QTc prolongation, though this will need to be followed given concurrent Haldol use. Given the patient's worsening clinical status as well as behavior, a very long family meeting was held on 09/07/19, with myself, Rich Collins (patient's brother and primary healthcare proxy), Dagoberto (patient's other brother), Marques, ( patient's niece, daughter of Dagoberto), and Aundrea (other niece, daughter of Dagoberto , works as RN). Multiple family questions were answered and the patient's clinical and psychiatric status were discussed extensively. The patient's continued self injury and confusion were discussed. Given the possibility of metabolic encephalopathy in the setting of UTI, the family was agreeable to 48 more hours of antibiotic therapy and if his behavior remains the same including self injury, frequent agitation, violent behavior toward staff, that they would be agreeable to discontinuing with lithium on 09/09/19 and switching back to Depakote. This is a plan and, thus far, family is in agreement to this. Additionally, the family was questioning why the patient cannot have [id number] medication to sedate him and Dr. Ward explained why this was inappropriate at this time. At this time, p.r.n. q.4 hours Haldol is being used and anticholinergic medication and benzodiazepines are being avoided to avoid the adverse effects of delirium of these medications. Given continued Haldol use, EKGs will be followed with ciprofloxacin use to follow QTc. On multiple occasions, the concern for continued worsening of nephrogenic diabetes insipidus with continued lithium use was expressed. It was explained this will worsen the patient's kidney function not only due to the primary agent of the lithium, but also due to the continued dehydration due to the nephrogenic diabetes insipidus. This patient is unable to maintain p.o. intake of fluids required by his urine output. His urine output has been difficult to quantify due to the patient's urinary incontinence. However, this pattern has demonstrated with BUN, creatinine and sodium during his hospital stay. He was frequently given IV fluids for this, however, was also frequently removing his IV line. On the date of this dictation, IV fluids were not given due to the patient removing his IV line and being violent staff including trying to swing the IV pole at [facility]. Of note, regarding this patient's behavior, he is known outside of the hospital to frequently hide his pills in his cheeks and this was continued during his hospital stay including his spitting out his medications. Additionally during this hospital stay, the patient has frequently vomited after meals, which [facility] note to be consistent with behavior that he has done in the past and seeking attention. During the period of time when he is on Depakote, he was no longer aggressive towards staff and this has recurred as previously mentioned including frequently screaming throughout the day and then readily crying. An ethics committee consultation has been initiated. This was discussed during the family meeting and the family was interested in discussing this case with ethics committee for possible guidance. Active medications on 09/08/19: 1. Tylenol liquid 650 mg p.o. q.4 hours p.r.n. pain or fever. 2. Tylenol suppository 650 mg per rectum q.6 hours p.r.n. mild pain or fever. 3. Acetylcysteine 600 mg p.o. b.i.d. scheduled (for self-injurious behavior). 4. Maalox 50 mL p.o. b.i.d. p.r.n. constipation. 5. Alfuzosin 10 mg p.o. daily as scheduled. 6. Amiloride/hydrochlorothiazide 10/50 mg 1 tab p.o. daily. 7. Amlodipine 5 mg p.o. daily. 8. Bisacodyl 10 mg per rectum daily p.r.n. constipation. 9. Ciprofloxacin 250 mg p.o. q.12 hours. 10. Lovenox 50 mg p.o. q.24 hours. 11. Finasteride 5 mg p.o. daily. 12. Fluticasone 2 sprays both nares daily recently scheduled. 13. Haldol 5 mg IV or IM q.4 hours p.r.n. agitation. 14. Ipratropium 2 sprays both nares 4 times a day. 15. Lansoprazole suspension 15 mg p.o. daily. 16. Levothyroxine 75 mcg p.o. daily. 17. [place] 300 mg p.o. b.i.d. 18. Naltrexone 50 mg p.o. daily (for self-injurious behavior). 19. Nystatin 1 application topically t.i.d. 20. Zyprexa 15 mg p.o. b.i.d. 21. Paliperidone 6 mg p.o. daily. 22. MiraLax 17 g p.o. daily p.r.n. constipation. 23. Senna 1 tab p.o. daily as scheduled. 24. Zoloft 100 mg p.o. daily. 25. Trazodone 100 mg p.o. at bedtime scheduled. KVNG EDWARDS, ELIANE [id number]/[facility] #: [id number] [facility] HOSPITALBenito
[2019-09-09] MEDS ORDERED: Ziprasidone IM INJ* 20 MG/ML VIAL IM ONE (01:19)
[2019-09-09] MEDS: Acetaminophen ADULT LIQ* 650 MG/20.3 ML UDC PO PRN (04:09)
[2019-09-09] MEDS: Levothyroxine TAB* 75 MCG TAB PO SCH (04:09)
[2019-09-09] MEDS: Haloperidol INJ IV/IM* 5 MG/ML AMP IV SLOW PU PRN ×2 (08:40→18:19)
[2019-09-09] MEDS: Lithium LIQ* 300 MG/5 ML UDC PO SCH ×3 (08:44→21:53)
[2019-09-09] MEDS: Naltrexone TAB* 50 MG TAB PO SCH (08:47)
[2019-09-09] MEDS: HCTZ PO SCH (08:47)
[2019-09-09] MEDS: AMILORIDE PO SCH (08:47)
[2019-09-09] MEDS: Ciprofloxacin TAB* 250 MG PO SCH ×3 (08:48→21:54)
[2019-09-09] MEDS: Finasteride TAB* 5 MG PO SCH (08:49)
[2019-09-09] MEDS: Sertraline* 100 MG TAB PO SCH (08:49)
[2019-09-09] MEDS: Senna TAB 8.6 mg* TAB PO SCH (08:49)
[2019-09-09] MEDS: Paliperidone ER TAB* 6 MG TAB.ER PO SCH (08:52)
[2019-09-09] MEDS: OLANzapine TAB*ODT* 10 MG TAB PO SCH ×3 (08:52→21:53)
[2019-09-09] MEDS: CMCS: Alfuzosin ER (NF) 10 MG TAB.ER PO SCH (08:54)
[2019-09-09] MEDS: Fluticasone NASAL SPRAY 50MCG* 16 gm SPRAY BTL BOTH NARES SCH (08:55)
[2019-09-09] MEDS: PTO:IPRATROPIUM BR (NF)0.06% NASAL 1 SPRAY BTL BOTH NARES SCH (08:55)
[2019-09-09] MEDS: Nystatin TOP POWDER* 15 GM BTL TOPICAL SCH ×3 (08:56→21:54)
[2019-09-09] MEDS: Lansoprazole SUSP* ORALSYR 3 MG/ML PO SCH (08:56)
[2019-09-09 11:31] LABS: Hematocrit 32 % (42-52); Hemoglobin 10.1 g/dL (14.0-18.0); Mean Corpuscular HGB Conc 32 g/dL (31-36); Mean Corpuscular Hemoglobin 31 pg (27-31); Mean Corpuscular Volume 97 fL (80-94); Mean Platelet Volume 8.3 fL (7.4-10.4); Platelet Count 527 10^3/uL (150-450); Red Blood Count 3.31 10^6 /uL (4.18-5.48); Red Cell Distribution Width 15 % (10-15); White Blood Count 35.3 10^3/uL (3.5-10.8)
--- NOTE | 2019-09-09 11:33 | CONSULT ---
Consult Consult: Reason for consult: Self Injurious behavior CC: "Nooo? " Patient was seen and evaluated today in his room with nurse and wringer machine operator from [facility] present. Patient was kicking and hitting staff, he showed bruises on legs and face from hitting himself. Patient attempting to jump out of bed. Mental Status Exam APPEARANCE : 64 year old male poor hygiene and grooming sitting in bed. EYE CONTACT: Poor PSYCHOMOTOR ACTIVITY: mild psychomotor agitation MOVEMENTS: repetitive movements SPEECH : loud volume MOOD : "Noo" AFFECT : Mood Incongruent THOUGHT PROCESS: Poverty of content THOUGHT CONTENT: Obsessions PERCEPTION: no AH/ VH SUICIDALITY Denied suicidal ideation, intent or plan. HOMICIDALITY Denied homicidal ideation, intent or plan. Insight/judgment: Poor insight and judgment ORIENTATION: Oriented to self not to location, and time. Assessment: 64 year old male with a history of severe intellectual disability and recent self injurious behavior being treated for lithium toxicity Diagnosis: Metabolic Encephalopathy Intellectual disability, severe. Recent Hemingway toxicity Plan # The patient does NOT require psychiatric inpatient admission at this time. # Medical issues managed by Primary team to include current treatment for infection # Safety Measures constant supervision, floor pad, cutting nails and unrestricted hand mittens to reduce risk of harm from self injury # Monitor EKG for risk of QT prolongation #Last long acting injection of Abilify 400mg q4 weeks was on 08/07/19 # Continue paliperidone 6mg po daily for aggression and ASD, will continue to monitor impact on renal function and QTc. # Hemingway level # Continue N- acetyl cysteine 600mg BID for self injurious behavior, as well as provides renal protection # Continue Zyprexa 15mg PO BID # Continue zoloft 100mg daily # Patient is unable to leave AMA # Continue constant supervision # Discussed recommendations with primary team # Discontinue ativan and do NOT give other benzodiazipines or anticholinergic agents given that it precipitates delirium. # Implement behavioral redirection and give Haldol or zyprexa PO/IM/IV Q6PRN for behavioral control during times when he presents a danger to himself and or others # Patient being followed by Nephrology # Decrease lithium 150 mg BID # Start depakote 250mg BID # Avoid NSAIDs and other renal toxic agents and encourage fluid intake # Consult Ethics committee. # Meeting with Patients family took place and plan of care was discussed. Primary team will continue to treat infectious etiology that could be contributing to delirium. Target date of Saturday was established and patient shows increased self injurious behavior, we will discontinue lithium and begin valproic acid given that the risks outweigh the benefit at this time. # Hemingway was titrated to therapeutic level and patient had increased self injury and unable to maintain behavioral control. #Targeted Goals: To reduce self injurious behavior. Progress of objective Goals - Patient continues to be combative with staff and difficult to redirect, punching himself. # Patients family verbalized that lithium benefited the patient in the past and they would like to start it again. While Hemingway is a sound and effective treatment in controlling aggression, the risk of kidney damage is severe and the continuation would put the patient at risk for shortened life expectancy, permanent renal disease and the need for life long dialysis and possible without any guaranteed outcomes. The patients health care proxy accepted these risk and the quality of life associated with dialysis. Hemingway was trailed and will not be continued given the lack of evidence for remitting behavioral disturbance and improvement of quality of life. # Patient is on multiple anti-psychotics and psychotropic medications. Given the severity of his presenting behavior and history including multiple failed medication trials, other alternative options and doses surpassing the FDA recommendations will be implemented. Consideration of these risks was presented to his treatment team from [facility] and health care proxy and everyone is in agreement with the plan. Black box warning of using anti psychotics as well as multiple anti psychotics in those over 65 were described to his health care proxy and treatment team who accepted these risks. # Psychiatry will continue to follow the patient.
[2019-09-09] MEDS: Divalproex Sprinkle CAP* 125 MG PO SCH ×3 (11:47→21:54)
[2019-09-09] MEDS: Acetylcysteine CAP (RENAL)* 600 MG PO SCH ×3 (11:51→21:55)
[2019-09-09 11:54] LABS: BUN/Creatinine Ratio 15.8 (8-20); Calcium 10.5 mg/dL (8.6-10.3); EGFR African American 23.5 (>60); EGFR Non-African American 19.4 (>60); Lithium 1.43 mmol/L (0.6-1.2); Potassium 4.3 mmol/L (3.5-5.0)
[2019-09-09] MEDS: Enoxaparin(*) 30 MG/0.3 ML SYR SUBCUT SCH (11:58)
[2019-09-09 12:05] LABS: ABS Basophils 0.2 10^3/ul (0-0.2); ABS Eosinophils 0.2 10^3/ul (0-0.6); ABS Lymphocytes 1.5 10^3/ul (1.0-4.8); ABS Monocytes 2.1 10^3/ul (0-0.8); ABS Neutrophils 31.2 10^3/ul (1.5-7.7); Eosinophil % 0.6 %; Lymphocyte % 4.3 %
--- NOTE | 2019-09-09 14:17 | PN ---
Subjective Date of Service: 09/09/19 Interval History: Patient is very agitated today, only minimally cooperative and kicking at the staff. Patient unable to meaningfully participate in ROS. Family History: Unchanged from Admission Social History: Unchanged from Admission Past Medical History: Unchanged from Admission Objective Active Medications: Acetaminophen (Tylenol Adult Liq*) 650 mg PO Q4H PRN PRN Reason: PAIN - MILD OR TEMP > 100.4 Last Admin: 09/09/19 04:09 Dose: 650 mg Acetaminophen (Tylenol Supp*) 650 mg MI Q6H PRN PRN Reason: pain-mild to moderate Last Admin: 09/04/19 20:17 Dose: 650 mg Acetylcysteine (Acetylcysteine Cap (Renal)*) 600 mg PO BID [facility] Stop: 09/10/19 21:01 Last Admin: 09/09/19 11:51 Dose: 600 mg Al Hydrox/Mg Hydrox/Simethicone (Maalox Plus*) 15 ml PO BID PRN PRN Reason: CONSTIPATION Last Admin: 09/01/19 13:17 Dose: 15 ml Alfuzosin HCl (Uroxatral (Nf)) 10 mg PO DAILY [facility] Last Admin: 09/09/19 08:54 Dose: 10 mg Amiloride/HCTZ (Moduretic 5-50 Tab*) 1 tab PO DAILY [facility] Last Admin: 09/09/19 08:47 Dose: 1 tab Amlodipine Besylate (Norvasc Tab*) 5 mg PO BEDTIME [facility] Last Admin: 09/08/19 21:40 Dose: 5 mg Bisacodyl (Dulcolax Supp*) 10 mg MI DAILY PRN PRN Reason: CONSTIPATION Last Admin: 09/08/19 21:56 Dose: 10 mg Ciprofloxacin (Cipro Tab*) 250 mg PO Q12HR [facility]; Protocol Last Admin: 09/09/19 08:48 Dose: 250 mg Divalproex Sodium (Depakote Sprinkle Cap*) 250 mg PO BID [facility] Last Admin: 09/09/19 11:47 Dose: 250 mg Enoxaparin Sodium (Lovenox(*)) 30 mg SUBCUT Q24H [facility] Last Admin: 09/09/19 11:58 Dose: Not Given Finasteride (Proscar Tab*) 5 mg PO DAILY [facility] Last Admin: 09/09/19 08:49 Dose: 5 mg Fluticasone Propionate (Flonase Nasal Roberts 50mcg*) 2 spray BOTH NARES DAILY [facility] Last Admin: 09/09/19 08:55 Dose: Not Given Haloperidol Lactate (Haldol Inj Iv/Im*) 5 mg IV SLOW PU Q4H PRN PRN Reason: AGITATION Last Admin: 09/09/19 08:40 Dose: 5 mg Lansoprazole (Lansoprazole Susp* Oralsyr) 15 mg PO DAILY [facility] Last Admin: 09/09/19 08:56 Dose: Not Given Levothyroxine Sodium (Synthroid Tab*) 75 mcg PO 0600 [facility] Last Admin: 09/09/19 04:09 Dose: 75 mcg Glencoe Citrate (Glencoe Liq*) 150 mg PO BID [facility] Naltrexone HCl (Naltrexone Tab*) 50 mg PO DAILY [facility]; Protocol Last Admin: 09/09/19 08:47 Dose: 50 mg Nystatin (Nystatin Top Powder*) 1 applic TOPICAL TID [facility] Last Admin: 09/09/19 08:56 Dose: Not Given Olanzapine (Zyprexa *Odt*) 15 mg PO BID [facility] Last Admin: 09/09/19 08:52 Dose: 15 mg Paliperidone (Invega Er Tab*) 6 mg PO DAILY [facility] Last Admin: 09/09/19 08:52 Dose: 6 mg Polyethylene Glycol/Electrolytes (Miralax*) 17 gm PO DAILY PRN PRN Reason: CONSTIPATION Senna (Senokot 8.6 Mg Tab*) 1 tab PO DAILY [facility] Last Admin: 09/09/19 08:49 Dose: 1 tab Sertraline HCl (Zoloft*) 100 mg PO DAILY [facility] Last Admin: 09/09/19 08:49 Dose: 100 mg Trazodone HCl (Desyrel Tab*) 100 mg PO BEDTIME [facility] Last Admin: 09/08/19 21:39 Dose: 100 mg Vital Signs - 8 hr 09/09/19 08:00 Respiratory 20 Rate Oxygen Devices in Use Now: None Appearance: Patient is a 64yo male who appears stated age and is sitting in the bed, yelling and kicking. Eyes: No Scleral Icterus, PERRLA Ears/Nose/Mouth/Throat: NL Teeth, Lips, Gums, Clear Oropharnyx, Mucous Membranes Moist Neck: NL Appearance and Movements; NL JVP, Trachea Midline Respiratory: Symmetrical Chest Expansion and Respiratory Effort, Clear to Auscultation Cardiovascular: NL Sounds; No Murmurs; No JVD, RRR, No Edema Abdominal: NL Sounds; No Tenderness; No Distention, No Hepatosplenomegaly Lymphatic: No Cervical Adenopathy Extremities: No Edema, No Clubbing, Cyanosis Skin: No Nodules or Sclerosis, - - Candidal rash in the groin, scratches and irritation on scrotum. Neurological: - - No Focal deficits, alert and not oriented. Result Diagrams: 09/09/19 11:05 09/09/19 11:05 Microbiology and Other Data: Microbiology 09/04/19 13:50 Urine Culture - Preliminary Urine Pseudomonas Aeruginosa Serratia Marcescens Assess/Plan/Problems-Billing Assessment: Mr. Mckoy is a 64 year old male with history of intellectual disability, autism, HTN, CKD that presents with his aide from his residential with report of outburst behavior, self-injury and nephrogenic DI with LIONEL on CKD. - Patient Problems (1) Acute kidney injury superimposed on CKD Current Visit: Yes Status: Acute Code(s): N17.9 - ACUTE KIDNEY FAILURE, UNSPECIFIED; N18.9 - CHRONIC KIDNEY DISEASE, UNSPECIFIED SNOMED Code(s): 02546740 Comment: - Etiology likely acute dehydration leading to LIONEL; lithium induced DI likely the cause of CKD and may be further exacerbating this due to dehydration - Serum and Urine osmo Na and creat indicating chronic renal disease with superimposed LIONEL - Renal US shows no hydro with medical renal disease - Glencoe has been restarted 09/01 at the request of patient's HCPs, cross titrate again, decrease dose to 150 BID. - Nephrology following; thank you for recommendations. - Cr worsened today again - Would like to give IVF but patient removed IV, Behaviors will not tolerate at this time. - Bladder scan shows PVR of 250ml, continue to monitor, patient is still urinating, but obstruction may be contributing to increased Cret. (2) Leukocytosis Current Visit: No Status: Acute Code(s): D72.829 - ELEVATED WHITE BLOOD CELL COUNT, UNSPECIFIED SNOMED Code(s): 515293772 Comment: - Follows closely with lithium activity - Not associated with fevers, tachycardia, on appropriate antibiotics - Not likely a good indicator of infection - Continue to monitor. (3) Bipolar disorder Current Visit: Yes Status: Acute Code(s): F31.9 - BIPOLAR DISORDER, UNSPECIFIED SNOMED Code(s): 98305611 Comment: - Not well controlled, has not slept for days, appreciate Psychiatric Consult. - Cross-Titrate Depakote and Glencoe, Continue Olanzapine, sertraline, and trazodone. (4) Candidiasis Current Visit: Yes Status: Acute Code(s): B37.9 - CANDIDIASIS, UNSPECIFIED SNOMED Code(s): 30013451 Comment: - Rash consistent with candidiasis in right groin - Nystatin TID (5) Hypernatremia Current Visit: Yes Status: Acute Code(s): E87.0 - HYPEROSMOLALITY AND HYPERNATREMIA SNOMED Code(s): 018449256 Comment: - Na wnl today - Continue amiloride and hctz - 2/2 nephrogenic DI, continue to liberalize oral fluids, and monitor for decrease in oral intake. -low sodium diet (6) Glencoe toxicity Current Visit: Yes Status: Acute Code(s): T56.891A - TOXIC EFFECT OF OTH METALS, ACCIDENTAL (UNINTENTIONAL), INIT SNOMED Code(s): 258360362 Comment: - Glencoe level again elevated today (Not a trough level) - Decrease lithium and start depakote. (7) Nephrogenic diabetes insipidus Current Visit: Yes Status: Acute Code(s): N25.1 - NEPHROGENIC DIABETES INSIPIDUS SNOMED Code(s): 927024641 Comment: - 2/2 lithium use, diagnosed outpatient initially - Hypernatremia resolved today - Appreciate input from nephrology - Continue amiloride and HCTZ - Liberatize fluids. (8) Schizophrenia Current Visit: Yes Status: Acute Code(s): F20.9 - SCHIZOPHRENIA, UNSPECIFIED SNOMED Code(s): 48323087 Comment: - Schizoaffective disorder - Not well controlled. - Continue paliperidone and olanzapine - QTc stable thus far - Start Depakote and decrease lithium. (9) Self-inflicted injury Current Visit: Yes Status: Acute Code(s): Z72.89 - OTHER PROBLEMS RELATED TO LIFESTYLE SNOMED Code(s): 267851823 Comment: - This behavior has recurred since restarting lithium - Extensive discussion at family meeting 09/07/19. If by Saturday (09/09/19), his leukocytosis is continued to downtrend then the clinical suspicion would be that there is no contributing metabolic encephalopathy, and therefore this is a psychiatric issue. Family agrees at this point he can be changed back to depakote and discontinue lithium Saturday morning. - Suspicious for lithium toxicity due to clinical presentation despite lithium level wnl - Dr. Ward has added q4hr haldol - Discontinued ativan due to JORDAN of delirium - Continue naltrexone and NAC (10) UTI (urinary tract infection) Current Visit: Yes Status: Acute Comment: - Urine culture with pseudomonas and serratia - Continue Cipro - Leukocytosis likely due to lithium toxicity, not infection. (11) Urine retention Current Visit: No Status: Acute Code(s): R33.9 - RETENTION OF URINE, UNSPECIFIED SNOMED Code(s): 156374335 Comment: - Restarted home alfuzosin, finasteride - Showing resiudals today, but <250mls, continue to monitor as this may be contributing to cret elevation. - SW to schedule outpatient urology appointment prior to discharge (12) DVT prophylaxis Current Visit: No Status: Acute Code(s): Z29.9 - ENCOUNTER FOR PROPHYLACTIC MEASURES, UNSPECIFIED SNOMED Code(s): 843612861 Comment: - Lovenox (13) Full code status Current Visit: No Status: Acute Code(s): Z78.9 - OTHER SPECIFIED HEALTH STATUS SNOMED Code(s): 127188864 Comment: Status and Disposition: pending further medical and behavioral improvement. Hopeful for d/c back to residential
[2019-09-09] MEDS ORDERED: Trimethobenzamide IM* 100 MG/ML 2 ml VIAL IM PRN (17:38)
[2019-09-09] MEDS: amLODIPine TAB* 5 MG PO SCH ×2 (21:25→21:52)
[2019-09-09] MEDS: traZODone TAB* 50 MG TAB PO SCH ×2 (21:26→21:51)
[2019-09-10] MEDS: Haloperidol INJ IV/IM* 5 MG/ML AMP IV SLOW PU PRN ×2 (00:25→22:15)
[2019-09-10] MEDS ORDERED: Ziprasidone IM INJ* 20 MG/ML VIAL IM ONE (03:00)
[2019-09-10] MEDS: Levothyroxine TAB* 75 MCG TAB PO SCH (06:02)
[2019-09-10 06:05] LABS: Hematocrit 29 % (42-52); Hemoglobin 9.3 g/dL (14.0-18.0); Mean Corpuscular HGB Conc 32 g/dL (31-36); Mean Corpuscular Hemoglobin 31 pg (27-31); Mean Corpuscular Volume 96 fL (80-94); Mean Platelet Volume 7.6 fL (7.4-10.4); Platelet Count 566 10^3/uL (150-450); Red Blood Count 3.06 10^6 /uL (4.18-5.48); Red Cell Distribution Width 15 % (10-15); White Blood Count 31.8 10^3/uL (3.5-10.8)
[2019-09-10 06:21] LABS: BUN/Creatinine Ratio 16.8 (8-20); Calcium 10.3 mg/dL (8.6-10.3); EGFR African American 20.8 (>60); EGFR Non-African American 17.2 (>60); Magnesium 2.8 mg/dL (1.9-2.7); Phosphorus 5.7 mg/dL (2.5-5.0); Potassium 4.3 mmol/L (3.5-5.0)
[2019-09-10 08:05] LABS: ABS Basophils 0.1 10^3/ul (0-0.2); ABS Eosinophils 0.1 10^3/ul (0-0.6); ABS Lymphocytes 1.2 10^3/ul (1.0-4.8); ABS Monocytes 1.8 10^3/ul (0-0.8); ABS Neutrophils 28.7 10^3/ul (1.5-7.7); Eosinophil % 0.4 %; Lymphocyte % 3.6 %; Nucleated Red Blood Cells % 0.1
[2019-09-10] MEDS: Fluticasone NASAL SPRAY 50MCG* 16 gm SPRAY BTL BOTH NARES SCH (08:28)
[2019-09-10] MEDS ORDERED: Lactated Ringers 1000 ML Bag* 1,000 ML IV SCH (08:29)
[2019-09-10] MEDS: Paliperidone ER TAB* 6 MG TAB.ER PO SCH (08:29)
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
[2019-09-10] MEDS: AMILORIDE PO SCH (08:30)
[2019-09-10] MEDS: OLANzapine TAB*ODT* 10 MG TAB PO SCH ×2 (08:30→21:10)
[2019-09-10] MEDS: HCTZ PO SCH (08:30)
[2019-09-10] MEDS: Acetylcysteine CAP (RENAL)* 600 MG PO SCH ×2 (08:31→21:10)
[2019-09-10] MEDS: Sertraline* 100 MG TAB PO SCH (08:31)
[2019-09-10] MEDS: Ciprofloxacin TAB* 250 MG PO SCH ×2 (08:32→21:10)
[2019-09-10] MEDS: Senna TAB 8.6 mg* TAB PO SCH (08:32)
[2019-09-10] MEDS: Naltrexone TAB* 50 MG TAB PO SCH (08:32)
[2019-09-10] MEDS: Finasteride TAB* 5 MG PO SCH (08:33)
[2019-09-10] MEDS: Divalproex Sprinkle CAP* 125 MG PO SCH ×2 (08:33→21:10)
[2019-09-10] MEDS: Al Hydrox/Mg Hydrox/Simet LIQ* 30 ML UDC PO PRN (08:37)
[2019-09-10] MEDS: Lansoprazole SUSP* ORALSYR 3 MG/ML PO SCH (08:56)
[2019-09-10] MEDS: CMCS: Alfuzosin ER (NF) 10 MG TAB.ER PO SCH (09:01)
[2019-09-10] MEDS: Nystatin TOP POWDER* 15 GM BTL TOPICAL SCH ×3 (09:03→21:36)
[2019-09-10] MEDS: Lithium LIQ* 300 MG/5 ML UDC PO SCH (09:08)
[2019-09-10] MEDS: Sodium Bicarbonate (ANTACID)* 650 MG TAB PO SCH ×2 (11:36→17:14)
[2019-09-10] MEDS: NS 0.45% 1000 ML BAG* 1,000 ML IV SCH ×2 (12:03→20:07)
--- NOTE | 2019-09-10 12:11 | PN ---
PROGRESS NOTE: DATE OF VISIT: 09/10/19 - ROOM #415 SUBJECTIVE: The patient is seen and examined at the bedside. The patient's lithium level noted to be somewhat elevated. The patient continues to have behavioral disturbances and pulling out his IV line. Further psychiatric medication adjustment per the psych team. Vitals and labs have been reviewed. PHYSICAL EXAMINATION: HEENT: NC/AT. Heart: S1 and S2 present. Regular rate and rhythm. Lungs: Decreased breath sounds bilaterally. Abdomen: Soft. Extremities: No edema. Neuro: Alert. Somewhat oriented. Answering question , but appears confused. ASSESSMENT AND PLAN: 1. Acute kidney injury on chronic kidney disease stage 4 in the setting of chronic lithium use and acute kidney injury in the setting of dehydration. 2. Recommend IV hydration. The patient pulled out his IV line, but appears to be in a better mood today. Recommend starting the patient on half-normal saline to avoid hypernatremia in the setting of his diabetes insipidus. Recommend checking sodium later on the day today and if the patient's sodium is in good limits, he can continue the half-normal saline at 125 to 150 cc an hour. 3. The patient has previously responded to IV fluids well with improvement in his renal function. 4. If the patient's sodium noted to be elevated later today, he can switch to D5W and run at 125 to 150 cc an hour. 5. Hypernatremia secondary to nephrogenic diabetes insipidus in the setting of chronic lithium use. The patient to continue the amiloride and hydrochlorothiazide that the patient is on and recommend IV hydration as discussed above. 6. We will follow with the medical team and be available for any questions. [id number]/[facility] #: [id number] PENNY
[2019-09-10] MEDS: Acetaminophen ADULT LIQ* 650 MG/20.3 ML UDC PO PRN (14:58)
[2019-09-10 15:58] LABS: Urine Appearance Clear; Urine Bacteria Absent (Absent); Urine Bilirubin Negative (Negative); Urine Blood 2+ (Negative); Urine Color Yellow; Urine Glucose Negative (Negative); Urine Ketones Negative (Negative); Urine Nitrite Negative (Negative); Urine Protein Negative (Negative); Urine Red Blood Cell Trace(0-2/hpf) (Absent); Urine Specific Gravity 1.011 (1.010-1.030); Urine Squamous Epithelial Cell Present (Absent); Urine Urobilinogen Negative (Negative); Urine White Blood Cell Trace(0-5/hpf) (Absent)
[2019-09-10 16:13] LABS: BUN/Creatinine Ratio 17.1 (8-20); EGFR Non-African American 18.2 (>60)
--- NOTE | 2019-09-10 16:43 | PN ---
Subjective Date of Service: 09/10/19 Interval History: Patient's psychiatric symptoms are much improved. Patient states he has pain in his abdomen, which is improving. Patient denies other pain, but is unable to otherwise engage in ROS. Family History: Unchanged from Admission Social History: Unchanged from Admission Past Medical History: Unchanged from Admission Objective Active Medications: Acetaminophen (Tylenol Adult Liq*) 650 mg PO Q4H PRN PRN Reason: PAIN - MILD OR TEMP > 100.4 Last Admin: 09/10/19 14:58 Dose: 650 mg Acetaminophen (Tylenol Supp*) 650 mg NE Q6H PRN PRN Reason: pain-mild to moderate Last Admin: 09/04/19 20:17 Dose: 650 mg Acetylcysteine (Acetylcysteine Cap (Renal)*) 600 mg PO BID [facility] Stop: 09/10/19 21:01 Last Admin: 09/10/19 08:31 Dose: 600 mg Al Hydrox/Mg Hydrox/Simethicone (Maalox Plus*) 15 ml PO BID PRN PRN Reason: CONSTIPATION Last Admin: 09/10/19 08:37 Dose: 15 ml Alfuzosin HCl (Uroxatral (Nf)) 10 mg PO DAILY [facility] Last Admin: 09/10/19 09:01 Dose: 10 mg Amiloride/HCTZ (Moduretic 5-50 Tab*) 1 tab PO DAILY [facility] Last Admin: 09/10/19 08:30 Dose: 1 tab Amlodipine Besylate (Norvasc Tab*) 5 mg PO BEDTIME [facility] Last Admin: 09/09/19 21:52 Dose: Not Given Bisacodyl (Dulcolax Supp*) 10 mg NE DAILY PRN PRN Reason: CONSTIPATION Last Admin: 09/08/19 21:56 Dose: 10 mg Ciprofloxacin (Cipro Tab*) 250 mg PO Q12HR [facility]; Protocol Last Admin: 09/10/19 08:32 Dose: 250 mg Divalproex Sodium (Depakote Sprinkle Cap*) 250 mg PO BID [facility] Last Admin: 09/10/19 08:33 Dose: 250 mg Finasteride (Proscar Tab*) 5 mg PO DAILY [facility] Last Admin: 09/10/19 08:33 Dose: 5 mg Fluticasone Propionate (Flonase Nasal [place] 50mcg*) 2 spray BOTH NARES DAILY [facility] Last Admin: 09/10/19 08:28 Dose: Not Given Haloperidol Lactate (Haldol Inj Iv/Im*) 5 mg IV SLOW PU Q4H PRN PRN Reason: AGITATION Last Admin: 09/10/19 00:25 Dose: 5 mg Sodium Chloride (Ns 0.45% 1000 Ml Bag*) 1,000 mls @ 175 mls/hr IV PER RATE [facility] Last Admin: 09/10/19 12:03 Dose: 175 mls/hr Lansoprazole (Lansoprazole Susp* Oralsyr) 15 mg PO DAILY [facility] Last Admin: 09/10/19 08:56 Dose: 15 mg Levothyroxine Sodium (Synthroid Tab*) 75 mcg PO 0600 [facility] Last Admin: 09/10/19 06:02 Dose: 75 mcg Naltrexone HCl (Naltrexone Tab*) 50 mg PO DAILY [facility]; Protocol Last Admin: 09/10/19 08:32 Dose: 50 mg Nystatin (Nystatin Top Powder*) 1 applic TOPICAL TID [facility] Last Admin: 09/10/19 14:06 Dose: Not Given Olanzapine (Zyprexa *Odt*) 15 mg PO BID [facility] Last Admin: 09/10/19 08:30 Dose: 15 mg Paliperidone (Invega Er Tab*) 6 mg PO DAILY [facility] Last Admin: 09/10/19 08:29 Dose: 6 mg Polyethylene Glycol/Electrolytes (Miralax*) 17 gm PO DAILY PRN PRN Reason: CONSTIPATION Last Admin: 09/10/19 08:33 Dose: 17 gm Senna (Senokot 8.6 Mg Tab*) 1 tab PO DAILY [facility] Last Admin: 09/10/19 08:32 Dose: 1 tab Sertraline HCl (Zoloft*) 100 mg PO DAILY [facility] Last Admin: 09/10/19 08:31 Dose: 100 mg Sodium Bicarbonate (Sodium Bicarbonate (Antacid)*) 1,300 mg PO Q8H [facility] Last Admin: 09/10/19 11:36 Dose: 1,300 mg Trazodone HCl (Desyrel Tab*) 100 mg PO BEDTIME [facility] Last Admin: 09/09/19 21:51 Dose: Not Given Trimethobenzamide HCl (Tigan Im*) 200 mg IM Q12H PRN PRN Reason: NAUSEA Last Admin: 09/09/19 18:24 Dose: 200 mg Oxygen Devices in Use Now: None Appearance: Patient is a 64yo male who appears stated age and is sitting in the bed in NAD. Eyes: No Scleral Icterus, PERRLA Ears/Nose/Mouth/Throat: NL Teeth, Lips, Gums, Clear Oropharnyx, Mucous Membranes Moist Neck: NL Appearance and Movements; NL JVP, Trachea Midline Respiratory: Symmetrical Chest Expansion and Respiratory Effort, Clear to Auscultation Cardiovascular: NL Sounds; No Murmurs; No JVD, RRR, No Edema Abdominal: NL Sounds; No Tenderness; No Distention, No Hepatosplenomegaly Lymphatic: No Cervical Adenopathy Extremities: No Edema, No Clubbing, Cyanosis Skin: - - Scratches all over body. Bruising. Neurological: - - Alert, not oriented. No focal deficits. Result Diagrams: 09/10/19 05:46 09/10/19 15:47 Microbiology and Other Data: Microbiology 09/04/19 13:50 Urine Culture - Preliminary Urine Pseudomonas Aeruginosa Serratia Marcescens Assess/Plan/Problems-Billing Assessment: Mr. Mckoy is a 64 year old male with history of intellectual disability, autism, HTN, CKD that presents with his aide from his longterm with report of outburst behavior, self-injury and nephrogenic DI with LIONEL on CKD. - Patient Problems (1) Acute kidney injury superimposed on CKD Current Visit: Yes Status: Acute Code(s): N17.9 - ACUTE KIDNEY FAILURE, UNSPECIFIED; N18.9 - CHRONIC KIDNEY DISEASE, UNSPECIFIED SNOMED Code(s): 91993973 Comment: - Etiology likely acute dehydration leading to LIONEL; lithium induced DI likely the cause of CKD and may be further exacerbating this due to dehydration - Serum and Urine osmo Na and creat indicating chronic renal disease with superimposed LIONEL - Renal US shows no hydro with medical renal disease - [place] was restarted 09/01 at the request of patient's HCPs, now stopped due to toxicity. - Nephrology following; thank you for recommendations. - Cr worsened today again - Now tolerating IV, Cret improved on check after fluids without hypernatremia. - No further evidence of obstruction. (2) Leukocytosis Current Visit: No Status: Acute Code(s): D72.829 - ELEVATED WHITE BLOOD CELL COUNT, UNSPECIFIED SNOMED Code(s): 323694719 Comment: - Follows closely with lithium activity, trending down. - Not associated with fevers, tachycardia, on appropriate antibiotics - Not likely a good indicator of infection - Continue to monitor. (3) Bipolar disorder Current Visit: Yes Status: Acute Code(s): F31.9 - BIPOLAR DISORDER, UNSPECIFIED SNOMED Code(s): 76977474 Comment: - Not well controlled, has not slept for days, appreciate Psychiatric Consult. - Symptoms improving today - Increase Depakote, stop [place], Continue Olanzapine, sertraline, and trazodone. (4) Candidiasis Current Visit: Yes Status: Acute Code(s): B37.9 - CANDIDIASIS, UNSPECIFIED SNOMED Code(s): 63194034 Comment: - Rash consistent with candidiasis in right groin - Nystatin TID (5) Gastric bleed Current Visit: Yes Status: Acute Code(s): K92.2 - GASTROINTESTINAL HEMORRHAGE, UNSPECIFIED SNOMED Code(s): 70799125 Comment: - One Coffee grounds emesis yesterday, tested postive for blood - Stopped Lovenox and trend H/H, Stool occult blood negative - Continue PPI, most likely due to Merissa-Ruiz tear. (6) Hypernatremia Current Visit: Yes Status: Acute Code(s): E87.0 - HYPEROSMOLALITY AND HYPERNATREMIA SNOMED Code(s): 258409004 Comment: - Na wnl today - Continue amiloride and hctz - 2/2 nephrogenic DI, continue to liberalize oral fluids, and monitor for decrease in oral intake. -low sodium diet (7) [place] toxicity Current Visit: Yes Status: Acute Code(s): T56.891A - TOXIC EFFECT OF OTH METALS, ACCIDENTAL (UNINTENTIONAL), INIT SNOMED Code(s): 013639148 Comment: - [place] level again elevated today as a trough level - Stop lithium and monitor. (8) Nephrogenic diabetes insipidus Current Visit: Yes Status: Acute Code(s): N25.1 - NEPHROGENIC DIABETES INSIPIDUS SNOMED Code(s): 569014822 Comment: - 2/2 lithium use, diagnosed outpatient initially - Hypernatremia resolved today - Appreciate input from nephrology - Continue amiloride and HCTZ - Liberatize fluids. (9) Schizophrenia Current Visit: Yes Status: Acute Code(s): F20.9 - SCHIZOPHRENIA, UNSPECIFIED SNOMED Code(s): 17783196 Comment: - Schizoaffective disorder - Not well controlled. - Continue paliperidone and olanzapine - QTc stable thus far - Start Depakote and increase. (10) Self-inflicted injury Current Visit: Yes Status: Acute Code(s): Z72.89 - OTHER PROBLEMS RELATED TO LIFESTYLE SNOMED Code(s): 460809916 Comment: - This behavior has recurred since restarting lithium - Extensive discussion at family meeting 09/07/19. If by Saturday (09/09/19), his leukocytosis is continued to downtrend then the clinical suspicion would be that there is no contributing metabolic encephalopathy, and therefore this is a psychiatric issue. Family agrees at this point he can be changed back to depakote and discontinue lithium Saturday morning. - Suspicious for lithium toxicity due to clinical presentation despite lithium level wnl - Dr. Ward has added q4hr haldol - Discontinued ativan due to JORDAN of delirium - Continue naltrexone and NAC (11) UTI (urinary tract infection) Current Visit: Yes Status: Acute Comment: - Urine culture with pseudomonas and serratia - Continue Cipro, complete on 09/12 in AM. - Leukocytosis likely due to lithium toxicity, not infection. (12) Urine retention Current Visit: No Status: Acute Code(s): R33.9 - RETENTION OF URINE, UNSPECIFIED SNOMED Code(s): 474731250 Comment: - Restarted home alfuzosin, finasteride - SW to schedule outpatient urology appointment prior to discharge (13) DVT prophylaxis Current Visit: No Status: Acute Code(s): Z29.9 - ENCOUNTER FOR PROPHYLACTIC MEASURES, UNSPECIFIED SNOMED Code(s): 200645998 Comment: - Hold Lovenox, monitor H/H. (14) Full code status Current Visit: No Status: Acute Code(s): Z78.9 - OTHER SPECIFIED HEALTH STATUS SNOMED Code(s): 189446335 Comment: Status and Disposition: pending further medical and behavioral improvement. Hopeful for d/c back to longterm
[2019-09-10] MEDS: amLODIPine TAB* 5 MG PO SCH (21:10)
[2019-09-10] MEDS: traZODone TAB* 50 MG TAB PO SCH (21:11)
[2019-09-11] MEDS: NS 0.45% 1000 ML BAG* 1,000 ML IV SCH ×3 (02:53→23:18)
[2019-09-11] MEDS: Levothyroxine TAB* 75 MCG TAB PO SCH (05:27)
[2019-09-11] MEDS: Sodium Bicarbonate (ANTACID)* 650 MG TAB PO SCH ×4 (05:28→20:17)
[2019-09-11] MEDS: Haloperidol INJ IV/IM* 5 MG/ML AMP IV SLOW PU PRN ×2 (06:10→13:38)
[2019-09-11 07:43] LABS: Hematocrit 28 % (42-52); Mean Corpuscular HGB Conc 32 g/dL (31-36); Mean Corpuscular Hemoglobin 31 pg (27-31); Mean Corpuscular Volume 96 fL (80-94); Mean Platelet Volume 7.2 fL (7.4-10.4); Platelet Count 565 10^3/uL (150-450); Red Blood Count 2.94 10^6 /uL (4.18-5.48); Red Cell Distribution Width 15 % (10-15); White Blood Count 24.7 10^3/uL (3.5-10.8)
[2019-09-11 08:00] LABS: BUN/Creatinine Ratio 17.9 (8-20); Calcium 9.6 mg/dL (8.6-10.3); EGFR African American 24.3 (>60); EGFR Non-African American 20.1 (>60); Magnesium 2.7 mg/dL (1.9-2.7); Phosphorus 4.7 mg/dL (2.5-5.0); Potassium 4.1 mmol/L (3.5-5.0)
[2019-09-11 08:04] LABS: ABS Basophils 0.1 10^3/ul (0-0.2); ABS Eosinophils 0.4 10^3/ul (0-0.6); ABS Lymphocytes 1.1 10^3/ul (1.0-4.8); ABS Monocytes 1.2 10^3/ul (0-0.8); ABS Neutrophils 21.8 10^3/ul (1.5-7.7); Eosinophil % 1.6 %; Lymphocyte % 4.6 %
[2019-09-11] MEDS ORDERED: Lithium LIQ* 300 MG/5 ML UDC PO SCH (09:00)
[2019-09-11] MEDS: OLANzapine TAB*ODT* 10 MG TAB PO SCH ×3 (10:38→20:17)
[2019-09-11] MEDS: Paliperidone ER TAB* 6 MG TAB.ER PO SCH ×2 (10:39→13:23)
[2019-09-11] MEDS: Naltrexone TAB* 50 MG TAB PO SCH ×2 (10:39→13:20)
[2019-09-11] MEDS: CMCS: Alfuzosin ER (NF) 10 MG TAB.ER PO SCH ×3 (10:40→14:27)
[2019-09-11] MEDS: AMILORIDE PO SCH ×3 (10:40→14:28)
[2019-09-11] MEDS: HCTZ PO SCH ×3 (10:40→14:28)
[2019-09-11] MEDS: Lansoprazole SUSP* ORALSYR 3 MG/ML PO SCH ×2 (10:40→13:04)
[2019-09-11] MEDS: Sertraline* 100 MG TAB PO SCH ×2 (10:40→14:28)
[2019-09-11] MEDS: Finasteride TAB* 5 MG PO SCH ×2 (10:41→14:28)
[2019-09-11] MEDS: Senna TAB 8.6 mg* TAB PO SCH ×2 (10:41→14:28)
[2019-09-11] MEDS: Ciprofloxacin TAB* 250 MG PO SCH ×3 (10:41→20:19)
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
[2019-09-11] MEDS: Divalproex Sprinkle CAP* 125 MG PO SCH ×4 (10:42→20:17)
[2019-09-11] MEDS: Fluticasone NASAL SPRAY 50MCG* 16 gm SPRAY BTL BOTH NARES SCH (10:42)
[2019-09-11] MEDS: Nystatin TOP POWDER* 15 GM BTL TOPICAL SCH ×3 (10:42→20:19)
--- NOTE | 2019-09-11 12:35 | PN ---
PROGRESS NOTE: DATE OF VISIT: 09/11/19 SUBJECTIVE: The patient was seen and examined at bedside. The patient's lithium level noted to be e levated. Vitals and labs have been reviewed. PHYSICAL EXAMINATION: HEENT: NC/AT. Heart: S1, S2 present. Regular at the time of exam. Lungs: Decreased breath sounds bilaterally. Abdomen: Soft. Extremities: No edema. Neuro: Alert. ASSESSMENT AND PLAN: 1. Acute kidney injury on chronic kidney disease in the setting of lithium use and dehydration in th e setting of diabetes insipidus. 2. Recommend continuing half-normal saline for at least another 24 hours. The patient's creatinine has improved with hydration. 3. Nephrogenic diabetes insipidus. Recommend continuing hydrochlorothiazide and amiloride that the patient is on. 4. Forman toxicity with symptoms. Forman has not been working well for the patient and the patien t having behavioral disturbances and lithium level becoming toxic with concern for permanent renal da mage and the patient's behavior is not controlled even with toxic doses of lithium. In light of this , agree on holding the lithium as per Psych recommendations and trying other agents. 5. The patient is still noted to be borderline lithium toxic currently. Recommend following levels. Does not have any dialysis indications; however, recommend continuing IV hydration until his lithiu m level comes back to normal. [id number]/[facility] #: [id number]
--- NOTE | 2019-09-11 13:04 | PN ---
Subjective Date of Service: 09/11/19 Interval History: Patient is calm today at time of assessment. Patient mainly complains about pain in right arm at the site of his previous phlebotomy site. Patient denies other pain. Nursing and family state that later in the day he became more agitated and violent. Family History: Unchanged from Admission Social History: Unchanged from Admission Past Medical History: Unchanged from Admission Objective Active Medications: Acetaminophen (Tylenol Adult Liq*) 650 mg PO Q4H PRN PRN Reason: PAIN - MILD OR TEMP > 100.4 Last Admin: 09/10/19 14:58 Dose: 650 mg Acetaminophen (Tylenol Supp*) 650 mg [place] Q6H PRN PRN Reason: pain-mild to moderate Last Admin: 09/04/19 20:17 Dose: 650 mg Al Hydrox/Mg Hydrox/Simethicone (Maalox Plus*) 15 ml PO BID PRN PRN Reason: CONSTIPATION Last Admin: 09/10/19 08:37 Dose: 15 ml Alfuzosin HCl (Uroxatral (Nf)) 10 mg PO DAILY [facility] Last Admin: 09/10/19 09:01 Dose: 10 mg Amiloride/HCTZ (Moduretic 5-50 Tab*) 1 tab PO DAILY [facility] Last Admin: 09/10/19 08:30 Dose: 1 tab Amlodipine Besylate (Norvasc Tab*) 5 mg PO BEDTIME [facility] Last Admin: 09/10/19 21:10 Dose: 5 mg Bisacodyl (Dulcolax Supp*) 10 mg [place] DAILY PRN PRN Reason: CONSTIPATION Last Admin: 09/08/19 21:56 Dose: 10 mg Ciprofloxacin (Cipro Tab*) 250 mg PO Q12HR [facility]; Protocol Last Admin: 09/10/19 21:10 Dose: 250 mg Divalproex Sodium (Depakote Sprinkle Cap*) 500 mg PO BID [facility] Finasteride (Proscar Tab*) 5 mg PO DAILY [facility] Last Admin: 09/10/19 08:33 Dose: 5 mg Fluticasone Propionate (Flonase Nasal [place] 50mcg*) 2 spray BOTH NARES DAILY [facility] Last Admin: 09/11/19 10:42 Dose: Not Given Haloperidol Lactate (Haldol Inj Iv/Im*) 5 mg IV SLOW PU Q4H PRN PRN Reason: AGITATION Last Admin: 09/11/19 06:10 Dose: 5 mg Sodium Chloride (Ns 0.45% 1000 Ml Bag*) 1,000 mls @ 175 mls/hr IV PER RATE [facility] Last Admin: 09/11/19 02:53 Dose: 175 mls/hr Lansoprazole (Lansoprazole Susp* Oralsyr) 15 mg PO DAILY [facility] Last Admin: 09/10/19 08:56 Dose: 15 mg Levothyroxine Sodium (Synthroid Tab*) 75 mcg PO 0600 [facility] Last Admin: 09/11/19 05:27 Dose: 75 mcg Naltrexone HCl (Naltrexone Tab*) 50 mg PO DAILY [facility]; Protocol Last Admin: 09/10/19 08:32 Dose: 50 mg Nystatin (Nystatin Top Powder*) 1 applic TOPICAL TID [facility] Last Admin: 09/11/19 10:42 Dose: Not Given Olanzapine (Zyprexa *Odt*) 15 mg PO BID [facility] Last Admin: 09/10/19 21:10 Dose: 15 mg Paliperidone (Invega Er Tab*) 6 mg PO DAILY [facility] Last Admin: 09/10/19 08:29 Dose: 6 mg Polyethylene Glycol/Electrolytes (Miralax*) 17 gm PO DAILY PRN PRN Reason: CONSTIPATION Last Admin: 09/10/19 08:33 Dose: 17 gm Senna (Senokot 8.6 Mg Tab*) 1 tab PO DAILY [facility] Last Admin: 09/10/19 08:32 Dose: 1 tab Sertraline HCl (Zoloft*) 100 mg PO DAILY [facility] Last Admin: 09/10/19 08:31 Dose: 100 mg Sodium Bicarbonate (Sodium Bicarbonate (Antacid)*) 1,300 mg PO Q8H [facility] Last Admin: 09/11/19 11:15 Dose: Not Given Trazodone HCl (Desyrel Tab*) 100 mg PO BEDTIME [facility] Last Admin: 09/10/19 21:11 Dose: 100 mg Trimethobenzamide HCl (Tigan Im*) 200 mg IM Q12H PRN PRN Reason: NAUSEA Last Admin: 09/09/19 18:24 Dose: 200 mg Oxygen Devices in Use Now: None Appearance: Patient is a 64yo male who appears stated age and is sitting in the bed in [facility]. Eyes: No Scleral Icterus, PERRLA Ears/Nose/Mouth/Throat: NL Teeth, Lips, Gums, Clear Oropharnyx, Mucous Membranes Moist Neck: NL Appearance and Movements; NL JVP, Trachea Midline Respiratory: Symmetrical Chest Expansion and Respiratory Effort, Clear to Auscultation Cardiovascular: NL Sounds; No Murmurs; No JVD, RRR, No Edema Abdominal: NL Sounds; No Tenderness; No Distention, No Hepatosplenomegaly Lymphatic: No Cervical Adenopathy Extremities: No Edema, No Clubbing, Cyanosis Skin: No Nodules or Sclerosis, - - Scratches over body Neurological: NL Sensation, NL Muscle Strength and Tone, - - Alert, oriented only to self. Result Diagrams: 09/11/19 07:34 09/11/19 07:34 Microbiology and Other Data: Microbiology 09/04/19 13:50 Urine Culture - Preliminary Urine Pseudomonas Aeruginosa Serratia Marcescens Assess/Plan/Problems-Billing Assessment: Mr. Mckoy is a 64 year old male with history of intellectual disability, autism, HTN, CKD that presents with his aide from his longterm with report of outburst behavior, self-injury and nephrogenic DI with LOINEL on CKD. - Patient Problems (1) Acute kidney injury superimposed on CKD Current Visit: Yes Status: Acute Code(s): N17.9 - ACUTE KIDNEY FAILURE, UNSPECIFIED; N18.9 - CHRONIC KIDNEY DISEASE, UNSPECIFIED SNOMED Code(s): 01038415 Comment: - Etiology likely acute dehydration leading to LIONEL; lithium induced DI likely the cause of CKD and may be further exacerbating this due to dehydration - Renal US shows no hydro with medical renal disease - Luna was restarted 09/01 at the request of patient's HCPs, now stopped due to toxicity. - Nephrology following; thank you for recommendations. - Cr improving with fluids without hypernatremia. - Now tolerating IV, continue at least 24 more hours per nephrology. - No further evidence of obstruction. (2) Leukocytosis Current Visit: No Status: Acute Code(s): D72.829 - ELEVATED WHITE BLOOD CELL COUNT, UNSPECIFIED SNOMED Code(s): 988443082 Comment: - Follows closely with lithium activity, trending down. - Not associated with fevers, tachycardia, on appropriate antibiotics - Not likely a good indicator of infection - Continue to monitor. (3) Bipolar disorder Current Visit: Yes Status: Acute Code(s): F31.9 - BIPOLAR DISORDER, UNSPECIFIED SNOMED Code(s): 18529310 Comment: - Not well controlled, has not slept for days, appreciate Psychiatric Consult. - Symptoms stable today. - Increase Depakote, stop Luna, Continue Olanzapine, sertraline, and trazodone. (4) Candidiasis Current Visit: Yes Status: Acute Code(s): B37.9 - CANDIDIASIS, UNSPECIFIED SNOMED Code(s): 74656618 Comment: - Rash consistent with candidiasis in right groin - Nystatin TID (5) Gastric bleed Current Visit: Yes Status: Acute Code(s): K92.2 - GASTROINTESTINAL HEMORRHAGE, UNSPECIFIED SNOMED Code(s): 02656937 Comment: - One Coffee grounds emesis yesterday, tested postive for blood - Stopped Lovenox and trend H/H, Stool occult blood negative - Continue PPI, most likely due to Merissa-Ruiz tear. - Consider Resumption of Lovenox tomorrow if stable H/H. (6) Hypernatremia Current Visit: Yes Status: Acute Code(s): E87.0 - HYPEROSMOLALITY AND HYPERNATREMIA SNOMED Code(s): 181061385 Comment: - Na wnl today - Continue amiloride and hctz - 2/2 nephrogenic DI, continue to liberalize oral fluids, and monitor for decrease in oral intake. -low sodium diet (7) Luna toxicity Current Visit: Yes Status: Acute Code(s): T56.891A - TOXIC EFFECT OF OTH METALS, ACCIDENTAL (UNINTENTIONAL), INIT SNOMED Code(s): 179009699 Comment: - Luna level again elevated today as a trough level - Stop lithium and monitor. - Recheck tomorrow with labs. (8) Nephrogenic diabetes insipidus Current Visit: Yes Status: Acute Code(s): N25.1 - NEPHROGENIC DIABETES INSIPIDUS SNOMED Code(s): 873009555 Comment: - 2/2 lithium use, diagnosed outpatient initially - Hypernatremia resolved today - Appreciate input from nephrology - Continue amiloride and HCTZ - Liberatize fluids. (9) Schizophrenia Current Visit: Yes Status: Acute Code(s): F20.9 - SCHIZOPHRENIA, UNSPECIFIED SNOMED Code(s): 10234738 Comment: - Schizoaffective disorder - Not well controlled. - Continue paliperidone and olanzapine - QTc stable thus far - Start Depakote and increase. (10) Self-inflicted injury Current Visit: Yes Status: Acute Code(s): Z72.89 - OTHER PROBLEMS RELATED TO LIFESTYLE SNOMED Code(s): 361232109 Comment: - This behavior has recurred, but is improving - Dr. Ward has added q4hr haldol - Discontinued ativan due to JORDAN of delirium - Continue naltrexone (11) UTI (urinary tract infection) Current Visit: Yes Status: Acute Comment: - Urine culture with pseudomonas and serratia - Continue Cipro, complete on 09/12 in AM. - Leukocytosis likely due to lithium toxicity, not infection. (12) Urine retention Current Visit: No Status: Acute Code(s): R33.9 - RETENTION OF URINE, UNSPECIFIED SNOMED Code(s): 615255439 Comment: - Restarted home alfuzosin, finasteride - SW to schedule outpatient urology appointment prior to discharge (13) DVT prophylaxis Current Visit: No Status: Acute Code(s): Z29.9 - ENCOUNTER FOR PROPHYLACTIC MEASURES, UNSPECIFIED SNOMED Code(s): 312952712 Comment: - Hold Lovenox, monitor H/H. (14) Full code status Current Visit: No Status: Acute Code(s): Z78.9 - OTHER SPECIFIED HEALTH STATUS SNOMED Code(s): 824806331 Comment: Status and Disposition: pending further medical and behavioral improvement. Hopeful for d/c back to longterm
[2019-09-11] MEDS ORDERED: Divalproex Sprinkle CAP* 125 MG PO ONE (13:15)
[2019-09-11] MEDS: traZODone TAB* 50 MG TAB PO SCH (20:15)
[2019-09-11] MEDS: amLODIPine TAB* 5 MG PO SCH (20:16)
[2019-09-11] MEDS: Acetaminophen ADULT LIQ* 650 MG/20.3 ML UDC PO PRN (20:19)
[2019-09-12] MEDS: Sodium Bicarbonate (ANTACID)* 650 MG TAB PO SCH ×3 (05:40→22:15)
[2019-09-12] MEDS: Levothyroxine TAB* 75 MCG TAB PO SCH (05:41)
[2019-09-12] MEDS: NS 0.45% 1000 ML BAG* 1,000 ML IV SCH (05:43)
[2019-09-12 06:11] LABS: Hematocrit 26 % (42-52); Hemoglobin 8.5 g/dL (14.0-18.0); Mean Corpuscular HGB Conc 33 g/dL (31-36); Mean Corpuscular Hemoglobin 31 pg (27-31); Mean Corpuscular Volume 95 fL (80-94); Mean Platelet Volume 7.4 fL (7.4-10.4); Platelet Count 490 10^3/uL (150-450); Red Cell Distribution Width 15 % (10-15); White Blood Count 16.5 10^3/uL (3.5-10.8)
[2019-09-12 06:40] LABS: BUN/Creatinine Ratio 18.8 (8-20); Calcium 9.4 mg/dL (8.6-10.3); EGFR African American 29.9 (>60); EGFR Non-African American 24.7 (>60); Magnesium 2.7 mg/dL (1.9-2.7); Potassium 3.9 mmol/L (3.5-5.0)
[2019-09-12 06:41] LABS: Lithium 1.16 mmol/L (0.6-1.2)
[2019-09-12 06:42] LABS: ABS Basophils 0.1 10^3/ul (0-0.2); ABS Eosinophils 0.6 10^3/ul (0-0.6); ABS Lymphocytes 1.3 10^3/ul (1.0-4.8); ABS Monocytes 1.1 10^3/ul (0-0.8); ABS Neutrophils 13.5 10^3/ul (1.5-7.7); Eosinophil % 3.7 %; Lymphocyte % 7.6 %
[2019-09-12] MEDS: Ciprofloxacin TAB* 250 MG PO SCH (09:43)
[2019-09-12] MEDS: Sertraline* 100 MG TAB PO SCH (09:43)
[2019-09-12] MEDS: Lansoprazole SUSP* ORALSYR 3 MG/ML PO SCH (09:43)
[2019-09-12] MEDS: AMILORIDE PO SCH (09:44)
[2019-09-12] MEDS: CMCS: Alfuzosin ER (NF) 10 MG TAB.ER PO SCH (09:44)
[2019-09-12] MEDS: OLANzapine TAB*ODT* 10 MG TAB PO SCH ×2 (09:44→22:14)
[2019-09-12] MEDS: HCTZ PO SCH (09:44)
[2019-09-12] MEDS: Naltrexone TAB* 50 MG TAB PO SCH (09:44)
[2019-09-12] MEDS: Senna TAB 8.6 mg* TAB PO SCH (09:45)
[2019-09-12] MEDS: Finasteride TAB* 5 MG PO SCH (09:45)
[2019-09-12] MEDS: Divalproex Sprinkle CAP* 125 MG PO SCH ×2 (09:45→22:07)
[2019-09-12] MEDS: Paliperidone ER TAB* 6 MG TAB.ER PO SCH (10:13)
[2019-09-12] MEDS: Fluticasone NASAL SPRAY 50MCG* 16 gm SPRAY BTL BOTH NARES SCH (10:14)
[2019-09-12] MEDS: Nystatin TOP POWDER* 15 GM BTL TOPICAL SCH ×3 (10:16→22:15)
--- NOTE | 2019-09-12 11:57 | PN ---
Subjective Date of Service: 09/12/19 Interval History: Patient is in a relatively good mood this AM. States his leg hurts. Patient is not drinking well and is not able to explain why. Has not vomited recently. Family History: Unchanged from Admission Social History: Unchanged from Admission Past Medical History: Unchanged from Admission Objective Active Medications: Acetaminophen (Tylenol Adult Liq*) 650 mg PO Q4H PRN PRN Reason: PAIN - MILD OR TEMP > 100.4 Last Admin: 09/11/19 20:19 Dose: 650 mg Acetaminophen (Tylenol Supp*) 650 mg [place] Q6H PRN PRN Reason: pain-mild to moderate Last Admin: 09/04/19 20:17 Dose: 650 mg Al Hydrox/Mg Hydrox/Simethicone (Maalox Plus*) 15 ml PO BID PRN PRN Reason: CONSTIPATION Last Admin: 09/10/19 08:37 Dose: 15 ml Alfuzosin HCl (Uroxatral (Nf)) 10 mg PO DAILY [facility] Last Admin: 09/12/19 09:44 Dose: 10 mg Amiloride/HCTZ (Moduretic 5-50 Tab*) 1 tab PO DAILY [facility] Last Admin: 09/12/19 09:44 Dose: 1 tab Amlodipine Besylate (Norvasc Tab*) 5 mg PO BEDTIME [facility] Last Admin: 09/11/19 20:16 Dose: 5 mg Bisacodyl (Dulcolax Supp*) 10 mg [place] DAILY PRN PRN Reason: CONSTIPATION Last Admin: 09/08/19 21:56 Dose: 10 mg Divalproex Sodium (Depakote Sprinkle Cap*) 500 mg PO BID [facility] Last Admin: 09/12/19 09:45 Dose: 500 mg Finasteride (Proscar Tab*) 5 mg PO DAILY [facility] Last Admin: 09/12/19 09:45 Dose: 5 mg Fluticasone Propionate (Flonase Nasal [place] 50mcg*) 2 spray BOTH NARES DAILY [facility] Last Admin: 09/12/19 10:14 Dose: Not Given Haloperidol Lactate (Haldol Inj Iv/Im*) 5 mg IV SLOW PU Q4H PRN PRN Reason: AGITATION Last Admin: 09/11/19 13:38 Dose: 5 mg Dextrose (D5w 1000 Ml Bag*) 1,000 mls @ 125 mls/hr IV PER RATE [facility] Lansoprazole (Lansoprazole Susp* Oralsyr) 15 mg PO DAILY [facility] Last Admin: 09/12/19 09:43 Dose: 15 mg Levothyroxine Sodium (Synthroid Tab*) 75 mcg PO 0600 [facility] Last Admin: 09/12/19 05:41 Dose: 75 mcg Naltrexone HCl (Naltrexone Tab*) 50 mg PO DAILY [facility]; Protocol Last Admin: 09/12/19 09:44 Dose: 50 mg Nystatin (Nystatin Top Powder*) 1 applic TOPICAL TID [facility] Last Admin: 09/12/19 10:16 Dose: 1 applic Olanzapine (Zyprexa *Odt*) 15 mg PO BID [facility] Last Admin: 09/12/19 09:44 Dose: 15 mg Paliperidone (Invega Er Tab*) 6 mg PO DAILY [facility] Last Admin: 09/12/19 10:13 Dose: 6 mg Polyethylene Glycol/Electrolytes (Miralax*) 17 gm PO DAILY PRN PRN Reason: CONSTIPATION Last Admin: 09/10/19 08:33 Dose: 17 gm Senna (Senokot 8.6 Mg Tab*) 1 tab PO DAILY [facility] Last Admin: 09/12/19 09:45 Dose: 1 tab Sertraline HCl (Zoloft*) 100 mg PO DAILY [facility] Last Admin: 09/12/19 09:43 Dose: 100 mg Sodium Bicarbonate (Sodium Bicarbonate (Antacid)*) 1,300 mg PO Q8H [facility] Last Admin: 09/12/19 09:45 Dose: 1,300 mg Trazodone HCl (Desyrel Tab*) 100 mg PO BEDTIME [facility] Last Admin: 09/11/19 20:15 Dose: 100 mg Trimethobenzamide HCl (Tigan Im*) 200 mg IM Q12H PRN PRN Reason: NAUSEA Last Admin: 09/09/19 18:24 Dose: 200 mg Vital Signs - 8 hr 09/12/19 09/12/19 03:54 08:23 Temperature 98.0 F 98.1 F Pulse Rate 90 85 Respiratory 16 16 Rate Blood Pressure 163/68 163/71 (mmHg) O2 Sat by Pulse 98 100 Oximetry Oxygen Devices in Use Now: None Appearance: Patient is a 64yo male who appears stated age and is sitting in the bed in [facility]. Eyes: No Scleral Icterus, PERRLA Ears/Nose/Mouth/Throat: NL Teeth, Lips, Gums, Clear Oropharnyx, Mucous Membranes Moist Neck: NL Appearance and Movements; NL JVP, Trachea Midline Respiratory: Symmetrical Chest Expansion and Respiratory Effort, Clear to Auscultation Cardiovascular: NL Sounds; No Murmurs; No JVD, RRR, No Edema Abdominal: NL Sounds; No Tenderness; No Distention, No Hepatosplenomegaly Lymphatic: No Cervical Adenopathy Extremities: No Edema, No Clubbing, Cyanosis Skin: No Nodules or Sclerosis, - - Widespread scratches, not worse. Neurological: - - No Focal Deficits to limited exam. Result Diagrams: 09/12/19 05:17 09/12/19 05:17 Microbiology and Other Data: Microbiology 09/04/19 13:50 Urine Culture - Preliminary Urine Pseudomonas Aeruginosa Serratia Marcescens Assess/Plan/Problems-Billing Assessment: Mr. Mckoy is a 64 year old male with history of intellectual disability, autism, HTN, CKD that presents with his aide from his [facility] with report of outburst behavior, self-injury and nephrogenic DI with LIONEL on CKD. - Patient Problems (1) Acute kidney injury superimposed on CKD Current Visit: Yes Status: Acute Code(s): N17.9 - ACUTE KIDNEY FAILURE, UNSPECIFIED; N18.9 - CHRONIC KIDNEY DISEASE, UNSPECIFIED SNOMED Code(s): 67048732 Comment: - Etiology likely acute dehydration leading to LIONEL; lithium induced DI likely the cause of CKD and may be further exacerbating this due to dehydration - Renal US shows no hydro with medical renal disease - Chelyan was restarted 09/01 at the request of patient's HCPs, now stopped due to toxicity. - Nephrology following; thank you for recommendations. - Cr improving with fluids without hypernatremia, however, due to increase to upper limit of normal, switch to D5W - Now tolerating IV, continue at least 24 more hours per nephrology. - No further evidence of obstruction. Continue intermittent bladder scans (2) Leukocytosis Current Visit: No Status: Acute Code(s): D72.829 - ELEVATED WHITE BLOOD CELL COUNT, UNSPECIFIED SNOMED Code(s): 421552584 Comment: - Follows closely with lithium activity, trending down. - Not associated with fevers, tachycardia, on appropriate antibiotics - Not likely a good indicator of infection - Continue to monitor. (3) Bipolar disorder Current Visit: Yes Status: Acute Code(s): F31.9 - BIPOLAR DISORDER, UNSPECIFIED SNOMED Code(s): 36292808 Comment: - Not well controlled, has not slept for days, appreciate Psychiatric Consult. - Symptoms improved today. - Increase Depakote, stop Chelyan, Continue Olanzapine, sertraline, and trazodone. (4) Candidiasis Current Visit: Yes Status: Acute Code(s): B37.9 - CANDIDIASIS, UNSPECIFIED SNOMED Code(s): 10499804 Comment: - Rash consistent with candidiasis in right groin - Nystatin TID (5) Gastric bleed Current Visit: Yes Status: Acute Code(s): K92.2 - GASTROINTESTINAL HEMORRHAGE, UNSPECIFIED SNOMED Code(s): 80355907 Comment: - One Coffee grounds emesis on 09/09, tested postive for blood - Stopped Lovenox and trend H/H, Stool occult blood negative - Continue PPI, most likely due to Merissa-Ruiz tear. - Downtrending H/H, possibly due to dilution with no continued signs of bleeding. (6) Hypernatremia Current Visit: Yes Status: Acute Code(s): E87.0 - HYPEROSMOLALITY AND HYPERNATREMIA SNOMED Code(s): 078066092 Comment: - Na wnl today, but trending up. - Continue amiloride and hctz - 2/2 nephrogenic DI, continue to liberalize oral fluids, and monitor for decrease in oral intake. -low sodium diet (7) Chelyan toxicity Current Visit: Yes Status: Acute Code(s): T56.891A - TOXIC EFFECT OF OTH METALS, ACCIDENTAL (UNINTENTIONAL), INIT SNOMED Code(s): 384884841 Comment: - Chelyan level still high end of normal. - Recheck tomorrow with labs. (8) Nephrogenic diabetes insipidus Current Visit: Yes Status: Acute Code(s): N25.1 - NEPHROGENIC DIABETES INSIPIDUS SNOMED Code(s): 720058745 Comment: - 2/2 lithium use, diagnosed outpatient initially - Hypernatremia resolved today - Appreciate input from nephrology - Continue amiloride and HCTZ - Liberatize fluids. Encourage PO intake strongly. (9) Schizophrenia Current Visit: Yes Status: Acute Code(s): F20.9 - SCHIZOPHRENIA, UNSPECIFIED SNOMED Code(s): 61443989 Comment: - Schizoaffective disorder - Not well controlled. - Continue paliperidone and olanzapine - QTc stable thus far - Start Depakote and increase. (10) Self-inflicted injury Current Visit: Yes Status: Acute Code(s): Z72.89 - OTHER PROBLEMS RELATED TO LIFESTYLE SNOMED Code(s): 370388040 Comment: - This behavior has recurred, but is improving - Dr. Ward has added q4hr haldol - Discontinued ativan due to JORDAN of delirium - Continue naltrexone (11) UTI (urinary tract infection) Current Visit: Yes Status: Acute Comment: - Urine culture with pseudomonas and serratia - Completed antibiotics. - Leukocytosis likely due to lithium toxicity, not infection. (12) Urine retention Current Visit: No Status: Acute Code(s): R33.9 - RETENTION OF URINE, UNSPECIFIED SNOMED Code(s): 019449610 Comment: - Restarted home alfuzosin, finasteride - Schedule outpatient urology appointment prior to discharge (13) DVT prophylaxis Current Visit: No Status: Acute Code(s): Z29.9 - ENCOUNTER FOR PROPHYLACTIC MEASURES, UNSPECIFIED SNOMED Code(s): 073954501 Comment: - Hold Lovenox, monitor H/H. (14) Full code status Current Visit: No Status: Acute Code(s): Z78.9 - OTHER SPECIFIED HEALTH STATUS SNOMED Code(s): 305505459 Comment: Status and Disposition: pending further medical and behavioral improvement. Hopeful for d/c back to [facility]
[2019-09-12] MEDS: D5W 1000 ML BAG* 1,000 ML IV SCH (12:28)
[2019-09-12] MEDS: traZODone TAB* 50 MG TAB PO SCH (22:11)
[2019-09-12] MEDS: amLODIPine TAB* 5 MG PO SCH (22:12)
[2019-09-13] MEDS: Sodium Bicarbonate (ANTACID)* 650 MG TAB PO SCH ×3 (05:16→20:14)
[2019-09-13] MEDS: Levothyroxine TAB* 75 MCG TAB PO SCH (05:16)
[2019-09-13 05:25] LABS: ABS Basophils 0.1 10^3/ul (0-0.2); ABS Eosinophils 0.6 10^3/ul (0-0.6); ABS Lymphocytes 1.7 10^3/ul (1.0-4.8); ABS Monocytes 1.2 10^3/ul (0-0.8); Hematocrit 29 % (42-52); Hemoglobin 9.4 g/dL (14.0-18.0); Lymphocyte % 8.3 %; Mean Corpuscular HGB Conc 33 g/dL (31-36); Mean Corpuscular Hemoglobin 32 pg (27-31); Mean Corpuscular Volume 95 fL (80-94); Mean Platelet Volume 7.3 fL (7.4-10.4); Platelet Count 553 10^3/uL (150-450); Red Cell Distribution Width 15 % (10-15); White Blood Count 20.6 10^3/uL (3.5-10.8)
[2019-09-13] MEDS: D5W 1000 ML BAG* 1,000 ML IV SCH ×2 (05:25→18:14)
[2019-09-13 05:41] LABS: BUN/Creatinine Ratio 18.5 (8-20); Calcium 9.3 mg/dL (8.6-10.3); EGFR African American 32.5 (>60); EGFR Non-African American 26.8 (>60); Globulin 2.9 g/dL (2-4); Potassium 4.2 mmol/L (3.5-5.0); Total Bilirubin 0.3 mg/dL (0.2-1.0); Total Protein 5.9 g/dL (6.4-8.9)
[2019-09-13] MEDS: Haloperidol INJ IV/IM* 5 MG/ML AMP IV SLOW PU PRN ×3 (07:04→19:48)
[2019-09-13] MEDS: Divalproex Sprinkle CAP* 125 MG PO SCH ×3 (09:54→20:12)
--- NOTE | 2019-09-13 10:08 | PN ---
Subjective Date of Service: 09/13/19 Interval History: Patient today is more more agitated today with some attempts at self injurious behavior. Patient denies pain, after significant attempts, patient does calm down and say good morning. Family History: Unchanged from Admission Social History: Unchanged from Admission Past Medical History: Unchanged from Admission Objective Active Medications: Acetaminophen (Tylenol Adult Liq*) 650 mg PO Q4H PRN PRN Reason: PAIN - MILD OR TEMP > 100.4 Last Admin: 09/11/19 20:19 Dose: 650 mg Acetaminophen (Tylenol Supp*) 650 mg NM Q6H PRN PRN Reason: pain-mild to moderate Last Admin: 09/04/19 20:17 Dose: 650 mg Al Hydrox/Mg Hydrox/Simethicone (Maalox Plus*) 15 ml PO BID PRN PRN Reason: CONSTIPATION Last Admin: 09/10/19 08:37 Dose: 15 ml Alfuzosin HCl (Uroxatral (Nf)) 10 mg PO DAILY [facility] Last Admin: 09/12/19 09:44 Dose: 10 mg Amiloride/HCTZ (Moduretic 5-50 Tab*) 1 tab PO DAILY [facility] Last Admin: 09/12/19 09:44 Dose: 1 tab Amlodipine Besylate (Norvasc Tab*) 5 mg PO BEDTIME [facility] Last Admin: 09/12/19 22:12 Dose: 5 mg Bisacodyl (Dulcolax Supp*) 10 mg NM DAILY PRN PRN Reason: CONSTIPATION Last Admin: 09/08/19 21:56 Dose: 10 mg Divalproex Sodium (Depakote Sprinkle Cap*) 750 mg PO BID [facility] Enoxaparin Sodium (Lovenox(*)) 40 mg SUBCUT Q24H [facility] Finasteride (Proscar Tab*) 5 mg PO DAILY [facility] Last Admin: 09/12/19 09:45 Dose: 5 mg Fluticasone Propionate (Flonase Nasal [place] 50mcg*) 2 spray BOTH NARES DAILY [facility] Last Admin: 09/12/19 10:14 Dose: Not Given Haloperidol Lactate (Haldol Inj Iv/Im*) 5 mg IV SLOW PU Q4H PRN PRN Reason: AGITATION Last Admin: 09/13/19 07:04 Dose: 5 mg Dextrose (D5w 1000 Ml Bag*) 1,000 mls @ 125 mls/hr IV PER RATE [facility] Last Admin: 09/13/19 05:25 Dose: 125 mls/hr Lansoprazole (Lansoprazole Susp* Oralsyr) 15 mg PO DAILY [facility] Last Admin: 09/12/19 09:43 Dose: 15 mg Levothyroxine Sodium (Synthroid Tab*) 75 mcg PO 0600 [facility] Last Admin: 09/13/19 05:16 Dose: 75 mcg Naltrexone HCl (Naltrexone Tab*) 50 mg PO DAILY [facility]; Protocol Last Admin: 09/12/19 09:44 Dose: 50 mg Nystatin (Nystatin Top Powder*) 1 applic TOPICAL TID [facility] Last Admin: 09/12/19 22:15 Dose: 1 applic Olanzapine (Zyprexa *Odt*) 15 mg PO BID [facility] Last Admin: 09/12/19 22:14 Dose: 15 mg Paliperidone (Invega Er Tab*) 6 mg PO DAILY [facility] Last Admin: 09/12/19 10:13 Dose: 6 mg Polyethylene Glycol/Electrolytes (Miralax*) 17 gm PO DAILY PRN PRN Reason: CONSTIPATION Last Admin: 09/10/19 08:33 Dose: 17 gm Senna (Senokot 8.6 Mg Tab*) 1 tab PO DAILY [facility] Last Admin: 09/12/19 09:45 Dose: 1 tab Sertraline HCl (Zoloft*) 100 mg PO DAILY [facility] Last Admin: 09/12/19 09:43 Dose: 100 mg Sodium Bicarbonate (Sodium Bicarbonate (Antacid)*) 1,300 mg PO Q8H [facility] Last Admin: 09/13/19 05:16 Dose: 1,300 mg Trazodone HCl (Desyrel Tab*) 50 mg PO BEDTIME [facility] Last Admin: 09/12/19 22:11 Dose: 50 mg Trimethobenzamide HCl (Tigan Im*) 200 mg IM Q12H PRN PRN Reason: NAUSEA Last Admin: 09/09/19 18:24 Dose: 200 mg Oxygen Devices in Use Now: None Appearance: Patient is a 64yo male who appears stated age and is sitting in the bed in NAD. Eyes: No Scleral Icterus, PERRLA Ears/Nose/Mouth/Throat: NL Teeth, Lips, Gums, Clear Oropharnyx, Mucous Membranes Moist Neck: NL Appearance and Movements; NL JVP, Trachea Midline Respiratory: Symmetrical Chest Expansion and Respiratory Effort, Clear to Auscultation Cardiovascular: NL Sounds; No Murmurs; No JVD, RRR, No Edema Abdominal: NL Sounds; No Tenderness; No Distention, No Hepatosplenomegaly Lymphatic: No Cervical Adenopathy Extremities: No Edema, No Clubbing, Cyanosis Skin: No Nodules or Sclerosis, - - Widespread Scratches. Neurological: NL Sensation, NL Muscle Strength and Tone, - - Alert, oriented only to self. Result Diagrams: 09/13/19 05:09 09/13/19 05:09 Microbiology and Other Data: Microbiology 09/04/19 13:50 Urine Culture - Preliminary Urine Pseudomonas Aeruginosa Serratia Marcescens Assess/Plan/Problems-Billing Assessment: Mr. Mckoy is a 64 year old male with history of intellectual disability, autism, HTN, CKD that presents with his aide from his snf with report of outburst behavior, self-injury and nephrogenic DI with LIONEL on CKD. - Patient Problems (1) Acute kidney injury superimposed on CKD Current Visit: Yes Status: Acute Code(s): N17.9 - ACUTE KIDNEY FAILURE, UNSPECIFIED; N18.9 - CHRONIC KIDNEY DISEASE, UNSPECIFIED SNOMED Code(s): 30336580 Comment: - Etiology likely acute dehydration leading to LIONEL; lithium induced DI likely the cause of CKD and may be further exacerbating this due to dehydration - Renal US shows no hydro with medical renal disease - [place] was restarted 09/01 at the request of patient's HCPs, now stopped due to toxicity. - Nephrology following; thank you for recommendations. - Cr improving with fluids without hypernatremia, however, due to increase to upper limit of normal, switch to D5W. Stable today - Now tolerating IV, Continue until Cret reaches previous baseline as patient has very poor oral intake. - No further evidence of obstruction. Continue intermittent bladder scans (2) Leukocytosis Current Visit: No Status: Acute Code(s): D72.829 - ELEVATED WHITE BLOOD CELL COUNT, UNSPECIFIED SNOMED Code(s): 944681976 Comment: - Follows closely with lithium activity, trending down. - Not associated with fevers, tachycardia, Finished antibiotics. - Not likely a good indicator of infection - Continue to monitor. (3) Bipolar disorder Current Visit: Yes Status: Acute Code(s): F31.9 - BIPOLAR DISORDER, UNSPECIFIED SNOMED Code(s): 10378383 Comment: - Not well controlled, has not slept for days, appreciate Psychiatric Consult. - Symptoms improved today. - Increase Depakote to 750 BID today, stop [place], Continue Olanzapine, sertraline, and trazodone. - Check trough depakote level in AM. (4) Candidiasis Current Visit: Yes Status: Acute Code(s): B37.9 - CANDIDIASIS, UNSPECIFIED SNOMED Code(s): 83398613 Comment: - Rash consistent with candidiasis in right groin - Nystatin TID (5) Gastric bleed Current Visit: Yes Status: Acute Code(s): K92.2 - GASTROINTESTINAL HEMORRHAGE, UNSPECIFIED SNOMED Code(s): 98077234 Comment: - One Coffee grounds emesis on 09/09, tested postive for blood - Stopped Lovenox and trend H/H, Stool occult blood negative - Continue PPI, most likely due to Merissa-Ruiz tear. - With increase in H/H today, resume lovenox. (6) Hypernatremia Current Visit: Yes Status: Acute Code(s): E87.0 - HYPEROSMOLALITY AND HYPERNATREMIA SNOMED Code(s): 374621210 Comment: - Na wnl today, high end of normal - Continue amiloride and hctz - 2/2 nephrogenic DI, continue to liberalize oral fluids, has poor oral intake due to behavioral concerns. -low sodium diet (7) [place] toxicity Current Visit: Yes Status: Acute Code(s): T56.891A - TOXIC EFFECT OF OTH METALS, ACCIDENTAL (UNINTENTIONAL), INIT SNOMED Code(s): 972336763 Comment: - [place] level still high end of normal. - Recheck tomorrow with labs. (8) Nephrogenic diabetes insipidus Current Visit: Yes Status: Acute Code(s): N25.1 - NEPHROGENIC DIABETES INSIPIDUS SNOMED Code(s): 833945813 Comment: - 2/2 lithium use, diagnosed outpatient initially - Hypernatremia resolved today - Appreciate input from nephrology - Continue amiloride and HCTZ - Liberatize fluids. Encourage PO intake strongly. (9) Schizophrenia Current Visit: Yes Status: Acute Code(s): F20.9 - SCHIZOPHRENIA, UNSPECIFIED SNOMED Code(s): 23127997 Comment: - Schizoaffective disorder - Not well controlled. - Continue paliperidone and olanzapine - QTc stable thus far - Start Depakote and increase. (10) Self-inflicted injury Current Visit: Yes Status: Acute Code(s): Z72.89 - OTHER PROBLEMS RELATED TO LIFESTYLE SNOMED Code(s): 844903333 Comment: - This behavior has recurred, but is improving generally. - Dr. Ward has added q4hr haldol - Discontinued ativan due to JORDAN of delirium - Continue naltrexone (11) UTI (urinary tract infection) Current Visit: Yes Status: Acute Comment: - Urine culture with pseudomonas and serratia - Completed antibiotics. - Leukocytosis likely due to lithium toxicity, not infection. (12) Urine retention Current Visit: No Status: Acute Code(s): R33.9 - RETENTION OF URINE, UNSPECIFIED SNOMED Code(s): 819825980 Comment: - Restarted home alfuzosin, finasteride - Schedule outpatient urology appointment prior to discharge (13) DVT prophylaxis Current Visit: No Status: Acute Code(s): Z29.9 - ENCOUNTER FOR PROPHYLACTIC MEASURES, UNSPECIFIED SNOMED Code(s): 258820766 Comment: - Resume Lovenox. (14) Full code status Current Visit: No Status: Acute Code(s): Z78.9 - OTHER SPECIFIED HEALTH STATUS SNOMED Code(s): 072161708 Comment: Status and Disposition: pending further medical and behavioral improvement. Hopeful for d/c back to snf once able to compensate for urinary losses with oral intake.
[2019-09-13] MEDS: Nystatin TOP POWDER* 15 GM BTL TOPICAL SCH ×3 (13:06→20:20)
[2019-09-13] MEDS ORDERED: Ziprasidone IM INJ* 20 MG/ML VIAL IM ONE (14:18)
[2019-09-13] MEDS: OLANzapine TAB*ODT* 10 MG TAB PO SCH ×2 (14:50→19:59)
[2019-09-13] MEDS: Sertraline* 100 MG TAB PO SCH (14:50)
[2019-09-13] MEDS: Naltrexone TAB* 50 MG TAB PO SCH (14:50)
[2019-09-13] MEDS: Finasteride TAB* 5 MG PO SCH (14:53)
[2019-09-13] MEDS: CMCS: Alfuzosin ER (NF) 10 MG TAB.ER PO SCH (14:53)
[2019-09-13] MEDS: HCTZ PO SCH (14:53)
[2019-09-13] MEDS: AMILORIDE PO SCH (14:53)
[2019-09-13] MEDS ORDERED: Divalproex Sprinkle CAP* 125 MG PO ONE (15:00)
[2019-09-13] MEDS: Paliperidone ER TAB* 6 MG TAB.ER PO SCH (15:11)
[2019-09-13] MEDS: Senna TAB 8.6 mg* TAB PO SCH (15:12)
[2019-09-13] MEDS: Lansoprazole SUSP* ORALSYR 3 MG/ML PO SCH (15:17)
[2019-09-13] MEDS: Enoxaparin(*) 40 MG/0.4 ML SYR SUBCUT SCH (15:19)
[2019-09-13] MEDS: Fluticasone NASAL SPRAY 50MCG* 16 gm SPRAY BTL BOTH NARES SCH (17:24)
[2019-09-13] MEDS: amLODIPine TAB* 5 MG PO SCH (20:01)
[2019-09-13] MEDS: traZODone TAB* 50 MG TAB PO SCH (20:05)
[2019-09-14] MEDS: D5W 1000 ML BAG* 1,000 ML IV SCH (02:20)
[2019-09-14 06:18] LABS: Hematocrit 27 % (42-52); Hemoglobin 8.7 g/dL (14.0-18.0); Mean Corpuscular HGB Conc 33 g/dL (31-36); Mean Corpuscular Hemoglobin 31 pg (27-31); Mean Corpuscular Volume 95 fL (80-94); Mean Platelet Volume 7.5 fL (7.4-10.4); Platelet Count 472 10^3/uL (150-450); Red Blood Count 2.81 10^6 /uL (4.18-5.48); Red Cell Distribution Width 15 % (10-15); White Blood Count 32.6 10^3/uL (3.5-10.8)
[2019-09-14 06:37] LABS: Lithium 0.92 mmol/L (0.6-1.2)
[2019-09-14 06:39] LABS: Albumin 2.8 g/dL (3.2-5.2); Albumin/Globulin Ratio 0.9 (1-3); BUN/Creatinine Ratio 17.6 (8-20); Calcium 9.1 mg/dL (8.6-10.3); EGFR African American 34.1 (>60); EGFR Non-African American 28.2 (>60); Magnesium 2.4 mg/dL (1.9-2.7); Potassium 3.8 mmol/L (3.5-5.0); Total Bilirubin 0.4 mg/dL (0.2-1.0); Total Protein 5.8 g/dL (6.4-8.9)
[2019-09-14 06:47] LABS: ABS Basophils 0.1 10^3/ul (0-0.2); ABS Eosinophils 0.6 10^3/ul (0-0.6); ABS Lymphocytes 1.1 10^3/ul (1.0-4.8); ABS Monocytes 1.1 10^3/ul (0-0.8); ABS Neutrophils 29.7 10^3/ul (1.5-7.7); Eosinophil % 1.7 %; Lymphocyte % 3.3 %
--- NOTE | 2019-09-14 08:48 | CONSULT ---
Consult Consult: Reason for consult: Self Injurious behavior CC: " Where are my medications? " Patient was evaluated today, with care worker present in the room. The patient asked "where are my medications ?" Patient slept overnight. He took his medications this morning and ate some food. Last night the patient attempted to throw himself on the floor. Mental Status Exam APPEARANCE : 64 year old male poor hygiene and grooming sitting in bed. EYE CONTACT: Poor PSYCHOMOTOR ACTIVITY: mild psychomotor agitation MOVEMENTS: repetitive movements SPEECH : Normal volume, slurred MOOD : "Fine" AFFECT : Mood Incongruent THOUGHT PROCESS: Poverty of content THOUGHT CONTENT: Obsessions PERCEPTION: no AH/ VH SUICIDALITY Denied suicidal ideation, intent or plan. HOMICIDALITY Denied homicidal ideation, intent or plan. Insight/judgment: Poor insight and judgment ORIENTATION: Oriented to self not to location, and time. Assessment: 64 year old male with a history of severe intellectual disability and recent self injurious behavior being treated on the medical floor Diagnosis: Metabolic Encephalopathy Intellectual disability, severe. Recent [place] toxicity Plan # The patient does NOT require psychiatric inpatient admission at this time. # Medical management by Primary team # Safety Measures constant supervision, floor pad, cutting nails and unrestricted hand mittens to reduce risk of harm from self injury # Monitor EKG for risk of QT prolongation #Last long acting injection of Abilify 400mg q4 weeks was on 08/07/19 # Continue paliperidone 6mg po daily for aggression and ASD, will continue to monitor impact on renal function and QTc. # [place] level 0.92 # Valproic Acid level 31 # [place] was trialed and will not be continued given the risk of permanent renal damage. Further this treatment did not result in outcomes of remitting behavioral disturbance, self injurious behavior and did not show improvement in the quality of life. # Continue Zyprexa 15mg PO BID # Continue zoloft 100mg daily and Trazodone 100mg qhs. # Naltrexone 50mg daily for self injurious behavior # N- Acetylcysteine 600mg BID # Patient can not leave AMA # Continue constant supervision # Discussed recommendations with primary team # Discontinue ativan and do NOT give other benzodiazipines or anticholinergic agents given that it precipitates delirium. # Implement behavioral redirection and give Haldol or zyprexa PO/IM/IV Q6PRN for behavioral control during times when he presents a danger to himself and or others # Continue depakote sprinkles 750mg BID #Targeted Goals: To reduce self injurious behavior. Progress of objective Goals - Patient shows improvement in the capacity to be re-directed, took medications, and able to interact and at times responds with complete sentences. # Monitor for neuroleptic malignant syndrome and serotonin syndrome which is a medical emergency characterized by mental status changes, increased WBC, fever, increased CK, autonomic dysfunction , muscle stiffness, limiting lithium, neuroleptic and serotonergic agents and increasing hydration can reduce this risk. Low degree of suspicion of NMS at this time given that CK is usually > 1000 in NMS. Patient is on multiple anti-psychotics and psychotropic medications. Given the severity of his presenting behavior and history including multiple failed medication trials, other alternative options and doses surpassing the FDA recommendations will be implemented. Consideration of these risks was presented to his treatment team from [facility] and health care proxy and everyone is in agreement with the plan. Black box warning of using anti psychotics as well as multiple anti psychotics in those over 65 were described to his health care proxy and treatment team who accepted these risks. # Psychiatry will continue to follow the patient. Sodium 142 mmol/L (135-145) 09/14/19 05:52 Potassium 3.8 mmol/L (3.5-5.0) 09/14/19 05:52 BUN 41 mg/dL (6-24) H 09/14/19 05:52 Creatinine 2.33 mg/dL (0.67-1.17) H 09/14/19 05:52 Calcium 9.1 mg/dL (8.6-10.3) 09/14/19 05:52 Magnesium 2.4 mg/dL (1.9-2.7) 09/14/19 05:52 AST 27 U/L (13-39) 09/14/19 05:52 ALT 23 U/L (7-52) 09/14/19 05:52
[2019-09-14] MEDS: Sodium Bicarbonate (ANTACID)* 650 MG TAB PO SCH ×3 (09:31→17:58)
[2019-09-14] MEDS: Senna TAB 8.6 mg* TAB PO SCH (09:49)
[2019-09-14] MEDS: Levothyroxine TAB* 75 MCG TAB PO SCH (09:49)
[2019-09-14] MEDS: Nystatin TOP POWDER* 15 GM BTL TOPICAL SCH ×3 (09:49→23:08)
[2019-09-14] MEDS: Sertraline* 100 MG TAB PO SCH (09:49)
[2019-09-14] MEDS: Finasteride TAB* 5 MG PO SCH (09:49)
[2019-09-14] MEDS: Divalproex Sprinkle CAP* 125 MG PO SCH ×2 (09:50→22:46)
[2019-09-14] MEDS: Fluticasone NASAL SPRAY 50MCG* 16 gm SPRAY BTL BOTH NARES SCH (09:50)
[2019-09-14] MEDS: Enoxaparin(*) 40 MG/0.4 ML SYR SUBCUT SCH (09:51)
[2019-09-14] MEDS: HCTZ PO SCH (09:52)
[2019-09-14] MEDS: AMILORIDE PO SCH (09:52)
[2019-09-14] MEDS: CMCS: Alfuzosin ER (NF) 10 MG TAB.ER PO SCH (09:52)
[2019-09-14] MEDS: Naltrexone TAB* 50 MG TAB PO SCH (09:53)
[2019-09-14] MEDS: OLANzapine TAB*ODT* 10 MG TAB PO SCH ×2 (09:55→22:44)
[2019-09-14] MEDS: Lansoprazole SUSP* ORALSYR 3 MG/ML PO SCH (10:25)
[2019-09-14] MEDS: Paliperidone ER TAB* 6 MG TAB.ER PO SCH (10:47)
--- NOTE | 2019-09-14 11:07 | PN ---
Subjective Date of Service: 09/14/19 Interval History: Patient slept well overnight. Patient denies pain. Patient is able to be induced to take his medications with ice cream and is drinking more today than he has been previously. Family History: Unchanged from Admission Social History: Unchanged from Admission Past Medical History: Unchanged from Admission Objective Active Medications: Acetaminophen (Tylenol Adult Liq*) 650 mg PO Q4H PRN PRN Reason: PAIN - MILD OR TEMP > 100.4 Last Admin: 09/11/19 20:19 Dose: 650 mg Acetaminophen (Tylenol Supp*) 650 mg IN Q6H PRN PRN Reason: pain-mild to moderate Last Admin: 09/04/19 20:17 Dose: 650 mg Acetylcysteine (Acetylcysteine Cap (Renal)*) 600 mg PO BID [facility] Stop: 09/19/19 21:01 Al Hydrox/Mg Hydrox/Simethicone (Maalox Plus*) 15 ml PO BID PRN PRN Reason: CONSTIPATION Last Admin: 09/10/19 08:37 Dose: 15 ml Alfuzosin HCl (Uroxatral (Nf)) 10 mg PO DAILY [facility] Last Admin: 09/14/19 09:52 Dose: 10 mg Amiloride/HCTZ (Moduretic 5-50 Tab*) 1 tab PO DAILY [facility] Last Admin: 09/14/19 09:52 Dose: 1 tab Amlodipine Besylate (Norvasc Tab*) 5 mg PO BEDTIME [facility] Last Admin: 09/13/19 20:01 Dose: 5 mg Bisacodyl (Dulcolax Supp*) 10 mg IN DAILY PRN PRN Reason: CONSTIPATION Last Admin: 09/08/19 21:56 Dose: 10 mg Divalproex Sodium (Depakote Sprinkle Cap*) 750 mg PO BID [facility] Last Admin: 09/14/19 09:50 Dose: 750 mg Enoxaparin Sodium (Lovenox(*)) 40 mg SUBCUT Q24H [facility] Last Admin: 09/14/19 09:51 Dose: 40 mg Finasteride (Proscar Tab*) 5 mg PO DAILY [facility] Last Admin: 09/14/19 09:49 Dose: 5 mg Fluticasone Propionate (Flonase Nasal [place] 50mcg*) 2 spray BOTH NARES DAILY [facility] Last Admin: 09/14/19 09:50 Dose: 2 spray Haloperidol Lactate (Haldol Inj Iv/Im*) 5 mg IV SLOW PU Q4H PRN PRN Reason: AGITATION Last Admin: 09/13/19 19:48 Dose: 5 mg Lansoprazole (Lansoprazole Susp* Oralsyr) 15 mg PO DAILY [facility] Last Admin: 09/14/19 10:25 Dose: 15 mg Levothyroxine Sodium (Synthroid Tab*) 75 mcg PO 0600 [facility] Last Admin: 09/14/19 09:49 Dose: 75 mcg Naltrexone HCl (Naltrexone Tab*) 50 mg PO DAILY [facility]; Protocol Last Admin: 09/14/19 09:53 Dose: 50 mg Nystatin (Nystatin Top Powder*) 1 applic TOPICAL TID [facility] Last Admin: 09/14/19 09:49 Dose: 1 applic Olanzapine (Zyprexa *Odt*) 15 mg PO BID [facility] Last Admin: 09/14/19 09:55 Dose: 15 mg Paliperidone (Invega Er Tab*) 6 mg PO DAILY [facility] Last Admin: 09/13/19 15:11 Dose: 6 mg Polyethylene Glycol/Electrolytes (Miralax*) 17 gm PO DAILY PRN PRN Reason: CONSTIPATION Last Admin: 09/10/19 08:33 Dose: 17 gm Senna (Senokot 8.6 Mg Tab*) 1 tab PO DAILY [facility] Last Admin: 09/14/19 09:49 Dose: 1 tab Sertraline HCl (Zoloft*) 100 mg PO DAILY [facility] Last Admin: 09/14/19 09:49 Dose: 100 mg Sodium Bicarbonate (Sodium Bicarbonate (Antacid)*) 1,300 mg PO Q8H [facility] Last Admin: 09/14/19 09:48 Dose: 1,300 mg Trazodone HCl (Desyrel Tab*) 50 mg PO BEDTIME [facility] Last Admin: 09/13/19 20:05 Dose: 50 mg Trimethobenzamide HCl (Tigan Im*) 200 mg IM Q12H PRN PRN Reason: NAUSEA Last Admin: 09/09/19 18:24 Dose: 200 mg Oxygen Devices in Use Now: None Appearance: Patient is a 64yo male who appears stated age and is sitting in the bed in NAD. Eyes: No Scleral Icterus, PERRLA Ears/Nose/Mouth/Throat: NL Teeth, Lips, Gums, Clear Oropharnyx, Mucous Membranes Moist Neck: NL Appearance and Movements; NL JVP, Trachea Midline Respiratory: Symmetrical Chest Expansion and Respiratory Effort, Clear to Auscultation Cardiovascular: NL Sounds; No Murmurs; No JVD, RRR, No Edema Abdominal: NL Sounds; No Tenderness; No Distention, No Hepatosplenomegaly Lymphatic: No Cervical Adenopathy Extremities: No Edema, No Clubbing, Cyanosis Skin: No Nodules or Sclerosis, - - Widespread scratches. Neurological: Alert and Oriented x 3, NL Sensation, NL Muscle Strength and Tone , - - CN II-XII intact. Result Diagrams: 09/14/19 05:52 09/14/19 05:52 Microbiology and Other Data: Microbiology 09/04/19 13:50 Urine Culture - Preliminary Urine Pseudomonas Aeruginosa Serratia Marcescens Assess/Plan/Problems-Billing Assessment: Mr. Mckoy is a 64 year old male with history of intellectual disability, autism, HTN, CKD that presents with his aide from his halfway with report of outburst behavior, self-injury and nephrogenic DI with LIONEL on CKD. - Patient Problems (1) Acute kidney injury superimposed on CKD Current Visit: Yes Status: Acute Code(s): N17.9 - ACUTE KIDNEY FAILURE, UNSPECIFIED; N18.9 - CHRONIC KIDNEY DISEASE, UNSPECIFIED SNOMED Code(s): 79173718 Comment: - Etiology likely acute dehydration leading to LIONEL; lithium induced DI likely the cause of CKD and may be further exacerbating this due to dehydration - Renal US shows no hydro with medical renal disease - [place] was restarted 09/01 at the request of patient's HCPs, now stopped due to toxicity. - Nephrology following; thank you for recommendations. - Cr improving with fluids without hypernatremia. Stable today - Discontinue IV fluids today, assess sodium with only oral intake. - No further evidence of obstruction. Continue intermittent bladder scans (2) Leukocytosis Current Visit: No Status: Acute Code(s): D72.829 - ELEVATED WHITE BLOOD CELL COUNT, UNSPECIFIED SNOMED Code(s): 559343247 Comment: - Had been following closely with lithium activity, now has begun trending up again. - Not associated with fevers, tachycardia, Finished antibiotics. - Repeat Urinary Culture to assure appropriate treatment - Not likely a good indicator of infection - With Thrombocytosis - ? MDS, Hematology consult pending (3) Bipolar disorder Current Visit: Yes Status: Acute Code(s): F31.9 - BIPOLAR DISORDER, UNSPECIFIED SNOMED Code(s): 91820396 Comment: - Not well controlled, has not slept for days, appreciate Psychiatric Consult. - Symptoms improved today. - Increase Depakote to 750 BID today, stop [place], Continue Olanzapine, sertraline, and trazodone. - Check trough depakote level in AM. (4) Candidiasis Current Visit: Yes Status: Acute Code(s): B37.9 - CANDIDIASIS, UNSPECIFIED SNOMED Code(s): 89792747 Comment: - Rash consistent with candidiasis in right groin - Nystatin TID (5) Gastric bleed Current Visit: Yes Status: Acute Code(s): K92.2 - GASTROINTESTINAL HEMORRHAGE, UNSPECIFIED SNOMED Code(s): 21027322 Comment: - One Coffee grounds emesis on 09/09, tested postive for blood - Stopped Lovenox and trend H/H, Stool occult blood negative - Continue PPI, most likely due to Merissa-Ruzi tear. - With increase in H/H today, resume lovenox. (6) Hypernatremia Current Visit: Yes Status: Acute Code(s): E87.0 - HYPEROSMOLALITY AND HYPERNATREMIA SNOMED Code(s): 603345244 Comment: - Na wnl today, high end of normal - Continue amiloride and hctz - 2/2 nephrogenic DI, continue to liberalize oral fluids, has poor oral intake due to behavioral concerns. -low sodium diet (7) [place] toxicity Current Visit: Yes Status: Acute Code(s): T56.891A - TOXIC EFFECT OF OTH METALS, ACCIDENTAL (UNINTENTIONAL), INIT SNOMED Code(s): 052992159 Comment: - [place] level trending down - Recheck tomorrow with labs. (8) Nephrogenic diabetes insipidus Current Visit: Yes Status: Acute Code(s): N25.1 - NEPHROGENIC DIABETES INSIPIDUS SNOMED Code(s): 599229697 Comment: - 2/2 lithium use, diagnosed outpatient initially - Hypernatremia resolved today - Appreciate input from nephrology - Continue amiloride and HCTZ - Liberatize fluids. Encourage PO intake strongly. (9) Schizophrenia Current Visit: Yes Status: Acute Code(s): F20.9 - SCHIZOPHRENIA, UNSPECIFIED SNOMED Code(s): 57021486 Comment: - Schizoaffective disorder - Not well controlled. - Continue paliperidone and olanzapine - QTc stable thus far - Start Depakote and increase to therapeutic blood level (10) Self-inflicted injury Current Visit: Yes Status: Acute Code(s): Z72.89 - OTHER PROBLEMS RELATED TO LIFESTYLE SNOMED Code(s): 466462799 Comment: - This behavior has recurred, but is improving generally. - Dr. Ward has added q4hr haldol - Discontinued ativan due to JORDAN of delirium - Continue naltrexone (11) UTI (urinary tract infection) Current Visit: Yes Status: Acute Comment: - Urine culture with pseudomonas and serratia - Completed antibiotics. - Leukocytosis likely due to lithium toxicity, not infection. (12) Urine retention Current Visit: No Status: Acute Code(s): R33.9 - RETENTION OF URINE, UNSPECIFIED SNOMED Code(s): 901683251 Comment: - Restarted home alfuzosin, finasteride - Schedule outpatient urology appointment prior to discharge (13) DVT prophylaxis Current Visit: No Status: Acute Code(s): Z29.9 - ENCOUNTER FOR PROPHYLACTIC MEASURES, UNSPECIFIED SNOMED Code(s): 391146314 Comment: - Resume Lovenox. (14) Full code status Current Visit: No Status: Acute Code(s): Z78.9 - OTHER SPECIFIED HEALTH STATUS SNOMED Code(s): 900108291 Comment: Status and Disposition: pending further medical and behavioral improvement. Hopeful for d/c back to halfway once able to compensate for urinary losses with oral intake.
[2019-09-14] MEDS: Acetylcysteine CAP (RENAL)* 600 MG PO SCH ×2 (14:10→23:08)
[2019-09-14] MEDS: Haloperidol INJ IV/IM* 5 MG/ML AMP IV SLOW PU PRN ×2 (17:59→20:06)
[2019-09-14] MEDS: amLODIPine TAB* 5 MG PO SCH (23:08)
[2019-09-14] MEDS: traZODone TAB* 50 MG TAB PO SCH (23:08)
[2019-09-15] MEDS: Sodium Bicarbonate (ANTACID)* 650 MG TAB PO SCH ×3 (05:42→21:13)
[2019-09-15 06:18] LABS: Hematocrit 28 % (42-52); Mean Corpuscular HGB Conc 32 g/dL (31-36); Mean Corpuscular Hemoglobin 31 pg (27-31); Mean Corpuscular Volume 95 fL (80-94); Mean Platelet Volume 7.2 fL (7.4-10.4); Platelet Count 471 10^3/uL (150-450); Red Blood Count 2.94 10^6 /uL (4.18-5.48); Red Cell Distribution Width 16 % (10-15); White Blood Count 23.7 10^3/uL (3.5-10.8)
[2019-09-15 06:19] LABS: ABS Basophils 0.1 10^3/ul (0-0.2); ABS Eosinophils 0.6 10^3/ul (0-0.6); ABS Lymphocytes 1.2 10^3/ul (1.0-4.8); ABS Monocytes 0.9 10^3/ul (0-0.8); ABS Neutrophils 20.9 10^3/ul (1.5-7.7); Eosinophil % 2.5 %; Lymphocyte % 5.2 %
[2019-09-15 06:36] LABS: BUN/Creatinine Ratio 16.3 (8-20); Calcium 9.2 mg/dL (8.6-10.3); EGFR African American 34.1 (>60); EGFR Non-African American 28.2 (>60); Magnesium 2.5 mg/dL (1.9-2.7); Potassium 4.3 mmol/L (3.5-5.0)
--- NOTE | 2019-09-15 08:57 | CONSULT ---
Consult Consult: Reason for consult: Self Injurious behavior CC: " I am good " Patient was evaluated today, with care worker present in the room. The patient reported that he is doing good and was able to converse and respond to questioning in a direct concrete manner. Patient slept overnight. He took his medications this morning and ate. No reported incidents of self injury. Mental Status Exam APPEARANCE : 64 year old male poor hygiene and grooming sitting in bed. EYE CONTACT: Poor PSYCHOMOTOR ACTIVITY: mild psychomotor agitation MOVEMENTS: repetitive movements SPEECH : Normal volume, slurred MOOD : "Fine" AFFECT : Mood Incongruent THOUGHT PROCESS: Poverty of content THOUGHT CONTENT: Obsessions PERCEPTION: no AH/ VH SUICIDALITY Denied suicidal ideation, intent or plan. HOMICIDALITY Denied homicidal ideation, intent or plan. Insight/judgment: Poor insight and judgment ORIENTATION: Oriented to self not to location, and time. Assessment: 64 year old male with a history of severe intellectual disability and recent self injurious behavior being treated on the medical floor Diagnosis: Metabolic Encephalopathy Intellectual disability, severe. Recent [place] toxicity Plan # The patient does NOT require psychiatric inpatient admission at this time. # Medical management by Primary team # Safety Measures constant supervision, floor pad, cutting nails and unrestricted hand mittens to reduce risk of harm from self injury # Monitor EKG for risk of QT prolongation #Last long acting injection of Abilify 400mg q4 weeks was on 08/07/19 # Continue paliperidone 6mg po daily for aggression and ASD, will continue to monitor impact on renal function and QTc. # [place] level 0.92 # Valproic Acid level 31 # [place] was trialed and will not be continued given the risk of permanent renal damage. Further this treatment did not result in outcomes of remitting behavioral disturbance, self injurious behavior and did not show improvement in the quality of life. # Continue Zyprexa 15mg PO BID # Continue zoloft 100mg daily and Trazodone 100mg qhs. # Naltrexone 50mg daily for self injurious behavior # N- Acetylcysteine 600mg BID # Patient can not leave AMA # Continue constant supervision # Discussed recommendations with primary team # Discontinue ativan and do NOT give other benzodiazipines or anticholinergic agents given that it precipitates delirium. # Implement behavioral redirection and give Haldol or zyprexa PO/IM/IV Q6PRN for behavioral control during times when he presents a danger to himself and or others # Continue depakote sprinkles 750mg BID #Targeted Goals: To reduce self injurious behavior. Progress of objective Goals - Patient shows improvement in the capacity to be re-directed, took medications, and able to interact and at times responds with complete sentences. Patient is getting closer to his established baseline. # Monitor for neuroleptic malignant syndrome and serotonin syndrome which is a medical emergency characterized by mental status changes, increased WBC, fever, increased CK, autonomic dysfunction , muscle stiffness, limiting lithium, neuroleptic and serotonergic agents and increasing hydration can reduce this risk. Low degree of suspicion of NMS at this time given that CK is usually > 1000 in NMS. Patient is on multiple anti-psychotics and psychotropic medications. Given the severity of his presenting behavior and history including multiple failed medication trials, other alternative options and doses surpassing the FDA recommendations will be implemented. Consideration of these risks was presented to his treatment team from [facility] and health care proxy and everyone is in agreement with the plan. Black box warning of using anti psychotics as well as multiple anti psychotics in those over 65 were described to his health care proxy and treatment team who accepted these risks. # Psychiatry will continue to follow the patient. Sodium 144 mmol/L (135-145) 09/15/19 06:03 Potassium 4.3 mmol/L (3.5-5.0) 09/15/19 06:03 BUN 38 mg/dL (6-24) H 09/15/19 06:03 Creatinine 2.33 mg/dL (0.67-1.17) H 09/15/19 06:03 Calcium 9.2 mg/dL (8.6-10.3) 09/15/19 06:03 Magnesium 2.5 mg/dL (1.9-2.7) 09/15/19 06:03 AST 27 U/L (13-39) 09/14/19 05:52 ALT 23 U/L (7-52) 09/14/19 05:52 Acetaminophen (Tylenol Adult Liq*) 650 mg PO Q4H PRN PRN Reason: PAIN - MILD OR TEMP > 100.4 Last Admin: 09/11/19 20:19 Dose: 650 mg Acetaminophen (Tylenol Supp*) 650 mg [place] Q6H PRN PRN Reason: pain-mild to moderate Last Admin: 09/04/19 20:17 Dose: 650 mg Acetylcysteine (Acetylcysteine Cap (Renal)*) 600 mg PO BID [facility] Stop: 09/19/19 21:01 Last Admin: 09/14/19 23:08 Dose: 600 mg Al Hydrox/Mg Hydrox/Simethicone (Maalox Plus*) 15 ml PO BID PRN PRN Reason: CONSTIPATION Last Admin: 09/10/19 08:37 Dose: 15 ml Alfuzosin HCl (Uroxatral (Nf)) 10 mg PO DAILY [facility] Last Admin: 09/14/19 09:52 Dose: 10 mg Amiloride/HCTZ (Moduretic 5-50 Tab*) 1 tab PO DAILY [facility] Last Admin: 09/14/19 09:52 Dose: 1 tab Amlodipine Besylate (Norvasc Tab*) 5 mg PO BEDTIME [facility] Last Admin: 09/14/19 23:08 Dose: 5 mg Bisacodyl (Dulcolax Supp*) 10 mg OK DAILY PRN PRN Reason: CONSTIPATION Last Admin: 09/08/19 21:56 Dose: 10 mg Divalproex Sodium (Depakote Sprinkle Cap*) 750 mg PO BID [facility] Last Admin: 09/14/19 22:46 Dose: 750 mg Enoxaparin Sodium (Lovenox(*)) 40 mg SUBCUT Q24H [facility] Last Admin: 09/14/19 09:51 Dose: 40 mg Finasteride (Proscar Tab*) 5 mg PO DAILY [facility] Last Admin: 09/14/19 09:49 Dose: 5 mg Fluticasone Propionate (Flonase Nasal [place] 50mcg*) 2 spray BOTH NARES DAILY [facility] Last Admin: 09/14/19 09:50 Dose: 2 spray Haloperidol Lactate (Haldol Inj Iv/Im*) 5 mg IV SLOW PU Q4H PRN PRN Reason: AGITATION Last Admin: 09/14/19 20:06 Dose: 5 mg Lansoprazole (Lansoprazole Susp* Oralsyr) 15 mg PO DAILY [facility] Last Admin: 09/14/19 10:25 Dose: 15 mg Levothyroxine Sodium (Synthroid Tab*) 75 mcg PO 0600 [facility] Last Admin: 09/14/19 09:49 Dose: 75 mcg Naltrexone HCl (Naltrexone Tab*) 50 mg PO DAILY [facility]; Protocol Last Admin: 09/14/19 09:53 Dose: 50 mg Nystatin (Nystatin Top Powder*) 1 applic TOPICAL TID [facility] Last Admin: 09/14/19 23:08 Dose: 1 applic Olanzapine (Zyprexa *Odt*) 15 mg PO BID [facility] Last Admin: 09/14/19 22:44 Dose: 15 mg Paliperidone (Invega Er Tab*) 6 mg PO DAILY [facility] Last Admin: 09/14/19 10:47 Dose: 6 mg Polyethylene Glycol/Electrolytes (Miralax*) 17 gm PO DAILY PRN PRN Reason: CONSTIPATION Last Admin: 09/10/19 08:33 Dose: 17 gm Senna (Senokot 8.6 Mg Tab*) 1 tab PO DAILY [facility] Last Admin: 09/14/19 09:49 Dose: 1 tab Sertraline HCl (Zoloft*) 100 mg PO DAILY [facility] Last Admin: 09/14/19 09:49 Dose: 100 mg Sodium Bicarbonate (Sodium Bicarbonate (Antacid)*) 1,300 mg PO Q8H [facility] Last Admin: 09/15/19 05:42 Dose: Not Given Trazodone HCl (Desyrel Tab*) 50 mg PO BEDTIME [facility] Last Admin: 09/14/19 23:08 Dose: 50 mg Trimethobenzamide HCl (Tigan Im*) 200 mg IM Q12H PRN PRN Reason: NAUSEA Last Admin: 09/09/19 18:24 Dose: 200 mg
[2019-09-15] MEDS: Senna TAB 8.6 mg* TAB PO SCH (10:55)
[2019-09-15] MEDS: Levothyroxine TAB* 75 MCG TAB PO SCH (10:55)
[2019-09-15] MEDS: Finasteride TAB* 5 MG PO SCH (10:55)
[2019-09-15] MEDS: OLANzapine TAB*ODT* 10 MG TAB PO SCH ×2 (10:56→21:13)
[2019-09-15] MEDS: Paliperidone ER TAB* 6 MG TAB.ER PO SCH (10:56)
[2019-09-15] MEDS: Sertraline* 100 MG TAB PO SCH (10:56)
[2019-09-15] MEDS: Fluticasone NASAL SPRAY 50MCG* 16 gm SPRAY BTL BOTH NARES SCH (10:58)
[2019-09-15] MEDS: AMILORIDE PO SCH (10:58)
[2019-09-15] MEDS: Enoxaparin(*) 40 MG/0.4 ML SYR SUBCUT SCH (10:58)
[2019-09-15] MEDS: HCTZ PO SCH (10:58)
[2019-09-15] MEDS: CMCS: Alfuzosin ER (NF) 10 MG TAB.ER PO SCH (10:58)
[2019-09-15] MEDS: Divalproex Sprinkle CAP* 125 MG PO SCH ×2 (10:59→21:16)
[2019-09-15] MEDS: Acetylcysteine CAP (RENAL)* 600 MG PO SCH ×2 (10:59→21:13)
[2019-09-15] MEDS: Nystatin TOP POWDER* 15 GM BTL TOPICAL SCH ×3 (11:00→21:12)
[2019-09-15] MEDS: Naltrexone TAB* 50 MG TAB PO SCH (11:00)
[2019-09-15] MEDS: Lansoprazole SUSP* ORALSYR 3 MG/ML PO SCH (11:02)
[2019-09-15 17:01] LABS: Urine Appearance Cloudy; Urine Bilirubin Negative (Negative); Urine Blood 1+ (Negative); Urine Color Yellow; Urine Glucose Negative (Negative); Urine Ketones Negative (Negative); Urine Nitrite Negative (Negative); Urine Protein Negative (Negative); Urine Specific Gravity 1.009 (1.010-1.030); Urine Urobilinogen Negative (Negative)
[2019-09-15 17:03] LABS: Urine Bacteria Absent (Absent); Urine Red Blood Cell 1+(3-5/hpf) (Absent); Urine Squamous Epithelial Cell Present (Absent); Urine White Blood Cell 2+(11-20/hpf) (Absent)
--- NOTE | 2019-09-15 20:00 | PN ---
Subjective Date of Service: 09/15/19 Interval History: Mr. Mckoy states he is "better" today. He is unable to answer any further questions. Staff report that he is drinking "a little" and that he didn't eat much today. According to I/O, there was 250 mL fluid intake today. The patient is urinating. He has no complaints today. Family History: Unchanged from Admission Social History: Unchanged from Admission Past Medical History: Unchanged from Admission Objective Active Medications: Acetaminophen (Tylenol Adult Liq*) 650 mg PO Q4H PRN PRN Reason: PAIN - MILD OR TEMP > 100.4 Last Admin: 09/11/19 20:19 Dose: 650 mg Acetaminophen (Tylenol Supp*) 650 mg [place] Q6H PRN PRN Reason: pain-mild to moderate Last Admin: 09/04/19 20:17 Dose: 650 mg Acetylcysteine (Acetylcysteine Cap (Renal)*) 600 mg PO BID [facility] Stop: 09/19/19 21:01 Last Admin: 09/15/19 10:59 Dose: 600 mg Al Hydrox/Mg Hydrox/Simethicone (Maalox Plus*) 15 ml PO BID PRN PRN Reason: CONSTIPATION Last Admin: 09/10/19 08:37 Dose: 15 ml Alfuzosin HCl (Uroxatral (Nf)) 10 mg PO DAILY [facility] Last Admin: 09/15/19 10:58 Dose: 10 mg Amiloride/HCTZ (Moduretic 5-50 Tab*) 1 tab PO DAILY [facility] Last Admin: 09/15/19 10:58 Dose: 1 tab Amlodipine Besylate (Norvasc Tab*) 5 mg PO BEDTIME [facility] Last Admin: 09/14/19 23:08 Dose: 5 mg Bisacodyl (Dulcolax Supp*) 10 mg [place] DAILY PRN PRN Reason: CONSTIPATION Last Admin: 09/08/19 21:56 Dose: 10 mg Divalproex Sodium (Depakote Sprinkle Cap*) 750 mg PO BID [facility] Last Admin: 09/15/19 10:59 Dose: 750 mg Enoxaparin Sodium (Lovenox(*)) 40 mg SUBCUT Q24H [facility] Last Admin: 09/15/19 10:58 Dose: 40 mg Finasteride (Proscar Tab*) 5 mg PO DAILY [facility] Last Admin: 09/15/19 10:55 Dose: 5 mg Fluticasone Propionate (Flonase Nasal [place] 50mcg*) 2 spray BOTH NARES DAILY [facility] Last Admin: 09/15/19 10:58 Dose: 2 spray Haloperidol Lactate (Haldol Inj Iv/Im*) 5 mg IV SLOW PU Q4H PRN PRN Reason: AGITATION Last Admin: 09/14/19 20:06 Dose: 5 mg Lansoprazole (Lansoprazole Susp* Oralsyr) 15 mg PO DAILY [facility] Last Admin: 09/15/19 11:02 Dose: 15 mg Levothyroxine Sodium (Synthroid Tab*) 75 mcg PO 0600 [facility] Last Admin: 09/15/19 10:55 Dose: 75 mcg Naltrexone HCl (Naltrexone Tab*) 50 mg PO DAILY [facility]; Protocol Last Admin: 09/15/19 11:00 Dose: 50 mg Nystatin (Nystatin Top Powder*) 1 applic TOPICAL TID [facility] Last Admin: 09/15/19 13:57 Dose: 1 applic Olanzapine (Zyprexa *Odt*) 15 mg PO BID [facility] Last Admin: 09/15/19 10:56 Dose: 15 mg Paliperidone (Invega Er Tab*) 6 mg PO DAILY [facility] Last Admin: 09/15/19 10:56 Dose: 6 mg Polyethylene Glycol/Electrolytes (Miralax*) 17 gm PO DAILY PRN PRN Reason: CONSTIPATION Last Admin: 09/10/19 08:33 Dose: 17 gm Senna (Senokot 8.6 Mg Tab*) 1 tab PO DAILY [facility] Last Admin: 09/15/19 10:55 Dose: Not Given Sertraline HCl (Zoloft*) 100 mg PO DAILY [facility] Last Admin: 09/15/19 10:56 Dose: 100 mg Sodium Bicarbonate (Sodium Bicarbonate (Antacid)*) 1,300 mg PO Q8H [facility] Last Admin: 09/15/19 10:30 Dose: 1,300 mg Trazodone HCl (Desyrel Tab*) 50 mg PO BEDTIME [facility] Last Admin: 09/14/19 23:08 Dose: 50 mg Trimethobenzamide HCl (Tigan Im*) 200 mg IM Q12H PRN PRN Reason: NAUSEA Last Admin: 09/09/19 18:24 Dose: 200 mg Vital Signs: Temp Pulse Resp BP Pulse Ox 96.7 F 93 20 152/70 100 09/15/19 15:00 09/15/19 15:00 09/15/19 15:00 09/15/19 15:00 09/15/19 15:00 Oxygen Devices in Use Now: None Appearance: Mr. Mckoy is a middle aged white male who is asleep when I enter ; he wakes easily and is pleasant, cooperative; he responds with few words. Eyes: No Scleral Icterus, PERRLA Ears/Nose/Mouth/Throat: NL Teeth, Lips, Gums, Clear Oropharnyx, - - Dry oral mucosa Neck: NL Appearance and Movements; NL JVP, Trachea Midline Respiratory: Symmetrical Chest Expansion and Respiratory Effort, Clear to Auscultation, - - anteriorly; unable to follow instructions for deep breathing Cardiovascular: NL Sounds; No Murmurs; No JVD, RRR, No Edema Abdominal: NL Sounds; No Tenderness; No Distention, No Hepatosplenomegaly Extremities: No Edema, No Clubbing, Cyanosis Result Diagrams: 09/15/19 06:03 09/15/19 06:03 Microbiology and Other Data: Microbiology 09/04/19 13:50 Urine Culture - Preliminary Urine Pseudomonas Aeruginosa Serratia Marcescens Assess/Plan/Problems-Billing Assessment: Mr. Mckoy is a 64 year old male with history of intellectual disability, autism, HTN, CKD that presents with his aide from his retirement with report of outburst behavior, self-injury and nephrogenic DI with LIONEL on CKD. - Patient Problems (1) Acute kidney injury superimposed on CKD Comment: - Etiology likely acute dehydration leading to LIONEL; lithium induced DI likely the cause of CKD and may be further exacerbating this due to dehydration - Renal US shows no hydro with medical renal disease - Surrency was restarted 09/01 at the request of patient's HCPs, now stopped due to toxicity. - Nephrology following; thank you for recommendations. - Cr improving with fluids without hypernatremia. Stable today - Discontinue IV fluids 09/14; sodium stable today - No further evidence of obstruction. Continue intermittent bladder scans (2) Leukocytosis Comment: - Had been following closely with lithium activity, now has begun trending up again. - Not associated with fevers, tachycardia, Finished antibiotics. - Repeat Urinary Culture to assure appropriate treatment - Not likely a good indicator of infection - With Thrombocytosis - ? MDS - Hematology consult pending (3) Nephrogenic diabetes insipidus Comment: - 2/2 lithium use, diagnosed outpatient initially - Hypernatremia resolved today - Appreciate input from nephrology - Continue amiloride and HCTZ - Liberatize fluids. Encourage PO intake strongly. (4) Hypernatremia Comment: - Na wnl today, high end of normal - Continue amiloride and hctz - 2/2 nephrogenic DI, continue to liberalize oral fluids, has poor oral intake due to behavioral concerns. -low sodium diet (5) Gastric bleed Comment: - One [place] emesis on 09/09, tested postive for blood - Stopped Lovenox and trend H/H, Stool occult blood negative - Continue PPI, most likely due to Merissa-Ruiz tear. - H/H stable - Continue lovenox (6) Schizophrenia Comment: - Schizoaffective disorder - Not well controlled. - Continue paliperidone and olanzapine - QTc stable thus far - Start Depakote and increase to therapeutic blood level (7) Surrency toxicity Comment: - Surrency level trending down - Continue to monitor (8) Self-inflicted injury Comment: - This behavior has recurred, but is improving generally. - Dr. Ward has added q4hr haldol - Discontinued ativan due to JORDAN of delirium - Continue naltrexone (9) Candidiasis Comment: - Rash consistent with candidiasis in right groin - Nystatin TID (10) UTI (urinary tract infection) Comment: - Urine culture with pseudomonas and serratia - Completed antibiotics. - Leukocytosis likely due to lithium toxicity, not infection. (11) Urine retention Comment: - Restarted home alfuzosin, finasteride - Schedule outpatient urology appointment prior to discharge (12) DVT prophylaxis Comment: - Resume Lovenox. (13) Full code status Comment: Status and Disposition: pending further medical and behavioral improvement. Hopeful for d/c back to retirement once able to compensate for urinary losses with oral intake.
[2019-09-15] MEDS: traZODone TAB* 50 MG TAB PO SCH (21:13)
[2019-09-15] MEDS: amLODIPine TAB* 5 MG PO SCH (21:13)
[2019-09-16] MEDS: Sodium Bicarbonate (ANTACID)* 650 MG TAB PO SCH ×3 (03:00→21:41)
[2019-09-16] MEDS: Levothyroxine TAB* 75 MCG TAB PO SCH (05:34)
[2019-09-16 06:35] LABS: ABS Basophils 0.1 10^3/ul (0-0.2); ABS Eosinophils 0.4 10^3/ul (0-0.6); ABS Lymphocytes 1.3 10^3/ul (1.0-4.8); ABS Monocytes 0.8 10^3/ul (0-0.8); ABS Neutrophils 17.1 10^3/ul (1.5-7.7); Eosinophil % 2.2 %; Hematocrit 31 % (42-52); Hemoglobin 10.1 g/dL (14.0-18.0); Lymphocyte % 6.5 %; Mean Corpuscular HGB Conc 32 g/dL (31-36); Mean Corpuscular Hemoglobin 31 pg (27-31); Mean Corpuscular Volume 96 fL (80-94); Mean Platelet Volume 7.5 fL (7.4-10.4); Platelet Count 484 10^3/uL (150-450); Red Blood Count 3.25 10^6 /uL (4.18-5.48); Red Cell Distribution Width 16 % (10-15); White Blood Count 19.6 10^3/uL (3.5-10.8)
[2019-09-16 06:46] LABS: BUN/Creatinine Ratio 18.8 (8-20); Calcium 9.7 mg/dL (8.6-10.3); EGFR African American 34.8 (>60); EGFR Non-African American 28.7 (>60); Potassium 4.7 mmol/L (3.5-5.0)
--- NOTE | 2019-09-16 10:05 | CONSULT ---
Consult Consult: Reason for consult: Self Injurious behavior CC: "Hi , I better " Patient was evaluated today, with care worker present in the room. His integrated specialist remarked that "this is the Yuri that I know." The patient slept overnight, has not been combative with staff, and no report of self injurious behavior. Patient was waiting for his food this morning. Mental Status Exam APPEARANCE : 64 year old male fair hygiene and grooming sitting in bed. EYE CONTACT: Poor PSYCHOMOTOR ACTIVITY: mild psychomotor agitation MOVEMENTS: no abnormal movements SPEECH : Normal volume, slurred MOOD : "Good" AFFECT : Mood Incongruent THOUGHT PROCESS: Poverty of content THOUGHT CONTENT: Obsessions PERCEPTION: no AH/ VH SUICIDALITY Denied suicidal ideation, intent or plan. HOMICIDALITY Denied homicidal ideation, intent or plan. Insight/judgment: Poor insight and judgment ORIENTATION: Oriented to self not to location, and time. Assessment: 64 year old male with a history of severe intellectual disability and recent self injurious behavior being treated on the medical floor Diagnosis: Metabolic Encephalopathy in remission, Intellectual disability, severe. [place] toxicity, resolved. Plan # The patient does NOT require psychiatric inpatient admission at this time. # Medical management by Primary team # Safety Measures constant supervision, floor pad, cutting nails and unrestricted hand mittens to reduce risk of harm from self injury # Monitor EKG for risk of QT prolongation #Last long acting injection of Abilify 400mg q4 weeks was on 08/07/19 # Continue paliperidone 6mg po daily for aggression and ASD, will continue to monitor impact on renal function and QTc. # [place] level 0.82 # Valproic Acid level 25 # [place] will not be continued given the risk of permanent renal damage. Further this treatment did not result in outcomes of remitting behavioral disturbance, self injurious behavior and did not show improvement in the quality of life. # Continue Zyprexa 15mg PO BID # Continue zoloft 100mg daily and Trazodone 100mg qhs. # Naltrexone 50mg daily for self injurious behavior # N- Acetylcysteine 600mg BID # Patient can not leave AMA # Continue constant supervision # Do NOT give other benzodiazipines or anticholinergic agents given that it precipitates delirium. # Implement behavioral redirection and give Haldol or zyprexa PO/IM/IV Q6PRN for behavioral control during times when he presents a danger to himself and or others # Continue depakote sprinkles 750mg BID #Targeted Goals: To reduce self injurious behavior. Progress of objective Goals - Patient has not had recent incidents of self injury and has not been combativeness with staff. Close contacts confirm that the patient is close to his baseline. # Monitor for neuroleptic malignant syndrome and serotonin syndrome which is a medical emergency characterized by mental status changes, increased WBC, fever, increased CK, autonomic dysfunction , muscle stiffness, limiting lithium, neuroleptic and serotonergic agents and increasing hydration can reduce this risk. Low degree of suspicion of NMS at this time given that CK is usually > 1000 in NMS. # Patient is on multiple anti-psychotics and psychotropic medications. Given the severity of his presenting behavior and history including multiple failed medication trials, other alternative options and doses surpassing the FDA recommendations will be implemented. Consideration of these risks was presented to his treatment team from [facility] and health care proxy and everyone is in agreement with the plan. Black box warning of using anti psychotics as well as multiple anti psychotics in those over 65 were described to his health care proxy and treatment team who accepted these risks. # Patient to continue on discharge Zyprexa 15mg PO BID , zoloft 100mg daily, Trazodone 100mg qhs, Naltrexone 50mg daily, N- Acetylcysteine 600mg BID, depakote sprinkles 750mg BID , and invega 6mg po daily. # Primary team plans to discharge the patient today and contact the patients family/ guardian. # Discussed recommendations with primary team # Recommend follow up care within 7 days. Guardian has found mental health provider. # Psychiatry will sign off.
[2019-09-16] MEDS: Naltrexone TAB* 50 MG TAB PO SCH (10:10)
[2019-09-16] MEDS: OLANzapine TAB*ODT* 10 MG TAB PO SCH ×2 (10:10→21:40)
[2019-09-16] MEDS: Acetylcysteine CAP (RENAL)* 600 MG PO SCH ×2 (10:11→21:41)
[2019-09-16] MEDS: Divalproex Sprinkle CAP* 125 MG PO SCH ×2 (10:12→21:41)
[2019-09-16] MEDS: AMILORIDE PO SCH (10:16)
[2019-09-16] MEDS: HCTZ PO SCH (10:16)
[2019-09-16 10:21] LABS: Lithium 0.82 mmol/L (0.6-1.2)
[2019-09-16] MEDS: Sertraline* 100 MG TAB PO SCH (10:23)
[2019-09-16] MEDS: Senna TAB 8.6 mg* TAB PO SCH (10:23)
[2019-09-16] MEDS: CMCS: Alfuzosin ER (NF) 10 MG TAB.ER PO SCH (10:23)
[2019-09-16] MEDS: Finasteride TAB* 5 MG PO SCH (10:31)
[2019-09-16] MEDS: Paliperidone ER TAB* 6 MG TAB.ER PO SCH (10:32)
[2019-09-16] MEDS: Lansoprazole SUSP* ORALSYR 3 MG/ML PO SCH (10:50)
[2019-09-16] MEDS: Enoxaparin(*) 40 MG/0.4 ML SYR SUBCUT SCH (10:50)
[2019-09-16] MEDS: Fluticasone NASAL SPRAY 50MCG* 16 gm SPRAY BTL BOTH NARES SCH (10:57)
[2019-09-16] MEDS: Nystatin TOP POWDER* 15 GM BTL TOPICAL SCH ×3 (10:57→21:55)
--- NOTE | 2019-09-16 16:43 | DS ---
DATE OF ADMISSION: 08/20/2019. DATE OF ANTICIPATED DISCHARGE: 09/17/2019. PRIMARY CARE PHYSICIAN: Dr. Guerra. CONSULTING PSYCHIATRIST: Dr. Fabrizio Ward. CONSULTING NEPHROLOGISTS: Dr. Quan and Dr. Dao. ATTENDING PHYSICIAN WHILE IN THE HOSPITAL: Dr. Kimani Aguirre * (dictated by ELIANE Kidd). PRIMARY DIAGNOSES: 1. [place]chi toxicity. 2. UTI. 3. Left tympanic membrane perforation, likely secondary to otitis media. 4. Urinary retention, resolved with home medications. 5. Upper GI bleed, likely secondary to Merissa-Ruiz tear. 6. Self-injurious behavior, resolved. 7. Acute kidney injury on chronic kidney injury. 8. Leukocytosis and thrombocytosis likely secondary to Tohatchi. 9. Right groin candidiasis, improving. SECONDARY DIAGNOSES: 1. 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 2. 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 3. Intellectual disability. 4. Schizoaffective disorder, bipolar type. PERTINENT LAB DATA/IMAGING STUDIES: 1. Urine culture on 09/04/2019 positive for pseudomonas aeruginosa and serratia marcescens. 2. Urine culture on 09/10/2019, no growth. 3. Urine culture on 09/15/2019 with 75 to 100,000 CFU of staphylococcus epidermidis which is likely customer contact representative of contamination. 4. Hemoglobin on 09/12/2019 is 8.5; hemoglobin on 09/16/2019 is 10.1. White blood cell count on 09/04/2019 is 30,700; white blood cell count on 09/16/2019 is 19,600; white blood cell count on 08/25/2019 is 9,300. Platelet count on is 484,000. Sodium on 09/16/2019 is 144. Creatinine on 09/16/2019 is 2.29. Valproic acid level on 09/16/2019 at 6:00 a.m. is 25. [place]chi level is 0.82. 5. Most recent EKG on 09/13/2019: QTC is 364. 6. Chest x-ray on 09/04/2019: Impression: No active cardiopulmonary disease. 7. Renal ultrasound on 08/20/2019: Findings consistent with medical renal disease. No evidence for hydronephrosis. Hypoechoic area in the midportion of the left kidney consistent with either a prominent column of David or a mass. 8. Brain CT on 08/19/2019: Impression: No acute intracranial pathology. HISTORY OF PRESENT ILLNESS/HOSPITAL COURSE: Alexander Mckoy is a 64-year-old male with a past medical history significant for nephrogenic diabetes insipidus , CKD, schizoaffective disorder, previously on long-term Tohatchi, and intellectual delay who presented to the emergency department from his half-way on 09/19/2019 due to aggressive behavior, hitting his head, and scratching his ears. For a very detailed summary of his hospital stay from the date of admission to 09/08/2019, please see the transfer of care summary which was dictated by myself on that date. For the complete information of his hospital stay, please refer to the complete medical record. In brief, he had acute kidney injury secondary to Tohatchi use and dehydration in the setting of his nephrogenic diabetes insipidus and not maintaining oral intake. His Haldol and To[place]chi were stopped and his other medications were adjusted by Psychiatry due to suspicion for lithium toxicity given his behavior. Tohatchi was replaced with Depakote as a mood stabilizer per Psychiatry. He was becoming far improved on the regimen of Paliperidone, Olanzapine, Zoloft, Depakote, and Trazodone and his kidney injury was improving. In fact, his creatinine was the lowest it had been in several years. He did have some electrolyte imbalances which have since been ameliorated by Amiloride and Hydrochlorothiazide as well as maintaining good oral intake. Unfortunately during a period of time in his hospital stay, his family, including his guardian, was requesting the patient go back on Tohatchi. This change correlated almost immediately with worsened kidney function, leukocytosis and thrombocytosis. His behavior then regressed back to the violence, agitation, and self-injury he was exhibiting at admission. Once he was changed back to Depakote instead of To[place]chi approximately one week ago, his leukocytosis did begin a downtrend again, though has been fluctuating. Ultimately his kidney function is greatly improved. It has been since 09/14/19 that he has last received IV hydration and he has been able to maintain good electrolyte balance with much encouragement of p.o. fluid intake. At baseline, he is known to frequently vomit , especially after taking medication. There was one point in which he vomited some blood. His H and H has since been quite stable and his PPI was continued, and there has been no other signs of coffee ground emesis or hematemesis since this episode on 09/09/2019. This was likely secondary to a Merissa-Ruiz tear with the patient frequently retching. Additionally he did develop a candidiasis during his hospital stay which has been greatly improving with Nystatin. Incidentally as well, he had urinary retention which is due to his home Alfuzosin being held during his hospital stay and once this was restarted, no longer had urinary transient issues. However, during that period of time, a straight catheterization was performed and this is likely the reason why he developed a UTI. He no longer has signs or symptoms of a UTI. He was afebrile during the entirety of his hospital stay. Unfortunately, he has not returned to his baseline behavior or function at this point, although this will take much time as Depakote level becomes therapeutic and hopefully working with getting back to his home and a more normalized environment. At baseline, he is able to ambulate, hold conversations, and care for himself and he is not doing this at this point as he is difficult to transition requiring two person assist and not always answering questions; however, this did greatly improve previously in his hospital stay while on Depakote and I do anticipate this to be the case outpatient. He is no longer violent towards staff or exhibiting any signs of self-abuse which were likely due to Tohatchi toxicity. Again, for further details of the vast majority of his hospital stay, there is much greater detail in the transient of care note written by myself on 09/08/2019, or the complete medical record should be read. PHYSICAL EXAMINATION: General: Thin, elderly white male lying upright in the hospital bed, appearing comfortable, in no acute distress, minimally regarding face, but only answering questions at times. HEENT: Eyes: PERRL. Sclerae anicteric. ENT: Mucous membranes moist. Lungs: Clear to auscultation throughout. Cardio: Regular rate and rhythm without murmurs, rubs, or gallops. Abdomen: Soft, nontender, nondistended. Extremities: No clubbing, cyanosis, or edema. Neuro: The patient is alert. Difficult to assess orientation, is not appropriately answering questions. Strength is 4/5 in all extremities. DISCHARGE PLAN: DIET: Mechanical ground diet, low sodium diet. ACTIVITY: Patient is requiring a two person assist with stand and pivot for transitions. The patient should have physical therapy as an outpatient in his half-way where he is returning to at [facility]. His guardian, Lalo Mckoy, has been alerted to the plan for discharge and he is in agreement. It will be very important that the half-way continue to encourage this patient 's oral fluid intake. His diet can be advanced as tolerated, and perhaps seeing a BOOT AND SHOE REPAIRMAN outpatient would be of benefit. He certainly needs physical therapy at home. He needs to have a follow-up with his primary care provider in four to seven days regarding this hospital stay. He should have a follow up renal ultrasound considering the incidental findings. His right groin candidiasis should be followed to resolution. He needs to have a follow-up with his outpatient psychiatrist within one week. He should have follow-up with his urologist regarding urinary retention, although there has been little problem since restarting his medications. Additionally, he should follow-up with Nephrology, Dr. Quan, in one to two weeks. He should have repeat BMP, valproic acid level, and [place] level in one week. He should return to the emergency department if he has no urine output for over 12 hours, fever or chills, extreme aggression, vomiting blood or coffee ground emesis, blood in stool. DISCHARGE MEDICATIONS: 1. Acetaminophen 650 mg p.o. q.4 hours prn pain. 2. Robitussin 10 ml p.o. q.4 hours prn cough. 3. Biotene 10 ml swish and spit b.i.d. 4. Epinephrine 0.3 mg injection once prn allergic reaction. 5. Maalox 15 ml p.o. b.i.d. 6. Trazodone 100 mg p.o. at bedtime prn anxiety. 7. Triazolam 0.5 mg p.o. once prn dental procedure. 8. Amlodipine 5 mg p.o. at bedtime. 9. Nasacort nasal spray two sprays both nares at bedtime. 10. Zoloft 100 mg p.o. daily. 11. Ipratropium two sprays both nares q.i.d. 12. Finasteride 5 mg p.o. daily. 13. Alfuzosin 10 mg p.o. daily. 14. Ranitidine 150 mg p.o. b.i.d. 15. MiraLax 17 gm p.o. daily. 16. Multivitamin liquid 5 ml p.o. daily. 17. Synthroid 75 mcg p.o. daily. 18. Milk of Magnesia 30 ml p.o. daily prn constipation. 19. Amiloride 5 mg p.o. daily. 20. Hydrochlorothiazide 50 mg p.o. daily. 21. Pantoprazole 40 mg p.o. daily. 22. Paliperidone 6 mg p.o. daily. 23. Olanzapine 15 mg p.o. b.i.d. 24. Nystatin powder one application topically t.i.d. to right groin. 25. Naltrexone 50 mg p.o. daily. 26. Depakote sprinkle 750 mg p.o. b.i.d. 27. Acetylcysteine (NAC) 600 mg p.o. b.i.d. CONDITION ON DISCHARGE: Stable. DISPOSITION: Home at [facility] rehab. TIME SPENT: Approximately 45 minutes were spent on this discharge, approximately half of this time was spent at the bedside evaluating the patient. ELIANE KIDD [id number]/[facility] #: [id number]/CPS #: [id number] PENNY
--- NOTE | 2019-09-16 17:51 | PN ---
Subjective Date of Service: 09/16/19 Interval History: Per nursing staff, patient slept well overall last night. Took his meds this morning. No reports of yelling or violent behavior. Did not eat much for breakfast. Patient does not participate with history gathering but does say "Good morning. " Family History: Unchanged from Admission Social History: Unchanged from Admission Past Medical History: Unchanged from Admission Objective Active Medications: Acetaminophen (Tylenol Adult Liq*) 650 mg PO Q4H PRN PRN Reason: PAIN - MILD OR TEMP > 100.4 Last Admin: 09/11/19 20:19 Dose: 650 mg Acetaminophen (Tylenol Supp*) 650 mg DC Q6H PRN PRN Reason: pain-mild to moderate Last Admin: 09/04/19 20:17 Dose: 650 mg Acetylcysteine (Acetylcysteine Cap (Renal)*) 600 mg PO BID [facility] Stop: 09/19/19 21:01 Last Admin: 09/16/19 10:11 Dose: 600 mg Al Hydrox/Mg Hydrox/Simethicone (Maalox Plus*) 15 ml PO BID PRN PRN Reason: CONSTIPATION Last Admin: 09/10/19 08:37 Dose: 15 ml Alfuzosin HCl (Uroxatral (Nf)) 10 mg PO DAILY [facility] Last Admin: 09/16/19 10:23 Dose: 10 mg Amiloride/HCTZ (Moduretic 5-50 Tab*) 1 tab PO DAILY [facility] Last Admin: 09/16/19 10:16 Dose: 1 tab Amlodipine Besylate (Norvasc Tab*) 5 mg PO BEDTIME [facility] Last Admin: 09/15/19 21:13 Dose: Not Given Bisacodyl (Dulcolax Supp*) 10 mg DC DAILY PRN PRN Reason: CONSTIPATION Last Admin: 09/08/19 21:56 Dose: 10 mg Divalproex Sodium (Depakote Sprinkle Cap*) 750 mg PO BID [facility] Last Admin: 09/16/19 10:12 Dose: 750 mg Enoxaparin Sodium (Lovenox(*)) 40 mg SUBCUT Q24H [facility] Last Admin: 09/16/19 10:50 Dose: 40 mg Finasteride (Proscar Tab*) 5 mg PO DAILY [facility] Last Admin: 09/16/19 10:31 Dose: 5 mg Fluticasone Propionate (Flonase Nasal [place] 50mcg*) 2 spray BOTH NARES DAILY [facility] Last Admin: 09/16/19 10:57 Dose: 2 spray Haloperidol Lactate (Haldol Inj Iv/Im*) 5 mg IV SLOW PU Q4H PRN PRN Reason: AGITATION Last Admin: 09/14/19 20:06 Dose: 5 mg Lansoprazole (Lansoprazole Susp* Oralsyr) 15 mg PO DAILY [facility] Last Admin: 09/16/19 10:50 Dose: 15 mg Levothyroxine Sodium (Synthroid Tab*) 75 mcg PO 0600 [facility] Last Admin: 09/16/19 05:34 Dose: 75 mcg Naltrexone HCl (Naltrexone Tab*) 50 mg PO DAILY [facility]; Protocol Last Admin: 09/16/19 10:10 Dose: 50 mg Nystatin (Nystatin Top Powder*) 1 applic TOPICAL TID [facility] Last Admin: 09/16/19 14:00 Dose: 1 applic Olanzapine (Zyprexa *Odt*) 15 mg PO BID [facility] Last Admin: 09/16/19 10:10 Dose: 15 mg Paliperidone (Invega Er Tab*) 6 mg PO DAILY [facility] Last Admin: 09/16/19 10:32 Dose: 6 mg Polyethylene Glycol/Electrolytes (Miralax*) 17 gm PO DAILY PRN PRN Reason: CONSTIPATION Last Admin: 09/10/19 08:33 Dose: 17 gm Senna (Senokot 8.6 Mg Tab*) 1 tab PO DAILY [facility] Last Admin: 09/16/19 10:23 Dose: 1 tab Sertraline HCl (Zoloft*) 100 mg PO DAILY [facility] Last Admin: 09/16/19 10:23 Dose: 100 mg Sodium Bicarbonate (Sodium Bicarbonate (Antacid)*) 1,300 mg PO Q8H [facility] Last Admin: 09/16/19 12:14 Dose: 1,300 mg Trazodone HCl (Desyrel Tab*) 50 mg PO BEDTIME [facility] Last Admin: 09/15/19 21:13 Dose: Not Given Trimethobenzamide HCl (Tigan Im*) 200 mg IM Q12H PRN PRN Reason: NAUSEA Last Admin: 09/09/19 18:24 Dose: 200 mg Vital Signs - 8 hr 09/16/19 10:53 Temperature 98.0 F Pulse Rate 104 Respiratory 18 Rate Blood Pressure 145/69 (mmHg) O2 Sat by Pulse 100 Oximetry Oxygen Devices in Use Now: None Appearance: thin, elderly white male, laying upright in bed, appearing in NAD Eyes: No Scleral Icterus, - - PERRL Ears/Nose/Mouth/Throat: Mucous Membranes Moist Neck: NL Appearance and Movements; NL JVP Respiratory: Symmetrical Chest Expansion and Respiratory Effort, Clear to Auscultation Cardiovascular: NL Sounds; No Murmurs; No JVD, RRR Abdominal: - - abd soft, nontender, nondistended Extremities: No Edema, No Clubbing, Cyanosis Skin: - - skin warm and dry Neurological: - - alert, unable to assess orientation as patient does not participate in questioning Result Diagrams: 09/16/19 06:03 09/16/19 06:03 Microbiology and Other Data: Microbiology 09/04/19 13:50 Urine Culture - Preliminary Urine Pseudomonas Aeruginosa Serratia Marcescens Assess/Plan/Problems-Billing Assessment: Mr. Mckoy is a 64 year old male with history of intellectual disability, autism, HTN, CKD that presents with his aide from his half-way with report of outburst behavior, self-injury and nephrogenic DI with LIONEL on CKD. - Patient Problems (1) [place] toxicity Current Visit: Yes Status: Acute Code(s): T56.891A - TOXIC EFFECT OF OTH METALS, ACCIDENTAL (UNINTENTIONAL), INIT SNOMED Code(s): 562170741 Comment: - [place] level trending down - Continue to monitor - Clinical signs resolved (2) Self-inflicted injury Current Visit: Yes Status: Acute Code(s): Z72.89 - OTHER PROBLEMS RELATED TO LIFESTYLE SNOMED Code(s): 162864009 Comment: - This behavior has resolved since discontinuing lithium - continue q4hr haldol, NAC, and naltrexone - hasn't had haldol dose since 09/14/19 - was likely related to lithium toxicity (3) Hypernatremia Current Visit: Yes Status: Acute Code(s): E87.0 - HYPEROSMOLALITY AND HYPERNATREMIA SNOMED Code(s): 327380822 Comment: - Continue amiloride and hctz - 2/2 nephrogenic DI, continue to encourage oral fluids, has poor oral intake due to behavioral concerns - low sodium diet - IVF discontinued 09/14/19 and Na has been wnl (4) Acute kidney injury superimposed on CKD Current Visit: Yes Status: Acute Code(s): N17.9 - ACUTE KIDNEY FAILURE, UNSPECIFIED; N18.9 - CHRONIC KIDNEY DISEASE, UNSPECIFIED SNOMED Code(s): 50763690 Comment: - Etiology likely acute dehydration leading to LIONEL; lithium induced DI likely the cause of CKD and may be further exacerbating this due to dehydration - Renal US shows no hydro with medical renal disease - Nephrology following; thank you for recommendations. - Cr improving with fluids without hypernatremia. Remains stable today (5) Nephrogenic diabetes insipidus Current Visit: Yes Status: Acute Code(s): N25.1 - NEPHROGENIC DIABETES INSIPIDUS SNOMED Code(s): 208706960 Comment: - 2/2 lithium use, diagnosed outpatient initially - Hypernatremia resolved - Appreciate input from nephrology - Continue amiloride and HCTZ - Encourage PO intake strongly (6) UTI (urinary tract infection) Current Visit: Yes Status: Acute Comment: -urine culture with pseudomonas and serratia -has received full course of antibiotics -leukocytosis likely unrelated (7) Leukocytosis Current Visit: No Status: Acute Code(s): D72.829 - ELEVATED WHITE BLOOD CELL COUNT, UNSPECIFIED SNOMED Code(s): 955674370 Comment: - Had been following closely with lithium activity, now has begun trending up again. - Not associated with fevers, tachycardia, Finished antibiotics. - Repeat urine culture with staph epidermidis <100,000 CFUs, which is likely a contamination. - Not likely a good indicator of infection - With thrombocytosis as well - Hematology consult pending. Low suspicion for malignancy, though. (8) Schizoaffective disorder Current Visit: Yes Status: Acute Code(s): F25.9 - SCHIZOAFFECTIVE DISORDER, UNSPECIFIED SNOMED Code(s): 74939390 Comment: - Bipolar type - Not well controlled - Continue paliperidone and olanzapine - QTc stable thus far - Continue Depakote and will need to be increased to therapeutic blood level - Continue zoloft and prn trazodone (9) Urine retention Current Visit: No Status: Acute Code(s): R33.9 - RETENTION OF URINE, UNSPECIFIED SNOMED Code(s): 032105689 Comment: - Restarted home alfuzosin, finasteride - Schedule outpatient urology appointment prior to discharge (10) Candidiasis Current Visit: Yes Status: Acute Code(s): B37.9 - CANDIDIASIS, UNSPECIFIED SNOMED Code(s): 86852228 Comment: - Rash consistent with candidiasis in right groin - Nystatin TID (11) Gastric bleed Current Visit: Yes Status: Acute Code(s): K92.2 - GASTROINTESTINAL HEMORRHAGE, UNSPECIFIED SNOMED Code(s): 04197630 Comment: - One Coffee grounds emesis on 09/09, tested postive for blood - Stopped Lovenox and trend H/H, Stool occult blood negative - Continue PPI, most likely due to Merissa-Ruiz tear - H/H stable, have since restarted lovenox (12) DVT prophylaxis Current Visit: No Status: Acute Code(s): Z29.9 - ENCOUNTER FOR PROPHYLACTIC MEASURES, UNSPECIFIED SNOMED Code(s): 626904538 Comment: - Resume Lovenox (13) Full code status Current Visit: No Status: Acute Code(s): Z78.9 - OTHER SPECIFIED HEALTH STATUS SNOMED Code(s): 051818043 Comment: Status and Disposition: d/c to half-way tomorrow.
--- NOTE | 2019-09-16 19:06 | DS ---
DISCHARGE SUMMARY: DATE OF ADMISSION: DATE OF DISCHARGE: ADDENDUM: CONSULTING PSYCHIATRIST: Dr. Fabrizio Ward. CONSULTING NEPHROLOGISTS: Dr. Quan and Dr. Dao. ELIANE TEMPLE [id number]/[facility] #: [id number] [facility] NETWORKBenito
[2019-09-16] MEDS: traZODone TAB* 50 MG TAB PO SCH (21:40)
[2019-09-16] MEDS: amLODIPine TAB* 5 MG PO SCH (21:41)
[2019-09-17] MEDS: Levothyroxine TAB* 75 MCG TAB PO SCH ×2 (05:04→05:10)
[2019-09-17] MEDS: Sodium Bicarbonate (ANTACID)* 650 MG TAB PO SCH ×2 (05:04→10:21)
[2019-09-17] MEDS: CMCS: Alfuzosin ER (NF) 10 MG TAB.ER PO SCH (10:18)
[2019-09-17] MEDS: HCTZ PO SCH (10:19)
[2019-09-17] MEDS: AMILORIDE PO SCH (10:19)
[2019-09-17] MEDS: Naltrexone TAB* 50 MG TAB PO SCH (10:19)
[2019-09-17] MEDS: OLANzapine TAB*ODT* 10 MG TAB PO SCH (10:20)
[2019-09-17] MEDS: Sertraline* 100 MG TAB PO SCH (10:22)
[2019-09-17] MEDS: Acetylcysteine CAP (RENAL)* 600 MG PO SCH (10:22)
[2019-09-17] MEDS: Senna TAB 8.6 mg* TAB PO SCH (10:22)
[2019-09-17] MEDS: Paliperidone ER TAB* 6 MG TAB.ER PO SCH ×2 (10:24→20:19)
[2019-09-17] MEDS: Enoxaparin(*) 40 MG/0.4 ML SYR SUBCUT SCH ×2 (10:25→11:18)
[2019-09-17] MEDS: Divalproex Sprinkle CAP* 125 MG PO SCH (10:26)
[2019-09-17] MEDS: Finasteride TAB* 5 MG PO SCH (10:28)
[2019-09-17] MEDS: Fluticasone NASAL SPRAY 50MCG* 16 gm SPRAY BTL BOTH NARES SCH (11:18)
[2019-09-17] MEDS: Lansoprazole SUSP* ORALSYR 3 MG/ML PO SCH (11:18)
[2019-09-17] MEDS: Nystatin TOP POWDER* 15 GM BTL TOPICAL SCH (11:18)
[2019-09-17 11:45] VITALS: BP 140/83
--- NOTE | 2019-09-17 22:55 | DS ---
DISCHARGE SUMMARY: ADDENDUM: After discharge, Nguyen PAK nurse requested prescription for Clear Ensure. Clear Ensure p.o. t.i.d. ordered for the patient as supplement with each meal. ELIANE TEMPLE [id number]/[facility] #: [id number] [facility]
== END 2019-09-17 11:00 | disposition home health service (06) | DRG 682 ==
LOC: ED 16:36 → MED 20:59 → OBSVTOIN 08-20 11:00
PROVIDERS: ADMIT Internal Medicine; ATTEND Internal Medicine
DX: N17.9 Acute kidney failure, unspecified (principal); R40.2222 Coma scale, best verbal response, incomprehensible words, at arrival to emergency department; K22.6 Gastro-esophageal laceration-hemorrhage syndrome; G92 Toxic encephalopathy; F84.0 Autistic disorder; N39.0 Urinary tract infection, site not specified; F72 Severe intellectual disabilities; E87.1 Hypo-osmolality and hyponatremia; N25.1 Nephrogenic diabetes insipidus; K21.9 Gastro-esophageal reflux disease without esophagitis; Z88.7 Allergy status to serum and vaccine; Z91.013 Allergy to seafood; E03.9 Hypothyroidism, unspecified; I12.9 Hypertensive chronic kidney disease with stage 1 through stage 4 chronic kidney disease, or unspecified chronic kidney disease; J45.909 Unspecified asthma, uncomplicated; S01.311A Laceration without foreign body of right ear, initial encounter; S80.212A Abrasion, left knee, initial encounter; S80.211A Abrasion, right knee, initial encounter; S30.811A Abrasion of abdominal wall, initial encounter; R40.2362 Coma scale, best motor response, obeys commands, at arrival to emergency department; R40.2142 Coma scale, eyes open, spontaneous, at arrival to emergency department; E86.0 Dehydration; D72.829 Elevated white blood cell count, unspecified; R33.9 Retention of urine, unspecified; T43.595A Adverse effect of other antipsychotics and neuroleptics, initial encounter; E87.5 Hyperkalemia; R09.89 Other specified symptoms and signs involving the circulatory and respiratory systems; H61.21 Impacted cerumen, right ear; B96.5 Pseudomonas (aeruginosa) (mallei) (pseudomallei) as the cause of diseases classified elsewhere; Y33.XXXA Other specified events, undetermined intent, initial encounter; D47.3 Essential (hemorrhagic) thrombocythemia; B37.2 Candidiasis of skin and nail; N18.4 Chronic kidney disease, stage 4 (severe); F25.0 Schizoaffective disorder, bipolar type; F63.9 Impulse disorder, unspecified; E83.52 Hypercalcemia; H66.92 Otitis media, unspecified, left ear; H72.92 Unspecified perforation of tympanic membrane, left ear; B96.89 Other specified bacterial agents as the cause of diseases classified elsewhere; Z91.19 Patient's noncompliance with other medical treatment and regimen; Z91.5 Personal history of self-harm; Z91.012 Allergy to eggs; Z91.010 Allergy to peanuts; Z91.018 Allergy to other foods; Y92.9 Unspecified place or not applicable; Z79.899 Other long term (current) drug therapy; Z79.890 Hormone replacement therapy
CPT/HCPCS: 36415; 70450; 71046; 74018; 76775; 80048; 80053; 80076; 80164; 80178; 81003; 81015; 82271; 82272; 82436; 82550; 82570; 82607; 82728; 82746; 83540; 83550; 83735; 83930; 83935; 84100; 84133; 84300; 84450; 84460; 84484; 85025; 85027; 86140; 87077; 87086; 87186; 93005; 99284; A9270-GY; G0378; G8978-GP-CL; G8979-GP-CI; G8979-GP-CL; G8980-GP-CL; J0690; J0692; J0696; J1630; J1650; J2060; J2405; J3250; J3486

== ENCOUNTER 2019-09-22 13:07 | Inpatient (IN) | payer MEDICARE, MEDICAID ==
[2019-09-22] MEDS ORDERED: NS 0.9% 1000 ML** 1,000 ML IV ONE ×2 (13:11→15:39)
--- NOTE | 2019-09-22 13:18 | ED ---
Altered Mental Status - HPI Summary HPI Summary: The patient is a 64 y/o M arriving by ambulance to [facility] from [facility] with a chief complaint of decreased responsiveness this afternoon. Per EMS, the patient was found unresponsive this morning with a blood pressure of 60/40 mmHg. When EMS arrived, his blood pressure was 72/50 mmHg with tachypnea. He has been more lethargic and weak than usual. He is currently in end stage renal failure, and he is full code at this time. PMHx: thyroid disease, HTN, asthma, developmental delay, schizophrenia. Nonsmoker, no EtOH, no substance use. Medications reviewed. Allergies noted. History is limited secondary to patient being nonverbal. - History Of Current Complaint Stated Complaint: LOW BLOOD PRESSURE Hx Obtained From: EMS Hx From Patient Unobtainable Due To: Other - level 5 caveat, patient nonverbal Severity Initially: Mild Character: Responsiveness Aggravating Factor(s): Unknown Alleviating Factor(s): Unknown Associated Signs And Symptoms: Positive: Weakness - Allergies/Home Medications Allergies/Adverse Reactions: Allergies Allergy/AdvReac Type Severity Reaction Status Date / Time peanut Allergy Severe Anaphylatic Verified 09/22/19 13:26 Shock shrimp Allergy Severe Anaphylatic Verified 09/22/19 13:26 Shock influenza virus vaccine qs Allergy Unknown Unknown Verified 09/22/19 13:26 0789-2022 (36 mos, up) Reaction [From Fluarix Quad] Details piperonyl butoxide Allergy Unknown Unknown Verified 09/22/19 13:26 [From RID Complete Lice [place] Reaction Kit] Details pyrethrins Allergy Unknown Unknown Verified 09/22/19 13:26 [From RID Complete Lice [place] Reaction Kit] Details tuna oil Allergy Unknown Unknown Verified 09/22/19 13:26 Reaction Details egg Allergy Unknown Verified 09/22/19 13:26 Reaction Details permethrin Allergy Unknown Verified 09/22/19 13:26 Reaction Details ragweed pollen Allergy Unknown Verified 09/22/19 13:26 Reaction Details shellfish derived Allergy Unknown Verified 09/22/19 13:26 Reaction Details tamsulosin AdvReac Unknown Verified 09/22/19 13:26 Reaction Details Home Medications: Home Medications Aripiprazole Maintena (NF) [Abilify Maintena (NF)] 400 mg IM MONTHLY 09/22/19 [ History Confirmed 09/22/19] Bacitracin Zinc/Polymyxin B [Double Antibiotic Ointment] 1 applic TOPICAL BID [History Confirmed 09/22/19] Benztropine TAB* [Cogentin TAB*] 1 mg PO BID PRN 09/22/19 [History Confirmed ] Chlorhexidine MOUTHWASH 0.12%* [Peridex Mouth Wash 0.12%*] 10 ml SWISH SPIT BID 09/22/19 [History Confirmed 09/22/19] Fexofenadine HCl [Goodsense Aller-Ease] 180 mg PO DAILY 09/22/19 [History Confirmed 09/22/19] Haloperidol TAB* [Haldol TAB*] 5 mg PO TID PRN 09/22/19 [History Confirmed 09/22] Bulpitt Carbonate TAB* 150 mg PO BID 09/22/19 [History Confirmed 09/22/19] Losartan TAB* [Cozaar TAB*] 25 mg PO DAILY 09/22/19 [History Confirmed 09/22/19] Mupirocin 2% OINT* [Bactroban 2 % Oint*] 1 applic TOPICAL BID 09/22/19 [History Confirmed 09/22/19] Nut.tx.impaired Digestive Fxn [Ensure Clear] 200 ml PO TID 09/22/19 [History Confirmed 09/22/19] Simethicone [Gas-X Extra Strength] 125 mg PO TID PRN 09/22/19 [History Confirmed 09/22/19] Triamcinolone NASAL SPRAY* [Nasacort AQ Nasal [place]*] 2 spray BOTH NARES BEDTIME 09/22/19 [History Confirmed 09/22/19] clonazePAM TAB(*) [KlonoPIN TAB(*)] 0.5 mg PO BID MDD 1 mg 09/22/19 [History Confirmed 09/22/19] diPHENhydraMINE PO* [Benadryl PO 50 MG CAP*] 50 mg PO TID PRN 09/22/19 [History Confirmed 09/22/19] PMH/Surg Hx/FS Hx/Imm Hx Endocrine/Hematology History: Reports: Hx Thyroid Disease Denies: Hx Diabetes Cardiovascular History: Reports: Hx Hypertension Denies: Hx Hypercholesterolemia Respiratory History: Reports: Hx Asthma Denies: Hx Chronic Obstructive Pulmonary Disease (COPD) GI History: Denies: Hx Ulcer Sensory History: Denies: Hx Contacts or Glasses, Hx Hearing Aid Opthamlomology History: Denies: Hx Contacts or Glasses Neurological History: Reports: Hx Developmental Delay Psychiatric History: Reports: Hx Schizophrenia, Hx of Violent Episodes Against Others Denies: Hx Eating Disorder - Surgical History Surgical History: Unable to Obtain/Confirm - patient is unable to provide history Infectious Disease History: Reports: Hx of Known/Suspected MRSA - urine October 2013 Denies: Hx Clostridium Difficile, Hx Hepatitis, Hx Human Immunodeficiency Virus (HIV), Hx Shingles, Hx Tuberculosis, History Other Infectious Disease - Family History Known Family History: Negative: Diabetes - Social History Alcohol Use: None Hx Substance Use: No Substance Use Type: Reports: None Hx Tobacco Use: No Smoking Status (MU): Never Smoked Tobacco Review of Systems Positive: Other - lethargy Positive: Other - low blood pressure Positive: Other - tachypnea Neurological: Other - unresponsive Positive: Weakness All Other Systems Reviewed And Are Negative: No - Comments Additional Review of Systems Comments: Level 5 Caveat secondary to patient is nonverbal Physical Exam - Summary Physical Exam Summary: VITAL SIGNS: Reviewed. GENERAL: Patient is a well-developed and nourished male who is lying comfortable in the stretcher. Patient is not in any acute respiratory distress. HEAD AND FACE: No signs of trauma. No ecchymosis, hematomas or skull depressions. No sinus tenderness. EYES: PERRLA, EOMI x 2, No injected conjunctiva, no nystagmus. EARS: Hearing grossly intact. Ear canals and tympanic membranes are within normal limits. MOUTH: Oropharynx within normal limits. NECK: Supple, trachea is midline, no adenopathy, no JVD, no carotid bruit, no c- spine tenderness, neck with full ROM. CHEST: Symmetric, no tenderness at palpation. LUNGS: Crackles in lungs. No wheezing. CVS: Regular rate and rhythm, S1 and S2 present, no murmurs or gallops appreciated. ABDOMEN: Soft, non-tender. No signs of distention. No rebound, no guarding, and no masses palpated. Bowel sounds are normal. EXTREMITIES: FROM in all major joints, no edema, no cyanosis or clubbing. NEURO: Alert but not oriented. No acute neurological deficits. Speech is normal and follows commands. SKIN: Dry and warm. GCS: 11 (see scale). Triage Information Reviewed: Yes Vital Signs Reviewed: Yes Completion Of Physical Exam Limited Due To: Level 5 - patient is nonverbal - Carlos Coma Scale Best Eye Response: 3 - To Speech Best Motor Response: 5 - Purposeful Movement Best Verbal Response: 3 - Inappropriate Words Coma Scale Total: 11 Procedures - Sedation Patient Received Moderate/Deep Sedation with Procedure: No Diagnostics - Laboratory Result Diagrams: 09/22/19 14:08 09/22/19 14:08 Lab Statement: Any lab studies that have been ordered have been reviewed, and results considered in the medical decision making process. - Radiology Chest X-Ray Radiology Interpretation Completed By: Radiologist Summary of Radiographic Findings: Impression: Low lung volumes, small left basilar infiltrate. ED physician has reviewed this report. - CT Brain CT CT Interpretation Completed By: Radiologist Summary of CT Findings: Impression: Low lung volumes, small left basilar infiltrate. ED physician has reviewed this report. - EKG 1354 Cardiac Rate: NL - 89 BPM EKG Rhythm: Sinus Rhythm Summary of EKG Findings: EKG at 1354 reveals normal sinus rhythm at [address] elevations. ED physician has reviewed and interpreted this EKG. Re-Evaluation - Re-Evaluation First Eval Re-Evaluation Time: 16:10 Comment: The patient's family, which consists of two brothers and two sisters, are present in the room. They have decided that he will be on comfort acre. They do not want any medications except for D5W 150ccs an hour and pain medications to keep him comfortable. Dr. Leonard and Dr. Dao are present, and they agree with the decision from the family. Altered Mental Statu Course/Dx - Course Assessment/Plan: Patient is a 64-year-old male who presents to the emergency department via ambulance with a chief complaint of hypotension, lethargy, and weakness. Unable to obtain any history from the patient. Dr. Castillo, the patient s primary care physician, reported that the patient is coming for the above symptoms, and she reports that the patient is in multiorgan failure and that he is dying. However the patient is not DNR/DNI. Patients past medical history significant for: Chronic kidney disease, Altered mental status, Intellectual disability, Nephrogenic diabetes insipidus, Bulpitt toxicity, Schizophrenia, Bipolar disorder, Hypokalemia, Hypernatremia, UTI. GI bleed. Chest x-ray impression: Low lung volumes, small left basilar infiltrate. Head CT impression : No acute intracranial abnormality. Blood work: CBC: WBCs 35, hemoglobin 12.5, hematocrit 41, and platelets 650. There is a positive left shift. CMP: Sodium 159, potassium of 6.4, chloride 126, carbon dioxide of 19, anion gap 24, BUN 205 , creatinine 7.2, glucose 231, lactic acid 2.8, calcium 10.6, magnesium 4.6, troponin 0.05. In the ED course the patient was given at least 2 L of IV fluids since the patient seems to be significantly dehydrated. He was placed on Rocephin for the pneumonia. I discussed the case with Dr. Castle from the ICU , and he agrees to the patient should be admitted to the hospital services. I discussed the case with Dr. Dao from nephrology, and she recommends for the patient to be transferred to another hospital for pulmonary emergency dialysis. Dr. Unger patients primary care physician is here in the hospital, and she is talking to both brothers and both sisters about the patients prognosis. Dr. Dao was also present in this discussion, and all of the family members are in agreement that the patient should be on comfort care. They do not want any treatments at this time. All family members are in agreement that they want to keep the patient comfortable. At this time, I discussed the case and the decisions with Dr. Kirkpatrick from the hospital services , and she agrees to admit the patient to her services. - Diagnoses Provider Diagnoses: Acute on chronic renal failure, Severe dehydration, Hypernatremia, Hyperkalemia , Pneumonia, Need for comfort care - Provider Notifications Discussed Care Of Patient With: Alyx Dao - nephrology Time Discussed With Above Provider: 15:55 Instructed by Provider To: Other - I spoke with Dr. Rolon from ICU and he recommends admission, but states that nephrology should be consulted. I discussed the patient's case with Dr. Dao concerning the patient's case, and she states the patient may need to be transferred, but she will see the patient in the ED. We spoke with the patient's family along with Dr. Leonard, and we agree with plan for admission. Dr. Kirkpatrick, hospitalist, accepts the patient for admission at 1620. Discharge ED - Sign-Out/Discharge Documenting (check all that apply): Patient Departure - Patient accepted for admission by Dr. Kirkpatrick. - Discharge Plan Condition: Stable Disposition: ADMITTED TO [facility] - Billing Disposition and Condition Condition: STABLE Disposition: Admitted to [facility] - Attestation Statements Document Initiated by Saige: Yes Documenting Scribe: Muriel Varela Provider For Whom Saige is Documenting (Include Credential): Dr. Abdi Gibson MD Scribe Attestation: Muriel Wilson scribed for Dr. Abdi Gibson MD on 09/22/19 at 1815. Scribe Documentation Reviewed: Yes Provider Attestation: The documentation as recorded by the Muriel jules accurately reflects the service I personally performed and the decisions made by me, Dr. Abdi Gibson MD Status of Scribe Document: Viewed
--- OUTSIDE RECORDS SUMMARY | 2019-09-22 13:28 | XMS REPORT ---
:1955 Author Organization [facility] Care Team Providers Name Role Phone Unavailable Unavailable Unavailable Problems This patient has no known problems. Allergies, Adverse Reactions, Alerts Allergy Allergy Status Severity Reaction(s) Onset Inactive Treating Comments Name Type Date Date Clinician Unknown None Active Unknown None Unknown No Known Allergies For This Patient Medications Ordered Filled Start Stop Current Ordering Indication Dosage Frequency Signature Comments Components Medication Medication Date Date Medication? Clinician (SIG) Name Name No Known No Known No None None None Medications Medications For This For This Patient Patient Procedures This patient has no known procedures. Results This patient has no known results.
--- OUTSIDE RECORDS SUMMARY | 2019-09-22 13:29 | XMS REPORT | Continuity of Care Document ---
:1955 External Reference #:[id number] Author Name Vinod Stone M.D. (transmitted by agent of provider Rachana Marquez) Address [address] [place] [address] Problems Description No Information Available Social History [...] Shrimp 08/14/2019 Grass, Ragweed, Trees, Dust Mites, [place]. 08/14/2019 Medications Active Medications SIG Qnty Indications Ordering Date Provider Amlodipine Besylate 1 tab by mouth once 90tabs T56.891A Mohammad A. 2018 5mg day MD Kadeem Tablets Acetaminophen [...] everyday. Finasteride 1 a day Unknown Ipratropium [place] 0.06 percent, Unknown inhale 2 sprays each nostril 4 times a day Haloperidol 1 tab by mouth Unknown 5mg Tablets three times a day as needed Olanzapine 15 mg. 1, 2 times a Unknown day Banophen 25 mg 1 cap by Unknown mouth 3 times a day Benztropine Mesylate 1 mg, 1 tab by Unknown mouth twice a day. [place] Carbonate 150 mg, 1 cap by Unknown [...] % BldC Oximetry 99 % Results Test Acquired Date Facility Test Result H/L Range Note Neph Routine 08/13/2019 [facility] Total Protein 17 mg/dL 1 , [address] [place] [address] [phone] Creatinine Random Urine 56.95 mg/dL 3 Urinalysis Profile 08/13/2019 [facility] Urine Color Yellow [address] [place] [address] [phone] Urine Appearance Clear Urine Specific [place] 1.010 Normal 1.010-1.030 Urine pH 7.0 Normal [...] Present Abnormal Absent Urine Culture And 08/13/2019 [facility] Urine SEE RESULT [address] [place] [address] [phone] Comp Metabolic 08/13/2019 [facility] Sodium 138 mmol/L Normal 135-[address] [place] [address] [phone] Chloride 110 mmol/L Normal 101-111 Co2 Carbon [...] 4 mmol/L Normal 2-11 CBC Auto 08/13/2019 [facility] White Blood 17.4 10^3/uL High 3.5-10.[address] [place] [address] [phone] Red Blood Count 3.60 10^6/uL Low 4.18-5.48 [...] Nucleated Red Blood Cells % 0.1 1 [id number] 2 [id number] 3 [id number] 4 SEE RESULT BELOW Name: DEBO MCKOY : [address]: Emily Quan MD Acct: [id number] Unit: [id number] AGE: 64 Location: [facility] Re08/13/19 SEX: M Status: REG REF SPEC: [id number] SUKH: 08/13/19-[address] [facility] [address]: Emily Quan MD REQ: [id number] RECD: 08/13/19 STATUS: COMP _ SOURCE: URINE SPDESC: ORDERED: Urine Culture Procedure Result Reported Site Urine Culture Final 08/14/19- 1616 ML No Growth (<1,000 CFU/mL) * ML - Main Lab . END OF REPORT DEPARTMENT OF PATHOLOGY, [address] [place] [address] aMlvin Garay M.D. Director [facility] # [id number] 5 Because ethnic data is not always [...] 5 Kidney failure <15 (or dialysis) Procedures Date Code Description Status 09/10/2019 84621 EKG, Interpretation Only Completed 09/09/2019 12638 EKG, Interpretation Only Completed 09/08/2019 17523 EKG, Interpretation Only Completed 08/31/2019 47142 EKG, Interpretation Only Completed 08/26/2019 59601 EKG, Interpretation Only Completed 08/25/2019 03312 EKG, Interpretation Only Completed 08/24/2019 37401 EKG, Interpretation Only Completed 08/23/2019 31177 EKG, Interpretation Only Completed 08/22/2019 97284 EKG, Interpretation Only Completed 08/21/2019 59774 EKG, Interpretation Only Completed 08/20/2019 60830 EKG, Interpretation Only Completed 07/30/2019 54117 EKG, Interpretation Only Completed Medical Devices Description No Information Available Encounters Type Date Location Provider Dx Diagnosis Office Visit 09/02/2019 [facility] N17.9 Acute kidney 10:58a MD Kadeem failure, unspecified N18.9 Chronic kidney disease, unspecified Office Visit 09/01/2019 11:30a [facility] Wing N17.9 Acute kidney MD Kadeem failure, unspecified N18.9 Chronic kidney disease, unspecified E86.0 Dehydration Office Visit 08/31/2019 1:39p [facility] N17.9 Acute kidney MD Kadeem failure, unspecified N18.3 Chronic kidney disease, stage 3 (moderate) E87.5 Hyperkalemia R45.6 Violent behavior Office Visit 08/20/2019 10:54a [facility] Nephgretchen Wisdom N17.9 Acute kidney MD Sylwia failure, unspecified N18.9 Chronic kidney disease, unspecified R33.9 Retention of urine, unspecified Office Visit 08/14/2019 9:30a [facility] Nephrology Emily Wing I12.9 Hypertensive MD Kadeem chronic kidney disease w stg 1-4/unsp chr kdny N18.4 Chronic kidney disease, stage 4 (severe) T56.891A Toxic effect of oth metals, accidental (unintentional), init N17.9 Acute kidney failure, unspecified E87.5 Hyperkalemia I10 Essential (primary) hypertension Office Visit 08/13/2019 [facility] Faye D72.829 Elevated white 9:03a Assoc,anupama Duarte, [employer] blood cell Hospitalists count, unspecified H60.11 Cellulitis of right external ear R33.9 Retention of urine, unspecified Office Visit 08/04/2019 10:11a [facility] Pam Johnson, R33.9 Retention of anupama Salinas MD urine, unspecified Hospitalists R45.1 Restlessness and agitation D72.829 Elevated white blood cell count, unspecified F84.0 Autistic disorder F31.9 Bipolar disorder, unspecified F20.9 Schizophrenia, unspecified K21.9 Gastro-esophageal reflux disease without esophagitis F63.9 Impulse disorder, unspecified N18.9 Chronic kidney disease, unspecified Office Visit 08/03/2019 10:10a [facility] Pam Johnson, R33.9 Retention of anupama Salinas MD urine, unspecified Hospitalists D72.829 Elevated white blood cell count, unspecified Office Visit 08/02/2019 10:10a [facility] Giovanni R33.9 Retention of Assoc,anupama Salinas M.D. urine, Hospitalists unspecified D72.829 Elevated white blood cell count, unspecified Office Visit 08/01/2019 10:09a [facility] Giovanni R31.9 Hematuria, Assoc,anupama Salinas M.D. unspecified Hospitalists D72.829 Elevated white blood cell count, unspecified R41.82 Altered mental status, unspecified R33.9 Retention of urine, unspecified Z96.0 Presence of urogenital implants Office Visit 07/31/2019 10:09a [facility] Maricel Davila R31.9 Hematuria, Assoc,anupama Salinas M.D. unspecified Hospitalists D72.829 Elevated white blood cell count, unspecified R41.82 Altered mental status, unspecified R33.9 Retention of urine, unspecified Z96.0 Presence of urogenital implants Office Visit 07/30/2019 10:07a [facility] R41.82 Altered mental Assoc,anupama Salinas M.D. status, Hospitalists unspecified R33.9 Retention of urine, unspecified D72.829 Elevated white blood cell count, unspecified R31.0 Gross hematuria Assessments Date Code Description Provider 09/10/2019 R94.31 Abnormal electrocardiogram [ECG] Ravinder Dobbs M.D. [EKG] 09/09/2019 R00.0 Tachycardia, unspecified Ravinder Dobbs M.D. 09/08/2019 R00.0 Tachycardia, unspecified Ravinder Dobbs M.D. 09/02/2019 N17.9 Acute kidney failure, unspecified Emily Quan MD 09/02/2019 N18.9 Chronic kidney disease, unspecified Emily Quan MD 09/01/2019 N17.9 Acute kidney failure, unspecified Emily Quan MD 09/01/2019 N18.9 Chronic kidney disease, unspecified Emily Quan MD 09/01/2019 E86.0 Dehydration Emily Quan MD 08/31/2019 R00.0 Tachycardia, unspecified Isabel Norris M.D. 08/31/2019 N17.9 Acute kidney failure, unspecified Emily Quan MD 08/31/2019 N18.3 Chronic kidney disease, stage 3 Emily Quan MD (moderate) 08/31/2019 E87.5 Hyperkalemia Emily Quan MD 08/31/2019 R45.6 Violent behavior Emily Quan MD 08/26/2019 Z13.6 Encounter for screening for Bola S. Bruce, DO FACC cardiovascular disorders 08/25/2019 Z13.6 Encounter for screening for Bola S. Bruce, DO FACC cardiovascular disorders 08/24/2019 Z13.6 Encounter for screening for Bola S. Bruce, DO FACC cardiovascular disorders 08/23/2019 Z13.6 Encounter for screening for Bola S. Bruce, DO FACC cardiovascular disorders 08/22/2019 Z13.6 Encounter for screening for Bola S. Bruce, DO FACC cardiovascular disorders 08/21/2019 Z13.6 Encounter for screening for Antoine Hughes M.D., cardiovascular disorders [facility] 08/20/2019 Z13.6 Encounter for screening for Antoine Hughes M.D., cardiovascular disorders [facility] 08/20/2019 N17.9 Acute kidney failure, unspecified Alyx Dao MD 08/20/2019 N18.9 Chronic kidney disease, unspecified Alyx Dao MD 08/20/2019 R33.9 Retention of urine, unspecified Alyx Dao MD 08/14/2019 I12.9 Hypertensive chronic kidney disease Emily Quan MD with stage 1 through stage 4 chronic kidney disease, or unspecified chronic kidney disease 08/14/2019 N18.4 Chronic kidney disease, stage 4 Emily Quan MD (severe) 08/14/2019 T56.891A Toxic effect of other metals, Emily Quan MD accidental (unintentional), initial encounter 08/14/2019 N17.9 Acute kidney failure, unspecified Emily Quan MD 08/14/2019 E87.5 Hyperkalemia Emily Quan MD 08/14/2019 I10 Essential (primary) hypertension Emily Quan MD 08/13/2019 D72.829 Elevated white blood cell count, Fayefigueroa Duarte, [employer]ER unspecified 08/13/2019 H60.11 Cellulitis of right external ear Faye Duarte, [employer] TE[employer]ER 08/13/2019 R33.9 Retention of urine, unspecified Faye Duarte, [employer] TE[employer]ER 08/04/2019 R33.9 Retention of urine, unspecified Pam Johnson MD 08/04/2019 R45.1 Restlessness and agitation Pam Johnson MD 08/04/2019 D72.829 Elevated white blood cell count, Pam Johnson MD unspecified 08/04/2019 F84.0 Autistic disorder Pam Johnson MD 08/04/2019 F31.9 Bipolar disorder, unspecified Pam Johnson MD 08/04/2019 F20.9 Schizophrenia, unspecified Pam Johnson MD 08/04/2019 K21.9 Gastro-esophageal reflux disease Pam Johnson MD without esophagitis 08/04/2019 F63.9 Impulse disorder, unspecified Pam [...] of urogenital implants Giovanni Salinas M.D. 07/30/2019 Z13.6 Encounter for screening for Antoine Hughes M.D., cardiovascular disorders [facility] 07/30/2019 R41.82 Altered mental status, unspecified Giovanni Salinas M.D. 07/30/2019 R33.9 Retention of urine, unspecified Giovanni Salinas M.D. 07/30/2019 D72.829 Elevated white blood cell count, Giovanni Salinas M.D. unspecified 07/30/2019 R31.0 Gross hematuria Giovanni Salinas M.D. Plan of Treatment Future Appointment(s):10/14/2019 9:30 am - Emily Quan MD at [facility] Aroewnwpxj81/18/2019 - Emily Quan MDI12.9 Hypertensive chronic kidney disease with stage 1 through stage 4 chronic kidney disease, or unspecified chronic kidney bscgzffM25.4 Chronic kidney disease, stage 4 (severe)T56.891A Toxic effect of other metals, accidental (unintentional), initial encounterNew Medication:Amlodipine Besylate 5 mg - 1 tab by mouth once dayFollow up:2 sat17.9 Acute kidney failure, rhpuzogekbsO79.5 [id number] Essential ( primary) hypertension Functional Status Description No Information Available Mental Status Description No Information Available Referrals Description No Information Available
[2019-09-22] MEDS ORDERED: cefTRIAXone(*) 1 GM in NS 0.9% 50 ML* 50 ML IVPB ONE (14:22)
[2019-09-22 14:24] LABS: Hematocrit 41 % (42-52); Hemoglobin 12.5 g/dL (14.0-18.0); Mean Corpuscular HGB Conc 31 g/dL (31-36); Mean Corpuscular Hemoglobin 31 pg (27-31); Mean Corpuscular Volume 101 fL (80-94); Mean Platelet Volume 8.7 fL (7.4-10.4); Platelet Count 650 10^3/uL (150-450); Red Blood Count 4.02 10^6 /uL (4.18-5.48); Red Cell Distribution Width 17 % (10-15)
[2019-09-22 14:39] LABS: INR 1.31 (0.82-1.09)
[2019-09-22 14:40] LABS: ABS Basophils 0.2 10^3/ul (0-0.2); ABS Lymphocytes 0.5 10^3/ul (1.0-4.8); ABS Monocytes 1.4 10^3/ul (0-0.8); Lymphocyte % 1.5 %
[2019-09-22 14:57] LABS: Troponin I 0.05 ng/mL (<0.03)
[2019-09-22 14:58] LABS: Alcohol < 10 mg/dL (<10); Salicylate < 2.50 mg/dL (<30)
[2019-09-22 14:59] LABS: ALT 13 U/L (7-52); AST 14 U/L (13-39); Albumin 3.6 g/dL (3.2-5.2); Albumin/Globulin Ratio 0.9 (1-3); Alkaline Phosphatase 134 U/L (34-104); Calcium 10.6 mg/dL (8.6-10.3); Creatine Kinase 98 U/L (10-223); EGFR African American 9.3 (>60); EGFR Non-African American 7.7 (>60); Glucose 231 mg/dL (70-100); Total Protein 7.6 g/dL (6.4-8.9)
[2019-09-22 15:34] LABS: Anion Gap 24 mmol/L (2-11); BUN/Creatinine Ratio 28.5 (8-20); Blood Urea Nitrogen 205 mg/dL (6-24); Chloride 126 mmol/L (101-111)
[2019-09-22] MEDS ORDERED: Dextrose 50% Syringe 50 ML* 25 GM/50 ML SYRINGE IV PUSH ONE (15:35)
[2019-09-22] MEDS ORDERED: Insulin REGULAR(*) 1 UNITS UNIT IV PUSH ONE (15:35)
[2019-09-22] MEDS ORDERED: Calcium Gluconate INJ* 1 GM in NS 0.9% 100 ML* 100 ML IVPB ONE (15:36)
[2019-09-22 16:02] LABS: Acetaminophen < 15 mcg/mL
[2019-09-22 16:23] LABS: CO2 Carbon Dioxide 9 mmol/L (22-32); Magnesium 4.6 mg/dL (1.9-2.7); Potassium 6.4 mmol/L (3.5-5.0); Sodium 159 mmol/L (135-145)
[2019-09-22] MEDS ORDERED: Dextrose 50% VIAL 50 ml IV ONE (16:30)
[2019-09-22] MEDS ORDERED: Morphine INJ* 2 MG/ML 1 ML SYRINGE (TWO MG - NEW SYRINGE VERSION) IV PRN (16:50)
[2019-09-22] MEDS ORDERED: Lorazepam PYXIS KEY PRN (16:54)
[2019-09-22] MEDS ORDERED: Atropine 1% (ORAL/SL)* 15 ML BTL SL PRN (16:58)
[2019-09-22] MEDS ORDERED: D5W 500 ML BAG* 500 ML IV SCH (17:00)
[2019-09-22] MEDS: LORazepam INJ* 2 MG/ML 1 ML VIAL IV PUSH PRN ×3 (17:13→23:06)
[2019-09-22] MEDS ORDERED: D5W 1000 ML BAG* 500 ML IV SCH (17:19)
[2019-09-22] MEDS ORDERED: D5W 1000 ML BAG* 500 ML IV ONE (17:25)
[2019-09-22] MEDS: Morphine INJ* 2 MG/ML 1 ML SYRINGE (TWO MG - NEW SYRINGE VERSION) IV PRN ×2 (17:31→21:42)
[2019-09-22 19:00] VITALS: BP 121/63
--- NOTE | 2019-09-22 20:33 | HP ---
CC: Maine Guerra MD * HISTORY AND PHYSICAL: DATE OF ADMISSION: PRIMARY CARE PHYSICIAN: Maine Guerra MD HEALTHCARE PROXY: Lalo, his brother, phone number [phone]. CODE STATUS: DNR/DNI. CHIEF COMPLAINT: Unresponsiveness and hypotension. HISTORY OF PRESENT ILLNESS: Mr. Mckoy is a 64-year-old man with nephrogenic diabetes insipidus, CKD, schizoaffective disorder, previously on long-term lithium, intellectual delay, who was recently admitted from 08/20/19 to 09/17/19 , for lithium toxicity, UTI, urinary retention, self-injurious behavior. After the patient was discharged 5 days ago, his family reports that he was "out of it." They state that he frequently had a vacant stare and did not respond to others around him. He had no appetite since discharge and has had very poor p.o. intake. His blood pressure throughout this time remained normal. One family member reports that today, the patient reported that he was even more "out of it", and on blood pressure check, his reading was 60/42, so that family member called EMS to take the patient to the hospital. Of note upon conversation with family and PCP at bedside, it appears that the patient has had significant decline in his health after stopping lithium, which was causing him to have acute kidney injury on top of his chronic kidney disease in the setting of nephrogenic diabetes insipidus. Without being treated with lithium, the patient's behavior changed. He became progressively more violent, agitated, and exhibited self-injurious behavior. Family and primary care physician felt that the patient was having poor quality of life from recent acuity of his chronic medical issues. He had significant distress during last hospitalization and they preferred to begin focussing on the patient 's quality of life at this time and are interested in pursuing comfort measures only. Decision made with family and PCP to pursue comfort measures in hospital with plan for hospice on discharge. MOLST form has been filled out and is scanned in the chart. PAST MEDICAL HISTORY: 1. Schizoaffective disorder. 2. Intellectual disability and autism. 3. History of self-injurious behavior. 4. Chronic kidney disease with recent admission for LIONEL. 5. Diabetes insipidus. MEDICATIONS: Home medications from last discharge, although the patient has not been able to take his medicines. 1. Trazodone 100 mg at bedtime as needed for anxiety. 2. Amlodipine 5 mg nightly. 3. Zoloft 100 mg daily. 4. Finasteride 5 mg daily. 5. Ipratropium nasal spray 4 times a day. 6. Alfuzosin 10 mg daily. 7. Ranitidine 150 mg twice a day. 8. Synthroid 75 mcg daily. 9. Amiloride 5 mg daily. 10. Hydrochlorothiazide 50 mg daily. 11. Pantoprazole 40 mg daily. 12. Paliperidone 6 mg daily. 13. Olanzapine 15 mg twice a day. 14. Naltrexone 50 mg daily. 15. Depakote 750 mg twice a day. 16. Acetylcysteine 600 mg twice a day. ALLERGIES: PEANUT and SHRIMP causing anaphylactic shock. The patient also has allergies to TAMSULOSIN, SHELLFISH, PERMETHRIN, EGG, and INFLUENZA VACCINE with unknown reaction. FAMILY HISTORY: No cancer or genetic disease. SOCIAL HISTORY: Obtained from chart. No history of tobacco, alcohol, or other drugs. The patient has been living in a prison. Surrogate decision maker is his brother, Lalo. He is DNR/DNI. REVIEW OF SYSTEMS: Unable to be performed as the patient is nonverbal. PHYSICAL EXAMINATION GENERAL: He is a cachectic, terminally ill-appearing man, in no acute distress , lying in bed unresponsive, although occasionally moans to loud voice. VITAL SIGNS: Temperature 96.2, heart rate 79, blood pressure 103/60, respiratory rate 17, oxygen saturation 100% on room air. HEENT: Dry mucous membranes. NECK: Supple. No JVD. LUNGS: Clear to auscultation anteriorly. HEART: Regular rate and rhythm. No murmurs, gallops or rubs. ABDOMEN: Soft. No grimace to palpation. EXTREMITIES: Warm and well perfused without edema. NEURO: The patient is unresponsive. Eyes open, staring out. PERRL. The patient does not blink to rapid movement near eyes. Cannot squeeze hand. No spontaneous movement. DIAGNOSTIC STUDIES/LAB DATA: CBC significant for WBC 35 with mild anemia and platelet count 650. There is a neutrophil predominance 94%. INR 1.3. Chemistry with sodium 159, potassium 6.4, chloride 126, carbon dioxide 9, anion gap 24. BUN/creatinine 205/7.2. Lactic acid 2.8. Magnesium 4.6 and calcium 10.6. Troponin 0.05. Brain CT without acute intracranial abnormality. Chest x-ray: Low lung volumes, small left basilar infiltrate. ASSESSMENT AND PLAN: Mr. Mckoy is a 64-year-old man with intellectual disability and autism, schizoaffective disorder, previously on lithium complicated by nephrogenic diabetes insipidus with recent admission for acute kidney injury with chronic kidney disease, who was presenting from home with subacute unresponsiveness, lethargy, and hypotension. He is found to be in acute renal failure and likely metabolic acidosis, likely in the setting of recent acute illnesses and poor p.o. intake. 1. Lethargy, unresponsiveness, and hypotension in the setting of renal failure. Given the patient's significant electrolyte abnormalities that are incompatible with life, dialysis had been discussed with family and they declined aggressive medical interventions given the patient's recent prolonged stay in the hospital causing significant distress. After discussion with geographic information systems director, the patients' primary care physician, the patient's family, and his psychologist, the decision was made that it would be the patient's best wishes to pursue quality measures only with an admission for comfort care with plan to discharge with home hospice. The patient's family was interested in pursuing this plan and did not want the patient transferred for dialysis or to the ICU. He will be given morphine as needed for pain with Ativan for anxiety or agitation. Family is interested in giving him small amounts of IV fluids while he is in the hospital, so I will continue to D5 at 100 cc an hour. We will get in touch with social work and palliative care team for help setting the patient up with outpatient hospice services. 2. DVT prophylaxis not indicated given the patient is end of life. 3. Code status. DNR/DNI with comfort measures only. TIME SPENT: Approximately 60 minutes was spent on admission of this patient, more than half of which was spent at bedside for interview, exam, and conversation with family and primary care physician. [id number]/[facility] #: [id number] PENNY
--- NOTE | 2019-09-22 20:33 | CONS ---
CONSULTATION REPORT: DATE OF CONSULT: 09/22/19 REQUESTING PHYSICIAN: Dr. Gibson. REASON FOR CONSULT: Hyperkalemia, LIONEL on CKD. HISTORY OF PRESENT ILLNESS: A 64-year-old patient known to our practice with developmental delay and chronic lithium use, diabetes insipidus from lithium use , CKD from prior lithium use with recent hospitalization, here for further evaluation. At the time of evaluation, the patient not doing well. The patient noted to have a potassium of 6.4, bicarb of only 9, BUN of 205, and creatinine of 7.2. The patient was recently hospitalized for prolonged periods from 08/20/19 to 09/17/19 for almost a month when he had lithium toxicity, UTI, GI bleed, significant worsening in his behavior, and multiple evaluations for LIONEL on CKD where he would get extremely dehydrated from not eating and drinking from his behavioral decline. Recently, his creatinine would worsen to the 3 to 4 range and his sodium would go up in the setting of his diabetes insipidus and would correct with hydration back to his baseline CKD 4 range. At this time, however, the patient is not very responsive. He has had significant behavioral decline over the last month and in critical situation currently with hyperkalemia, hypernatremia, and significant renal dysfunction. The patient also noted to be hypermagnesemic with a magnesium level of 4.6. PAST MEDICAL HISTORY: 1. Thyroid disease. 2. Hypertension. 3. Schizophrenia. 4. History of violent episodes against others recently. 5. Diabetes insipidus. 6. Chronic kidney disease. 7. Autism. MEDICATIONS: 1. Aripiprazole 400 mg IM monthly. 2. Bacitracin ointment b.i.d. 3. Cogentin 1 mg p.o. b.i.d. p.r.n. 4. Chlorhexidine mouthwash. 5. Fexofenadine 180 mg daily. 6. Haldol 5 mg p.o. b.i.d. p.r.n. 7. Choudrant 150 mg p.o. b.i.d. 8. Losartan 25 mg p.o. daily. 9. Mupirocin 1 application topical b.i.d. 10. Simethicone 125 mg p.o. t.i.d. 11. Triamcinolone 2 sprays to both nares at bedtime. 12. Clonazepam 0.5 mg p.o. b.i.d. 13. Benadryl 50 mg p.o. t.i.d. SOCIAL HISTORY: The patient lives in retirement. Does not drink. Does not smoke. Family at bedside. REVIEW OF SYSTEMS: Unable to obtain at this time with the patient in his deconditioned status. PHYSICAL EXAM: Vitals: Temperature 96.2, heart rate 79, respiratory rate 16, blood pressure 103/60. HEENT: NC/AT. Also, note extremely dry mucous membranes. Heart: S1, S2 present. Tachycardic. Lungs: Clear to auscultation. Abdomen: Soft. Nontender. Extremities: Noted to have no edema. LABORATORY DATA: Sodium 159, potassium 6.4, chloride 126, bicarb 9, BUN 205, creatinine 7.2, lactic acid 2.8, magnesium 4.6. Troponin 0.05, WBC 35, hemoglobin 12.5, hematocrit 41, platelets noted to be 650. ASSESSMENT AND PLAN: A 64-year-old male with history of developmental disability, bipolar and schizophrenia disorder, on chronic lithium use, here in critical condition with significant decompensation in his condition. 1. Acute kidney injury on chronic kidney disease with significant decompensation with hyperkalemia acidosis and uremia. The patient's BUN noted to be significantly elevated. The patient also appears significantly dehydrated clinically. The patient has had multiple relapses of acute kidney injury in the setting of poor p.o. intake. The patient has also significantly declined in the last 2 to 3 months with significant worsening in his mental status, behavior, and overall clinical condition. Had a detailed family discussion with family at bedside as his brothers and family members have been significantly involved in the patient's care and his primary care doctor, Dr. Tyrese Corey, at bedside as well, who has been caring for the patient for a very long time. 2. As his prognosis is extremely poor with his severe acute kidney injury and multiple lab indices indicative of critical condition with acute decline and possible in the next 24 to 48 hours, it would be maybe futile to pursue further care. Also, the patient had suffered significantly in the last couple of months with prolonged hospitalization, and after discussion with his family and his primary care physician, they have decided to keep him DNR/DNI with further input from the state and pursue hospice/comfort care. In the interim, they do not want dialysis at this time and do not want him to be transferred to another hospital, as we do not have acute dialysis available tonight. They want to pursue comfort care and this seems the most appropriate and kind thing to do for the patient to reduce his suffering. 3. In the meantime, until everything is finalized, we will continue supportive therapy with no aggressive measures. We will continue IV hydration and will also keep the patient comfortable in the hospital and evaluate his kidney function through his hospital stay. 4. Hyperkalemia. Recommend giving a dose of Veltassa. 5. Recommend continuing low-dose IV fluids with 3 amps of bicarb in a liter of D5W and running at 75 to 100 cc an hour for now until the decision can be finalized, but the family does not want any aggressive measures and want to pursue comfort care hospice and/or in the process of completing the DNR paperwork with his primary care doctor and medical team. 6. We will follow with the medical team. [id number]/[facility] #: [id number] PENNY
[2019-09-23] MEDS: LORazepam INJ* 2 MG/ML 1 ML VIAL IV PUSH PRN ×11 (01:12→22:11)
[2019-09-23] MEDS: Morphine INJ* 2 MG/ML 1 ML SYRINGE (TWO MG - NEW SYRINGE VERSION) IV PRN ×2 (01:46→05:47)
--- NOTE | 2019-09-23 07:29 | PN ---
Subjective Date of Service: 09/23/19 Interval History: No acute events overnight. Patient admitted yesterday evening under Comfort Measures Only. Will explore with case management options for home with hospice. Multiple family members at bedside this morning. They think patient's symptoms have been well-controlled with IV medications. Will switch morphine to SL and monitor response. Objective Active Medications: Atropine Sulfate (Atropine 1% (Oral/Sl)*) 2 drop SL Q2H PRN PRN Reason: secretions Lorazepam (Ativan Inj*) 1 mg IV PUSH Q2H PRN PRN Reason: Anxiety/Agitation Last Admin: 09/23/19 07:21 Dose: 1 mg Miscellaneous (Ativan Pyxis Severino) 1 ea N/A .ATIVAN IV SEVERINO PRN PRN Reason: PYXIS SEVERINO Morphine Sulfate (Morphine Inj (Syringe))*) 2 mg IV Q4H PRN PRN Reason: Pain - Mild to Severe Last Admin: 09/23/19 05:47 Dose: 2 mg Vital Signs - 8 hr 09/23/19 09/23/19 09/23/19 00:15 01:12 01:46 Respiratory 24 21 24 Rate 09/23/19 09/23/19 09/23/19 02:20 03:05 03:16 Respiratory 211 21 21 Rate 09/23/19 09/23/19 09/23/19 04:24 05:20 05:47 Respiratory 20 26 24 Rate 09/23/19 09/23/19 09/23/19 06:29 07:15 07:21 Respiratory 20 22 24 Rate Oxygen Devices in Use Now: None Appearance: cachectic frail man in NAD Ears/Nose/Mouth/Throat: - - dry mm Respiratory: - - remainder of exam deferred for patient comfort Result Diagrams: 09/22/19 14:08 09/22/19 14:08 Assess/Plan/Problems-Billing Assessment: 64M with intellectual disability, bipolar with history of long-term lithium use c/b diabetes insipidus, with recent hospitalization for LIONEL and UTI and worsening behavioral disturbance, presents unresponsive and hypotensive. Found with significant electrolyte abnormalities, with family and PCP expressing desire to avoid aggressive measures (urgent dialysis, ICU). Patient is now LIFEGUARD. - Patient Problems (1) Renal failure Current Visit: Yes Status: Acute Comment: Patient is with multiple lab values that are incompatible with life. His prognosis is poor. Family is interested in pursuing comfort measures only. Will discuss discharge options with SW/CM team. Appreciate renal input. PCP is very involved. - morphine SL q2h prn pain/dyspnea - atropine drops prn secretions - lorazepam prn agitation/anxiety - Comfort Care (2) DNR (do not resuscitate) Current Visit: Yes Status: Acute
[2019-09-23] MEDS: Morphine ORAL CONCENTRATE* 5 MG/0.25 ML ORAL.SYRIN SL PRN ×6 (09:34→23:05)
[2019-09-24] MEDS: Morphine ORAL CONCENTRATE* 5 MG/0.25 ML ORAL.SYRIN SL PRN ×4 (01:32→08:42)
[2019-09-24] MEDS: LORazepam INJ* 2 MG/ML 1 ML VIAL IV PUSH PRN ×5 (02:30→08:43)
--- NOTE | 2019-09-24 08:48 | PN ---
Subjective Date of Service: 09/24/19 Objective Active Medications: Atropine Sulfate (Atropine 1% (Oral/Sl)*) 2 drop SL Q2H PRN PRN Reason: secretions Lorazepam (Ativan Inj*) 1 mg IV PUSH Q2H PRN PRN Reason: Anxiety/Agitation Last Admin: 09/24/19 06:32 Dose: 1 mg Miscellaneous (Ativan Pyxis Severino) 1 ea N/A .ATIVAN IV SEVERINO PRN PRN Reason: PYXIS SEVERINO Morphine Sulfate (Morphine Oral Concentrate*) 5 mg SL Q2H PRN PRN Reason: pain or dyspnea Last Admin: 09/24/19 05:40 Dose: 5 mg Vital Signs - 8 hr 09/24/19 09/24/19 09/24/19 01:00 01:32 02:30 Respiratory 24 24 24 Rate 09/24/19 09/24/19 09/24/19 03:05 03:27 03:30 Respiratory 28 28 28 Rate 09/24/19 09/24/19 09/24/19 04:35 05:20 05:25 Respiratory 27 27 27 Rate 09/24/19 09/24/19 09/24/19 05:40 06:32 08:09 Respiratory 27 28 26 Rate 09/24/19 08:10 Respiratory 26 Rate Oxygen Devices in Use Now: None Appearance: unresponsive, pale, tachypneic but in no distress Ears/Nose/Mouth/Throat: - - dry Respiratory: Symmetrical Chest Expansion and Respiratory Effort Cardiovascular: - - tachycardic Result Diagrams: 09/22/19 14:08 09/22/19 14:08 Microbiology and Other Data: Microbiology 09/22/19 14:07 Aerobic Blood Culture - Preliminary Blood Venous No Growth Day 1 Anaerobic Blood Culture - Preliminary No Growth Day 1 09/22/19 14:15 Aerobic Blood Culture - Preliminary Blood Venous No Growth Day 1 Anaerobic Blood Culture - Preliminary No Growth Day 1 Assess/Plan/Problems-Billing Assessment: 64M with intellectual disability, bipolar with history of long-term lithium use c/b diabetes insipidus, with recent hospitalization for LIONEL and UTI and worsening behavioral disturbance, presents unresponsive and hypotensive. Found with significant electrolyte abnormalities, with family expressing desire to avoid aggressive measures (urgent dialysis, ICU). Patient is now comfort measures only . - Patient Problems (1) End of life care Current Visit: Yes Status: Acute Code(s): Z51.5 - ENCOUNTER FOR PALLIATIVE CARE SNOMED Code(s): 932494064 Comment: continue morphine and ativan, which are controlling symptoms at this time will come back to meet with family today avoiding labs, vitals, etc with focus on comfort
--- NOTE | 2019-09-24 11:32 | DS ---
CC: Dr. Guerra; Dr. Dao * DISCHARGE SUMMARY: DATE OF ADMISSION: 09/22/19 DATE OF : 09/24/19 PRINCIPAL DISCHARGE DIAGNOSES: 1. End of life care. 2. Acute kidney injury on chronic kidney disease. 3. Hyperkalemia. 4. Hypernatremia. 5. Uremia. 6. Acidosis. SECONDARY DISCHARGE DIAGNOSES: 1. History of diabetes insipidus. 2. Schizoaffective disorder. 3. History of self-injurious behavior. BRIEF HOSPITAL COURSE: Mr. Mckoy was a 64-year-old man with a history of chronic kidney disease related to lithium use, who was recently admitted to the hospital from 08/20/19 to 09/17/19 with a complicated course of renal injury related to lithium use and medication titration by Psychiatry. This hospitalization was complicated by urinary retention, fluctuating psychiatric symptoms, upper GI bleed, and a UTI. Please see Rachana Mini's discharge summary from 09/17/19 for description of his prolonged hospital stay at that time. After he was discharged on 09/17/19, he was residing at [facility] and his family noted him to be less responsive than usual. He was hypotensive on the day of admission, so EMS was called and he was brought to the emergency department. At that time, his family described significant decline in his health after the discontinuation of lithium recently. He was noted to have a declining quality of life since his last hospitalization, which was markedly distressing to him and his family. In the emergency department, he was found to have a white blood cell count of 35 ,000, a platelet count of 650,000. Sodium 159, potassium 6.4, bicarbonate 9, and creatinine 7.2. His lactic acid was 2.8, his magnesium was 4.6. At this point, the discussion was had between Dr. Kirkpatrick, Dr. Guerra, and Mr. Mckoy' s family as well as Dr. Dao about the options of emergent dialysis versus comfort measures, and Mr. Mckoy's family opted for comfort measures given his recent decline in quality of life. At this point, Mr. Mckoy was unable to participate in this conversation, but his guardian Lalo made this decision on his behalf. He was admitted for comfort care and was treated with morphine and Ativan, which provided adequate analgesia, no further labs were obtained, and on the morning of 09/24/19, he passed peacefully. TIME OF : 9:35 a.m. [id number]/[facility] #: [id number]
== END 2019-09-24 09:35 | disposition expired | DRG 951 ==
LOC: ED 13:07 → MED 16:50
PROVIDERS: ADMIT Internal Medicine; ATTEND Internal Medicine
DX: Z51.5 Encounter for palliative care (principal); N17.9 Acute kidney failure, unspecified; E87.0 Hyperosmolality and hypernatremia; E87.2 Acidosis; N25.1 Nephrogenic diabetes insipidus; F84.0 Autistic disorder; R64 Cachexia; Z68.1 Body mass index [BMI] 19.9 or less, adult; N18.4 Chronic kidney disease, stage 4 (severe); Z66 Do not resuscitate; F25.9 Schizoaffective disorder, unspecified; E83.41 Hypermagnesemia; I95.9 Hypotension, unspecified; E87.5 Hyperkalemia; I12.9 Hypertensive chronic kidney disease with stage 1 through stage 4 chronic kidney disease, or unspecified chronic kidney disease; E86.0 Dehydration; F79 Unspecified intellectual disabilities; Z79.899 Other long term (current) drug therapy; Z88.7 Allergy status to serum and vaccine; Z88.8 Allergy status to other drugs, medicaments and biological substances; Z91.012 Allergy to eggs; Z91.010 Allergy to peanuts; Z91.013 Allergy to seafood
CPT/HCPCS: 36415; 70450; 71045; 80053; 80320; 80329; 82140; 82550; 82803; 83605; 83735; 84443; 84484; 85025; 85610; 87040; 93005; 96365; 99284; G0480; J0610; J0696; J2060; J2270